=== PATIENT | male | born 1965 | race Caucasian/White ===

== ENCOUNTER 2024-04-06 14:57 | Inpatient (IN) | payer OTHER ==
[2024-04-06] MEDS ORDERED: DEXTROSE 50% SYRINGE 50 ML IVP PRN ×2 (15:30)
[2024-04-06] MEDS ORDERED: Magnesium Replacement Protocol 1 EACH MISC MISCELLANE PRN (15:30)
[2024-04-06] MEDS ORDERED: Potassium Replacement Protocol 1 EACH MISC MISCELLANE PRN (15:30)
--- NOTE | 2024-04-06 15:42 | ED ---
General Adult HPI - General Stated complaint: DKA Time Seen by Provider: 04/06/24 15:00 Source: patient, RN notes reviewed, old records reviewed - History of Present Illness Initial comments: This is a 58-year-old male who presents to the emergency department from [facility]. Patient was sent to us because he was initially brought in for altered mental status and he was found to be in DKA so they gave the patient a liter of fluid and started the patient on insulin and sent the patient to us. Patient's pH was 7.19 and bicarb was 11. Patient is unable to give any history and I am unsure if this is his baseline. - Related Data Home Medications Medication Instructions Recorded Confirmed Atorvastatin [Lipitor] 40 mg PO HS@189904/06/24 04/06/24 Cetirizine HCl [Zyrtec] 10 mg PO DAILY@69904/06/24 04/06/24 Cholecalciferol [Vitamin D3 (125 125 mcg PO HS@189904/06/24 04/06/24 Mcg = 5000 Iu)] Escitalopram [Lexapro] 20 mg PO DAILY@69904/06/24 04/06/24 Famotidine [Pepcid] 20 mg PO BID@1200,1900 PRN 04/06/24 04/06/24 Ferrous Sulfate [Iron] 325 mg PO DAILY@69904/06/24 04/06/24 Fluticasone Nasal [place] [Flonase 2 spray EA NOSTRIL DAILY@69904/06/24 04/06/24 Nasal [place]] Insulin Degludec [Tresiba 28 units SQ DAILY@69904/06/24 04/06/24 Flextouch U-200 Pen] Montelukast [Singulair] 10 mg PO DAILY@69904/06/24 04/06/24 Morphine Sulfate ER [Ms Contin] 60 mg PO BID@0700,189904/06/24 04/06/24 Pantoprazole [Protonix] 40 mg PO DAILY@69904/06/24 04/06/24 clonazePAM [KlonoPIN] 2 mg PO TID@0700,1200,1900 04/06/24 04/06/24 traZODone HCL 300 mg PO HS@189904/06/24 04/06/24 Allergies Allergy/AdvReac Type Severity Reaction Status Date / Time amitriptyline [From Elavil] Allergy Unknown Verified 04/06/24 18:53 oats Allergy Unknown Verified 04/06/24 18:53 pregabalin [From Lyrica] Allergy Unknown Verified 04/06/24 18:53 Fish Containing Products AdvReac Unknown Verified 04/06/24 18:53 [Fish] Penicillins AdvReac Nausea & Verified 04/06/24 18:53 Vomiting eggs AdvReac Unknown Uncoded 04/06/24 18:53 nuts AdvReac Unknown Uncoded 04/06/24 18:53 Review of Systems ROS Statement: Those systems with pertinent positive or pertinent negative responses have been documented in the HPI. ROS Other: All systems not noted in ROS Statement are negative. General Exam - General Exam Comments Initial Comments: GENERAL: Patient is well-developed and well-nourished. Patient is nontoxic and well- hydrated and is in mild distress. ENT: Neck is soft and supple. No significant lymphadenopathy is noted. Oropharynx is clear. Moist mucous membranes. Neck has full range of motion without eliciting any pain. EYES: The sclera were anicteric and conjunctiva were pink and moist. Extraocular movements were intact and pupils were equal round and reactive to light. Eyelids were unremarkable. PULMONARY: Unlabored respirations. Good breath sounds bilaterally. No audible rales rhonchi or wheezing was noted. CARDIOVASCULAR: There is a regular rate and rhythm without any murmurs gallops or rubs. ABDOMEN: Soft and nontender with normal bowel sounds. SKIN: Skin is clear with no lesions or rashes and otherwise unremarkable. NEUROLOGIC: Patient is alert and oriented x 1. Cranial nerves II through XII are grossly intact. Motor and sensory are also intact. Normal speech, volume and content. Symmetrical smile. MUSCULOSKELETAL: Normal extremities with adequate strength and full range of motion. LYMPHATICS: No significant lymphadenopathy is noted PSYCHIATRIC: Unable to secondary to altered mental status Course Vital Signs 04/06/24 04/06/24 15:29 16:42 Temperature 97.9 F Pulse Rate 71 70 Respiratory 18 18 Rate Blood Pressure 93/58 95/58 O2 Sat by Pulse 93 L 96 Oximetry Medical Decision Making - Medical Decision Making Was pt. sent in by a medical professional or institution (, PA, SENIOR TEST ANALYST, urgent c are, hospital, or long term...) When possible be specific @ -Patient came to us from [facility] Did you speak to anyone other than the patient for history (EMS, parent, family, police, friend...)? What history was obtained from this source @ -ER Dr. [facility] sent the patient and spoke with the ER physician at that time Did you review nursing and triage notes (agree or disagree)? Why? @ -I reviewed and agree with nursing and triage notes Were old charts reviewed (outside hosp., previous admission, EMS record, old EKG, old radiological studies, urgent care reports/EKG's, long term records)? Report findings @ -No old charts were reviewed Differential Diagnosis? @ -Differential Altered Mental Status: Hypoglycemia, DKA, hypercapnia, ETOH, overdose, CO poisoning, trauma, myxedema coma, HTN encephalopathy, infection, encephalitis, psychosis, intercranial hemorrhage, hepatic encephalopathy, meningitis, CVA, this is not meant to be an all-inclusive list EKG interpreted by me (3pts min.). @ -As above X-rays interpreted by me (1pt min.). @ -None done CT interpreted by me (1pt min.). @ -None done U/S interpreted by me (1pt. min.). @ -None done What testing was considered but not performed or refused? (CT, X-rays, U/S, labs)? Why? @ -None What meds were considered but not given or refused? Why? @ -None Did you discuss the management of the patient with other professionals ( professionals i.e. , PA, SENIOR TEST ANALYST, lab, RT, psych nurse, rn social work, handcrew foreman, teacher, house officer, supervisor case loading)? Give summary @ -I spoke with , He agreed to admit the patient. Was smoking cessation discussed for >3mins.? @ -No Was critical care preformed (if so, how long)? @ -35 minutes Were there social determinants of health that impacted care today? How? (Homelessness, low income, unemployed, alcoholism, drug addiction, transportation, low edu. Level, literacy, decrease access to med. care, [facility], rehab)? @ -No Was there de-escalation of care discussed even if they declined (Discuss DNR or withdrawal of care, Hospice)? DNR status @ -No What co-morbidities impacted this encounter? (DM, HTN, Smoking, COPD, CAD, Cancer, CVA, ARF, Chemo, Hep., AIDS, mental health diagnosis, sleep apnea, morbid obesity)? @ -None Was patient admitted / discharged? Hospital course, mention meds given and route, prescriptions, significant lab abnormalities, going to OR and other pertinent info. @ -Patient's blood sugar continues to be elevated patient was given more fluid as well as saline drip. Undiagnosed new problem with uncertain prognosis? @ -No Drug Therapy requiring intensive monitoring for toxicity (Heparin, Nitro, Insulin, Cardizem)? @ -No Were any procedures done? @ -No Diagnosis/symptom? @ -DKA Acute, or Chronic, or Acute on Chronic? @ -Acute Uncomplicated (without systemic symptoms) or Complicated (systemic symptoms)? @ -Complicated Side effects of treatment? @ -No Exacerbation, Progression, or Severe Exacerbation? @ -No Poses a threat to life or bodily function? How? (Chest pain, [place], [place], pneumonia, PE, COPD, DKA, ARF, appy, cholecystitis, CVA, Diverticulitis, Homicidal, Suicidal, threat to staff... and all critical care pts) @ -Yes this can lead to severe dehydration morbidity and/or mortality - Lab Data Lab Results 04/06/24 Range/Units 16:48 POC Glucose (mg/dL) 570 H* (70-110) mg/dL POC Glu Repairer Typewriter ID Analy Neri Disposition Clinical Impression: DKA (diabetic ketoacidosis) Disposition: ADMITTED IP TO THIS HOSP Referrals: None,Stated [Primary Care Provider] - 1-2 days Time of Disposition: 19:09
[2024-04-06 16:49] LABS: Glucose,Whole Blood 570 mg/dL (70-110)
[2024-04-06] MEDS: SODIUM CHLORIDE 0.9% 1,000 ML IV ONE (17:08)
[2024-04-06] MEDS: INSULIN REGULAR 100 UNIT in SODIUM CHLORIDE 0.9% 100 ML IV SCH (17:08)
[2024-04-06 19:43] LABS: Glucose,Whole Blood 388 mg/dL (70-110)
[2024-04-06] MEDS: SODIUM CHLORIDE 0.9% 1,000 ML IV SCH (20:15)
[2024-04-06 20:21] LABS: VBG PH 7.26 (7.31-7.41)
[2024-04-06 20:25] LABS: Glucose,Whole Blood 390 mg/dL (70-110)
[2024-04-06 20:34] LABS: African American GFR (CKD) 82 (>60 ml/min/1.73 sqM); Anion Gap 18 mmol/L; Blood Urea Nitrogen 32 mg/dL (9-20); Carbon Dioxide 21 mmol/L (22-30); Chloride 97 mmol/L (98-107); Glucose 402 mg/dL (74-99); Non-African American GFR(CKD) 71 (>60 ml/min/1.73 sqM); Potassium 4.4 mmol/L (3.5-5.1); Sodium 136 mmol/L (137-145)
[2024-04-06 21:27] LABS: Glucose,Whole Blood 314 mg/dL (70-110)
[2024-04-06 22:27] LABS: Glucose,Whole Blood 235 mg/dL (70-110)
[2024-04-06] MEDS: D5-0.45% NACL WITH KCL 20MEQ/L 1,000 ML IV SCH (22:33)
[2024-04-06 23:33] LABS: Glucose,Whole Blood 208 mg/dL (70-110)
[2024-04-07 00:28] LABS: Glucose,Whole Blood 179 mg/dL (70-110)
[2024-04-07 01:28] LABS: African American GFR (CKD) >90 (>60 ml/min/1.73 sqM); Anion Gap 9 mmol/L; Blood Urea Nitrogen 30 mg/dL (9-20); Carbon Dioxide 26 mmol/L (22-30); Chloride 102 mmol/L (98-107); Glucose 158 mg/dL (74-99); Non-African American GFR(CKD) >90 (>60 ml/min/1.73 sqM); Potassium 3.6 mmol/L (3.5-5.1); Sodium 137 mmol/L (137-145)
[2024-04-07 01:36] LABS: Glucose,Whole Blood 157 mg/dL (70-110)
[2024-04-07 02:50] LABS: Glucose,Whole Blood 118 mg/dL (70-110)
[2024-04-07] MEDS: D5-0.45% NACL WITH KCL 20MEQ/L 1,000 ML IV SCH ×2 (03:19→12:00)
[2024-04-07 07:38] LABS: Glucose,Whole Blood 356 mg/dL (70-110)
[2024-04-07] MEDS: LORATADINE 10 MG TAB PO SCH (07:43)
[2024-04-07] MEDS: MONTELUKAST 10 MG TAB PO SCH (07:43)
[2024-04-07] MEDS: PANTOPRAZOLE 40 MG TABLET PO SCH (07:43)
[2024-04-07] MEDS: INSULIN ASPART (NovoLOG) 100 UNIT/ML VIAL SQ SCH (07:44)
[2024-04-07] MEDS: ESCITALOPRAM 20 MG TAB PO SCH (08:13)
[2024-04-07] MEDS: clonazePAM 1 MG TAB PO SCH (08:18)
[2024-04-07] MEDS: FLUTICASONE NASAL 50MCG/SPRAY 16GM BTL EA NOSTRIL SCH (08:18)
[2024-04-07 08:41] LABS: Glucose,Whole Blood 337 mg/dL (70-110)
--- NOTE | 2024-04-07 08:57 | P.HPIM ---
History of Present Illness This is a pleasant 58 years old male with past medical history as below Patient was transferred from [facility] and per records patient was confused x 3 days he is diabetic and he has a visiting nurse for his infusion Patient was diagnosed with DKA and he was placed on insulin drip and IV fluid Per note patient was alert but slow to respond. Also with multiple wounds on the heel, shins with no active infection Patient currently is awake alert oriented to time place and person. He is slow to respond. He says he came from adult foster care. Patient states that he was able to walk about 1 to 2 weeks ago when I told him it looks like he has pressure ulcers in his legs he said I do not know. He complains from weakness in both lower extremities, left more than right. Also complains from generalized weakness but no double vision or slurred speech. He has PICC line in his right upper extremity, as per patient he has it for 9 days and he was getting antibiotics but he does not know for what exactly. Patient states that he was on Klonopin for many years for history of seizure. He is currently 2 mg 3 times daily. Also he is on morphine 60 mg twice daily and trazodone. Patient currently denies chest pain or dyspnea, no abdominal pain or vomiting or diarrhea. No dysuria but complains from incontinence in his urine. No headache or dizziness. He said he used to smoke till 1 week ago about 5 cigarettes/day and he was counseled to quit and he agrees. No alcohol or illicit drugs Currently vital stable and patient is afebrile Records from [place] reviewed EKG showing sinus rhythm at [address]-T abnormality especially in V3-V6. Repeat EKG in this facility showing sinus rhythm at [address]-T abnormality as well. Influenza A and type B, RSV, SARS (coronavirus) are undetected Magnesium 1.8, troponin 5.1 with reference 0-17.5. WBC is 13.5, hemoglobin 11.9. Platelet normal 246. Venous pH is low 7.19 Glucose elevated 604. Creatinine 1.5. Repeat creatinine here is within reference range 0.9 potassium 4.6. Sodium 130 AST is 10, ALT 12, total bilirubin 0.6. CT of the head without contrast showing unremarkable findings with minimal internal carotid artery calcification Chest x-ray 2 view: Chronic changes versus very small acute process Blood pressure 97/63, oxygen saturation 95%, heart rate 75 and respiratory 14. Medication at home including Tresiba insulin 28 units daily, Protonix, Lipitor, Lexapro and MS Contin 60 mg, Pepcid and trazodone 150 mg tabs 2 tablets cetirizine, ferrous sulfate, Klonopin 2 mg 3 times a day Repeat BMP today showing unremarkable BMP with BUN elevated 30 creatinine within reference range at 0.9. Glucose controlled however this morning was 356. EKG showing sinus rhythm at [address]-T changes Past Medical History Past Medical History: Diabetes Mellitus, Hyperlipidemia, Hypertension History of Any Multi-Drug Resistant Organisms: None Reported Past Surgical History: Orthopedic Surgery Additional Past Surgical History / Comment(s): femur fx sx Past Psychological History: No Psychological Hx Reported, Depression Smoking Status: Never smoker Past Alcohol Use History: Unable to Obtain Past Drug Use History: Unable to Obtain Medications and Allergies Home Medications Medication Instructions Recorded Confirmed Type Atorvastatin [Lipitor] 40 mg PO HS@19004/06/24 04/06/24 History Cetirizine HCl [Zyrtec] 10 mg PO DAILY@69904/06/24 04/06/24 History Cholecalciferol [Vitamin D3 (125 125 mcg PO HS@1900 04/06/24 04/06/24 History Mcg = 5000 Iu)] Escitalopram [Lexapro] 20 mg PO DAILY@69904/06/24 04/06/24 History Famotidine [Pepcid] 20 mg PO BID@1200,1900 PRN 04/06/24 04/06/24 History Ferrous Sulfate [Iron] 325 mg PO DAILY@69904/06/24 04/06/24 History Fluticasone Nasal [place] [Flonase 2 spray EA NOSTRIL DAILY@69904/06/24 04/06/24 History Nasal [place]] Insulin Degludec [Tresiba 28 units SQ DAILY@69904/06/24 04/06/24 History Flextouch U-200 Pen] Montelukast [Singulair] 10 mg PO DAILY@69904/06/24 04/06/24 History Morphine Sulfate ER [Ms Contin] 60 mg PO BID@0700,1900 04/06/24 04/06/24 History Pantoprazole [Protonix] 40 mg PO DAILY@69904/06/24 04/06/24 History clonazePAM [KlonoPIN] 2 mg PO TID@0700,1200,1900 04/06/24 04/06/24 History traZODone HCL 300 mg PO HS@1900 04/06/24 04/06/24 History Allergies Allergy/AdvReac Type Severity Reaction Status Date / Time amitriptyline [From Elavil] Allergy Unknown Verified 04/06/24 18:53 oats Allergy Unknown Verified 04/06/24 18:53 pregabalin [From Lyrica] Allergy Unknown Verified 04/06/24 18:53 Fish Containing Products AdvReac Unknown Verified 04/06/24 18:53 [Fish] Penicillins AdvReac Nausea & Verified 04/06/24 18:53 Vomiting eggs AdvReac Unknown Uncoded 04/06/24 18:53 nuts AdvReac Unknown Uncoded 04/06/24 18:53 Physical Exam Vitals: Vital Signs Temp Pulse Resp BP Pulse Ox 04/07/24 07:34 77 18 135/63 98 04/07/24 04:55 79 18 122/56 94 L 04/07/24 01:00 80 17 118/62 97 04/06/24 22:41 75 17 115/60 97 04/06/24 20:00 79 18 120/71 95 04/06/24 19:00 98.4 F 75 18 119/68 04/06/24 16:42 70 18 95/58 96 04/06/24 15:29 97.9 F 71 18 93/58 93 L Intake and Output 04/06/24 04/07/24 04/07/24 22:59 06:59 14:59 Intake Total 72.818 Output Total 700 Balance -700 72.818 Intake: Intake, IV Titration 72.818 Amount Insulin Regular 100 unit 72.818 In Sodium Chloride 0.9% 100 ml @ 0.1 UNITS/KG/HR 7.788 mls/hr IV .[id number] [facility] Rx#:[id number] Output: Urine 700 Other: Weight 77.111 kg GENERAL: The patient is alert and oriented x3, not in any acute distress. Well developed, well nourished. HEENT: Pupils are round and equally reacting to light. EOMI. No scleral icterus. No conjunctival pallor. Normocephalic, atraumatic. No pharyngeal erythema. No thyromegaly. CARDIOVASCULAR: S1 and S2 present. No murmurs, rubs, or gallops. PULMONARY: Chest is clear to auscultation, no wheezing , no crackles. ABDOMEN: Soft, nontender, nondistended, normoactive bowel sounds. No palpable organomegaly. MUSCULOSKELETAL: No joint swelling or deformity. -EXTREMITIES: No cyanosis, clubbing, or pedal edema. Bilateral ulcers of both heels with eschar, bilateral big toe ulcers admitted. Ri distal right leg superficial ulcers with surrounding cellulitis -Right upper extremity PICC line in place -NEUROLOGICAL: Gross neurological examination did not reveal any focal deficits. Bilateral lower extremity weakness SKIN: No rashes. no petechiae. Results CBC & Chem 7: 04/07/24 00:23 Labs: Abnormal Lab Results - Last 24 Hours (Table) 04/06/24 04/06/24 04/06/24 Range/Units 16:48 19:42 19:47 VBG pH 7.26 L (7.31-7.41) VBG HCO3 23 L (24-28) mmol/L Sodium (137-145) mmol/L Chloride (98-107) mmol/L Carbon Dioxide (22-30) mmol/L BUN (9-20) mg/dL Glucose (74-99) mg/dL POC Glucose (mg/dL) 570 H* 388 H (70-110) mg/dL Phosphorus (2.5-4.5) mg/dL 04/06/24 04/06/24 04/06/24 Range/Units 19:47 20:24 21:25 VBG pH (7.31-7.41) VBG HCO3 (24-28) mmol/L Sodium 136 L (137-145) mmol/L Chloride 97 L (98-107) mmol/L Carbon Dioxide 21 L (22-30) mmol/L BUN 32 H (9-20) mg/dL Glucose 402 H (74-99) mg/dL POC Glucose (mg/dL) 390 H 314 H (70-110) mg/dL Phosphorus (2.5-4.5) mg/dL 04/06/24 04/06/24 04/07/24 Range/Units 22:25 23:29 00:23 VBG pH (7.31-7.41) VBG HCO3 (24-28) mmol/L Sodium (137-145) mmol/L Chloride (98-107) mmol/L Carbon Dioxide (22-30) mmol/L BUN 30 H (9-20) mg/dL Glucose 158 H (74-99) mg/dL POC Glucose (mg/dL) 235 H 208 H (70-110) mg/dL Phosphorus 2.0 L (2.5-4.5) mg/dL 04/07/24 04/07/24 04/07/24 Range/Units 00:26 01:35 02:48 VBG pH (7.31-7.41) VBG HCO3 (24-28) mmol/L Sodium (137-145) mmol/L Chloride (98-107) mmol/L Carbon Dioxide (22-30) mmol/L BUN (9-20) mg/dL Glucose (74-99) mg/dL POC Glucose (mg/dL) 179 H 157 H 118 H (70-110) mg/dL Phosphorus (2.5-4.5) mg/dL 04/07/24 Range/Units 07:36 VBG pH (7.31-7.41) VBG HCO3 (24-28) mmol/L Sodium (137-145) mmol/L Chloride (98-107) mmol/L Carbon Dioxide (22-30) mmol/L BUN (9-20) mg/dL Glucose (74-99) mg/dL POC Glucose (mg/dL) 356 H (70-110) mg/dL Phosphorus (2.5-4.5) mg/dL Assessment and Plan Assessment: Confusion and altered mental status, currently improved could be metabolic/toxic encephalopathy but patient also has history of seizure Diabetic ketoacidosis Bilateral lower extremity multiple ulcers with possible cellulitis especially of the right lower extremities, but he will with eschar and both toe tips History of seizure Diabetes mellitus Hyperlipidemia Depression/anxiety Hypertension Generalized weakness Chronic pain syndrome Plan: Patient currently on insulin drip Continue with IV fluid Patient has right upper extremity PICC line. Will consult infectious disease team for further evaluation and treatment Bilateral lower extremity venous Doppler ordered Neurology consult Follow-up culture results Do swallow evaluation and insulin sliding scale as well as nutrition consult PT/OT evaluation Further recommendation based on the clinical course DVT prophylaxis: Subcutaneous heparin GI prophylaxis: Pepcid and Protonix Prognosis is guarded
[2024-04-07 09:24] LABS: Basophils # (A) 0.2 k/uL (0-0.2); Basophils % (A) 1 %; Eosinophils # (A) 0.2 k/uL (0-0.7); Eosinophils % (A) 1 %; HCT 36.8 % (39.0-53.0); HGB 11.7 gm/dL (13.0-17.5); Hypochromasia Slight; Lymphocytes % (A) 6 %; MCH 27.8 pg (25.0-35.0); MCHC 31.8 g/dL (31.0-37.0); MCV 87.2 fL (80.0-100.0); Mean Platelet Volume 6.8; Monocytes # (A) 0.3 k/uL (0-1.0); Monocytes % (A) 2 %; Neutrophils # (A) 14.6 k/uL (1.3-7.7); Neutrophils % (A) 87 %; Platelet Count 316 k/uL (150-450); RBC 4.22 m/uL (4.30-5.90); RDW 14.8 % (11.5-15.5); WBC 16.7 k/uL (3.8-10.6)
[2024-04-07 09:25] LABS: VBG PH 7.39 (7.31-7.41)
[2024-04-07 09:38] LABS: ALT 15 U/L (4-49); AST 16 U/L (17-59); African American GFR (CKD) >90 (>60 ml/min/1.73 sqM); Albumin 3.3 g/dL (3.5-5.0); Alkaline Phosphatase 137 U/L (38-126); Anion Gap 15 mmol/L; Bilirubin, Delta 0.4 mg/dL (0.0-0.2); Bilirubin,Unconjugated 0.5 mg/dL (0.0-1.1); Blood Urea Nitrogen 25 mg/dL (9-20); Carbon Dioxide 19 mmol/L (22-30); Chloride 100 mmol/L (98-107); Glucose 294 mg/dL (74-99); Non-African American GFR(CKD) >90 (>60 ml/min/1.73 sqM); Phosphorus 1.6 mg/dL (2.5-4.5); Potassium 3.7 mmol/L (3.5-5.1); Sodium 134 mmol/L (137-145); Total Bilirubin 0.9 mg/dL (0.2-1.3); Total Protein 6.8 g/dL (6.3-8.2)
[2024-04-07] MEDS: MORPHINE SULFATE ER 30 MG TABLET PO SCH (09:43)
--- NOTE | 2024-04-07 11:12 | CT ---
EXAMINATION TYPE: CT brain wo con DATE OF EXAM: 04/07/2024 10:51 AM COMPARISON: None. CLINICAL INDICATION: Male, 58 years old with history of ams, AMS TECHNIQUE: Brain: Axial CT images of the brain were obtained with coronal and sagittal reformats created and rev iewed. Contrast used: None. Oral contrast used: None. CT DLP: 1201.6 mGycm, Automated exposure control for dose reduction was used. FINDINGS: Brain: Extra-axial spaces: No abnormal extra-axial fluid collections. Ventricular system: Within normal limits Cerebral parenchyma: No acute intraparenchymal hemorrhage or mass effect. The chicas-white junction is well differentiated. Cerebellum: Unremarkable. Mass effect: No evidence of midline shift. Intracranial vasculature: unremarkable Soft tissues: Normal. Calvarium/osseous structures: No depressed skull fracture. Paranasal sinuses and mastoid air cells: Mild scattered paranasal sinus disease. Visualized orbits: Orbital contents are intact. IMPRESSION: No acute intracranial process. [facility], , 04/07/2024 11:10 AM
[2024-04-07 11:13] LABS: Glucose,Whole Blood 331 mg/dL (70-110)
--- NOTE | 2024-04-07 12:04 | US ---
EXAMINATION TYPE: US venous doppler duplex LE BI DATE OF EXAM: 04/07/2024 8:49 AM COMPARISON: NONE CLINICAL INDICATION: Male, 58 years old with history of leg swelling; , Pain TECHNIQUE: The lower extremity deep venous system is examined utilizing real time linear array sonog tia with graded compression, color doppler sonography, and spectral doppler. SIDE PERFORMED: Bilateral FINDINGS: VESSELS IMAGED: Common Femoral Vein Deep Femoral Vein Greater Saphenous Vein * Femoral Vein Popliteal Vein Small Saphenous Vein * Proximal Calf Veins (* superficial vessels) Right Leg: Negative for DVT, Color Doppler imaging shows patency of the vessels. Spectral waveforms are within normal limits. Left Leg: Negative for DVT, Color Doppler imaging shows patency of the vessels. Spectral waveforms a re within normal limits. IMPRESSION: No ultrasound evidence for deep venous thrombosis. [facility], , 04/07/2024 12:02 PM
[2024-04-07 13:34] LABS: Glucose,Whole Blood 434 mg/dL (70-110)
--- NOTE | 2024-04-07 13:36 | P.CNNES ---
History of Present Illness Consult date: 04/07/24 Requesting physician: Daniel E Sheet Reason for Consult: ams hx of seizure History of Present Illness: This is a 58-year-old gentleman who was transferred from outside hospital for escalation of care for diabetic ketoacidosis. It seems that the patient presented to outside hospital at [place] and he presented with altered mental status and was found to be in DKA the patient was started on insulin drip. His pH was 7.19 and bicarbonate was 11. Patient stated that he has diabetes and it is uncontrolled and he does not know why. He also has a peripheral neuropathy from his diabetes as well as he has skin infection in the right lower extremity he has been having. Patient denied any history of seizure to me and I asked him that question multiple times in the heat stated that he does not have seizures. It seems per the primary team the patient notified him that he has seizure and the primary team feels that he is not giving consistent history. Patient states that he is on Klonopin for his neuropathy. Some of work-up during this hospital visit consisted of: Initial blood sugar in our facility POC is 570 and now in 300's. Ammonia <9 TSH: 0.[address] head: Negative for acute process. I personally reviewed CT and agree with report. Review of Systems As per HPI. Past Medical History Past Medical History: Diabetes Mellitus, Hyperlipidemia, Hypertension History of Any Multi-Drug Resistant Organisms: None Reported Past Surgical History: Orthopedic Surgery Additional Past Surgical History / Comment(s): femur fx sx Past Psychological History: No Psychological Hx Reported, Depression Smoking Status: Never smoker Past Alcohol Use History: Unable to Obtain Past Drug Use History: Unable to Obtain Medications and Allergies Home Medications Medication Instructions Recorded Confirmed Type Atorvastatin [Lipitor] 40 mg PO HS@189904/06/24 04/06/24 History Cetirizine HCl [Zyrtec] 10 mg PO DAILY@0704/06/24 04/06/24 History Cholecalciferol [Vitamin D3 (125 125 mcg PO HS@189904/06/24 04/06/24 History Mcg = 5000 Iu)] Escitalopram [Lexapro] 20 mg PO DAILY@0704/06/24 04/06/24 History Famotidine [Pepcid] 20 mg PO BID@1200,1900 PRN 04/06/24 04/06/24 History Ferrous Sulfate [Iron] 325 mg PO DAILY@0700 04/06/24 04/06/24 History Fluticasone Nasal [place] [Flonase 2 spray EA NOSTRIL DAILY@0700 04/06/24 04/06/24 History Nasal [place]] Insulin Degludec [Tresiba 28 units SQ DAILY@0700 04/06/24 04/06/24 History Flextouch U-200 Pen] Montelukast [Singulair] 10 mg PO DAILY@0700 04/06/24 04/06/24 History Morphine Sulfate ER [Ms Contin] 60 mg PO BID@0700,1900 04/06/24 04/06/24 History Pantoprazole [Protonix] 40 mg PO DAILY@0700 04/06/24 04/06/24 History clonazePAM [KlonoPIN] 2 mg PO TID@0700,1200,1900 04/06/24 04/06/24 History traZODone HCL 300 mg PO HS@1900 04/06/24 04/06/24 History Allergies Allergy/AdvReac Type Severity Reaction Status Date / Time amitriptyline [From Elavil] Allergy Unknown Verified 04/06/24 18:53 oats Allergy Unknown Verified 04/06/24 18:53 pregabalin [From Lyrica] Allergy Unknown Verified 04/06/24 18:53 Fish Containing Products AdvReac Unknown Verified 04/06/24 18:53 [Fish] Penicillins AdvReac Nausea & Verified 04/06/24 18:53 Vomiting eggs AdvReac Unknown Uncoded 04/06/24 18:53 nuts AdvReac Unknown Uncoded 04/06/24 18:53 Physical Examination - Vital Signs Vital Signs: Vital Signs Temp Pulse Resp BP Pulse Ox 04/07/24 11:09 70 16 113/58 97 04/07/24 10:52 74 16 123/64 96 04/07/24 09:33 74 18 127/69 04/07/24 07:34 77 18 135/63 98 04/07/24 04:55 79 18 122/56 94 L 04/07/24 01:00 80 17 118/62 97 04/06/24 22:41 75 17 115/60 97 04/06/24 20:00 79 18 120/71 95 04/06/24 19:00 98.4 F 75 18 119/68 04/06/24 16:42 70 18 95/58 96 04/06/24 15:29 97.9 F 71 18 93/58 93 L Intake and Output 04/06/24 04/07/24 04/07/24 22:59 06:59 14:59 Intake Total 72.818 Output Total 700 Balance -700 72.818 Intake: Intake, IV Titration 72.818 Amount Insulin Regular 100 unit 72.818 In Sodium Chloride 0.9% 100 ml @ 0.1 UNITS/KG/HR 7.788 mls/hr IV .[id number] [facility] Rx#:[id number] Output: Urine 700 Other: Weight 77.111 kg General: Lying in bed and is not in acute distress. Neuro: The patient was sleepy initially. Oriented to self correctly stated he is in the hospital. Regarding and that time he stated that he does not know since he just woke up. He is following simple commands appropriately. He is able to state the current state. No aphasia. The pupils are round about 3 mm and reactive to light. Visual mahmood are full to confrontation. Extraocular is intact no nystagmus. Normal facial sensation to touch. No facial weakness. No dysarthria. Tongue is midline moves [id number] with any difficulty Motor the strength in the uppers are 5 out of 5. Also he had good strength in the lowers but somewhat limited in the right lower since he had appears cellulitis in the distal right lower extremity. Sensation is normal to touch throughout Cerebellar is normal [id number]. Reflexes is 2+ in the uppers while lowers is 1+. Plantars are mute. Results - Laboratory Findings CBC and BMP: 04/07/24 09:09 04/07/24 09:09 Abnormal Lab Findings: Abnormal Labs 04/06/24 04/06/24 04/06/24 16:48 19:42 19:47 WBC RBC Hgb Hct Neutrophils # VBG pH 7.26 L VBG pCO2 VBG HCO3 23 L Sodium Chloride Carbon Dioxide BUN Glucose POC Glucose (mg/dL) 570 H* 388 H Phosphorus Delta Bilirubin AST Alkaline Phosphatase Albumin 04/06/24 04/06/24 04/06/24 19:47 20:24 21:25 WBC RBC Hgb Hct Neutrophils # VBG pH VBG pCO2 VBG HCO3 Sodium 136 L Chloride 97 L Carbon Dioxide 21 L BUN 32 H Glucose 402 H POC Glucose (mg/dL) 390 H 314 H Phosphorus Delta Bilirubin AST Alkaline Phosphatase Albumin 04/06/24 04/06/24 04/07/24 22:25 23:29 00:23 WBC RBC Hgb Hct Neutrophils # VBG pH VBG pCO2 VBG HCO3 Sodium Chloride Carbon Dioxide BUN 30 H Glucose 158 H POC Glucose (mg/dL) 235 H 208 H Phosphorus 2.0 L Delta Bilirubin AST Alkaline Phosphatase Albumin 04/07/24 04/07/24 04/07/24 00:26 01:35 02:48 WBC RBC Hgb Hct Neutrophils # VBG pH VBG pCO2 VBG HCO3 Sodium Chloride Carbon Dioxide BUN Glucose POC Glucose (mg/dL) 179 H 157 H 118 H Phosphorus Delta Bilirubin AST Alkaline Phosphatase Albumin 04/07/24 04/07/24 04/07/24 07:36 08:40 09:09 WBC 16.7 H RBC 4.22 L Hgb 11.7 L Hct 36.8 L Neutrophils # 14.6 H VBG pH VBG pCO2 VBG HCO3 Sodium Chloride Carbon Dioxide BUN Glucose POC Glucose (mg/dL) 356 H 337 H Phosphorus Delta Bilirubin AST Alkaline Phosphatase Albumin 04/07/24 04/07/24 04/07/24 09:09 09:09 11:11 WBC RBC Hgb Hct Neutrophils # VBG pH VBG pCO2 34 L VBG HCO3 21 L Sodium 134 L Chloride Carbon Dioxide 19 L BUN 25 H Glucose 294 H POC Glucose (mg/dL) 331 H Phosphorus 1.6 L Delta Bilirubin 0.4 H AST 16 L Alkaline Phosphatase 137 H Albumin 3.3 L Assessment and Plan Assessment: This is a 58-year-old gentleman who initially presented to outside hospital because of altered mental status and was found to be in DKA and result he transfered to our facility for escalation of care. Neurology is consulted because of altered mental status and questionable history of seizure according to the primary team. Patient declined that he had history of seizure on multiple questioning. Altered mental status is due to metabolic encephalopathy. CT of the head is unremarkable Diabetic ketoacidosis Cellulitis in the right lower extremity Diabetes mellitus History of peripheral neuropathy. Plan: I ordered a routine EEG and I do not think the patient has any current seizure or discharges. Again patient states that he does not have any underlying history of seizures on multiple attempts. He states that he is on Klonopin for his neuropathy but Klonopin and trazodone can also worsen his confusion and I will defer that modification of medication to his primary physician. Ordered vitamin B12. Infection disease is consulted for his lower extremity ulcer and cellulitis Will defer the rest of the medical management to primary and other specialist Plan discussed with the patient and the primary team Thank for the consultation If the workup above is complete and it is unremarkable then no further neurological workup. Time with Patient: Greater than 30
[2024-04-07] MEDS: INSULIN DETEMIR (LEVEMIR) 100 UNIT/ML SYR SQ ONE (14:25)
[2024-04-07 15:06] LABS: Glucose,Whole Blood 436 mg/dL (70-110)
[2024-04-07 17:17] LABS: Glucose,Whole Blood 380 mg/dL (70-110)
[2024-04-07] MEDS: HEPARIN SODIUM,PORCINE 5,000 UNIT/ML 1 ML VIAL SQ SCH (17:26)
[2024-04-07] MEDS: ATORVASTATIN 40 MG TAB PO SCH (18:51)
[2024-04-07] MEDS: traZODone HCL 100 MG TAB PO SCH (20:42)
--- NOTE | 2024-04-07 21:15 | P.CONS ---
History of Present Illness - Reason for Consult Consult date: 04/07/24 Has a PICC line, lower extremity ulcer Requesting physician: Daniel E Sheet - Chief Complaint Mental status changes x 1 day - History of Present Illness Patient is a 58-year-old male with a past medical history significant for diabetes mellitus hypertension hyperlipidemia history of diabetic foot ulcers involving bilateral big toes who was initially evaluated at [facility] for mental status changes noted to be in DKA for the patient had been transferred to [facility] for further evaluation patient noted to have a PICC line in his arm and apparently was getting Eligard in the outpatient setting without very clear information for which ID was consulted for further management of the same patient is not able to tell me what type of antibiotic he was receiving and for which condition that he did mention for the lower extremity wound is unclear about the name of the antibiotics I was able to call his caregiver at the. Given the patient is living and was told that he was getting daptomycin for 10 days through an ID physician from [place] and the patient has completed his IV antibiotic as of 03/26/2024 however the PICC line has not been removed for unknown reason patient currently denies having any fever or any chills he is breathing comfortably no chest pain shortness of breath or cough no nausea no vomiting abdominal pain or diarrhea he denies any pain to bilateral extremity also Review of Systems Positive points has been mentioned in HPI complete review could not be obtained because of his underlying mental status Past Medical History Past Medical History: Diabetes Mellitus, Hyperlipidemia, Hypertension History of Any Multi-Drug Resistant Organisms: None Reported Past Surgical History: Orthopedic Surgery Additional Past Surgical History / Comment(s): femur fx sx Past Psychological History: No Psychological Hx Reported, Depression Smoking Status: Never smoker Past Alcohol Use History: Unable to Obtain Past Drug Use History: Unable to Obtain Medications and Allergies Home Medications Medication Instructions Recorded Confirmed Type Atorvastatin [Lipitor] 40 mg PO HS@189904/06/24 04/06/24 History Cetirizine HCl [Zyrtec] 10 mg PO DAILY@69904/06/24 04/06/24 History Cholecalciferol [Vitamin D3 (125 125 mcg PO HS@189904/06/24 04/06/24 History Mcg = 5000 Iu)] Escitalopram [Lexapro] 20 mg PO DAILY@69904/06/24 04/06/24 History Famotidine [Pepcid] 20 mg PO BID@1200,1900 PRN 04/06/24 04/06/24 History Ferrous Sulfate [Iron] 325 mg PO DAILY@0700 04/06/24 04/06/24 History Fluticasone Nasal [place] [Flonase 2 spray EA NOSTRIL DAILY@0700 04/06/24 04/06/24 History Nasal [place]] Insulin Degludec [Tresiba 28 units SQ DAILY@0700 04/06/24 04/06/24 History Flextouch U-200 Pen] Montelukast [Singulair] 10 mg PO DAILY@0700 04/06/24 04/06/24 History Morphine Sulfate ER [Ms Contin] 60 mg PO BID@0700,1900 04/06/24 04/06/24 History Pantoprazole [Protonix] 40 mg PO DAILY@0700 04/06/24 04/06/24 History clonazePAM [KlonoPIN] 2 mg PO TID@0700,1200,1900 04/06/24 04/06/24 History traZODone HCL 300 mg PO HS@0 04/06/24 04/06/24 History Allergies Allergy/AdvReac Type Severity Reaction Status Date / Time amitriptyline [From Elavil] Allergy Unknown Verified 04/06/24 18:53 oats Allergy Unknown Verified 04/06/24 18:53 pregabalin [From Lyrica] Allergy Unknown Verified 04/06/24 18:53 Fish Containing Products AdvReac Unknown Verified 04/06/24 18:53 [Fish] Penicillins AdvReac Nausea & Verified 04/06/24 18:53 Vomiting eggs AdvReac Unknown Uncoded 04/06/24 18:53 nuts AdvReac Unknown Uncoded 04/06/24 18:53 Physical Exam Vitals: Vital Signs Temp Pulse Resp BP Pulse Ox 04/07/24 09:33 74 18 127/69 04/07/24 07:34 77 18 135/63 98 04/07/24 04:55 79 18 122/56 94 L 04/07/24 01:00 80 17 118/62 97 04/06/24 22:41 75 17 115/60 97 04/06/24 20:00 79 18 120/71 95 04/06/24 19:00 98.4 F 75 18 119/68 04/06/24 16:42 70 18 95/58 96 04/06/24 15:29 97.9 F 71 18 93/58 93 L Intake and Output 04/06/24 04/07/24 04/07/24 22:59 06:59 14:59 Intake Total 72.818 Output Total 700 Balance -700 72.818 Intake: Intake, IV Titration 72.818 Amount Insulin Regular 100 unit 72.818 In Sodium Chloride 0.9% 100 ml @ 0.1 UNITS/KG/HR 7.788 mls/hr IV .[id number] [facility] Rx#:[id number] Output: Urine 700 Other: Weight 77.111 kg GENERAL DESCRIPTION: Middle-aged male lying in bed, no distress. No tachypnea or accessory muscle of respiration use. HEENT: Shows Pallor , no scleral icterus. Oral mucous membrane is dry. No pha ryngeal erythema or thrush NECK: Trachea central, no thyromegaly. LUNGS: Unlabored breathing. Clear to auscultation anteriorly. No wheeze or crackle. HEART: S1, S2, regular rate and rhythm. No loud murmur ABDOMEN: Soft, no tenderness , guarding or rigidity, no organomegaly EXTREMITIES: Bilateral big toes did have superficial ulceration with no slough tissue or redness and laceration to the right lower extremity but no slough tissue no surrounding redness SKIN: No rash, no masses palpable. NEUROLOGICAL: The patient is awake, but pleasantly confused, mood and affect normal. Results CBC & Chem 7: 04/07/24 09:09 04/07/24 09:09 Labs: Abnormal Lab Results - Last 24 Hours (Table) 04/06/24 04/06/24 04/06/24 Range/Units 16:48 19:42 19:47 WBC (3.8-10.6) k/uL RBC (4.30-5.90) m/uL Hgb (13.0-17.5) gm/dL Hct (39.0-53.0) % Neutrophils # (1.3-7.7) k/uL VBG pH 7.26 L (7.31-7.41) VBG pCO2 (37-51) mmHg VBG HCO3 23 L (24-28) mmol/L Sodium (137-145) mmol/L Chloride (98-107) mmol/L Carbon Dioxide (22-30) mmol/L BUN (9-20) mg/dL Glucose (74-99) mg/dL POC Glucose (mg/dL) 570 H* 388 H (70-110) mg/dL Phosphorus (2.5-4.5) mg/dL Delta Bilirubin (0.0-0.2) mg/dL AST (17-59) U/L Alkaline Phosphatase (38-126) U/L Albumin (3.5-5.0) g/dL 04/06/24 04/06/24 04/06/24 Range/Units 19:47 20:24 21:25 WBC (3.8-10.6) k/uL RBC (4.30-5.90) m/uL Hgb (13.0-17.5) gm/dL Hct (39.0-53.0) % Neutrophils # (1.3-7.7) k/uL VBG pH (7.31-7.41) VBG pCO2 (37-51) mmHg VBG HCO3 (24-28) mmol/L Sodium 136 L (137-145) mmol/L Chloride 97 L (98-107) mmol/L Carbon Dioxide 21 L (22-30) mmol/L BUN 32 H (9-20) mg/dL Glucose 402 H (74-99) mg/dL POC Glucose (mg/dL) 390 H 314 H (70-110) mg/dL Phosphorus (2.5-4.5) mg/dL Delta Bilirubin (0.0-0.2) mg/dL AST (17-59) U/L Alkaline Phosphatase (38-126) U/L Albumin (3.5-5.0) g/dL 04/06/24 04/06/24 04/07/24 Range/Units 22:25 23:29 00:23 WBC (3.8-10.6) k/uL RBC (4.30-5.90) m/uL Hgb (13.0-17.5) gm/dL Hct (39.0-53.0) % Neutrophils # (1.3-7.7) k/uL VBG pH (7.31-7.41) VBG pCO2 (37-51) mmHg VBG HCO3 (24-28) mmol/L Sodium (137-145) mmol/L Chloride (98-107) mmol/L Carbon Dioxide (22-30) mmol/L BUN 30 H (9-20) mg/dL Glucose 158 H (74-99) mg/dL POC Glucose (mg/dL) 235 H 208 H (70-110) mg/dL Phosphorus 2.0 L (2.5-4.5) mg/dL Delta Bilirubin (0.0-0.2) mg/dL AST (17-59) U/L Alkaline Phosphatase (38-126) U/L Albumin (3.5-5.0) g/dL 04/07/24 04/07/24 04/07/24 Range/Units 00:26 01:35 02:48 WBC (3.8-10.6) k/uL RBC (4.30-5.90) m/uL Hgb (13.0-17.5) gm/dL Hct (39.0-53.0) % Neutrophils # (1.3-7.7) k/uL VBG pH (7.31-7.41) VBG pCO2 (37-51) mmHg VBG HCO3 (24-28) mmol/L Sodium (137-145) mmol/L Chloride (98-107) mmol/L Carbon Dioxide (22-30) mmol/L BUN (9-20) mg/dL Glucose (74-99) mg/dL POC Glucose (mg/dL) 179 H 157 H 118 H (70-110) mg/dL Phosphorus (2.5-4.5) mg/dL Delta Bilirubin (0.0-0.2) mg/dL AST (17-59) U/L Alkaline Phosphatase (38-126) U/L Albumin (3.5-5.0) g/dL 04/07/24 04/07/24 04/07/24 Range/Units 07:36 08:40 09:09 WBC 16.7 H (3.8-10.6) k/uL RBC 4.22 L (4.30-5.90) m/uL Hgb 11.7 L (13.0-17.5) gm/dL Hct 36.8 L (39.0-53.0) % Neutrophils # 14.6 H (1.3-7.7) k/uL VBG pH (7.31-7.41) VBG pCO2 (37-51) mmHg VBG HCO3 (24-28) mmol/L Sodium (137-145) mmol/L Chloride (98-107) mmol/L Carbon Dioxide (22-30) mmol/L BUN (9-20) mg/dL Glucose (74-99) mg/dL POC Glucose (mg/dL) 356 H 337 H (70-110) mg/dL Phosphorus (2.5-4.5) mg/dL Delta Bilirubin (0.0-0.2) mg/dL AST (17-59) U/L Alkaline Phosphatase (38-126) U/L Albumin (3.5-5.0) g/dL 04/07/24 04/07/24 Range/Units 09:09 09:09 WBC (3.8-10.6) k/uL RBC (4.30-5.90) m/uL Hgb (13.0-17.5) gm/dL Hct (39.0-53.0) % Neutrophils # (1.3-7.7) k/uL VBG pH (7.31-7.41) VBG pCO2 34 L (37-51) mmHg VBG HCO3 21 L (24-28) mmol/L Sodium 134 L (137-145) mmol/L Chloride (98-107) mmol/L Carbon Dioxide 19 L (22-30) mmol/L BUN 25 H (9-20) mg/dL Glucose 294 H (74-99) mg/dL POC Glucose (mg/dL) (70-110) mg/dL Phosphorus 1.6 L (2.5-4.5) mg/dL Delta Bilirubin 0.4 H (0.0-0.2) mg/dL AST 16 L (17-59) U/L Alkaline Phosphatase 137 H (38-126) U/L Albumin 3.3 L (3.5-5.0) g/dL Assessment and Plan (1) Diabetic foot ulcers Current Visit: Yes Status: Acute Code(s): E11.621 - TYPE 2 DIABETES MELLITUS WITH FOOT ULCER; L97.509 - NON-PRESSURE CHRONIC ULCER OTH PRT UNSP FOOT W UNSP SEVERITY SNOMED Code(s): 993878676 (2) Leukocytosis Current Visit: Yes Status: Acute Code(s): D72.829 - ELEVATED WHITE BLOOD CELL COUNT, UNSPECIFIED SNOMED Code(s): 341923968 Plan: 1patient with bilateral diabetic foot ulcers but involving bilateral big toes right lower extremity and left heel area on these wounds currently clean without any soft tissue significant surrounding redness or foul-smelling drainage recommend local wound care with a dry Aquacel dressing change q. 48-hour 2patient did have a PICC line however apparently the patient has completed his course of IV daptomycin as of 03/26/2024 unfortunately the PICC line was not discontinued as it should have been after completion of IV antibiotic therapy, if there is need for IV line during this admission he can be kept however esau uld be discontinued on discharge 3leukocytosis could be reactive to his DKA and will monitor closely. We will follow on clinical condition and cultures to further adjust medication if needed Thank you for this consultation we will follow the patient along with you Dictation was produced using [employer] dictation software. please excuse any grammatical, word or spelling errors. Time with Patient: Greater than 30
[2024-04-07 22:04] LABS: Glucose,Whole Blood 268 mg/dL (70-110)
--- NOTE | 2024-04-08 00:35 | EEG ---
ELECTROENCEPHALOGRAM REPORT CLINICAL HISTORY: This is a 58-year-old gentleman with altered mental status. The video EEG is obtained to evaluate for seizure epileptiform activity. RELEVANT MEDICATION: 1. Trazodone. 2. Klonopin. EEG TYPE: This is a routine 21 channel EEG with video using the 10/20 electrode placement system. DESCRIPTION: Wakefulness, drowsiness, and stage 2 sleep architecture is noted. The background consists of [id number] voltage of 9 to 10 hertz activity that is somewhat poorly modulated and sustained. There is diffuse excessive beta activity which seems during the stage 2 sleep architecture. There is no focal slowing. Interictal and ictal is none. ACTIVATION PROCEDURE: Photic stimulation and hyperventilation is not performed. CLINICAL INTERPRETATION: This is a normal routine EEG during awake, drowsy, and stage 2 sleep. There is no focal slowing, epileptiform discharges, or seizures on the EEG. A normal routine EEG does not rule out underlying epilepsy. Clinical correlation is recommended. COTY / VISHNU: [id number] /
[2024-04-08 06:16] LABS: Glucose,Whole Blood 183 mg/dL (70-110)
[2024-04-08] MEDS: INSULIN DETEMIR (LEVEMIR) 100 UNIT/ML SYR SQ SCH (06:41)
[2024-04-08 07:00] LABS: African American GFR (CKD) >90 (>60 ml/min/1.73 sqM); Anion Gap 9 mmol/L; Blood Urea Nitrogen 17 mg/dL (9-20); Calcium 8.5 mg/dL (8.4-10.2); Carbon Dioxide 22 mmol/L (22-30); Chloride 104 mmol/L (98-107); Glucose 174 mg/dL (74-99); Non-African American GFR(CKD) >90 (>60 ml/min/1.73 sqM); Potassium 3.3 mmol/L (3.5-5.1); Sodium 135 mmol/L (137-145)
[2024-04-08] MEDS ORDERED: INSULIN DETEMIR (LEVEMIR) 100 UNIT/ML SYR SQ SCH (07:00)
[2024-04-08 07:18] LABS: C Reactive Protein 14.4 mg/dL (<1.0)
[2024-04-08 07:52] LABS: Basophils # (A) 0.1 k/uL (0-0.2); Basophils % (A) 1 %; Eosinophils # (A) 0.2 k/uL (0-0.7); Eosinophils % (A) 2 %; HCT 34.6 % (39.0-53.0); HGB 11.1 gm/dL (13.0-17.5); Hypochromasia Slight; Lymphocytes % (A) 9 %; MCH 28.1 pg (25.0-35.0); MCHC 32.2 g/dL (31.0-37.0); MCV 87.2 fL (80.0-100.0); Mean Platelet Volume 7.1; Monocytes # (A) 0.6 k/uL (0-1.0); Monocytes % (A) 5 %; Neutrophils % (A) 79 %; Platelet Count 274 k/uL (150-450); RBC 3.97 m/uL (4.30-5.90); RDW 14.9 % (11.5-15.5); WBC 11.4 k/uL (3.8-10.6)
[2024-04-08 11:19] LABS: Glucose,Whole Blood 281 mg/dL (70-110)
--- NOTE | 2024-04-08 12:45 | P.PN ---
Subjective Progress Note Date: 04/08/24 I am following-up with patient and he continues to state he does not have history of seizure. He feels somewhat better. He stated he talked to so many people and was asked the same questions. Objective - Vital Signs Vital signs: Vital Signs Temp 98.1 F 04/08/24 08:00 Pulse 77 04/08/24 08:00 Resp 18 04/08/24 08:00 BP 115/53 04/08/24 08:00 Pulse Ox 96 04/08/24 08:00 FiO2 Intake & Output 04/07/24 04/08/24 04/08/24 18:59 06:59 18:59 Intake Total 1440 Output Total 600 600 Balance 840 -600 Weight 75 kg 72 kg Intake: Intake, IV Titration 1200 Amount Sodium Chloride 0.9% 1, 1200 000 ml @ 200 mls/hr IV . Q5H [facility] Rx#:[id number] Oral 240 Output: Urine 600 600 Other: Voiding Method Urinal - Exam General: Lying in bed and is not in acute distress. Neuro: The patient is drowsy but is awakeable to voice. He seems more awakeable today compared to yestereday. Is oriented to self and place. Is following simple commands. No aphasia. No facial weakness. No dysarthria. Motor: Lifting upper extremities above gravity and seems equal. Limitation in the right lower because of his cellulitis but otherwise lifting lowers above gravity equally. Some of work-up during this hospital visit consisted of: Initial blood sugar in our facility POC is 570 and now in 300's. Ammonia <9 TSH: 0.516 Phosphorous is 1.6 B12: 2469 HbA1c: 127 CT head: Negative for acute process. I personally reviewed CT and agree with report. Routine EEG: Normal. - Labs CBC & Chem 7: 04/08/24 06:21 04/08/24 06:21 Labs: Abnormal Lab Results - Last 24 Hours (Table) 04/07/24 04/07/24 04/07/24 Range/Units 09:09 09:09 10:31 WBC (3.8-10.6) k/uL RBC (4.30-5.90) m/uL Hgb (13.0-17.5) gm/dL Hct (39.0-53.0) % Neutrophils # (1.3-7.7) k/uL Sodium (137-145) mmol/L Potassium (3.5-5.1) mmol/L Glucose (74-99) mg/dL POC Glucose (mg/dL) (70-110) mg/dL Hemoglobin A1c 12.7 H (<=6.0) % C-Reactive Protein (<1.0) mg/dL Vitamin B12 2469.0 H (200.0-944.0) pg/mL Procalcitonin 0.52 H (0.02-0.50) ng/mL 04/07/24 04/07/24 04/07/24 Range/Units 13:32 15:05 17:15 WBC (3.8-10.6) k/uL RBC (4.30-5.90) m/uL Hgb (13.0-17.5) gm/dL Hct (39.0-53.0) % Neutrophils # (1.3-7.7) k/uL Sodium (137-145) mmol/L Potassium (3.5-5.1) mmol/L Glucose (74-99) mg/dL POC Glucose (mg/dL) 434 H 436 H 380 H (70-110) mg/dL Hemoglobin A1c (<=6.0) % C-Reactive Protein (<1.0) mg/dL Vitamin B12 (200.0-944.0) pg/mL Procalcitonin (0.02-0.50) ng/mL 04/07/24 04/08/24 04/08/24 Range/Units 22:02 06:12 06:21 WBC 11.4 H (3.8-10.6) k/uL RBC 3.97 L (4.30-5.90) m/uL Hgb 11.1 L (13.0-17.5) gm/dL Hct 34.6 L (39.0-53.0) % Neutrophils # 9.0 H (1.3-7.7) k/uL Sodium (137-145) mmol/L Potassium (3.5-5.1) mmol/L Glucose (74-99) mg/dL POC Glucose (mg/dL) 268 H 183 H (70-110) mg/dL Hemoglobin A1c (<=6.0) % C-Reactive Protein (<1.0) mg/dL Vitamin B12 (200.0-944.0) pg/mL Procalcitonin (0.02-0.50) ng/mL 04/08/24 04/08/24 Range/Units 06:21 11:15 WBC (3.8-10.6) k/uL RBC (4.30-5.90) m/uL Hgb (13.0-17.5) gm/dL Hct (39.0-53.0) % Neutrophils # (1.3-7.7) k/uL Sodium 135 L (137-145) mmol/L Potassium 3.3 L (3.5-5.1) mmol/L Glucose 174 H (74-99) mg/dL POC Glucose (mg/dL) 281 H (70-110) mg/dL Hemoglobin A1c (<=6.0) % C-Reactive Protein 14.4 H (<1.0) mg/dL Vitamin B12 (200.0-944.0) pg/mL Procalcitonin (0.02-0.50) ng/mL Assessment and Plan Assessment: This is a 58-year-old gentleman who initially presented to outside hospital because of altered mental status and was found to be in DKA and result he transfered to our facility for escalation of care. Neurology is consulted because of altered mental status and questionable history of seizure according to the primary team. Patient denied that he had history of seizure on multiple questioning. Altered mental status is due to metabolic encephalopathy. CT of the head is unremarkable. Routine EEG is normal. Patient continues to deny he has history of seizure. Diabetic ketoacidosis Cellulitis in the right lower extremity Diabetes mellitus History of peripheral neuropathy. Plan: He states that he is on Klonopin for his neuropathy but Klonopin and trazodone can also worsen his confusion and I will defer that modification of medication to his primary physician. Infection disease is consulted for his lower extremity ulcer and cellulitis Will defer the rest of the medical management to primary and other specialist There is no further neurological workup. Will sign off. Please reconsult if needed. Time with Patient: Less than 30
--- NOTE | 2024-04-08 15:10 | P.PN ---
Subjective Progress Note Date: 04/08/24 Principal diagnosis: Reason for follow-up is bilateral diabetic foot ulcer Patient is a 58-year-old male with a past medical history significant for diabetes mellitus hypertension hyperlipidemia history of diabetic foot ulcers involving bilateral big toes has been into the hospital for DKA ID consulted as he did have a PICC line and bilateral diabetic foot ulcer. On today's evaluation that is 04/08/2024, the patient continues to be afebrile, the patient is on room air and breathing comfortably, the Pt denies having any chest pain or cough, the patient denies having any abdominal pain no vomiting or any diarrhea and denies any worsening pain to bilateral lower extremity wound. The patient white count is down to 11.4 and creatinine 0.73 Objective - Vital Signs Vital signs: Vital Signs Temp 98.1 F 04/08/24 08:00 Pulse 77 04/08/24 08:00 Resp 18 04/08/24 08:00 BP 115/53 04/08/24 08:00 Pulse Ox 96 04/08/24 08:00 FiO2 Intake & Output 04/07/24 04/08/24 04/08/24 18:59 06:59 18:59 Intake Total 1440 Output Total 600 Balance 840 Weight 75 kg 72 kg Intake: Intake, IV Titration 1200 Amount Sodium Chloride 0.9% 1, 1200 000 ml @ 200 mls/hr IV . Q5H [facility] Rx#:[id number] Oral 240 Output: Urine 600 Other: Voiding Method Urinal - Exam GENERAL DESCRIPTION: Middle-age male lying in bed in no distress RESPIRATORY SYSTEM: Unlabored breathing , decreased breath sounds at bases HEART: S1 S2 regular rate and rhythm , ABDOMEN: Soft , no tenderness EXTREMITIES: Bilateral feet and right lower extremity wound with no slough tissue redness - Labs CBC & Chem 7: 04/08/24 06:21 04/08/24 06:21 Labs: Abnormal Lab Results - Last 24 Hours (Table) 04/07/24 04/07/24 04/07/24 Range/Units 09:09 09:09 10:31 WBC (3.8-10.6) k/uL RBC (4.30-5.90) m/uL Hgb (13.0-17.5) gm/dL Hct (39.0-53.0) % Neutrophils # (1.3-7.7) k/uL Sodium (137-145) mmol/L Potassium (3.5-5.1) mmol/L Glucose (74-99) mg/dL POC Glucose (mg/dL) (70-110) mg/dL Hemoglobin A1c 12.7 H (<=6.0) % C-Reactive Protein (<1.0) mg/dL Vitamin B12 2469.0 H (200.0-944.0) pg/mL Procalcitonin 0.52 H (0.02-0.50) ng/mL 04/07/24 04/07/24 04/07/24 Range/Units 11:11 13:32 15:05 WBC (3.8-10.6) k/uL RBC (4.30-5.90) m/uL Hgb (13.0-17.5) gm/dL Hct (39.0-53.0) % Neutrophils # (1.3-7.7) k/uL Sodium (137-145) mmol/L Potassium (3.5-5.1) mmol/L Glucose (74-99) mg/dL POC Glucose (mg/dL) 331 H 434 H 436 H (70-110) mg/dL Hemoglobin A1c (<=6.0) % C-Reactive Protein (<1.0) mg/dL Vitamin B12 (200.0-944.0) pg/mL Procalcitonin (0.02-0.50) ng/mL 04/07/24 04/07/24 04/08/24 Range/Units 17:15 22:02 06:12 WBC (3.8-10.6) k/uL RBC (4.30-5.90) m/uL Hgb (13.0-17.5) gm/dL Hct (39.0-53.0) % Neutrophils # (1.3-7.7) k/uL Sodium (137-145) mmol/L Potassium (3.5-5.1) mmol/L Glucose (74-99) mg/dL POC Glucose (mg/dL) 380 H 268 H 183 H (70-110) mg/dL Hemoglobin A1c (<=6.0) % C-Reactive Protein (<1.0) mg/dL Vitamin B12 (200.0-944.0) pg/mL Procalcitonin (0.02-0.50) ng/mL 04/08/24 04/08/24 Range/Units 06:21 06:21 WBC 11.4 H (3.8-10.6) k/uL RBC 3.97 L (4.30-5.90) m/uL Hgb 11.1 L (13.0-17.5) gm/dL Hct 34.6 L (39.0-53.0) % Neutrophils # 9.0 H (1.3-7.7) k/uL Sodium 135 L (137-145) mmol/L Potassium 3.3 L (3.5-5.1) mmol/L Glucose 174 H (74-99) mg/dL POC Glucose (mg/dL) (70-110) mg/dL Hemoglobin A1c (<=6.0) % C-Reactive Protein 14.4 H (<1.0) mg/dL Vitamin B12 (200.0-944.0) pg/mL Procalcitonin (0.02-0.50) ng/mL Assessment and Plan (1) Diabetic foot ulcers Current Visit: Yes Status: Acute Code(s): E11.621 - TYPE 2 DIABETES MELLITUS WITH FOOT ULCER; L97.509 - NON-PRESSURE CHRONIC ULCER OTH PRT UNSP FOOT W UNSP SEVERITY SNOMED Code(s): 205565092 (2) Leukocytosis Current Visit: Yes Status: Acute Code(s): D72.829 - ELEVATED WHITE BLOOD CELL COUNT, UNSPECIFIED SNOMED Code(s): 810664685 Plan: 1patient with bilateral diabetic foot ulcers but involving bilateral big toes right lower extremity and left heel area on these wounds currently clean without any soft tissue significant surrounding redness or foul-smelling drainage recommend local wound care with a dry Aquacel dressing change q. 48-hour 2patient did have a PICC line however apparently the patient has completed his course of IV daptomycin as of 03/26/2024 unfortunately the PICC line was not discontinued as it should have been after completion of IV antibiotic therapy, if there is need for IV line during this admission he can be kept however should be discontinued on discharge 3leukocytosis could be reactive to his DKA as the patient white count is trending down without antibiotic therapy Local wound care was discussed again with the nursing staff on the floor Dictation was produced using dragon dictation software. please excuse any grammatical, word or spelling errors. Time with Patient: Less than 30
[2024-04-08 16:37] LABS: Glucose,Whole Blood 171 mg/dL (70-110)
[2024-04-08 19:49] LABS: Glucose,Whole Blood 146 mg/dL (70-110)
[2024-04-08] MEDS: POTASSIUM CHLORIDE ER 20 MEQ TAB.ER PO SCH (20:23)
[2024-04-08] MEDS: ACETAMINOPHEN TAB 325 MG TAB PO PRN (23:33)
--- NOTE | 2024-04-09 00:18 | XR ---
EXAM: XR Chest, 1 View CLINICAL HISTORY: ITS.REASON XR Reason: Increased O2 demand TECHNIQUE: Frontal view of the chest. COMPARISON: 04/06/24 FINDINGS: Lungs: Compared to prior exam, reduction in lung volumes with development of bibasilar airspace opacities. Additional bilateral micronodular opacities are suggested in the middle lung zones. Pleural space: No pleural effusion or pneumothorax. Heart: No cardiomegaly or pulmonary vascular congestion. Bones/joints: No acute fracture. No dislocation. IMPRESSION: Compared to prior exam, reduction in lung volumes with development of bibasilar airspace opacities. Additional bilateral micronodular opacities are suggested in the middle lung zones. Differential considerations include aspiration, pneumonia, and atelectasis.
[2024-04-09 01:47] LABS: Influenza A Not Detected (Not Detectd); Influenza B Not Detected (Not Detectd); RSV Not Detected (Not Detectd)
[2024-04-09 02:02] LABS: Glucose,Whole Blood 185 mg/dL (70-110)
[2024-04-09] MEDS: SODIUM CHLORIDE 0.9% 1,000 ML IV SCH (02:05)
[2024-04-09 02:26] LABS: Appearance,Urine Clear (Clear); Bacteria,Urine Rare /hpf; Bilirubin,Urine Negative (Negative); Blood,Urine Moderate (Negative); Budding Yeast,Urine Rare /hpf; Color,Urine Light Yellow; Glucose,Urine (UA) Negative (Negative); Ketones,Urine Trace (Negative); Leukocyte Esterase,Urine Small (Negative); Mucus,Urine Rare /hpf; Nitrite,Urine Negative (Negative); PH, Urine 5.5 (5.0-8.0); Protein,Urine 1+ (Negative); RBC,Urine 35 /hpf (0-5); Specific Gravity,Urine 1.008 (1.001-1.035); Urobilinogen,Urine <2.0 mg/dL (<2.0); WBC,Urine 14 /hpf (0-5)
[2024-04-09 06:23] LABS: Glucose,Whole Blood 249 mg/dL (70-110)
[2024-04-09 07:21] LABS: HCT 33.6 % (39.0-53.0); Hypochromasia Slight; MCH 28.4 pg (25.0-35.0); MCHC 32.6 g/dL (31.0-37.0); MCV 86.9 fL (80.0-100.0); Mean Platelet Volume 7.4; Platelet Count 231 k/uL (150-450); RBC 3.87 m/uL (4.30-5.90)
[2024-04-09 08:26] LABS: African American GFR (CKD) >90 (>60 ml/min/1.73 sqM); Anion Gap 8 mmol/L; Blood Urea Nitrogen 15 mg/dL (9-20); Calcium 8.4 mg/dL (8.4-10.2); Carbon Dioxide 25 mmol/L (22-30); Chloride 103 mmol/L (98-107); Glucose 161 mg/dL (74-99); Non-African American GFR(CKD) >90 (>60 ml/min/1.73 sqM); Potassium 3.5 mmol/L (3.5-5.1); Sodium 136 mmol/L (137-145)
[2024-04-09] MEDS: MORPHINE SULFATE ER 30 MG TABLET PO SCH (09:24)
[2024-04-09 11:52] LABS: Glucose,Whole Blood 151 mg/dL (70-110)
--- NOTE | 2024-04-09 12:04 | P.PN ---
Subjective Progress Note Date: 04/09/24 Principal diagnosis: Reason for follow-up is bilateral diabetic foot ulcer Patient is a 58-year-old male with a past medical history significant for diabetes mellitus hypertension hyperlipidemia history of diabetic foot ulcers involving bilateral big toes has been into the hospital for DKA ID consulted as he did have a PICC line and bilateral diabetic foot ulcer. On today's evaluation that is 04/09/2024, patient did not have any fever and denies any chills, patient is breathing comfortably on 4 L nasal cannula oxygen, patient with no chest pain did have occasional cough patient did not have any abdominal pain nausea vomiting or any loose stools. Patient white count normalized to 9.0 creatinine 0.90 chest x-ray with bibasilar infiltrate UA has been positive Objective - Vital Signs Vital signs: Vital Signs Temp 103.1 F H 04/09/24 08:00 Pulse 97 04/09/24 08:00 Resp 20 04/09/24 08:00 BP 122/68 04/09/24 08:00 Pulse Ox 93 L 04/09/24 08:00 FiO2 Intake & Output 04/08/24 04/09/24 04/09/24 18:59 06:59 18:59 Intake Total 500 Output Total 600 100 Balance -600 -100 500 Weight 72 kg 74 kg Intake: Oral 500 Output: Urine 600 100 Other: Voiding Method Urinal Urinal Diaper Diaper Incontinent Incontinent # Voids 1 - Exam GENERAL DESCRIPTION: Middle-age male lying in bed in no distress RESPIRATORY SYSTEM: Unlabored breathing , decreased breath sounds at bases HEART: S1 S2 regular rate and rhythm , ABDOMEN: Soft , no tenderness EXTREMITIES: Bilateral feet and right lower extremity wound with no slough tissue redness - Labs CBC & Chem 7: 04/09/24 05:24 04/09/24 05:24 Labs: Abnormal Lab Results - Last 24 Hours (Table) 04/08/24 04/08/24 04/09/24 Range/Units 16:35 19:48 01:40 RBC (4.30-5.90) m/uL Hgb (13.0-17.5) gm/dL Hct (39.0-53.0) % Sodium (137-145) mmol/L Glucose (74-99) mg/dL POC Glucose (mg/dL) 171 H 146 H (70-110) mg/dL Urine Protein 1+ H (Negative) Urine Ketones Trace H (Negative) Urine Blood Moderate H (Negative) Ur Leukocyte Esterase Small H (Negative) Urine RBC 35 H (0-5) /hpf Urine WBC 14 H (0-5) /hpf Urine Bacteria Rare H (None) /hpf Urine Mucus Rare H (None) /hpf Urine Yeast (Budding) Rare H (None) /hpf 04/09/24 04/09/24 04/09/24 Range/Units 02:01 05:24 05:24 RBC 3.87 L (4.30-5.90) m/uL Hgb 11.0 L (13.0-17.5) gm/dL Hct 33.6 L (39.0-53.0) % Sodium 136 L (137-145) mmol/L Glucose 161 H (74-99) mg/dL POC Glucose (mg/dL) 185 H (70-110) mg/dL Urine Protein (Negative) Urine Ketones (Negative) Urine Blood (Negative) Ur Leukocyte Esterase (Negative) Urine RBC (0-5) /hpf Urine WBC (0-5) /hpf Urine Bacteria (None) /hpf Urine Mucus (None) /hpf Urine Yeast (Budding) (None) /hpf 04/09/24 04/09/24 Range/Units 06:22 11:50 RBC (4.30-5.90) m/uL Hgb (13.0-17.5) gm/dL Hct (39.0-53.0) % Sodium (137-145) mmol/L Glucose (74-99) mg/dL POC Glucose (mg/dL) 249 H 151 H (70-110) mg/dL Urine Protein (Negative) Urine Ketones (Negative) Urine Blood (Negative) Ur Leukocyte Esterase (Negative) Urine RBC (0-5) /hpf Urine WBC (0-5) /hpf Urine Bacteria (None) /hpf Urine Mucus (None) /hpf Urine Yeast (Budding) (None) /hpf Assessment and Plan (1) Diabetic foot ulcers Current Visit: Yes Status: Acute Code(s): E11.621 - TYPE 2 DIABETES MELLITUS WITH FOOT ULCER; L97.509 - NON-PRESSURE CHRONIC ULCER OTH PRT UNSP FOOT W UNSP SEVERITY SNOMED Code(s): 227144618 (2) Leukocytosis Current Visit: Yes Status: Acute Code(s): D72.829 - ELEVATED WHITE BLOOD CELL COUNT, UNSPECIFIED SNOMED Code(s): 474842105 Plan: 1patient with bilateral diabetic foot ulcers but involving bilateral big toes right lower extremity and left heel area on these wounds currently clean without any soft tissue significant surrounding redness or foul-smelling drainage recommend local wound care with a dry Aquacel dressing change q. 48-hour 2patient did have a PICC line however apparently the patient has completed his course of IV daptomycin as of 03/26/2024 unfortunately the PICC line was not discontinued as it should have been after completion of IV antibiotic therapy, if there is need for IV line during this admission he can be kept however should be discontinued on discharge 3PICC line to be discontinued as it cannot be used discussed with the nursing staff. 4patient did have some bibasilar infiltrate positive UA Rocephin has been added white count is normalized we will monitor closely Dictation was produced using [employer] dictation software. please excuse any grammatical, word or spelling errors. Time with Patient: Less than 30
[2024-04-09 16:06] LABS: Glucose,Whole Blood 415 mg/dL (70-110)
--- NOTE | 2024-04-09 18:15 | P.PN ---
Subjective Progress Note Date: 04/08/24 58 years old male with past medical history as below Patient was transferred from [facility] and per records patient was confused x 3 days he is diabetic and he has a visiting nurse for his infusion Patient was diagnosed with DKA and he was placed on insulin drip and IV fluid Per note patient was alert but slow to respond. Also with multiple wounds on the heel, shins with no active infection Patient currently is awake alert oriented to time place and person. He is slow to respond. He says he came from adult foster care. Patient states that he was able to walk about 1 to 2 weeks ago when I told him it looks like he has pressure ulcers in his legs he said I do not know. He complains from weakness in both lower extremities, left more than right. Also complains from generalized weakness but no double vision or slurred speech. He has PICC line in his right upper extremity, as per patient he has it for 9 days and he was getting antibiotics but he does not know for what exactly. Patient states that he was on Klonopin for many years for history of seizure. He is currently 2 mg 3 times daily. Also he is on morphine 60 mg twice daily and trazodone. Patient currently denies chest pain or dyspnea, no abdominal pain or vomiting or diarrhea. No dysuria but complains from incontinence in his urine. No headache or dizziness. He said he used to smoke till 1 week ago about 5 cigarettes/day and he was counseled to quit and he agrees. No alcohol or illicit drugs Currently vital stable and patient is afebrile Objective - Vital Signs Vital signs: Vital Signs Temp 98.1 F 04/08/24 08:00 Pulse 77 04/08/24 08:00 Resp 18 04/08/24 08:00 BP 115/53 04/08/24 08:00 Pulse Ox 96 04/08/24 08:00 FiO2 Intake & Output 04/07/24 04/08/24 04/08/24 18:59 06:59 18:59 Intake Total 1440 Output Total 600 Balance 840 Weight 75 kg 72 kg Intake: Intake, IV Titration 1200 Amount Sodium Chloride 0.9% 1, 1200 000 ml @ 200 mls/hr IV . Q5H [facility] Rx#:[id number] Oral 240 Output: Urine 600 Other: Voiding Method Urinal - Exam GENERAL: The patient is alert and oriented x3, not in any acute distress. Well developed, well nourished. HEENT: Pupils are round and equally reacting to light. EOMI. No scleral icterus. No conjunctival pallor. Normocephalic, atraumatic. No pharyngeal erythema. No thyromegaly. CARDIOVASCULAR: S1 and S2 present. No murmurs, rubs, or gallops. PULMONARY: Chest is clear to auscultation, no wheezing , no crackles. ABDOMEN: Soft, nontender, nondistended, normoactive bowel sounds. No palpable organomegaly. MUSCULOSKELETAL: No joint swelling or deformity. -EXTREMITIES: No cyanosis, clubbing, or pedal edema. Bilateral ulcers of both heels with eschar, bilateral big toe ulcers admitted. Ri distal right leg superficial ulcers with surrounding cellulitis -Right upper extremity PICC line in place -NEUROLOGICAL: Gross neurological examination did not reveal any focal deficits. Bilateral lower extremity weakness SKIN: No rashes. no petechiae. - Labs CBC & Chem 7: 04/09/24 05:24 04/09/24 05:24 Labs: Abnormal Lab Results - Last 24 Hours (Table) 04/07/24 04/07/24 04/07/24 Range/Units 09:09 09:09 10:31 WBC (3.8-10.6) k/uL RBC (4.30-5.90) m/uL Hgb (13.0-17.5) gm/dL Hct (39.0-53.0) % Neutrophils # (1.3-7.7) k/uL Sodium (137-145) mmol/L Potassium (3.5-5.1) mmol/L Glucose (74-99) mg/dL POC Glucose (mg/dL) (70-110) mg/dL Hemoglobin A1c 12.7 H (<=6.0) % C-Reactive Protein (<1.0) mg/dL Vitamin B12 2469.0 H (200.0-944.0) pg/mL Procalcitonin 0.52 H (0.02-0.50) ng/mL 04/07/24 04/07/24 04/07/24 Range/Units 13:32 15:05 17:15 WBC (3.8-10.6) k/uL RBC (4.30-5.90) m/uL Hgb (13.0-17.5) gm/dL Hct (39.0-53.0) % Neutrophils # (1.3-7.7) k/uL Sodium (137-145) mmol/L Potassium (3.5-5.1) mmol/L Glucose (74-99) mg/dL POC Glucose (mg/dL) 434 H 436 H 380 H (70-110) mg/dL Hemoglobin A1c (<=6.0) % C-Reactive Protein (<1.0) mg/dL Vitamin B12 (200.0-944.0) pg/mL Procalcitonin (0.02-0.50) ng/mL 04/07/24 04/08/24 04/08/24 Range/Units 22:02 06:12 06:21 WBC 11.4 H (3.8-10.6) k/uL RBC 3.97 L (4.30-5.90) m/uL Hgb 11.1 L (13.0-17.5) gm/dL Hct 34.6 L (39.0-53.0) % Neutrophils # 9.0 H (1.3-7.7) k/uL Sodium (137-145) mmol/L Potassium (3.5-5.1) mmol/L Glucose (74-99) mg/dL POC Glucose (mg/dL) 268 H 183 H (70-110) mg/dL Hemoglobin A1c (<=6.0) % C-Reactive Protein (<1.0) mg/dL Vitamin B12 (200.0-944.0) pg/mL Procalcitonin (0.02-0.50) ng/mL 04/08/24 04/08/24 Range/Units 06:21 11:15 WBC (3.8-10.6) k/uL RBC (4.30-5.90) m/uL Hgb (13.0-17.5) gm/dL Hct (39.0-53.0) % Neutrophils # (1.3-7.7) k/uL Sodium 135 L (137-145) mmol/L Potassium 3.3 L (3.5-5.1) mmol/L Glucose 174 H (74-99) mg/dL POC Glucose (mg/dL) 281 H (70-110) mg/dL Hemoglobin A1c (<=6.0) % C-Reactive Protein 14.4 H (<1.0) mg/dL Vitamin B12 (200.0-944.0) pg/mL Procalcitonin (0.02-0.50) ng/mL Assessment and Plan Assessment: Confusion and altered mental status, currently improved could be metabolic/toxic encephalopathy but patient also has history of seizure Diabetic ketoacidosis Bilateral lower extremity multiple ulcers with possible cellulitis especially of the right lower extremities, but he will with eschar and both toe tips History of seizure Diabetes mellitus Hyperlipidemia Depression/anxiety Hypertension Generalized weakness Chronic pain syndrome Plan: Patient currently on insulin drip Continue with IV fluid Patient has right upper extremity PICC line. Will consult infectious disease team for further evaluation and treatment Bilateral lower extremity venous Doppler ordered Neurology consult Follow-up culture results Do swallow evaluation and insulin sliding scale as well as nutrition consult PT/OT evaluation Further recommendation based on the clinical course DVT prophylaxis: Subcutaneous heparin GI prophylaxis: Pepcid and Protonix Prognosis is guarded
--- NOTE | 2024-04-09 18:19 | P.PN ---
Subjective Progress Note Date: 04/09/24 58 years old male with past medical history as below Patient was transferred from [facility] and per records patient was confused x 3 days he is diabetic and he has a visiting nurse for his infusion Patient was diagnosed with DKA and he was placed on insulin drip and IV fluid Per note patient was alert but slow to respond. Also with multiple wounds on the heel, shins with no active infection Patient currently is awake alert oriented to time place and person. He is slow to respond. He says he came from adult foster care. Patient states that he was able to walk about 1 to 2 weeks ago when I told him it looks like he has pressure ulcers in his legs he said I do not know. He complains from weakness in both lower extremities, left more than right. Also complains from generalized weakness but no double vision or slurred speech. He has PICC line in his right upper extremity, as per patient he has it for 9 days and he was getting antibiotics but he does not know for what exactly. Patient states that he was on Klonopin for many years for history of seizure. He is currently 2 mg 3 times daily. Also he is on morphine 60 mg twice daily and trazodone. Patient currently denies chest pain or dyspnea, no abdominal pain or vomiting or diarrhea. No dysuria but complains from incontinence in his urine. No headache or dizziness. He said he used to smoke till 1 week ago about 5 cigarettes/day and he was counseled to quit and he agrees. No alcohol or illicit drugs Currently vital stable and patient is afebrile 04/09/2024 --patient did not have any fever and denies any chills, patient is breathing comfortably on 4 L nasal cannula oxygen, patient with no chest pain did have occasional cough patient did not have any abdominal pain nausea vomiting or any loose stools. Patient white count normalized to 9.0 creatinine 0.90 chest x-ray with bibasilar infiltrate UA has been positive patient with bilateral diabetic foot ulcers but involving bilateral big toes right lower extremity and left heel area on these wounds currently clean without any soft tissue significant surrounding redness or foul-smelling drainage recommend local wound care with a dry Aquacel dressing change q. 48-hour patient did have a PICC line however apparently the patient has completed his course of IV daptomycin as of 03/26/2024 unfortunately the PICC line was not discontinued as it should have been after completion of IV antibiotic therapy, if there is need for IV line during this admission he can be kept however should be discontinued on discharge PICC line to be discontinued as it cannot be used discussed with the nursing staff. patient did have some bibasilar infiltrate positive UA Rocephin has been added white count is normalized we will monitor closely Objective - Vital Signs Vital signs: Vital Signs Temp 98.3 F 04/09/24 13:15 Pulse 85 04/09/24 12:00 Resp 18 04/09/24 12:00 BP 95/60 04/09/24 12:00 Pulse Ox 93 L 04/09/24 12:00 FiO2 Intake & Output 04/08/24 04/09/24 04/09/24 18:59 06:59 18:59 Intake Total 740 Output Total 600 100 Balance -600 -100 740 Weight 72 kg 74 kg Intake: Oral 740 Output: Urine 600 100 Other: Voiding Method Urinal External Catheter Diaper Incontinent # Voids 1 1 - Exam GENERAL: The patient is alert and oriented x3, not in any acute distress. Well developed, well nourished. HEENT: Pupils are round and equally reacting to light. EOMI. No scleral icterus. No conjunctival pallor. Normocephalic, atraumatic. No pharyngeal erythema. No t hyromegaly. CARDIOVASCULAR: S1 and S2 present. No murmurs, rubs, or gallops. PULMONARY: Chest is clear to auscultation, no wheezing , no crackles. ABDOMEN: Soft, nontender, nondistended, normoactive bowel sounds. No palpable organomegaly. MUSCULOSKELETAL: No joint swelling or deformity. -EXTREMITIES: No cyanosis, clubbing, or pedal edema. Bilateral ulcers of both heels with eschar, bilateral big toe ulcers admitted. Ri distal right leg superficial ulcers with surrounding cellulitis -Right upper extremity PICC line in place -NEUROLOGICAL: Gross neurological examination did not reveal any focal deficits. Bilateral lower extremity weakness SKIN: No rashes. no petechiae. - Labs CBC & Chem 7: 04/09/24 05:24 04/09/24 05:24 Labs: Abnormal Lab Results - Last 24 Hours (Table) 04/08/24 04/08/24 04/09/24 Range/Units 16:35 19:48 01:40 RBC (4.30-5.90) m/uL Hgb (13.0-17.5) gm/dL Hct (39.0-53.0) % Sodium (137-145) mmol/L Glucose (74-99) mg/dL POC Glucose (mg/dL) 171 H 146 H (70-110) mg/dL Urine Protein 1+ H (Negative) Urine Ketones Trace H (Negative) Urine Blood Moderate H (Negative) Ur Leukocyte Esterase Small H (Negative) Urine RBC 35 H (0-5) /hpf Urine WBC 14 H (0-5) /hpf Urine Bacteria Rare H (None) /hpf Urine Mucus Rare H (None) /hpf Urine Yeast (Budding) Rare H (None) /hpf 04/09/24 04/09/24 04/09/24 Range/Units 02:01 05:24 05:24 RBC 3.87 L (4.30-5.90) m/uL Hgb 11.0 L (13.0-17.5) gm/dL Hct 33.6 L (39.0-53.0) % Sodium 136 L (137-145) mmol/L Glucose 161 H (74-99) mg/dL POC Glucose (mg/dL) 185 H (70-110) mg/dL Urine Protein (Negative) Urine Ketones (Negative) Urine Blood (Negative) Ur Leukocyte Esterase (Negative) Urine RBC (0-5) /hpf Urine WBC (0-5) /hpf Urine Bacteria (None) /hpf Urine Mucus (None) /hpf Urine Yeast (Budding) (None) /hpf 04/09/24 04/09/24 Range/Units 06:22 11:50 RBC (4.30-5.90) m/uL Hgb (13.0-17.5) gm/dL Hct (39.0-53.0) % Sodium (137-145) mmol/L Glucose (74-99) mg/dL POC Glucose (mg/dL) 249 H 151 H (70-110) mg/dL Urine Protein (Negative) Urine Ketones (Negative) Urine Blood (Negative) Ur Leukocyte Esterase (Negative) Urine RBC (0-5) /hpf Urine WBC (0-5) /hpf Urine Bacteria (None) /hpf Urine Mucus (None) /hpf Urine Yeast (Budding) (None) /hpf Assessment and Plan Assessment: Confusion and altered mental status, currently improved could be metabolic/toxic encephalopathy but patient also has history of seizure Diabetic ketoacidosis Bilateral lower extremity multiple ulcers with possible cellulitis especially of the right lower extremities, but he will with eschar and both toe tips History of seizure Diabetes mellitus Hyperlipidemia Depression/anxiety Hypertension Generalized weakness Chronic pain syndrome Plan: Patient currently on insulin drip Continue with IV fluid Patient has right upper extremity PICC line. Will consult infectious disease team for further evaluation and treatment Bilateral lower extremity venous Doppler ordered Neurology consult Follow-up culture results Do swallow evaluation and insulin sliding scale as well as nutrition consult PT/OT evaluation Further recommendation based on the clinical course DVT prophylaxis: Subcutaneous heparin GI prophylaxis: Pepcid and Protonix Prognosis is guarded
[2024-04-09 19:55] LABS: Glucose,Whole Blood 221 mg/dL (70-110)
[2024-04-10 02:06] LABS: Glucose,Whole Blood 133 mg/dL (70-110)
[2024-04-10 06:41] LABS: Glucose,Whole Blood 185 mg/dL (70-110)
[2024-04-10 08:45] LABS: Basophils # (A) 0.1 k/uL (0-0.2); Basophils % (A) 1 %; Eosinophils # (A) 0.3 k/uL (0-0.7); Eosinophils % (A) 3 %; HCT 33.3 % (39.0-53.0); HGB 10.7 gm/dL (13.0-17.5); Lymphocytes # (A) 1.5 k/uL (1.0-4.8); Lymphocytes % (A) 15 %; MCH 27.7 pg (25.0-35.0); MCV 86.5 fL (80.0-100.0); Mean Platelet Volume 7.8; Monocytes # (A) 0.5 k/uL (0-1.0); Monocytes % (A) 5 %; Neutrophils # (A) 7.6 k/uL (1.3-7.7); Neutrophils % (A) 74 %; Platelet Count 248 k/uL (150-450); RBC 3.85 m/uL (4.30-5.90); RDW 15.3 % (11.5-15.5); WBC 10.3 k/uL (3.8-10.6)
[2024-04-10 09:10] LABS: African American GFR (CKD) >90 (>60 ml/min/1.73 sqM); Anion Gap 4 mmol/L; Blood Urea Nitrogen 22 mg/dL (9-20); Calcium 8.2 mg/dL (8.4-10.2); Carbon Dioxide 26 mmol/L (22-30); Chloride 107 mmol/L (98-107); Glucose 214 mg/dL (74-99); Non-African American GFR(CKD) 87 (>60 ml/min/1.73 sqM); Potassium 3.6 mmol/L (3.5-5.1); Sodium 137 mmol/L (137-145)
[2024-04-10 12:06] LABS: Glucose,Whole Blood 264 mg/dL (70-110)
--- NOTE | 2024-04-10 15:20 | P.PN ---
Subjective Progress Note Date: 04/10/24 58 years old male with past medical history as below Patient was transferred from [facility] and per records patient was confused x 3 days he is diabetic and he has a visiting nurse for his infusion Patient was diagnosed with DKA and he was placed on insulin drip and IV fluid Per note patient was alert but slow to respond. Also with multiple wounds on the heel, shins with no active infection Patient currently is awake alert oriented to time place and person. He is slow to respond. He says he came from adult foster care. Patient states that he was able to walk about 1 to 2 weeks ago when I told him it looks like he has pressure ulcers in his legs he said I do not know. He complains from weakness in both lower extremities, left more than right. Also complains from generalized weakness but no double vision or slurred speech. He has PICC line in his right upper extremity, as per patient he has it for 9 days and he was getting antibiotics but he does not know for what exactly. Patient states that he was on Klonopin for many years for history of seizure. He is currently 2 mg 3 times daily. Also he is on morphine 60 mg twice daily and trazodone. Patient currently denies chest pain or dyspnea, no abdominal pain or vomiting or diarrhea. No dysuria but complains from incontinence in his urine. No headache or dizziness. He said he used to smoke till 1 week ago about 5 cigarettes/day and he was counseled to quit and he agrees. No alcohol or illicit drugs Currently vital stable and patient is afebrile 04/09/2024 --patient did not have any fever and denies any chills, patient is breathing comfortably on 4 L nasal cannula oxygen, patient with no chest pain did have occasional cough patient did not have any abdominal pain nausea vomiting or any loose stools. Patient white count normalized to 9.0 creatinine 0.90 chest x-ray with bibasilar infiltrate UA has been positive patient with bilateral diabetic foot ulcers but involving bilateral big toes right lower extremity and left heel area on these wounds currently clean without any soft tissue significant surrounding redness or foul-smelling drainage recommend local wound care with a dry Aquacel dressing change q. 48-hour white count is normalized we will monitor closely 04/10/2024 Patient is seen and evaluated in room at bedside; has been transferred to [address] denies any specific complaints Vital signs are reviewed and stable with temperature of 98.7, pulse 70, respiration 18 blood pressure 115/73 and O2 saturation 92% on room air Lab review reveals WBC 10.3, hemoglobin 10.7 and platelet count of 248, sodium 137, potassium 3.6, BUN/creatinine of 22/0.96 and blood glucose ranging between 185-264 --patient with bilateral diabetic foot ulcers but involving bilateral big toes right lower extremity and left heel area on these wounds currently clean without any soft tissue significant surrounding redness or foul-smelling drainage recommend local wound care with a dry Aquacel dressing change q. 48-hour -patient did have a PICC line however apparently the patient has completed his course of IV daptomycin as of 03/26/2024 unfortunately the PICC line was not discontinued as it should have been after completion of IV antibiotic therapy, if there is need for IV line during this admission he can be kept however should be discontinued on discharge -PICC line to be discontinued as it cannot be used discussed with the nursing staff. --patient did have some bibasilar infiltrate positive UA Rocephin has been added white count is normalized we will monitor closely Objective - Vital Signs Vital signs: Vital Signs Temp 98.2 F 04/10/24 08:00 Pulse 71 04/10/24 08:00 Resp 18 04/10/24 08:00 BP 116/65 04/10/24 08:00 Pulse Ox 91 L 04/10/24 08:00 FiO2 Intake & Output 04/09/24 04/10/24 04/10/24 18:59 06:59 18:59 Intake Total 1840 890 Output Total 750 650 Balance 1840 -750 240 Weight 77 kg Intake: Oral 1840 890 Output: Urine 750 650 Other: Voiding Method External Catheter External Catheter External Catheter # Voids 1 # Bowel Movements 0 - Exam GENERAL: The patient is alert and oriented x3, not in any acute distress. Well developed, well nourished. HEENT: Pupils are round and equally reacting to light. EOMI. No scleral icterus. No conjunctival pallor. Normocephalic, atraumatic. No pharyngeal erythema. No thyromegaly. CARDIOVASCULAR: S1 and S2 present. No murmurs, rubs, or gallops. PULMONARY: Chest is clear to auscultation, no wheezing , no crackles. ABDOMEN: Soft, nontender, nondistended, normoactive bowel sounds. No palpable organomegaly. MUSCULOSKELETAL: No joint swelling or deformity. -EXTREMITIES: No cyanosis, clubbing, or pedal edema. Bilateral ulcers of both heels with eschar, bilateral big toe ulcers admitted. Ri distal right leg superficial ulcers with surrounding cellulitis -Right upper extremity PICC line in place -NEUROLOGICAL: Gross neurological examination did not reveal any focal deficits. Bilateral lower extremity weakness SKIN: No rashes. no petechiae. - Labs CBC & Chem 7: 04/10/24 08:21 04/10/24 08:21 Labs: Abnormal Lab Results - Last 24 Hours (Table) 04/09/24 04/09/24 04/09/24 Range/Units 11:50 16:05 19:54 RBC (4.30-5.90) m/uL Hgb (13.0-17.5) gm/dL Hct (39.0-53.0) % BUN (9-20) mg/dL Glucose (74-99) mg/dL POC Glucose (mg/dL) 151 H 415 H 221 H (70-110) mg/dL Calcium (8.4-10.2) mg/dL 04/10/24 04/10/24 04/10/24 Range/Units 02:05 06:40 08:21 RBC 3.85 L (4.30-5.90) m/uL Hgb 10.7 L (13.0-17.5) gm/dL Hct 33.3 L (39.0-53.0) % BUN (9-20) mg/dL Glucose (74-99) mg/dL POC Glucose (mg/dL) 133 H 185 H (70-110) mg/dL Calcium (8.4-10.2) mg/dL 04/10/24 Range/Units 08:21 RBC (4.30-5.90) m/uL Hgb (13.0-17.5) gm/dL Hct (39.0-53.0) % BUN 22 H (9-20) mg/dL Glucose 214 H (74-99) mg/dL POC Glucose (mg/dL) (70-110) mg/dL Calcium 8.2 L (8.4-10.2) mg/dL Assessment and Plan Assessment: Confusion and altered mental status, currently improved could be metabolic/toxic encephalopathy but patient also has history of seizure Diabetic ketoacidosis Bilateral lower extremity multiple ulcers with possible cellulitis especially of the right lower extremities, but he will with eschar and both toe tips History of seizure Diabetes mellitus Hyperlipidemia Depression/anxiety Hypertension Generalized weakness Chronic pain syndrome Plan: Patient currently on insulin drip Continue with IV fluid Patient has right upper extremity PICC line. Will consult infectious disease team for further evaluation and treatment Bilateral lower extremity venous Doppler ordered Neurology consult Follow-up culture results Do swallow evaluation and insulin sliding scale as well as nutrition consult PT/OT evaluation Further recommendation based on the clinical course DVT prophylaxis: Subcutaneous heparin GI prophylaxis: Pepcid and Protonix Prognosis is guarded
--- NOTE | 2024-04-10 16:35 | P.PN ---
Subjective Progress Note Date: 04/10/24 Principal diagnosis: Reason for follow-up is bilateral diabetic foot ulcer Patient is a 58-year-old male with a past medical history significant for diabetes mellitus hypertension hyperlipidemia history of diabetic foot ulcers involving bilateral big toes has been into the hospital for DKA ID consulted as he did have a PICC line and bilateral diabetic foot ulcer. On today's evaluation that is 04/10/2024, Patient is afebrile patient is currently on room air and denies having any shortness of breath, the patient denies any chest pain or cough, the patient denies any nausea vomiting did not have any abdominal pain and no diarrhea. Patient white count is 10.3, creatinine 0.96 blood culture positive for yeast Objective - Vital Signs Vital signs: Vital Signs Temp 98.7 F 04/10/24 13:45 Pulse 70 04/10/24 13:45 Resp 18 04/10/24 13:45 BP 115/73 04/10/24 13:45 Pulse Ox 92 L 04/10/24 13:45 FiO2 Intake & Output 04/09/24 04/10/24 04/10/24 18:59 06:59 18:59 Intake Total 1840 1008 Output Total 750 1150 Balance 1840 -750 -142 Weight 77 kg Intake: Oral 1840 1008 Output: Urine 750 1150 Other: Voiding Method External Catheter External Catheter External Catheter # Voids 1 # Bowel Movements 0 0 - Exam GENERAL DESCRIPTION: Middle-age male lying in bed in no distress RESPIRATORY SYSTEM: Unlabored breathing , decreased breath sounds at bases HEART: S1 S2 regular rate and rhythm , ABDOMEN: Soft , no tenderness EXTREMITIES: Bilateral feet and right lower extremity wound with no slough tissue redness - Labs CBC & Chem 7: 04/10/24 08:21 04/10/24 08:21 Labs: Abnormal Lab Results - Last 24 Hours (Table) 04/09/24 04/10/24 04/10/24 Range/Units 19:54 02:05 06:40 RBC (4.30-5.90) m/uL Hgb (13.0-17.5) gm/dL Hct (39.0-53.0) % BUN (9-20) mg/dL Glucose (74-99) mg/dL POC Glucose (mg/dL) 221 H 133 H 185 H (70-110) mg/dL Calcium (8.4-10.2) mg/dL 04/10/24 04/10/24 04/10/24 Range/Units 08:21 08:21 12:05 RBC 3.85 L (4.30-5.90) m/uL Hgb 10.7 L (13.0-17.5) gm/dL Hct 33.3 L (39.0-53.0) % BUN 22 H (9-20) mg/dL Glucose 214 H (74-99) mg/dL POC Glucose (mg/dL) 264 H (70-110) mg/dL Calcium 8.2 L (8.4-10.2) mg/dL Microbiology - Last 24 Hours (Table) 04/09/24 00:23 Blood Culture Gram Stain - Preliminary Blood Blood Culture - Preliminary Molecular ID Assessment and Plan (1) Diabetic foot ulcers Current Visit: Yes Status: Acute Code(s): E11.621 - TYPE 2 DIABETES MELLITUS WITH FOOT ULCER; L97.509 - NON-PRESSURE CHRONIC ULCER OTH PRT UNSP FOOT W UNSP SEVERITY SNOMED Code(s): 995322666 (2) Leukocytosis Current Visit: Yes Status: Acute Code(s): D72.829 - ELEVATED WHITE BLOOD CELL COUNT, UNSPECIFIED SNOMED Code(s): 489725451 (3) Candidemia Current Visit: Yes Status: Acute Code(s): B37.7 - CANDIDAL SEPSIS SNOMED Code(s): 055771173 Plan: 1patient with bilateral diabetic foot ulcers but involving bilateral big toes right lower extremity and left heel area on these wounds currently clean without any soft tissue significant surrounding redness or foul-smelling drainage recommend local wound care with a dry Aquacel dressing change q. 48-hour 2patient did have a PICC line however apparently the patient has completed his course of IV daptomycin as of 03/26/2024 unfortunately the PICC line was not discontinued as it should have been after completion of IV antibiotic therapy, PICC line was discontinued on 04/09/2024 3patient did have positive blood culture with yeast more likely related to his PICC line which has been discontinued blood cultures will be repeated, Diflucan could not be used as the patient is on Lexapro hence we will start the patient on Eraxis Dictation was produced using dragon dictation software. please excuse any gra mmatical, word or spelling errors. Time with Patient: Less than 30
[2024-04-10 17:20] LABS: Glucose,Whole Blood 316 mg/dL (70-110)
[2024-04-10] MEDS: ANIDULAFUNGIN 200 MG in SODIUM CHLORIDE 0.9% 200 ML IVPB ONE (18:22)
[2024-04-10 20:20] LABS: Glucose,Whole Blood 242 mg/dL (70-110)
[2024-04-10] MEDS: INSULIN DETEMIR (LEVEMIR) 100 UNIT/ML SYR SQ ONE (20:54)
[2024-04-11 02:12] LABS: Glucose,Whole Blood 287 mg/dL (70-110)
[2024-04-11 06:08] LABS: Glucose,Whole Blood 299 mg/dL (70-110)
[2024-04-11] MEDS: INSULIN DETEMIR (LEVEMIR) 100 UNIT/ML SYR SQ SCH (08:32)
[2024-04-11 08:42] LABS: Calcium 8.1 mg/dL (8.7-10.3); Chloride 107 mmol/L (96-109); Glucose 286 mg/dL (70-110); Potassium 4.3 mmol/L (3.5-5.5); Sodium 141 mmol/L (135-145)
[2024-04-11 12:17] LABS: Glucose,Whole Blood 150 mg/dL (70-110)
--- NOTE | 2024-04-11 12:43 | P.PN ---
Subjective 58 years old male with past medical history as below Patient was transferred from [facility] and per records patient was confused x 3 days he is diabetic and he has a visiting nurse for his infusion Patient was diagnosed with DKA and he was placed on insulin drip and IV fluid Per note patient was alert but slow to respond. Also with multiple wounds on the heel, shins with no active infection Patient currently is awake alert oriented to time place and person. He is slow to respond. He says he came from adult foster care. Patient states that he was able to walk about 1 to 2 weeks ago when I told him it looks like he has pressure ulcers in his legs he said I do not know. He complains from weakness in both lower extremities, left more than right. Also complains from generalized weakness but no double vision or slurred speech. He has PICC line in his right upper extremity, as per patient he has it for 9 days and he was getting antibiotics but he does not know for what exactly. Patient states that he was on Klonopin for many years for history of seizure. He is currently 2 mg 3 times daily. Also he is on morphine 60 mg twice daily and trazodone. Patient currently denies chest pain or dyspnea, no abdominal pain or vomiting or diarrhea. No dysuria but complains from incontinence in his urine. No headache or dizziness. He said he used to smoke till 1 week ago about 5 cigarettes/day and he was counseled to quit and he agrees. No alcohol or illicit drugs Currently vital stable and patient is afebrile 04/09/2024 --patient did not have any fever and denies any chills, patient is breathing comfortably on 4 L nasal cannula oxygen, patient with no chest pain did have occasional cough patient did not have any abdominal pain nausea vomiting or any loose stools. Patient white count normalized to 9.0 creatinine 0.90 chest x-ray with bibasilar infiltrate UA has been positive patient with bilateral diabetic foot ulcers but involving bilateral big toes right lower extremity and left heel area on these wounds currently clean without any soft tissue significant surrounding redness or foul-smelling drainage recommend local wound care with a dry Aquacel dressing change q. 48-hour white count is normalized we will monitor closely 04/10/2024 Patient is seen and evaluated in room at bedside; has been transferred to [facility]; denies any specific complaints Vital signs are reviewed and stable with temperature of 98.7, pulse 70, respiration 18 blood pressure 115/73 and O2 saturation 92% on room air Lab review reveals WBC 10.3, hemoglobin 10.7 and platelet count of 248, sodium 137, potassium 3.6, BUN/creatinine of 22/0.96 and blood glucose ranging between 185-264 --patient with bilateral diabetic foot ulcers but involving bilateral big toes right lower extremity and left heel area on these wounds currently clean without any soft tissue significant surrounding redness or foul-smelling drainage recommend local wound care with a dry Aquacel dressing change q. 48-hour -patient did have a PICC line however apparently the patient has completed his course of IV daptomycin as of 03/26/2024 unfortunately the PICC line was not discontinued as it should have been after completion of IV antibiotic therapy, if there is need for IV line during this admission he can be kept however should be discontinued on discharge -PICC line to be discontinued as it cannot be used discussed with the nursing staff. --patient did have some bibasilar infiltrate positive UA Rocephin has been added white count is normalized we will monitor closely 04/11 patient awake alert and oriented Sitting up in bed looks comfortable Patient states he does not feel better today Leg wounds and infection healing Right arm PICC line removed He remains on antibiotics ceftriaxone and Eraxis He is on Klonopin at home which is continued. no further workup per neurologist Pain control on MS Contin 60 mg also he is on normal saline 75 mL/h Bilateral lower extremity venous Doppler: Negative for acute DVT Neurology consult, no suspicion of current seizure Follow-up culture results. Blood culture growing Kell swallow evaluation : Continued on chopped diet Review of systems CONSTITUTIONAL: No fever, no malaise, no fatigue. HEENT: No recent visual problems or hearing problems. Denied any sore throat. CARDIOVASCULAR: No orthopnea, PND, no palpitations, no syncope. PULMONARY: No shortness of breath, no cough, no hemoptysis. GENITOURINARY: Denies any burning micturition, frequency, or urgency. MUSCULOSKELETAL/RHEUMATOLOGICAL: Denies any joint pain, swelling, or any muscle pain. ENDOCRINE: Denies any polyuria or polydipsia. Active Medications Generic Name Dose Route Start Last Admin Trade Name Freq PRN Reason Stop Dose Admin Acetaminophen 650 mg 04/08/24 23:26 04/10/24 06:51 Acetaminophen Tab 325 Mg Tab PO 650 mg Q6HR PRN Administration Fever and/ or Pain Atorvastatin Calcium 40 mg 04/07/24 19:00 04/10/24 20:54 Atorvastatin 40 Mg Tab PO 40 mg HS@1900 JESSICA Administration Clonazepam 2 mg 04/07/24 07:00 04/11/24 06:30 Clonazepam 1 Mg Tab PO 2 mg TID@0700,1200,1900 JESSICA Administration Dextrose/Water 25 ml 04/06/24 15:30 Dextrose 50% Syringe 50 Ml IVP PER PROTOCOL PRN Hypoglycemia Protocol Dextrose/Water 50 ml 04/06/24 15:30 Dextrose 50% Syringe 50 Ml IVP PER PROTOCOL PRN Hypoglycemia Protocol Escitalopram Oxalate 20 mg 04/07/24 07:00 04/11/24 06:30 Escitalopram 20 Mg Tab PO 20 mg DAILY@0700 JESSICA Administration Famotidine 20 mg 04/07/24 12:00 Famotidine 20 Mg Tab PO BID@1200,1900 PRN Heartburn Fluticasone Propionate 2 spray 04/07/24 07:00 04/11/24 06:31 Fluticasone Nasal 50mcg/[place] 16gm Btl EA NOSTRIL 2 spray DAILY@0700 JESSICA Administration Heparin Sodium (Porcine) 5,000 unit 04/07/24 16:00 04/11/24 08:33 Heparin Sodium,Porcine 5,000 Unit/Ml 1 Ml Vial SQ 5,000 unit Q8HR JESSICA Administration Ceftriaxone Sodium 1 gm/ 50 mls @ 100 mls/hr 04/09/24 00:00 04/10/24 23:56 Sodium Chloride IVPB 100 mls/hr Q24H JESSICA Administration Protocol Sodium Chloride 1,000 mls @ 75 mls/hr 04/09/24 01:30 04/11/24 05:55 Saline 0.9% IV 75 mls/hr .[id number] JESSICA Administration Anidulafungin 100 mg/ Sodium 100 mls @ 84 mls/hr 04/11/24 17:00 Chloride IVPB DAILY@1700 [facility] Protocol Insulin Aspart 0 unit 04/07/24 07:30 04/11/24 06:30 Insulin Aspart (Novolog) 100 Unit/Ml Vial SQ 6 unit [id number] JESSICA Administration Protocol Insulin Detemir 18 unit 04/11/24 07:00 04/11/24 08:32 Insulin Detemir (Levemir) 100 Unit/Ml Syr SQ 18 unit DAILY@0700 [facility] Administration Loratadine 10 mg 04/07/24 07:00 04/11/24 06:30 Loratadine 10 Mg Tab PO 10 mg DAILY@0700 [facility] Administration Miscellaneous Information 1 each 04/06/24 15:30 Magnesium Replacement Protocol 1 Each Misc MISCELLANE DAILY PRN Per Protocol Protocol Miscellaneous Information 1 each 04/06/24 15:30 Potassium Replacement Protocol 1 Each Misc MISCELLANE DAILY PRN Per Protocol Protocol Montelukast Sodium 10 mg 04/07/24 07:00 04/11/24 06:30 Montelukast 10 Mg Tab PO 10 mg DAILY@0700 [facility] Administration Morphine Sulfate 60 mg 04/09/24 09:00 04/11/24 08:31 Morphine Sulfate Er 30 Mg Tablet PO 60 mg BID@0900,2100 [facility] Administration Protocol Pantoprazole Sodium 40 mg 04/07/24 07:00 04/11/24 06:30 Pantoprazole 40 Mg Tablet PO 40 mg DAILY@0700 [facility] Administration Trazodone HCl 300 mg 04/07/24 19:00 04/10/24 20:54 Trazodone Hcl 100 Mg Tab PO 300 mg HS@1900 [facility] Administration Objective - Vital Signs Vital signs: Vital Signs Temp 99.0 F 04/11/24 07:10 Pulse 65 04/11/24 07:10 Resp 15 04/11/24 07:10 BP 130/76 04/11/24 07:10 Pulse Ox 97 04/11/24 07:10 FiO2 Intake & Output 04/10/24 04/11/24 04/11/24 18:59 06:59 18:59 Intake Total 1008 1662 240 Output Total 1450 2525 Balance -442 -863 240 Intake: Oral 1008 1662 240 Output: Urine 1450 2525 Other: Voiding Method External Catheter External Catheter # Bowel Movements 0 0 - Exam GENERAL: The patient is alert and oriented x3, not in any acute distress. Well developed, well nourished. HEENT: Pupils are round and equally reacting to light. EOMI. No scleral icterus. No conjunctival pallor. Normocephalic, atraumatic. No pharyngeal erythema. No thyromegaly. CARDIOVASCULAR: S1 and S2 present. No murmurs, rubs, or gallops. PULMONARY: Chest is clear to auscultation, no wheezing , no crackles. ABDOMEN: Soft, nontender, nondistended, normoactive bowel sounds. No palpable organomegaly. MUSCULOSKELETAL: No joint swelling or deformity. -EXTREMITIES: No cyanosis, clubbing, or pedal edema. Bilateral ulcers of both heels with eschar, bilateral big toe ulcers admitted. Ri distal right leg superficial ulcers with surrounding cellulitis, improving . no PICC line -NEUROLOGICAL: Gross neurological examination did not reveal any focal deficits. Bilateral lower extremity weakness SKIN: No rashes. no petechiae. - Labs CBC & Chem 7: 04/10/24 08:21 04/11/24 05:44 Labs: Abnormal Lab Results - Last 24 Hours (Table) 04/10/24 04/10/24 04/11/24 Range/Units 17:19 20:19 02:10 Glucose (70-110) mg/dL POC Glucose (mg/dL) 316 H 242 H 287 H (70-110) mg/dL Calcium (8.7-10.3) mg/dL 04/11/24 04/11/24 04/11/24 Range/Units 05:44 06:06 12:14 Glucose 286 H (70-110) mg/dL POC Glucose (mg/dL) 299 H 150 H (70-110) mg/dL Calcium 8.1 L (8.7-10.3) mg/dL Microbiology - Last 24 Hours (Table) 04/09/24 00:23 Blood Culture Gram Stain - Final Blood Blood Culture - Final Kell albicans Molecular ID Assessment and Plan Assessment: Confusion and altered mental status, currently improved could be metabolic/toxic encephalopathy , improved Diabetic ketoacidosis, improved Bilateral lower extremity multiple ulcers with possible cellulitis especially of the right lower extremities, but he will with eschar and both toe tips Candidemia could be related to PICC line on admission History of seizure Diabetes mellitus Hyperlipidemia Depression/anxiety Hypertension Generalized weakness Chronic pain syndrome Plan: Monitor glucose Continue with IV fluid right upper extremity PICC line was removed. ID team on the case Continue with antibiotic as per ID team, currently Eraxis and ceftriaxone Bilateral lower extremity venous Doppler: Negative for acute DVT Neurology consult, no suspicion of current seizure Follow-up culture results swallow evaluation : Continued on chopped diet PT/OT evaluation Further recommendation based on the clinical course DVT prophylaxis: Subcutaneous heparin GI prophylaxis: Pepcid and Protonix Prognosis is guarded
[2024-04-11 17:10] LABS: Glucose,Whole Blood 168 mg/dL (70-110)
--- NOTE | 2024-04-11 17:29 | P.PN ---
Subjective Progress Note Date: 04/11/24 Principal diagnosis: Reason for follow-up is bilateral diabetic foot ulcer Patient is a 58-year-old male with a past medical history significant for diabetes mellitus hypertension hyperlipidemia history of diabetic foot ulcers involving bilateral big toes has been into the hospital for DKA ID consulted as he did have a PICC line and bilateral diabetic foot ulcer. On today's evaluation that is 04/11/2024, patient has been afebrile, patient is breathing comfortably and is currently on 3 L nasal cannula oxygen, patient denies having any significant cough no chest pain, patient denies nausea vomiting or diarrhea and no abdominal pain. Patient did have a creatinine 1.2 blood culture repeat currently pending Objective - Vital Signs Vital signs: Vital Signs Temp 99.0 F 04/11/24 07:10 Pulse 65 04/11/24 07:10 Resp 15 04/11/24 07:10 BP 130/76 04/11/24 07:10 Pulse Ox 97 04/11/24 07:10 FiO2 Intake & Output 04/10/24 04/11/24 04/11/24 18:59 06:59 18:59 Intake Total 1008 1662 240 Output Total 1450 2525 Balance -442 -863 240 Intake: Oral 1008 1662 240 Output: Urine 1450 2525 Other: Voiding Method External Catheter External Catheter # Bowel Movements 0 0 - Exam GENERAL DESCRIPTION: Middle-age male lying in bed in no distress RESPIRATORY SYSTEM: Unlabored breathing , decreased breath sounds at bases HEART: S1 S2 regular rate and rhythm , ABDOMEN: Soft , no tenderness EXTREMITIES: Bilateral feet and right lower extremity wound with no slough tissue redness - Labs CBC & Chem 7: 04/10/24 08:21 04/11/24 05:44 Labs: Abnormal Lab Results - Last 24 Hours (Table) 04/10/24 04/10/24 04/10/24 Range/Units 12:05 17:19 20:19 Glucose (70-110) mg/dL POC Glucose (mg/dL) 264 H 316 H 242 H (70-110) mg/dL Calcium (8.7-10.3) mg/dL 04/11/24 04/11/24 04/11/24 Range/Units 02:10 05:44 06:06 Glucose 286 H (70-110) mg/dL POC Glucose (mg/dL) 287 H 299 H (70-110) mg/dL Calcium 8.1 L (8.7-10.3) mg/dL Microbiology - Last 24 Hours (Table) 04/09/24 00:23 Blood Culture Gram Stain - Final Blood Blood Culture - Final Kell albicans Molecular ID Assessment and Plan (1) Diabetic foot ulcers Current Visit: Yes Status: Acute Code(s): E11.621 - TYPE 2 DIABETES MELLITUS WITH FOOT ULCER; L97.509 - NON-PRESSURE CHRONIC ULCER OTH PRT UNSP FOOT W UNSP SEVERITY SNOMED Code(s): 274319591 (2) Leukocytosis Current Visit: Yes Status: Acute Code(s): D72.829 - ELEVATED WHITE BLOOD CELL COUNT, UNSPECIFIED SNOMED Code(s): 966126145 (3) Candidemia Current Visit: Yes Status: Acute Code(s): B37.7 - CANDIDAL SEPSIS SNOMED Code(s): 481487851 Plan: 1patient with bilateral diabetic foot ulcers but involving bilateral big toes right lower extremity and left heel area on these wounds currently clean without any soft tissue significant surrounding redness or foul-smelling drainage recommend local wound care with a dry Aquacel dressing change q. 48-hour 2patient did have a PICC line however apparently the patient has completed his course of IV daptomycin as of 03/26/2024 unfortunately the PICC line was not discontinued as it should have been after completion of IV antibiotic therapy, PICC line was discontinued on 04/09/2024 3patient did have positive blood culture with yeast more likely related to his PICC line which has been discontinued, underlying abdominal source less likely but not entirely excluded however we will check a CT to make sure no intra- abdominal source patient is currently on Eraxis to continue while waiting for repeat culture to finalize Dictation was produced using [employer] dictation software. please excuse any grammatical, word or spelling errors. Time with Patient: Less than 30
[2024-04-11] MEDS: ANIDULAFUNGIN 100 MG in SODIUM CHLORIDE 0.9% 100 ML IVPB SCH (17:35)
[2024-04-11 20:26] LABS: Glucose,Whole Blood 138 mg/dL (70-110)
[2024-04-12 02:22] LABS: Glucose,Whole Blood 154 mg/dL (70-110)
[2024-04-12 05:56] LABS: Glucose,Whole Blood 248 mg/dL (70-110)
[2024-04-12 08:47] LABS: BUN/Creat Ratio 16.55 Ratio (12.00-20.00); Blood Urea Nitrogen 18.2 mg/dL (9.0-27.0); Calcium 8.2 mg/dL (8.7-10.3); Carbon Dioxide 28.3 mmol/L (21.6-31.8); Chloride 107 mmol/L (96-109); Glucose 241 mg/dL (70-110); Potassium 3.9 mmol/L (3.5-5.5); Sodium 145 mmol/L (135-145)
[2024-04-12 08:48] LABS: HCT 32.3 % (39.6-50.0); HGB 10.1 g/dL (13.0-17.0); MCH 27.5 pg (27.0-32.0); MCHC 31.3 g/dL (32.0-37.0); Mean Platelet Volume 10.4 FL (9.5-12.2); NRBC Per 100 WBC 0 X 10*3/uL (0.00-0.01); Platelet Count 315 X 10*3/uL (140-440); RBC 3.67 X 10*6/uL (4.40-5.60); RDW 15.8 % (11.5-14.5); WBC 8.29 X 10*3/uL (4.50-10.00)
[2024-04-12 09:55] LABS: Acanthocytes 2+ (None Seen); Basophils # (A) 0.06 X 10*3/uL (0.00-0.10); Basophils % (A) 0.7 %; Eosinophils # (A) 0.19 X 10*3/uL (0.04-0.35); Eosinophils % (A) 2.3 %; Lymphocytes # (A) 1.98 X 10*3/uL (0.90-5.00); Lymphocytes % (A) 23.9 %; Monocytes # (A) 1.06 X 10*3/uL (0.20-1.00); Monocytes % (A) 12.8 %; Neutrophils # (A) 4.94 X 10*3/uL (1.80-7.70); Neutrophils % (A) 59.6 %
[2024-04-12] MEDS: IOPAMIDOL CONTRAST (ORAL USE) VIAL PO PRN (11:11)
[2024-04-12 12:23] LABS: Glucose,Whole Blood 398 mg/dL (70-110)
--- NOTE | 2024-04-12 13:19 | CT ---
EXAMINATION TYPE: CT abdomen pelvis w con DATE OF EXAM: 04/12/2024 COMPARISON: None CLINICAL INDICATION: Male, 58 years old with history of Candidemia; PHH, candidemia TECHNIQUE: Performed with Oral Contrast and with IV Contrast, patient injected with 100 mL of Isovue 300. CT DLP: 1184.[address] CTDI: mGy Automated exposure control for dose reduction was used. FINDINGS: There are small posterior lower lobe infiltrates and probable tiny effusions raising the question of bibasilar pneumonia. There are scattered lung nodules the lung bases some of which are pleural-based. The largest is in the left lower lobe measuring 2.[address] of the thorax recommended to evaluate the lung parenchyma in its entirety. The gallbladder is not visualized either due to prior removal or marked contraction. There is no bili drake ductal dilatation. A few small scattered low densities within the liver too small to characterize certainty but statisti katie most likely represent cysts. Liver is borderline enlarged. Pancreas markedly atrophic but no pa ncreatic mass. There is no splenomegaly. The adrenal glands are unremarkable. There is no solid renal mass or hydronephrosis and there is homogeneous contrast enhancement of the r enal parenchyma. The caliber the abdominal aorta is normal is no retroperitoneal adenopathy or hemorr jackie. The bowel loops are normal in caliber and there is no evidence of dilatation or obstruction. No infla mmatory changes are identified in the bowel wall or mesentery. There is no free intraperitoneal air or fluid. No pelvic mass, free fluid, abscess or adenopathy. There is mild prostatic hypertrophy. Urinary bladd er is markedly distended. There has been vertebroplasty at L5. IMPRESSION: 1. Small bibasilar lung infiltrates and tiny effusions raising the question of acute pneumonia. 2. Multiple lung nodules in the lung bases. CT thorax is recommended to evaluate the lung parenchyma in its entirety. 3. Mild hepatomegaly. 4 mild prostatic hypertrophy. 5. No acute changes within the abdomen or pelvis. [facility], , 04/12/2024 1:17 PM
--- NOTE | 2024-04-12 16:07 | P.PN ---
Subjective Progress Note Date: 04/12/24 Principal diagnosis: Reason for follow-up is bilateral diabetic foot ulcer Patient is a 58-year-old male with a past medical history significant for diabetes mellitus hypertension hyperlipidemia history of diabetic foot ulcers involving bilateral big toes has been into the hospital for DKA ID consulted as he did have a PICC line and bilateral diabetic foot ulcer. On today's evaluation that is 04/12/2024, Patient is afebrile this morning patient denies having any chest pain shortness of breath or cough, the patient is currently on room air, patient denies any abdominal pain no diarrhea no nausea no vomiting. Patient white count is 8.29 creatinine is 1.1 blood culture repeat currently pending Objective - Vital Signs Vital signs: Vital Signs Temp 98.7 F 04/12/24 07:55 Pulse 73 04/12/24 07:55 Resp 16 04/12/24 07:55 BP 123/65 04/12/24 07:55 Pulse Ox 95 04/12/24 07:55 FiO2 Intake & Output 04/11/24 04/12/24 04/12/24 18:59 06:59 18:59 Intake Total 598 Output Total 1950 1025 Balance -1352 -1025 Intake: Oral 598 Output: Urine 1950 1025 Other: Voiding Method External Catheter # Bowel Movements 0 - Exam GENERAL DESCRIPTION: Middle-age male lying in bed in no distress RESPIRATORY SYSTEM: Unlabored breathing , decreased breath sounds at bases HEART: S1 S2 regular rate and rhythm , ABDOMEN: Soft , no tenderness EXTREMITIES: Bilateral feet and right lower extremity wound with no slough tissue redness - Labs CBC & Chem 7: 04/12/24 05:18 04/12/24 05:18 Labs: Abnormal Lab Results - Last 24 Hours (Table) 04/11/24 04/11/24 04/11/24 Range/Units 12:14 17:08 20:25 RBC (4.40-5.60) X 10*6/uL Hgb (13.0-17.0) g/dL Hct (39.6-50.0) % MCHC (32.0-37.0) g/dL RDW (11.5-14.5) % Immature Gran # (0.00-0.04) X 10*3/uL Monocytes # (0.20-1.00) X 10*3/uL Acanthocytes (Spur) (None Seen) Glucose (70-110) mg/dL POC Glucose (mg/dL) 150 H 168 H 138 H (70-110) mg/dL Calcium (8.7-10.3) mg/dL 04/12/24 04/12/24 04/12/24 Range/Units 02:21 05:18 05:18 RBC 3.67 L (4.40-5.60) X 10*6/uL Hgb 10.1 L (13.0-17.0) g/dL Hct 32.3 L (39.6-50.0) % MCHC 31.3 L (32.0-37.0) g/dL RDW 15.8 H (11.5-14.5) % Immature Gran # 0.06 H (0.00-0.04) X 10*3/uL Monocytes # 1.06 H (0.20-1.00) X 10*3/uL Acanthocytes (Spur) 2+ A (None Seen) Glucose 241 H (70-110) mg/dL POC Glucose (mg/dL) 154 H (70-110) mg/dL Calcium 8.2 L (8.7-10.3) mg/dL 04/12/24 Range/Units 05:54 RBC (4.40-5.60) X 10*6/uL Hgb (13.0-17.0) g/dL Hct (39.6-50.0) % MCHC (32.0-37.0) g/dL RDW (11.5-14.5) % Immature Gran # (0.00-0.04) X 10*3/uL Monocytes # (0.20-1.00) X 10*3/uL Acanthocytes (Spur) (None Seen) Glucose (70-110) mg/dL POC Glucose (mg/dL) 248 H (70-110) mg/dL Calcium (8.7-10.3) mg/dL Microbiology - Last 24 Hours (Table) 04/10/24 17:28 Blood Culture - Preliminary Blood 04/09/24 00:23 Blood Culture Gram Stain - Final Blood Blood Culture - Final Kell albicans Molecular ID Assessment and Plan (1) Diabetic foot ulcers Current Visit: Yes Status: Acute Code(s): E11.621 - TYPE 2 DIABETES MELLITUS WITH FOOT ULCER; L97.509 - NON-PRESSURE CHRONIC ULCER OTH PRT UNSP FOOT W UNSP SEVERITY SNOMED Code(s): 322847324 (2) Leukocytosis Current Visit: Yes Status: Acute Code(s): D72.829 - ELEVATED WHITE BLOOD CELL COUNT, UNSPECIFIED SNOMED Code(s): 907149720 (3) Candidemia Current Visit: Yes Status: Acute Code(s): B37.7 - CANDIDAL SEPSIS SNOMED Code(s): 082470048 Plan: 1patient with bilateral diabetic foot ulcers but involving bilateral big toes right lower extremity and left heel area on these wounds currently clean without any soft tissue significant surrounding redness or foul-smelling drainage recommend local wound care with a dry Aquacel dressing change q. 48-hour 2patient did have a PICC line however apparently the patient has completed his course of IV daptomycin as of 03/26/2024 unfortunately the PICC line was not discontinued as it should have been after completion of IV antibiotic therapy, PICC line was discontinued on 04/09/2024 3patient did have positive blood culture with yeast more likely related to his PICC line which has been discontinued, underlying abdominal source less likely but not entirely currently waiting for CT abdominal pelvis to be completed 4patient currently being treated with Eraxis while waiting for the workup to be completed Dictation was produced using [employer] dictation software. please excuse any grammatical, word or spelling errors.
[2024-04-12 17:30] LABS: Glucose,Whole Blood 201 mg/dL (70-110)
--- NOTE | 2024-04-12 19:51 | P.PN ---
Subjective 58 years old male with past medical history as below Patient was transferred from [facility] and per records patient was confused x 3 days he is diabetic and he has a visiting nurse for his infusion Patient was diagnosed with DKA and he was placed on insulin drip and IV fluid Per note patient was alert but slow to respond. Also with multiple wounds on the heel, shins with no active infection Patient currently is awake alert oriented to time place and person. He is slow to respond. He says he came from adult foster care. Patient states that he was able to walk about 1 to 2 weeks ago when I told him it looks like he has pressure ulcers in his legs he said I do not know. He complains from weakness in both lower extremities, left more than right. Also complains from generalized weakness but no double vision or slurred speech. He has PICC line in his right upper extremity, as per patient he has it for 9 days and he was getting antibiotics but he does not know for what exactly. Patient states that he was on Klonopin for many years for history of seizure. He is currently 2 mg 3 times daily. Also he is on morphine 60 mg twice daily and trazodone. Patient currently denies chest pain or dyspnea, no abdominal pain or vomiting or diarrhea. No dysuria but complains from incontinence in his urine. No headache or dizziness. He said he used to smoke till 1 week ago about 5 cigarettes/day and he was counseled to quit and he agrees. No alcohol or illicit drugs Currently vital stable and patient is afebrile 04/09/2024 --patient did not have any fever and denies any chills, patient is breathing comfortably on 4 L nasal cannula oxygen, patient with no chest pain did have occasional cough patient did not have any abdominal pain nausea vomiting or any loose stools. Patient white count normalized to 9.0 creatinine 0.90 chest x-ray with bibasilar infiltrate UA has been positive patient with bilateral diabetic foot ulcers but involving bilateral big toes right lower extremity and left heel area on these wounds currently clean without any soft tissue significant surrounding redness or foul-smelling drainage recommend local wound care with a dry Aquacel dressing change q. 48-hour white count is normalized we will monitor closely 04/10/2024 Patient is seen and evaluated in room at bedside; has been transferred to [facility]; denies any specific complaints Vital signs are reviewed and stable with temperature of 98.7, pulse 70, respiration 18 blood pressure 115/73 and O2 saturation 92% on room air Lab review reveals WBC 10.3, hemoglobin 10.7 and platelet count of 248, sodium 137, potassium 3.6, BUN/creatinine of 22/0.96 and blood glucose ranging between 185-264 --patient with bilateral diabetic foot ulcers but involving bilateral big toes right lower extremity and left heel area on these wounds currently clean without any soft tissue significant surrounding redness or foul-smelling drainage recommend local wound care with a dry Aquacel dressing change q. 48-hour -patient did have a PICC line however apparently the patient has completed his course of IV daptomycin as of 03/26/2024 unfortunately the PICC line was not discontinued as it should have been after completion of IV antibiotic therapy, if there is need for IV line during this admission he can be kept however should be discontinued on discharge -PICC line to be discontinued as it cannot be used discussed with the nursing staff. --patient did have some bibasilar infiltrate positive UA Rocephin has been added white count is normalized we will monitor closely 04/11 patient awake alert and oriented Sitting up in bed looks comfortable Patient states he does not feel better today Leg wounds and infection healing Right arm PICC line removed He remains on antibiotics ceftriaxone and Eraxis He is on Klonopin at home which is continued. no further workup per neurologist Pain control on MS Contin 60 mg also he is on normal saline 75 mL/h Bilateral lower extremity venous Doppler: Negative for acute DVT Neurology consult, no suspicion of current seizure Follow-up culture results. Blood culture growing Kell swallow evaluation : Continued on chopped diet 04/12 Patient with no new complaint Still feels lethargic and weak He has low-grade fever of 99.6. WBC from today is 8.2, hemoglobin 10.1 BMP is unremarkable. Glucose slightly elevated. Blood culture is growing Kell albicans final results Patient on ceftriaxone and Eraxis CT of the abdomen is requested today and is pending Objective - Vital Signs Vital signs: Vital Signs Temp 98.7 F 04/12/24 07:55 Pulse 73 04/12/24 07:55 Resp 16 04/12/24 07:55 BP 123/65 04/12/24 07:55 Pulse Ox 95 04/12/24 07:55 FiO2 Intake & Output 04/11/24 04/12/24 04/12/24 18:59 06:59 18:59 Intake Total 598 Output Total 1950 1025 Balance -1352 -1025 Intake: Oral 598 Output: Urine 1950 1025 Other: Voiding Method External Catheter # Bowel Movements 0 - Exam GENERAL: The patient is alert and oriented x3, not in any acute distress. Well developed, well nourished. HEENT: Pupils are round and equally reacting to light. EOMI. No scleral icterus. No conjunctival pallor. Normocephalic, atraumatic. No pharyngeal erythema. No thyromegaly. CARDIOVASCULAR: S1 and S2 present. No murmurs, rubs, or gallops. PULMONARY: Chest is clear to auscultation, no wheezing , no crackles. ABDOMEN: Soft, nontender, nondistended, normoactive bowel sounds. No palpable organomegaly. MUSCULOSKELETAL: No joint swelling or deformity. -EXTREMITIES: No cyanosis, clubbing, or pedal edema. Bilateral ulcers of both heels with eschar, bilateral big toe ulcers admitted. Ri distal right leg superficial ulcers with surrounding cellulitis, improving . no PICC line -NEUROLOGICAL: Gross neurological examination did not reveal any focal deficits. Bilateral lower extremity weakness SKIN: No rashes. no petechiae. - Labs CBC & Chem 7: 04/12/24 05:18 04/12/24 05:18 Labs: Abnormal Lab Results - Last 24 Hours (Table) 04/11/24 04/11/24 04/12/24 Range/Units 17:08 20:25 02:21 RBC (4.40-5.60) X 10*6/uL Hgb (13.0-17.0) g/dL Hct (39.6-50.0) % MCHC (32.0-37.0) g/dL RDW (11.5-14.5) % Immature Gran # (0.00-0.04) X 10*3/uL Monocytes # (0.20-1.00) X 10*3/uL Acanthocytes (Spur) (None Seen) Glucose (70-110) mg/dL POC Glucose (mg/dL) 168 H 138 H 154 H (70-110) mg/dL Calcium (8.7-10.3) mg/dL 04/12/24 04/12/24 04/12/24 Range/Units 05:18 05:18 05:54 RBC 3.67 L (4.40-5.60) X 10*6/uL Hgb 10.1 L (13.0-17.0) g/dL Hct 32.3 L (39.6-50.0) % MCHC 31.3 L (32.0-37.0) g/dL RDW 15.8 H (11.5-14.5) % Immature Gran # 0.06 H (0.00-0.04) X 10*3/uL Monocytes # 1.06 H (0.20-1.00) X 10*3/uL Acanthocytes (Spur) 2+ A (None Seen) Glucose 241 H (70-110) mg/dL POC Glucose (mg/dL) 248 H (70-110) mg/dL Calcium 8.2 L (8.7-10.3) mg/dL 04/12/24 Range/Units 12:21 RBC (4.40-5.60) X 10*6/uL Hgb (13.0-17.0) g/dL Hct (39.6-50.0) % MCHC (32.0-37.0) g/dL RDW (11.5-14.5) % Immature Gran # (0.00-0.04) X 10*3/uL Monocytes # (0.20-1.00) X 10*3/uL Acanthocytes (Spur) (None Seen) Glucose (70-110) mg/dL POC Glucose (mg/dL) 398 H (70-110) mg/dL Calcium (8.7-10.3) mg/dL Microbiology - Last 24 Hours (Table) 04/10/24 17:28 Blood Culture - Preliminary Blood 04/09/24 00:23 Blood Culture Gram Stain - Final Blood Blood Culture - Final Kell albicans Molecular ID Assessment and Plan Assessment: Confusion and altered mental status, currently improved could be metabolic/toxic encephalopathy , improved Diabetic ketoacidosis, improved Bilateral lower extremity multiple ulcers with possible cellulitis especially of the right lower extremities, but he will with eschar and both toe tips Candidemia could be related to PICC line on admission History of seizure Diabetes mellitus Hyperlipidemia Depression/anxiety Hypertension Generalized weakness Chronic pain syndrome Plan: Monitor glucose Follow-up for CT of the abdomen and pelvis Continue with IV fluid right upper extremity PICC line was removed. ID team on the case Continue with antibiotic as per ID team, currently Eraxis and ceftriaxone Bilateral lower extremity venous Doppler: Negative for acute DVT Neurology consult, no suspicion of current seizure Follow-up culture results swallow evaluation : Continued on chopped diet PT/OT evaluation Further recommendation based on the clinical course DVT prophylaxis: Subcutaneous heparin GI prophylaxis: Pepcid and Protonix Prognosis is guarded
[2024-04-12 20:38] LABS: Glucose,Whole Blood 154 mg/dL (70-110)
[2024-04-13 00:54] LABS: Glucose,Whole Blood 225 mg/dL (70-110)
[2024-04-13 06:04] LABS: Glucose,Whole Blood 222 mg/dL (70-110)
--- NOTE | 2024-04-13 10:30 | CA ---
Transthoracic Echo Report Name: Kenneth Spears Age: 58 Gender: M : 1965 Exam Date: 04/13/2024 07:50 Exam Location: [facility] Ht (in): 67 Wt (lb): 169 Ordering Physician: Shahbaz Arce MD Attending/Referring Phys: Product Safety Coordinator Selam Gaona RDCS Procedure CPT: Indications: candidemia Cardiac Hx: Technical Quality: Good Contrast 1: Total Dose (mL): Contrast 2: Total Dose (mL): MEASUREMENTS (Male / Female) Normal Values 2D ECHO LV Diastolic Diameter PLAX 4.1 cm 4.2 - 5.9 / 3.9 - 5.3 cm LV Systolic Diameter PLAX 2.5 cm IVS Diastolic Thickness 1.0 cm 0.6 - 1.0 / 0.6 - 0.9 cm LVPW Diastolic Thickness 1.3 cm 0.6 - 1.0 / 0.6 - 0.9 cm LV Relative Wall Thickness 0.6 LVOT Diameter 1.9 cm LV Diastolic Volume MOD BP 112.9 cm??? 67 - 155 / 56 - 104 cm??? LV Systolic Volume MOD BP 47.1 cm??? 22 - 58 / 19 - 49 cm??? LV Ejection Fraction MOD BP 58.3 % >= 55 % LV Cardiac Index MOD BP 2164.3 cm???/min???m??? LV Diastolic Volume MOD 4C 95.8 cm??? LV Systolic Volume MOD 4C 43.3 cm??? LV Ejection Fraction MOD 4C 54.8 % LV Cardiac Index MOD 4C 1722.9 cm???/min???m??? LV Diastolic Length 4C 8.5 cm LV Systolic Length 4C 6.4 cm LV Diastolic Volume MOD 2C 126.3 cm??? LV Systolic Volume MOD 2C 48.3 cm??? LV Ejection Fraction MOD 2C 61.8 % LV Cardiac Index MOD 2C 2563.1 cm???/min???m??? LV Diastolic Length 2C 9.0 cm LV Systolic Length 2C 6.8 cm LA Volume 52.9 cm??? 18 - 58 / 22 - 52 cm??? LA Volume Index 27.6 cm???/m??? 16 - 28 cm???/m??? DOPPLER AV Peak Velocity 120.0 cm/s AV Peak Gradient 5.8 mmHg AV Mean Velocity 89.6 cm/s AV Mean Gradient 3.5 mmHg AV Velocity Time Integral 30.7 cm LVOT Peak Velocity 127.2 cm/s LVOT Peak Gradient 6.5 mmHg LVOT Velocity Time Integral 27.6 cm LVOT Stroke Volume 82.4 cm??? LVOT Stroke Volume Index 43.8 ml/m??? LVOT Cardiac Index 2706.4 cm???/min???m??? AV Area Cont Eq vti 2.7 cm??? AV Area Cont Eq pk 3.2 cm??? MV Area PHT 4.2 cm??? Mitral E Point Velocity 71.3 cm/s Mitral A Point Velocity 61.0 cm/s Mitral E to A Ratio 1.2 MV Deceleration Time 179.4 ms PV Peak Velocity 91.8 cm/s PV Peak Gradient 3.4 mmHg FINDINGS Left Ventricle Left ventricular ejection fraction is estimated at 55-60 %. Left ventricular cavity size normal. Left ventricular wall thickness normal. No obvious regional wall motion abnormalities. Right Ventricle Normal right ventricular size and function. Unable to estimate the right ventricular systolic pressure. Right Atrium Normal right atrial size. Left Atrium Normal left atrial size. Mitral Valve Structurally normal mitral valve. No evidence for mitral valve prolapse. No mitral stenosis. Trace mitral regurgitation. Aortic Valve Trileaflet aortic valve. No aortic valve stenosis or regurgitation. Tricuspid Valve Structurally normal tricuspid valve. No tricuspid stenosis. Trace tricuspid regurgitation. Pulmonic Valve Pulmonic valve not well visualized. No pulmonic stenosis. No pulmonic regurgitation. Pericardium No pericardial effusion. Aorta Aortic annulus normal. CONCLUSIONS Normal biventricular systolic function No significant valvular abnormalities noted Pulmonary artery systolic pressure was not calculated No pericardial effusion Previewed by: Dr. Bang Montaño MD (Electronically Signed) Final Date: 13 April 2024 10:29
--- NOTE | 2024-04-13 12:31 | P.PN ---
Subjective Progress Note Date: 04/13/24 Principal diagnosis: Reason for follow-up is bilateral diabetic foot ulcer Patient is a 58-year-old male with a past medical history significant for diabetes mellitus hypertension hyperlipidemia history of diabetic foot ulcers involving bilateral big toes has been into the hospital for DKA ID consulted as he did have a PICC line and bilateral diabetic foot ulcer. On today's evaluation that is 04/13/2024,the patient denies any fever or any chills, patient is breathing comfortably on room air, the patient denies chest pain shortness of breath and no significant cough, patient did have some left lower abdominal pain, no nausea vomiting or diarrhea. No new lab has been obtained today blood culture from 04/10/2024 came back negative abdominal pelvis CT did not show any intra-abdominal pathology but did shows multiple lung nodules subsequently did have echocardiogram did not show any vegetation Objective - Vital Signs Vital signs: Vital Signs Temp 98.7 F 04/13/24 08:00 Pulse 64 04/13/24 08:00 Resp 17 04/13/24 08:00 BP 118/66 04/13/24 08:00 Pulse Ox 95 04/13/24 08:00 FiO2 Intake & Output 04/12/24 04/13/24 04/13/24 18:59 06:59 18:59 Intake Total 240 656 Output Total 700 2150 600 Balance -460 -2150 56 Intake: Oral 240 656 Output: Urine 700 2150 600 Other: Voiding Method External Catheter Urinal - Exam GENERAL DESCRIPTION: Middle-age male lying in bed in no distress RESPIRATORY SYSTEM: Unlabored breathing , decreased breath sounds at bases HEART: S1 S2 regular rate and rhythm , ABDOMEN: Soft , no tenderness EXTREMITIES: Bilateral feet and right lower extremity wound with no slough tissue redness - Labs CBC & Chem 7: 04/12/24 05:18 04/12/24 05:18 Labs: Abnormal Lab Results - Last 24 Hours (Table) 04/12/24 04/12/24 04/13/24 Range/Units 17:28 20:36 00:53 POC Glucose (mg/dL) 201 H 154 H 225 H (70-110) mg/dL 04/13/24 Range/Units 06:03 POC Glucose (mg/dL) 222 H (70-110) mg/dL Microbiology - Last 24 Hours (Table) 04/10/24 17:28 Blood Culture - Preliminary Blood Assessment and Plan (1) Diabetic foot ulcers Current Visit: Yes Status: Acute Code(s): E11.621 - TYPE 2 DIABETES MELLITUS WITH FOOT ULCER; L97.509 - NON-PRESSURE CHRONIC ULCER OTH PRT UNSP FOOT W UNSP SEVERITY SNOMED Code(s): 842448386 (2) Leukocytosis Current Visit: Yes Status: Acute Code(s): D72.829 - ELEVATED WHITE BLOOD CELL COUNT, UNSPECIFIED SNOMED Code(s): 873287861 (3) Candidemia Current Visit: Yes Status: Acute Code(s): B37.7 - CANDIDAL SEPSIS SNOMED Code(s): 538222994 Plan: 1patient with bilateral diabetic foot ulcers but involving bilateral big toes right lower extremity and left heel area on these wounds currently clean without any soft tissue significant surrounding redness or foul-smelling drainage recommend local wound care with a dry Aquacel dressing change q. 48-hour 2patient did have a PICC line however apparently the patient has completed his course of IV daptomycin as of 03/26/2024 unfortunately the PICC line was not discontinued as it should have been after completion of IV antibiotic therapy, PICC line was discontinued on 04/09/2024 3patient did have positive blood culture with yeast more likely related to his PICC line which has been discontinued, patient did have CT abdominal pelvis did not show any intra-abdominal pathology but shows multiple pulmonary nodules echocardiogram was done did not show any vegetation we will obtain a CT of the chest for better definition of the pulmonary nodules any further workup for the same 4patient currently being treated with Eraxis will need outpatient IV antifungal on discharge Dictation was produced using [employer] dictation software. please excuse any grammatical, word or spelling errors. Time with Patient: Less than 30
[2024-04-13 12:46] LABS: Glucose,Whole Blood 311 mg/dL (70-110)
[2024-04-13 14:45] LABS: Glucose,Whole Blood 314 mg/dL (70-110)
--- NOTE | 2024-04-13 16:28 | P.PN ---
Subjective Progress Note Date: 04/13/24 Hospital Course: Patient was transferred from [facility] and per records patient was confused x 3 days he is diabetic and he has a visiting nurse for his infusion Patient was diagnosed with DKA and he was placed on insulin drip and IV fluid Per note patient was alert but slow to respond. Also with multiple wounds on the heel, shins with no active infection Patient currently is awake alert oriented to time place and person. He is slow to respond. He says he came from adult foster care. Patient states that he was able to walk about 1 to 2 weeks ago when I told him it looks like he has pressure ulcers in his legs he said I do not know. He complains from weakness in both lower extremities, left more than right. Also complains from generalized weakness but no double vision or slurred speech. He has PICC line in his right upper extremity, as per patient he has it for 9 days and he was getting antibiotics but he does not know for what exactly. Patient states that he was on Klonopin for many years for history of seizure. He is currently 2 mg 3 times daily. Also he is on morphine 60 mg twice daily and trazodone. Patient currently denies chest pain or dyspnea, no abdominal pain or vomiting or diarrhea. No dysuria but complains from incontinence in his urine. No headache or dizziness. He said he used to smoke till 1 week ago about 5 cigarettes/day and he was counseled to quit and he agrees. No alcohol or illicit drugs 04/13/24 Patient seen and examined at bedside. No acute events overnight. Patient denies any acute complaints at this time. Pertinent positives and negatives discussed above, a complete review of systems was preformed and all the other systems were negative. Vitals Signs Reviewed. GENERAL: The patient is alert and oriented x3, not in any acute distress. Well developed, well nourished. HEENT: Pupils are round and equally reacting to light. EOMI. No scleral icterus. No conjunctival pallor. Normocephalic, atraumatic. No pharyngeal erythema. No thyromegaly. CARDIOVASCULAR: S1 and S2 present. No murmurs, rubs, or gallops. PULMONARY: Chest is clear to auscultation, no wheezing , no crackles. ABDOMEN: Soft, nontender, nondistended, normoactive bowel sounds. No palpable organomegaly. MUSCULOSKELETAL: No joint swelling or deformity. -EXTREMITIES: No cyanosis, clubbing, or pedal edema. Bilateral ulcers of both heels with eschar, bilateral big toe ulcers admitted. Ri distal right leg superficial ulcers with surrounding cellulitis, improving . no PICC line -NEUROLOGICAL: Gross neurological examination did not reveal any focal deficits. Bilateral lower extremity weakness SKIN: No rashes. no petechiae. Data Reviewed Today: Patient Labs: No new labs Imaging: Echocardiogram was unremarkable Assessment and Plan: Confusion and altered mental status, currently improved could be metabolic/toxic encephalopathy , improved Diabetic ketoacidosis, improved History of seizure Neurology consulted, no suspicion of current seizure PT/OT evaluation Swallow eval, continuing chopped diet Bilateral lower extremity multiple ulcers with possible cellulitis especially of the right lower extremities, both heels with eschar and both toe tips Candidemia could be related to PICC line on admission ID consulted Continue Eraxis and ceftriaxone Follow-up blood culture sensitivities Diabetes mellitus Accu-Cheks per ACHS protocol Levemir 18 units subcu at 7 AM Insulin sliding scale Hyperlipidemia Continue atorvastatin 40 mg daily Depression/anxiety Continue Lexapro 20mg Hypertension Generalized weakness Chronic pain syndrome F 0.9% NS at 75 mL/h E replete as needed N regular A as tolerated DVT ppx: Heparin 5000 units subcu every 8 hours GI PPx: Protonix 40 mg, Pepcid 20mg Code Status: Full code Discussed with: Patient Anticipated discharge place: [facility] home Anticipated discharge time: Pending clinical course Attestation I have seen and examined this patient with my resident , discussed the same with the resident/LORETTA, and agree with the dictator's assessment and plan as written GENERAL: The patient is alert, ill looking HEENT: Pupils are round and equally reacting to light. EOMI. No scleral icterus. No conjunctival pallor. Normocephalic, atraumatic. No pharyngeal erythema. No thyromegaly. CARDIOVASCULAR: S1 and S2 present. No murmurs, rubs, or gallops. PULMONARY: Chest is clear to auscultation, no wheezing or crackles. ABDOMEN: Soft, nontender, nondistended, normoactive bowel sounds. No palpable organomegaly. MUSCULOSKELETAL: No joint swelling or deformity. EXTREMITIES: Lower extremity wounds seen NEUROLOGICAL: Gross neurological examination did not reveal any focal deficits. SKIN: No rashes. Dr. Britton payan Objective - Vital Signs Vital signs: Vital Signs Temp 98.6 F 04/13/24 01:06 Pulse 66 04/13/24 01:06 Resp 16 04/12/24 19:20 BP 113/66 04/13/24 01:06 Pulse Ox 93 L 04/13/24 01:06 FiO2 Intake & Output 04/12/24 04/13/24 04/13/24 18:59 06:59 18:59 Intake Total 240 Output Total 700 2150 Balance -460 -2150 Intake: Oral 240 Output: Urine 700 2150 Other: Voiding Method External Catheter - Labs CBC & Chem 7: 04/14/24 05:35 04/14/24 05:35 Labs: Abnormal Lab Results - Last 24 Hours (Table) 04/12/24 04/12/24 04/12/24 Range/Units 05:18 12:21 17:28 RBC 3.67 L (4.40-5.60) X 10*6/uL Hgb 10.1 L (13.0-17.0) g/dL Hct 32.3 L (39.6-50.0) % MCHC 31.3 L (32.0-37.0) g/dL RDW 15.8 H (11.5-14.5) % Immature Gran # 0.06 H (0.00-0.04) X 10*3/uL Monocytes # 1.06 H (0.20-1.00) X 10*3/uL Acanthocytes (Spur) 2+ A (None Seen) POC Glucose (mg/dL) 398 H 201 H (70-110) mg/dL 04/12/24 04/13/24 04/13/24 Range/Units 20:36 00:53 06:03 RBC (4.40-5.60) X 10*6/uL Hgb (13.0-17.0) g/dL Hct (39.6-50.0) % MCHC (32.0-37.0) g/dL RDW (11.5-14.5) % Immature Gran # (0.00-0.04) X 10*3/uL Monocytes # (0.20-1.00) X 10*3/uL Acanthocytes (Spur) (None Seen) POC Glucose (mg/dL) 154 H 225 H 222 H (70-110) mg/dL Microbiology - Last 24 Hours (Table) 04/10/24 17:28 Blood Culture - Preliminary Blood
[2024-04-13 16:44] VITALS: BMI 26.6
[2024-04-13 17:40] LABS: Glucose,Whole Blood 131 mg/dL (70-110)
[2024-04-13 19:48] LABS: Glucose,Whole Blood 143 mg/dL (70-110)
[2024-04-13] MEDS: FAMOTIDINE 20 MG TAB PO PRN (20:12)
[2024-04-13] MEDS ORDERED: RX INFO: IV CONTRAST WAS GIVEN 1 EACH MISC MISCELLANE PRN (21:30)
[2024-04-14 02:23] LABS: Glucose,Whole Blood 205 mg/dL (70-110)
[2024-04-14 06:22] LABS: Glucose,Whole Blood 236 mg/dL (70-110)
[2024-04-14 09:05] LABS: Basophils # (A) 0.04 X 10*3/uL (0.00-0.10); Basophils % (A) 0.5 %; Eosinophils # (A) 0.15 X 10*3/uL (0.04-0.35); HCT 29.9 % (39.6-50.0); HGB 9.4 g/dL (13.0-17.0); Lymphocytes # (A) 1.78 X 10*3/uL (0.90-5.00); Lymphocytes % (A) 23.9 %; MCH 27.5 pg (27.0-32.0); MCHC 31.4 g/dL (32.0-37.0); MCV 87.4 FL (80.0-97.0); Mean Platelet Volume 10.1 FL (9.5-12.2); Monocytes # (A) 0.97 X 10*3/uL (0.20-1.00); NRBC Per 100 WBC 0 X 10*3/uL (0.00-0.01); Neutrophils # (A) 4.46 X 10*3/uL (1.80-7.70); Neutrophils % (A) 60.1 %; Platelet Count 366 X 10*3/uL (140-440); RBC 3.42 X 10*6/uL (4.40-5.60); RDW 14.7 % (11.5-14.5); WBC 7.44 X 10*3/uL (4.50-10.00)
[2024-04-14 09:36] LABS: ALT 27 U/L (10-49); AST 29 U/L (14-35); Albumin 2.3 g/dL (3.8-4.9); Albumin/Globulin Ratio 0.62 Ratio (1.60-3.17); Alkaline Phosphatase 273 U/L (41-126); BUN/Creat Ratio 15.36 Ratio (12.00-20.00); Blood Urea Nitrogen 16.9 mg/dL (9.0-27.0); Calcium 8.5 mg/dL (8.7-10.3); Carbon Dioxide 32.9 mmol/L (21.6-31.8); Chloride 102 mmol/L (96-109); Globulin 3.7 g/dL (1.6-3.3); Glucose 221 mg/dL (70-110); Magnesium 1.7 mg/dL (1.5-2.4); Potassium 4.3 mmol/L (3.5-5.5); Sodium 142 mmol/L (135-145); Total Bilirubin 0.2 mg/dL (0.3-1.2)
--- NOTE | 2024-04-14 10:58 | CT ---
EXAMINATION TYPE: CT chest w con CT DLP: 484 mGycm, Automated exposure control for dose reduction was used. DATE OF EXAM: 04/14/2024 10:31 AM COMPARISON: CT abdomen pelvis 04/12/2024 CLINICAL INDICATION:Male, 58 years old with history of pulmonary nodules seen on CT abd; PHH, pulmona ry nodules seen on prior abdominal CT x 2 days ago. History of candidemia. TECHNIQUE: Multiple axial images were obtained through the chest following the administration of 100 cc of Isovue 300. . Coronal and sagittal reformats reviewed. FINDINGS: LUNGS/ PLEURA: No pneumothorax. Trace left pleural effusion. Dependent bilateral lower lobe similar c onsolidative opacities. Scattered peripheral nodular opacities throughout the lungs. Examples include s a posterior right upper lobe 1.9 cm nodular opacity (series 4, image 13), peripheral posterior left upper lobe 1.7 cm nodular opacity (series 4, image 21), posterior right lower lobe 1.2 cm nodular op acity (series 4, image 34), left lower lobe 1.4 cm nodular opacity (series 4, image 36), and a lingul ar 1.9 cm nodular opacity (series 4, image 39). AIRWAY: Patent and unremarkable.. HEART: Size within normal limits.No pericardial effusion. Small to moderate coronary artery calcifica tions. MEDIASTINUM: Few mildly enlarged lymph nodes including a precarinal lymph node measuring 1.2 cm short axis and a AP window lymph node measuring 1.1 cm short axis. VASCULATURE: No aortic aneurysm. MUSCULOSKELETAL: No acute osseous abnormalities. No aggressive osseous lesion. Mild multilevel degene rative disc disease with prominent Schmorl's nodes. SOFT TISSUES/LYMPH NODES: Unremarkable. LOWER NECK: No significant findings. UPPER ABDOMEN: Few scattered low density foci within the liver again. Too small to accurately charact erize but likely represent cysts. Contrast is demonstrated within the hepatic flexure from prior exam . IMPRESSION: 1. Multiple scattered nodular opacities throughout the lungs. Probably represents pulmonary jair i nfection due to reported clinical history. Metastasis is not excluded. Continued surveillance is gilles mmended. 2. Additional trace left pleural effusion with bilateral lower lobe dependent consolidation which may represent atelectasis versus pneumonia. 3. Mildly enlarged mediastinal lymph nodes likely related to #1. [facility], , 04/14/2024 10:56 AM
[2024-04-14 12:28] LABS: Glucose,Whole Blood 274 mg/dL (70-110)
--- NOTE | 2024-04-14 14:48 | P.PN ---
Subjective Progress Note Date: 04/14/24 Principal diagnosis: Reason for follow-up is bilateral diabetic foot ulcer Patient is a 58-year-old male with a past medical history significant for diabetes mellitus hypertension hyperlipidemia history of diabetic foot ulcers involving bilateral big toes has been into the hospital for DKA ID consulted as he did have a PICC line and bilateral diabetic foot ulcer. On today's evaluation that is 04/14/2024,the patient remains to be afebrile, patient is on 2 L nasal cannula supplemental oxygen and denies any shortness of breath no chest pain or cough.Patient denies having any nausea or vomiting, no abdominal pain and no diarrhea has been reported. Patient white count 7.44, creatinine is 1.1 blood culture repeat so far negative CT of the chest concerning for multiple nodules possible related to his candidemia Objective - Vital Signs Vital signs: Vital Signs Temp 98.2 F 04/14/24 08:00 Pulse 63 04/14/24 08:00 Resp 18 04/14/24 08:20 BP 110/64 04/14/24 08:00 Pulse Ox 93 L 04/14/24 08:00 FiO2 Intake & Output 04/13/24 04/14/24 04/14/24 18:59 06:59 18:59 Intake Total 892 416 Output Total 1550 1050 Balance -658 -1050 416 Weight 77 kg Intake: Oral 892 416 Output: Urine 1550 1050 Other: Voiding Method Urinal Urinal Urinal Diaper - Exam GENERAL DESCRIPTION: Middle-age male lying in bed in no distress RESPIRATORY SYSTEM: Unlabored breathing , decreased breath sounds at bases HEART: S1 S2 regular rate and rhythm , ABDOMEN: Soft , no tenderness EXTREMITIES: Bilateral feet and right lower extremity wound with no slough tissue redness - Labs CBC & Chem 7: 04/14/24 05:35 04/14/24 05:35 Labs: Abnormal Lab Results - Last 24 Hours (Table) 04/13/24 04/13/24 04/13/24 Range/Units 12:44 14:44 17:39 RBC (4.40-5.60) X 10*6/uL Hgb (13.0-17.0) g/dL Hct (39.6-50.0) % MCHC (32.0-37.0) g/dL RDW (11.5-14.5) % Carbon Dioxide (21.6-31.8) mmol/L Glucose (70-110) mg/dL POC Glucose (mg/dL) 311 H 314 H 131 H (70-110) mg/dL Calcium (8.7-10.3) mg/dL Total Bilirubin (0.3-1.2) mg/dL Alkaline Phosphatase (41-126) U/L C-Reactive Protein (0.00-0.80) mg/dL Total Protein (6.2-8.2) g/dL Albumin (3.8-4.9) g/dL Globulin (1.6-3.3) g/dL Albumin/Globulin Ratio (1.60-3.17) Ratio 04/13/24 04/14/24 04/14/24 Range/Units 19:36 02:12 05:35 RBC (4.40-5.60) X 10*6/uL Hgb (13.0-17.0) g/dL Hct (39.6-50.0) % MCHC (32.0-37.0) g/dL RDW (11.5-14.5) % Carbon Dioxide 32.9 H (21.6-31.8) mmol/L Glucose 221 H (70-110) mg/dL POC Glucose (mg/dL) 143 H 205 H (70-110) mg/dL Calcium 8.5 L (8.7-10.3) mg/dL Total Bilirubin 0.2 L (0.3-1.2) mg/dL Alkaline Phosphatase 273 H (41-126) U/L C-Reactive Protein 9.90 H (0.00-0.80) mg/dL Total Protein 6.0 L (6.2-8.2) g/dL Albumin 2.3 L (3.8-4.9) g/dL Globulin 3.7 H (1.6-3.3) g/dL Albumin/Globulin Ratio 0.62 L (1.60-3.17) Ratio 04/14/24 04/14/24 Range/Units 05:35 06:17 RBC 3.42 L (4.40-5.60) X 10*6/uL Hgb 9.4 L (13.0-17.0) g/dL Hct 29.9 L (39.6-50.0) % MCHC 31.4 L (32.0-37.0) g/dL RDW 14.7 H (11.5-14.5) % Carbon Dioxide (21.6-31.8) mmol/L Glucose (70-110) mg/dL POC Glucose (mg/dL) 236 H (70-110) mg/dL Calcium (8.7-10.3) mg/dL Total Bilirubin (0.3-1.2) mg/dL Alkaline Phosphatase (41-126) U/L C-Reactive Protein (0.00-0.80) mg/dL Total Protein (6.2-8.2) g/dL Albumin (3.8-4.9) g/dL Globulin (1.6-3.3) g/dL Albumin/Globulin Ratio (1.60-3.17) Ratio Microbiology - Last 24 Hours (Table) 04/10/24 17:28 Blood Culture - Preliminary Blood Assessment and Plan (1) Diabetic foot ulcers Current Visit: Yes Status: Acute Code(s): E11.621 - TYPE 2 DIABETES MELLITUS WITH FOOT ULCER; L97.509 - NON-PRESSURE CHRONIC ULCER OTH PRT UNSP FOOT W UNSP SEVERITY SNOMED Code(s): 788983698 (2) Leukocytosis Current Visit: Yes Status: Acute Code(s): D72.829 - ELEVATED WHITE BLOOD CELL COUNT, UNSPECIFIED SNOMED Code(s): 488665473 (3) Candidemia Current Visit: Yes Status: Acute Code(s): B37.7 - CANDIDAL SEPSIS SNOMED Code(s): 786144228 Plan: 1patient with bilateral diabetic foot ulcers but involving bilateral big toes right lower extremity and left heel area on these wounds currently clean without any soft tissue significant surrounding redness or foul-smelling drainage recommend local wound care with a dry Aquacel dressing change q. 48-hour 2patient did have a PICC line however apparently the patient has completed his course of IV daptomycin as of 03/26/2024 unfortunately the PICC line was not discontinued as it should have been after completion of IV antibiotic therapy, PICC line was discontinued on 04/09/2024 3patient did have positive blood culture with yeast more likely related to his PICC line which has been discontinued, patient did have CT abdominal pelvis did not show any intra-abdominal pathology but shows multiple pulmonary nodules echocardiogram was done did not show any vegetation however CT of the chest is concerning for possible septic emboli we will consult cardiology for LEONEL to see integrity of his cardiac valve and make sure not dealing with a large vegetation that may be surgical intervention 4patient currently being treated with Eraxis and will monitor clinical course closely Dictation was produced using [employer], [place] dictation software. please excuse any grammatical, word or spelling errors. Time with Patient: Less than 30
--- NOTE | 2024-04-14 15:26 | P.PN ---
Subjective Progress Note Date: 04/14/24 Hospital Course: Patient was transferred from [facility] and per records patient was confused x 3 days he is diabetic and he has a visiting nurse for his infusion Patient was diagnosed with DKA and he was placed on insulin drip and IV fluid Per note patient was alert but slow to respond. Also with multiple wounds on the heel, shins with no active infection Patient currently is awake alert oriented to time place and person. He is slow to respond. He says he came from adult foster care. Patient states that he was able to walk about 1 to 2 weeks ago when I told him it looks like he has pressure ulcers in his legs he said I do not know. He complains from weakness in both lower extremities, left more than right. Also complains from generalized weakness but no double vision or slurred speech. He has PICC line in his right upper extremity, as per patient he has it for 9 days and he was getting antibiotics but he does not know for what exactly. Patient states that he was on Klonopin for many years for history of seizure. He is currently 2 mg 3 times daily. Also he is on morphine 60 mg twice daily and trazodone. Patient currently denies chest pain or dyspnea, no abdominal pain or vomiting or diarrhea. No dysuria but complains from incontinence in his urine. No headache or dizziness. He said he used to smoke till 1 week ago about 5 cigarettes/day and he was counseled to quit and he agrees. No alcohol or illicit drugs 04/13/24 Patient seen and examined at bedside. No acute events overnight. Patient denies any acute complaints at this time. 04/14/24 Patient seen and examined at bedside. No acute events overnight. Patient denies any acute complaints at this time. He remains afebrile and saturating well on room air. Pertinent positives and negatives discussed above, a complete review of systems was preformed and all the other systems were negative. Vitals Signs Reviewed. GENERAL: The patient is alert and oriented x3, not in any acute distress. Well developed, well nourished. HEENT: Pupils are round and equally reacting to light. EOMI. No scleral icterus. No conjunctival pallor. Normocephalic, atraumatic. No pharyngeal erythema. No thyromegaly. CARDIOVASCULAR: S1 and S2 present. No murmurs, rubs, or gallops. PULMONARY: Chest is clear to auscultation, no wheezing , no crackles. ABDOMEN: Soft, nontender, nondistended, normoactive bowel sounds. No palpable organomegaly. MUSCULOSKELETAL: No joint swelling or deformity. -EXTREMITIES: No cyanosis, clubbing, or pedal edema. Bilateral ulcers of both heels with eschar, bilateral big toe ulcers admitted. Ri distal right leg superficial ulcers with surrounding cellulitis, improving . no PICC line -NEUROLOGICAL: Gross neurological examination did not reveal any focal deficits. Bilateral lower extremity weakness SKIN: No rashes. no petechiae. Data Reviewed Today: Patient Labs: WBC 7.44, hemoglobin 9.4, platelets 366. Sodium 142, potassium 4.3, chloride 102, bicarb 32.9, BUN 16.9, creatinine 1.1, glucose 221. Calcium 8.5. Imaging: Multiple scattered nodular opacities throughout the lungs, possibly pulmonary Kell infection. Additional trace pleural effusion on the left. Mildly enlarged mediastinal lymph nodes. Assessment and Plan: Confusion and altered mental status, currently improved could be metabolic/toxic encephalopathy , improved Diabetic ketoacidosis, improved History of seizure Neurology consulted, no suspicion of current seizure PT/OT evaluation Swallow eval, continuing chopped diet Bilateral lower extremity multiple ulcers with possible cellulitis especially of the right lower extremities, both heels with eschar and both toe tips Candidemia could be related to PICC line on admission ID consulted Wound care consulted Continue Eraxis and ceftriaxone Follow-up blood culture sensitivities CT concerning for septic emboli, consult cardiology for LEONEL Diabetes mellitus Accu-Cheks per ACHS protocol Increase Levemir 20 units subcu at 7 AM Insulin sliding scale Hyperlipidemia Continue atorvastatin 40 mg daily Depression/anxiety Continue Lexapro 20mg Hypertension Generalized weakness Chronic pain syndrome F 0.9% NS at 75 mL/h E replete as needed N regular A as tolerated DVT ppx: Heparin 5000 units subcu every 8 hours GI PPx: Protonix 40 mg, Pepcid 20mg Code Status: Full code Discussed with: Patient Anticipated discharge place: [facility] home Anticipated discharge time: Pending clinical course Attestation I have seen and examined this patient with my resident , discussed the same with the resident/LORETTA, and agree with the dictator's assessment and plan as written GENERAL: The patient is alert, ill looking HEENT: Pupils are round and equally reacting to light. EOMI. No scleral icterus. No conjunctival pallor. Normocephalic, atraumatic. No pharyngeal erythema. No thyromegaly. CARDIOVASCULAR: S1 and S2 present. No murmurs, rubs, or gallops. PULMONARY: Chest is clear to auscultation, no wheezing or crackles. ABDOMEN: Soft, nontender, nondistended, normoactive bowel sounds. No palpable organomegaly. MUSCULOSKELETAL: lower extremity wounds seen EXTREMITIES: No cyanosis, clubbing, or pedal edema. NEUROLOGICAL: Gross neurological examination did not reveal any focal deficits. SKIN: No rashes. Dr. Britton payan Objective - Vital Signs Vital signs: Vital Signs Temp 98.2 F 04/14/24 08:00 Pulse 63 04/14/24 08:00 Resp 18 04/14/24 08:20 BP 110/64 04/14/24 08:00 Pulse Ox 93 L 04/14/24 08:00 FiO2 Intake & Output 04/13/24 04/14/24 04/14/24 18:59 06:59 18:59 Intake Total 892 416 Output Total 1550 1050 525 Balance -658 -1050 -109 Weight 77 kg Intake: Oral 892 416 Output: Urine 1550 1050 525 Other: Voiding Method Urinal Urinal Urinal Diaper - Labs CBC & Chem 7: 04/14/24 05:35 04/14/24 05:35 Labs: Abnormal Lab Results - Last 24 Hours (Table) 04/13/24 04/13/24 04/14/24 Range/Units 17:39 19:36 02:12 RBC (4.40-5.60) X 10*6/uL Hgb (13.0-17.0) g/dL Hct (39.6-50.0) % MCHC (32.0-37.0) g/dL RDW (11.5-14.5) % Carbon Dioxide (21.6-31.8) mmol/L Glucose (70-110) mg/dL POC Glucose (mg/dL) 131 H 143 H 205 H (70-110) mg/dL Calcium (8.7-10.3) mg/dL Total Bilirubin (0.3-1.2) mg/dL Alkaline Phosphatase (41-126) U/L C-Reactive Protein (0.00-0.80) mg/dL Total Protein (6.2-8.2) g/dL Albumin (3.8-4.9) g/dL Globulin (1.6-3.3) g/dL Albumin/Globulin Ratio (1.60-3.17) Ratio 04/14/24 04/14/24 04/14/24 Range/Units 05:35 05:35 06:17 RBC 3.42 L (4.40-5.60) X 10*6/uL Hgb 9.4 L (13.0-17.0) g/dL Hct 29.9 L (39.6-50.0) % MCHC 31.4 L (32.0-37.0) g/dL RDW 14.7 H (11.5-14.5) % Carbon Dioxide 32.9 H (21.6-31.8) mmol/L Glucose 221 H (70-110) mg/dL POC Glucose (mg/dL) 236 H (70-110) mg/dL Calcium 8.5 L (8.7-10.3) mg/dL Total Bilirubin 0.2 L (0.3-1.2) mg/dL Alkaline Phosphatase 273 H (41-126) U/L C-Reactive Protein 9.90 H (0.00-0.80) mg/dL Total Protein 6.0 L (6.2-8.2) g/dL Albumin 2.3 L (3.8-4.9) g/dL Globulin 3.7 H (1.6-3.3) g/dL Albumin/Globulin Ratio 0.62 L (1.60-3.17) Ratio 04/14/24 Range/Units 12:24 RBC (4.40-5.60) X 10*6/uL Hgb (13.0-17.0) g/dL Hct (39.6-50.0) % MCHC (32.0-37.0) g/dL RDW (11.5-14.5) % Carbon Dioxide (21.6-31.8) mmol/L Glucose (70-110) mg/dL POC Glucose (mg/dL) 274 H (70-110) mg/dL Calcium (8.7-10.3) mg/dL Total Bilirubin (0.3-1.2) mg/dL Alkaline Phosphatase (41-126) U/L C-Reactive Protein (0.00-0.80) mg/dL Total Protein (6.2-8.2) g/dL Albumin (3.8-4.9) g/dL Globulin (1.6-3.3) g/dL Albumin/Globulin Ratio (1.60-3.17) Ratio Microbiology - Last 24 Hours (Table) 04/10/24 17:28 Blood Culture - Preliminary Blood
[2024-04-14 17:51] LABS: Glucose,Whole Blood 204 mg/dL (70-110)
[2024-04-14] MEDS ORDERED: ZINC OXIDE PASTE (Z-GUARD) 1 APPLIC TOPICAL PRN (18:16)
[2024-04-14 19:56] LABS: Glucose,Whole Blood 231 mg/dL (70-110)
[2024-04-15 02:15] LABS: Glucose,Whole Blood 236 mg/dL (70-110)
[2024-04-15 05:41] LABS: Glucose,Whole Blood 196 mg/dL (70-110)
[2024-04-15] MEDS: INSULIN GLARGINE (LANTUS) 100 UNIT/ML SYR SQ SCH ×2 (05:56→20:46)
[2024-04-15] MEDS ORDERED: INSULIN DETEMIR (LEVEMIR) 100 UNIT/ML SYR SQ SCH (07:00)
--- NOTE | 2024-04-15 10:52 | P.CONS ---
History of Present Illness - Reason for Consult Consult date: 04/15/24 wound care - History of Present Illness This is a 58-year-old patient being seen on [address] for unstageable pressure ulcers to bilateral heels and nonpressure ulcerations to bilateral shins. Currently patient is utilizing dry absorptive silver to the site. Patient follows in the wound care center in [place] he does not know the dressings they use at home. Review Of Systems: Constitutional: No fever, no chills, no night sweats. No weight change. No weakness, fatigue or lethargy. No daytime sleepiness. Integumentary:reports wounds, no lesions. No rash or pruritus. No unusual bruising. No change in hair or nails. Physical exam: General Appearance: Alert, cooperative, no distress, appears stated age. Skin: See HPI all other Skin color, texture, tugor normal, no rashes or lesions. Neurologic: Alert oriented x3 Assessment: 1. Unstageable pressure ulcer right heel 2. Unstageable pressure ulcer left heel 3. Nonhealing ulceration of right lower extremity with fat layer exposed 4. Nonhealing ulceration of left lower extremity with fat layer exposed Plan: 1. Currently patient is utilizing dry absorptive silver he follows in [place] for wound care. He does have home care does not know currently what they are utilizing at home. Patient to continue with absorptive silver until seen by his wound care provider. Thank you for the consultation any questions please contact the wound care center DNP note has been reviewed and discussed with Dr. Negrete and the impression and plan of care has been directed as dictated. Past Medical History Past Medical History: Diabetes Mellitus, Hyperlipidemia, Hypertension History of Any Multi-Drug Resistant Organisms: None Reported Past Surgical History: Orthopedic Surgery Additional Past Surgical History / Comment(s): femur fx sx Past Psychological History: No Psychological Hx Reported, Depression Smoking Status: Never smoker Past Alcohol Use History: Unable to Obtain Past Drug Use History: Unable to Obtain Medications and Allergies Home Medications Medication Instructions Recorded Confirmed Type Atorvastatin [Lipitor] 40 mg PO HS@189904/06/24 04/06/24 History Cetirizine HCl [Zyrtec] 10 mg PO DAILY@0700 04/06/24 04/06/24 History Cholecalciferol [Vitamin D3 (125 125 mcg PO HS@189904/06/24 04/06/24 History Mcg = 5000 Iu)] Escitalopram [Lexapro] 20 mg PO DAILY@0700 04/06/24 04/06/24 History Famotidine [Pepcid] 20 mg PO BID@1200,1900 PRN 04/06/24 04/06/24 History Ferrous Sulfate [Iron] 325 mg PO DAILY@0700 04/06/24 04/06/24 History Fluticasone Nasal [place] [Flonase 2 spray EA NOSTRIL DAILY@0700 04/06/24 04/06/24 History Nasal [place]] Insulin Degludec [Tresiba 28 units SQ DAILY@0700 04/06/24 04/06/24 History Flextouch U-200 Pen] Montelukast [Singulair] 10 mg PO DAILY@0700 04/06/24 04/06/24 History Morphine Sulfate ER [Ms Contin] 60 mg PO BID@0700,1900 04/06/24 04/06/24 History Pantoprazole [Protonix] 40 mg PO DAILY@0700 04/06/24 04/06/24 History clonazePAM [KlonoPIN] 2 mg PO TID@0700,1200,1900 04/06/24 04/06/24 History traZODone HCL 300 mg PO HS@1900 04/06/24 04/06/24 History Allergies Allergy/AdvReac Type Severity Reaction Status Date / Time amitriptyline [From Elavil] Allergy Unknown Verified 04/06/24 18:53 oats Allergy Unknown Verified 04/06/24 18:53 pregabalin [From Lyrica] Allergy Unknown Verified 04/06/24 18:53 Fish Containing Products AdvReac Unknown Verified 04/06/24 18:53 [Fish] Mushroom AdvReac Anaphylaxis Verified 04/10/24 18:30 Penicillins AdvReac Nausea & Verified 04/06/24 18:53 Vomiting eggs AdvReac Anaphylaxis Uncoded 04/10/24 18:30 nuts AdvReac Unknown Uncoded 04/06/24 18:53 Physical Exam Vitals: Vital Signs Temp Pulse Resp BP BP Pulse Ox 04/15/24 07:51 98.2 F 63 15 155/74 97 04/15/24 01:48 99.2 F 66 18 135/70 92 L 04/14/24 19:26 98.1 F 70 16 131/73 93 L 04/14/24 14:00 97.5 F L 64 16 130/72 92 L Intake and Output 04/14/24 04/15/24 04/15/24 22:59 06:59 14:59 Intake Total 118 Output Total 1800 400 Balance 118 -1800 -400 Intake: Oral 118 Output: Urine 1800 400 Other: Voiding Method Urinal Urinal Diaper Diaper # Voids 1 Results CBC & Chem 7: 04/14/24 05:35 04/14/24 05:35 Labs: Abnormal Lab Results - Last 24 Hours (Table) 04/14/24 04/14/24 04/14/24 Range/Units 12:24 17:55 19:54 POC Glucose (mg/dL) 274 H 204 H 231 H (70-110) mg/dL 04/15/24 04/15/24 Range/Units 02:14 05:40 POC Glucose (mg/dL) 236 H 196 H (70-110) mg/dL Assessment and Plan (1) Pressure ulcer, heel, left, unstageable Current Visit: Yes Status: Acute Code(s): L89.620 - PRESSURE ULCER OF LEFT HEEL, UNSTAGEABLE SNOMED Code(s): 44673315544074798 (2) Pressure ulcer, heel, right, unstageable Current Visit: Yes Status: Acute Code(s): L89.610 - PRESSURE ULCER OF RIGHT HEEL, UNSTAGEABLE SNOMED Code(s): 55600152634098357 (3) Non-pressure chronic ulcer of other part of left lower leg with fat layer exposed Current Visit: Yes Status: Acute Code(s): L97.822 - NON-PRS CHRONIC ULCER OTH PRT L LOW LEG W FAT LAYER EXPOSED SNOMED Code(s): 06644054055692700 (4) Non-pressure chronic ulcer of other part of right lower leg with fat layer exposed Current Visit: Yes Status: Acute Code(s): L97.812 - NON-PRS CHRONIC ULCER OTH PRT R LOW LEG W FAT LAYER EXPOSED SNOMED Code(s): 75665344953067320 (5) Type 2 diabetes mellitus with other skin ulcer Current Visit: Yes Status: Acute Code(s): E11.622 - TYPE 2 DIABETES MELLITUS WITH OTHER SKIN ULCER; L98.499 - NON-PRESSURE CHRONIC ULCER OF SKIN OF SITES W UNSP SEVERITY SNOMED Code(s): 828384342149534 (6) Diabetic foot ulcers Current Visit: Yes Status: Acute Code(s): E11.621 - TYPE 2 DIABETES MELLITUS WITH FOOT ULCER; L97.509 - NON-PRESSURE CHRONIC ULCER OTH PRT UNSP FOOT W UNSP SEVERITY SNOMED Code(s): 733039601
[2024-04-15] MEDS ORDERED: BENZOCAINE SPRAY 1 CAN TOPICAL PRN (11:38)
[2024-04-15] MEDS ORDERED: MIDAZOLAM 2 MG/2 ML VIAL IV PRN (11:38)
[2024-04-15] MEDS ORDERED: fentaNYL (PF) 50 MCG/ML 2 ML AMP IVP PRN (11:38)
--- NOTE | 2024-04-15 11:42 | P.CRDCN ---
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 He has a past medical history of diabetes mellitus type 1, seizure disorder, hypertension, hyperlipidemia, chronic lower extremity wounds. Patient presented to the hospital on 04/06 as a transfer from [facility] due to infection. Patient was initially treated for DKA, metabolic encephalopathy, bilateral lower extremity ulcers and cellulitis. CAT scan of the chest revealed scattered nodular opacities and he has blood cultures positive for Kell. Infectious disease has been following and has requested LEONEL to rule out vegetation on the cardiac valves. Blood pressure 155/74, heart rate 63, pulse ox 97% on room air. He is a smoker of 5 cigarettes/day. No alcohol or illicit drug use. Patient had breakfast this morning. -Echocardiogram reveals normal biventricular systolic function. No significant valvular abnormalities. Pulmonary artery systolic pressure was not calculated. No pericardial effusion. -Chest CT: Multiple scattered nodular opacities throughout the lungs. 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 Metastasis is not excluded. Additional trace left pleural effusion with bilateral lower lobe dependent consolidation which may represent atelectasis versus pneumonia. Mildly enlarged mediastinal lymph nodes likely related to #1. -Laboratory studies: WBC 7.4, hemoglobin 9.4, platelet count 366. Sodium 142, potassium 4.3, BUN 16 creatinine 1.1. Alkaline phosphatase 273. C-reactive protein 9.9. A1c 12.7 -Home cardiac medications: Atorvastatin 40 mg at bedtime. Review Of Systems: At the time of my exam: CONSTITUTIONAL: Denies fever or chills. + Generalized weakness HEENT: Denies blurred vision, vision changes, or eye pain. Denies hemoptysis CARDIOVASCULAR: Denies chest pain. Denies orthopnea. Denies PND. Denies palpitations RESPIRATORY: Denies shortness of breath. GASTROINTESTINAL: Denies abdominal pain. Denies nausea or vomiting. HEMATOLOGIC: Denies bleeding disorders. GENITOURINARY: Denies any blood in urine. SKIN: Denies puritis. Denies rash. Physical examination: Gen: This is a 58-year-old male in no acute distress VS: reviewed HEENT: Head is atraumatic, normocephalic. Pupils equal, round. Sclerae is anicteric. NECK: Supple. No JVD. LUNGS: Clear to auscultation. No wheezes or rhonchi. No intercostal retractions. HEART: Regular rate and rhythm. ABDOMEN: Soft No tenderness. EXTREMITIES: No pedal edema. No calf tenderness. NEUROLOGICAL: Patient is awake, alert and oriented x3. Assessment: Bilateral lower extremity ulcers with cellulitis Candidemia DKA Metabolic encephalopathy History of seizure Diabetes mellitus Hyperlipidemia Hypertension Plan: Patient will be scheduled for LEONEL on Thursday Continue atorvastatin Further recommendations to follow based upon clinical course Thank you kindly for this consultation. Nurse practitioner note has been reviewed, I agree with documented findings and plan of care. Patient was seen and examined. Past Medical History Past Medical History: Diabetes Mellitus, Hyperlipidemia, Hypertension History of Any Multi-Drug Resistant Organisms: None Reported Past Surgical History: Orthopedic Surgery Additional Past Surgical History / Comment(s): femur fx sx Past Psychological History: No Psychological Hx Reported, Depression Smoking Status: Never smoker Past Alcohol Use History: Unable to Obtain Past Drug Use History: Unable to Obtain Medications and Allergies Home Medications Medication Instructions Recorded Confirmed Type Atorvastatin [Lipitor] 40 mg PO HS@189904/06/24 04/06/24 History Cetirizine HCl [Zyrtec] 10 mg PO DAILY@69904/06/24 04/06/24 History Cholecalciferol [Vitamin D3 (125 125 mcg PO HS@189904/06/24 04/06/24 History Mcg = 5000 Iu)] Escitalopram [Lexapro] 20 mg PO DAILY@69904/06/24 04/06/24 History Famotidine [Pepcid] 20 mg PO BID@1200,1900 PRN 04/06/24 04/06/24 History Ferrous Sulfate [Iron] 325 mg PO DAILY@69904/06/24 04/06/24 History Fluticasone Nasal [place] [Flonase 2 spray EA NOSTRIL DAILY@69904/06/24 04/06/24 History Nasal [place]] Insulin Degludec [Tresiba 28 units SQ DAILY@69904/06/24 04/06/24 History Flextouch U-200 Pen] Montelukast [Singulair] 10 mg PO DAILY@69904/06/24 04/06/24 History Morphine Sulfate ER [Ms Contin] 60 mg PO BID@0700,1900 04/06/24 04/06/24 History Pantoprazole [Protonix] 40 mg PO DAILY@0700 04/06/24 04/06/24 History clonazePAM [KlonoPIN] 2 mg PO TID@0700,1200,1900 04/06/24 04/06/24 History traZODone HCL 300 mg PO HS@1900 04/06/24 04/06/24 History Allergies Allergy/AdvReac Type Severity Reaction Status Date / Time amitriptyline [From Elavil] Allergy Unknown Verified 04/06/24 18:53 oats Allergy Unknown Verified 04/06/24 18:53 pregabalin [From Lyrica] Allergy Unknown Verified 04/06/24 18:53 Fish Containing Products AdvReac Unknown Verified 04/06/24 18:53 [Fish] Mushroom AdvReac Anaphylaxis Verified 04/10/24 18:30 Penicillins AdvReac Nausea & Verified 04/06/24 18:53 Vomiting eggs AdvReac Anaphylaxis Uncoded 04/10/24 18:30 nuts AdvReac Unknown Uncoded 04/06/24 18:53 Physical Exam Vitals: Vital Signs Temp Pulse Resp BP BP Pulse Ox 04/15/24 07:51 98.2 F 63 15 155/74 97 04/15/24 01:48 99.2 F 66 18 135/70 92 L 04/14/24 19:26 98.1 F 70 16 131/73 93 L 04/14/24 14:00 97.5 F L 64 16 130/72 92 L Intake and Output 04/14/24 04/15/24 04/15/24 22:59 06:59 14:59 Intake Total 118 Output Total 1800 400 Balance 118 -1800 -400 Intake: Oral 118 Output: Urine 1800 400 Other: Voiding Method Urinal Urinal Diaper Diaper # Voids 1 Results 04/14/24 05:35 04/14/24 05:35 Cardiac Enzymes 04/14/24 Range/Units 05:35 AST 29 (14-35) U/L Comprehensive Metabolic Panel 04/14/24 Range/Units 05:35 Sodium 142 (135-145) mmol/L Potassium 4.3 (3.5-5.5) mmol/L Chloride 102 (96-109) mmol/L Carbon Dioxide 32.9 H (21.6-31.8) mmol/L BUN 16.9 (9.0-27.0) mg/dL Creatinine 1.1 (0.6-1.5) mg/dL Glucose 221 H (70-110) mg/dL Calcium 8.5 L (8.7-10.3) mg/dL AST 29 (14-35) U/L ALT 27 (10-49) U/L Alkaline Phosphatase 273 H (41-126) U/L Total Protein 6.0 L (6.2-8.2) g/dL Albumin 2.3 L (3.8-4.9) g/dL Current Medications Generic Name Dose Route Start Last Admin Trade Name Freq PRN Reason Stop Dose Admin Acetaminophen 650 mg 04/08/24 23:26 04/10/24 06:51 Acetaminophen Tab 325 Mg Tab PO 650 mg Q6HR PRN Administration Fever and/ or Pain Atorvastatin Calcium 40 mg 04/07/24 19:00 04/14/24 18:45 Atorvastatin 40 Mg Tab PO 40 mg HS@1900 JESSICA Administration Clonazepam 2 mg 04/07/24 07:00 04/15/24 05:56 Clonazepam 1 Mg Tab PO 2 mg TID@0700,1200,1900 JESSICA Administration Dextrose/Water 25 ml 04/06/24 15:30 Dextrose 50% Syringe 50 Ml IVP PER PROTOCOL PRN Hypoglycemia Protocol Dextrose/Water 50 ml 04/06/24 15:30 Dextrose 50% Syringe 50 Ml IVP PER PROTOCOL PRN Hypoglycemia Protocol Escitalopram Oxalate 20 mg 04/07/24 07:00 04/15/24 05:56 Escitalopram 20 Mg Tab PO 20 mg DAILY@0700 JESSICA Administration Famotidine 20 mg 04/07/24 12:00 04/13/24 20:12 Famotidine 20 Mg Tab PO 20 mg BID@1200,1900 PRN Administration Heartburn Fluticasone Propionate 2 spray 04/07/24 07:00 04/15/24 05:57 Fluticasone Nasal 50mcg/[place] 16gm Btl EA NOSTRIL Not Given DAILY@0700 JESSICA Heparin Sodium (Porcine) 5,000 unit 04/07/24 16:00 04/15/24 08:39 Heparin Sodium,Porcine 5,000 Unit/Ml 1 Ml Vial SQ 5,000 unit Q8HR JESSICA Administration Sodium Chloride 1,000 mls @ 75 mls/hr 04/09/24 01:30 04/15/24 06:00 Saline 0.9% IV 75 mls/hr .[id number] JESSICA Administration Anidulafungin 100 mg/ Sodium 100 mls @ 84 mls/hr 04/11/24 17:00 04/14/24 17:54 Chloride IVPB 84 mls/hr DAILY@1700 [facility] Administration Protocol Insulin Aspart 0 unit 04/07/24 07:30 04/15/24 05:56 Insulin Aspart (Novolog) 100 Unit/Ml Vial SQ 2 unit [id number] JESSICA Administration Protocol Insulin Glargine 20 unit 04/15/24 07:00 04/15/24 05:56 Insulin Glargine (Lantus) 100 Unit/Ml Syr SQ 20 unit DAILY@0700 [facility] Administration Loratadine 10 mg 04/07/24 07:00 04/15/24 05:56 Loratadine 10 Mg Tab PO 10 mg DAILY@0700 [facility] Administration Miscellaneous Information 1 each 04/06/24 15:30 Magnesium Replacement Protocol 1 Each Misc MISCELLANE DAILY PRN Per Protocol Protocol Miscellaneous Information 1 each 04/06/24 15:30 Potassium Replacement Protocol 1 Each Misc MISCELLANE DAILY PRN Per Protocol Protocol Miscellaneous Information 1 each 04/13/24 21:30 Rx Info: Iv Contrast Was Given 1 Each Misc MISCELLANE 04/15/24 21:31 DAILY PRN Per Protocol Montelukast Sodium 10 mg 04/07/24 07:00 04/15/24 05:56 Montelukast 10 Mg Tab PO 10 mg DAILY@0700 [facility] Administration Morphine Sulfate 60 mg 04/09/24 09:00 04/15/24 08:38 Morphine Sulfate Er 30 Mg Tablet PO 60 mg BID@0900,2100 [facility] Administration Protocol Pantoprazole Sodium 40 mg 04/07/24 07:00 04/15/24 05:55 Pantoprazole 40 Mg Tablet PO 40 mg DAILY@0700 [facility] Administration Petrolatum 1 applic 04/14/24 18:16 Zinc Oxide Paste (Z-Guard) 1 Applic TOPICAL BID PRN Wound Healing Protocol Trazodone HCl 300 mg 04/07/24 19:00 04/14/24 18:45 Trazodone Hcl 100 Mg Tab PO 300 mg HS@1900 JESSICA Administration Intake and Output 04/14/24 04/15/24 04/15/24 22:59 06:59 14:59 Intake Total 118 Output Total 1800 400 Balance 118 -1800 -400 Intake: Oral 118 Output: Urine 1800 400 Other: Voiding Method Urinal Urinal Diaper Diaper # Voids 1 04/14/24 05:35 04/14/24 05:35
[2024-04-15 12:09] LABS: Glucose,Whole Blood 334 mg/dL (70-110)
--- NOTE | 2024-04-15 12:51 | P.PN ---
Subjective Progress Note Date: 04/15/24 Principal diagnosis: Reason for follow-up is bilateral diabetic foot ulcer Patient is a 58-year-old male with a past medical history significant for diabetes mellitus hypertension hyperlipidemia history of diabetic foot ulcers involving bilateral big toes has been into the hospital for DKA ID consulted as he did have a PICC line and bilateral diabetic foot ulcer. On today's evaluation that is 04/15/2024, the patient continues to be afebrile, the patient is on room air and breathing comfortably, the Pt denies having any chest pain or cough, the patient denies having any abdominal pain no vomiting or any diarrhea mention no new symptoms. No new lab has been obtained today blood culture from 04/10/2024 so far negative een reported by the nursing staff Objective - Vital Signs Vital signs: Vital Signs Temp 98.2 F 04/15/24 07:51 Pulse 63 04/15/24 07:51 Resp 15 04/15/24 07:51 BP 155/74 04/15/24 07:51 Pulse Ox 97 04/15/24 07:51 FiO2 Intake & Output 04/14/24 04/15/24 04/15/24 18:59 06:59 18:59 Intake Total 534 472 Output Total 525 1800 400 Balance 9 -1800 72 Intake: Oral 534 472 Output: Urine 525 1800 400 Other: Voiding Method Urinal Urinal Urinal Diaper Diaper Diaper # Voids 1 - Exam GENERAL DESCRIPTION: Middle-age male lying in bed in no distress RESPIRATORY SYSTEM: Unlabored breathing , decreased breath sounds at bases HEART: S1 S2 regular rate and rhythm , ABDOMEN: Soft , no tenderness EXTREMITIES: Bilateral feet and right lower extremity wound with no slough tis brandon redness - Labs CBC & Chem 7: 04/14/24 05:35 04/14/24 05:35 Labs: Abnormal Lab Results - Last 24 Hours (Table) 04/14/24 04/14/24 04/14/24 Range/Units 12:24 17:55 19:54 POC Glucose (mg/dL) 274 H 204 H 231 H (70-110) mg/dL 04/15/24 04/15/24 Range/Units 02:14 05:40 POC Glucose (mg/dL) 236 H 196 H (70-110) mg/dL Assessment and Plan (1) Diabetic foot ulcers Current Visit: Yes Status: Acute Code(s): E11.621 - TYPE 2 DIABETES MELLITUS WITH FOOT ULCER; L97.509 - NON-PRESSURE CHRONIC ULCER OTH PRT UNSP FOOT W UNSP SEVERITY SNOMED Code(s): 562087522 (2) Leukocytosis Current Visit: Yes Status: Acute Code(s): D72.829 - ELEVATED WHITE BLOOD CELL COUNT, UNSPECIFIED SNOMED Code(s): 204080636 (3) Candidemia Current Visit: Yes Status: Acute Code(s): B37.7 - CANDIDAL SEPSIS SNOMED Code(s): 731131974 Plan: 1patient with bilateral diabetic foot ulcers but involving bilateral big toes r ight lower extremity and left heel area on these wounds currently clean without any soft tissue significant surrounding redness or foul-smelling drainage recommend local wound care with a dry Aquacel dressing change q. 48-hour 2patient did have a PICC line however apparently the patient has completed his course of IV daptomycin as of 03/26/2024 unfortunately the PICC line was not discontinued as it should have been after completion of IV antibiotic therapy, PICC line was discontinued on 04/09/2024 3patient did have positive blood culture with yeast more likely related to his PICC line which has been discontinued, patient did have CT abdominal pelvis did not show any intra-abdominal pathology but shows multiple pulmonary nodules echocardiogram was done did not show any vegetation however CT of the chest is concerning for possible septic emboli, cardiology consulted for LEONEL to see integrity of his cardiac valve and make sure not dealing with a large vegetation apparently procedure scheduled for Thursday 4patient currently being treated with Eraxis and will monitor clinical course closely Dictation was produced using [employer] dictation software. please excuse any grammatical, word or spelling errors. Time with Patient: Less than 30
--- NOTE | 2024-04-15 15:56 | P.PN ---
Subjective Progress Note Date: 04/15/24 Hospital Course: Patient was transferred from [facility] and per records patient was confused x 3 days he is diabetic and he has a visiting nurse for his infusion Patient was diagnosed with DKA and he was placed on insulin drip and IV fluid Per note patient was alert but slow to respond. Also with multiple wounds on the heel, shins with no active infection Patient currently is awake alert oriented to time place and person. He is slow to respond. He says he came from adult foster care. Patient states that he was able to walk about 1 to 2 weeks ago when I told him it looks like he has pressure ulcers in his legs he said I do not know. He complains from weakness in both lower extremities, left more than right. Also complains from generalized weakness but no double vision or slurred speech. He has PICC line in his right upper extremity, as per patient he has it for 9 days and he was getting antibiotics but he does not know for what exactly. Patient states that he was on Klonopin for many years for history of seizure. He is currently 2 mg 3 times daily. Also he is on morphine 60 mg twice daily and trazodone. Patient currently denies chest pain or dyspnea, no abdominal pain or vomiting or diarrhea. No dysuria but complains from incontinence in his urine. No headache or dizziness. He said he used to smoke till 1 week ago about 5 cigarettes/day and he was counseled to quit and he agrees. No alcohol or illicit drugs 04/13/24 Patient seen and examined at bedside. No acute events overnight. Patient denies any acute complaints at this time. 04/14/24 Patient seen and examined at bedside. No acute events overnight. Patient denies any acute complaints at this time. He remains afebrile and saturating well on room air. 04/15/2024 Patient seen and examined at bedside. No acute events overnight. Patient denies any acute complaints at this time. He remains afebrile and saturating well on room air. Patient does endorse some constipation. Pertinent positives and negatives discussed above, a complete review of systems was preformed and all the other systems were negative. Vitals Signs Reviewed. GENERAL: The patient is alert and oriented x3, not in any acute distress. Well developed, well nourished. HEENT: Pupils are round and equally reacting to light. EOMI. No scleral icterus. No conjunctival pallor. Normocephalic, atraumatic. No pharyngeal erythema. No thyromegaly. CARDIOVASCULAR: S1 and S2 present. No murmurs, rubs, or gallops. PULMONARY: Chest is clear to auscultation, no wheezing , no crackles. ABDOMEN: Soft, nontender, nondistended, normoactive bowel sounds. No palpable organomegaly. MUSCULOSKELETAL: No joint swelling or deformity. -EXTREMITIES: No cyanosis, clubbing, or pedal edema. Bilateral ulcers of both heels with eschar, bilateral big toe ulcers admitted. Ri distal right leg superficial ulcers with surrounding cellulitis, improving . no PICC line -NEUROLOGICAL: Gross neurological examination did not reveal any focal deficits. Bilateral lower extremity weakness SKIN: No rashes. no petechiae. Data Reviewed Today: Patient Labs: WBC 7.44, hemoglobin 9.4, platelets 366. Sodium 142, potassium 4.3, chloride 102, bicarb 32.9, BUN 16.9, creatinine 1.1, glucose 221. Calcium 8.5. Imaging: Multiple scattered nodular opacities throughout the lungs, possibly pulmonary Kell infection. Additional trace pleural effusion on the left. Mildly enlarged mediastinal lymph nodes. Assessment and Plan: Confusion and altered mental status, currently improved could be metabolic/toxic encephalopathy , improved Diabetic ketoacidosis, improved History of seizure Neurology consulted, no suspicion of current seizure PT/OT evaluation Swallow eval, advance to chopped/soft Bilateral lower extremity multiple ulcers with possible cellulitis especially of the right lower extremities, both heels with eschar and both toe tips Candidemia could be related to PICC line on admission ID consulted Wound care consulted Continue Eraxis and ceftriaxone Follow-up blood culture sensitivities CT concerning for septic emboli, cardiology consulted Patient will undergo LEONEL on Thursday Pulmonology consulted for possible bronc Constipation likely opioid-induced Will continue to monitor Senokot dose given Diabetes mellitus Accu-Cheks per ACHS protocol Increase Lantus to 28 units subcu at 7 AM Insulin sliding scale Hypoglycemia precautions Hyperlipidemia Continue atorvastatin 40 mg daily Depression/anxiety Continue Lexapro 20mg Hypertension Generalized weakness Chronic pain syndrome F 0.9% NS at 75 mL/h E replete as needed N chopped A as tolerated DVT ppx: Heparin 5000 units subcu every 8 hours GI PPx: Protonix 40 mg, Pepcid 20mg Code Status: Full code Discussed with: Patient Anticipated discharge place: [facility] home Anticipated discharge time: Pending clinical course Attestation I have seen and examined this patient with my resident , discussed the same with the resident/LORETTA, and agree with the dictator's assessment and plan as written GENERAL: The patient is alert to self, place, chronically ill looking HEENT: Pupils are round and equally reacting to light. EOMI. No scleral icterus. No conjunctival pallor. Normocephalic, atraumatic. No pharyngeal erythema. No thyromegaly. CARDIOVASCULAR: S1 and S2 present. No murmurs, rubs, or gallops. PULMONARY: Chest is clear to auscultation, no wheezing or crackles. ABDOMEN: Soft, nontender, nondistended, normoactive bowel sounds. No palpable organomegaly. MUSCULOSKELETAL: No joint swelling or deformity. EXTREMITIES: No cyanosis, wounds seen on lower extremities NEUROLOGICAL: Gross neurological examination did not reveal any focal deficits. SKIN: No rashes. Dr. Britton payan Objective - Vital Signs Vital signs: Vital Signs Temp 98.4 F 04/15/24 13:56 Pulse 97 04/15/24 13:56 Resp 16 04/15/24 13:56 BP 143/63 04/15/24 13:56 Pulse Ox 97 04/15/24 07:51 FiO2 Intake & Output 04/14/24 04/15/24 04/15/24 18:59 06:59 18:59 Intake Total 534 472 Output Total 525 1800 400 Balance 9 -1800 72 Intake: Oral 534 472 Output: Urine 525 1800 400 Other: Voiding Method Urinal Urinal Urinal Diaper Diaper Diaper # Voids 1 - Labs CBC & Chem 7: 04/14/24 05:35 04/14/24 05:35 Labs: Abnormal Lab Results - Last 24 Hours (Table) 04/14/24 04/14/24 04/15/24 Range/Units 17:55 19:54 02:14 POC Glucose (mg/dL) 204 H 231 H 236 H (70-110) mg/dL 04/15/24 04/15/24 Range/Units 05:40 12:07 POC Glucose (mg/dL) 196 H 334 H (70-110) mg/dL
[2024-04-15] MEDS: SENNOSIDES-DOCUSATE SODIUM 1 EACH TAB PO STA (16:13)
--- NOTE | 2024-04-15 16:35 | P.CNPUL ---
History of Present Illness Consult date: 04/15/24 Reason for consult: abnormal CXR/CT History of present illness: This is a 58-year-old male patient who is being seen for an abnormal CAT scan of the chest. The patient underwent a CT scan of the chest that showed multiple bilateral nodular densities and these are scattered throughout the lung mahmood bilaterally. In addition to that, the patient had a small left-sided pleural effusion and some consolidation left lung base/atelectasis and mild enlarged mediastinal lymph nodes. Noted the patient is currently being treated for a candidal septicemia. The patient has positive blood cultures with Kell albicans and infectious disease on the case and the patient is currently on Eraxis. No respiratory distress. No cough sputum production or chest tightness or wheezing. No fever or chills. No hemodynamic instability. The patient is known to have diabetes mellitus and diabetic foot ulcers bilaterally involving the bilateral big toes. He was hospitalized for poorly controlled blood sugar and the patient also has history of hypertension and hyperlipidemia. The source of candidemia is thought to be his leg wounds. The patient has an unstageable pressure ulcer involving the right heel and the left heel and a nonhealing ulceration to the wound in the right lower extremity with a fat layer exposed and another 1 in the left lower extremity with fat layer being exposed. Wound services had been involved in his care. The patient continues to use absorptive silver. Transthoracic echocardiogram was performed and there is no evidence of any vegetation. The patient has normal LV function. No valvular heart disease. Echo was noted. CAT scan of the abdomen and pelvis was also done on 04/12/2024 indicating some atelectatic changes in the lung bases and small effusions in addition to BPH. Doppler of the lower extremity was negative for DVTs and a CAT scan of the brain showed no acute abnormalities and the patient has an intact CAT scan findings. The white cell count 7.4, hemoglobin 9.4 and platelet count of 366. Sodium is at 142, BUN 16 with a creatinine of 1.1. Blood sugars at 231. AST is 29, ALT 27, alk phos is 273, bilirubin is at 1.7, CRP is at 9.9. Albumin level is at 2.3. Review of Systems Constitutional: Reports as per HPI Eyes: denies as per HPI, denies blurred vision, denies bulging eye, denies decreased vision, denies diplopia, denies discharge, denies dry eye, denies irritation, denies itching, denies pain, denies photophobia, denies loss of peripheral vision, denies loss of vision, denies tunnel vision/blind spots Ears: deny: decreased hearing, ear discharge, earache, tinnitus Ears, nose, mouth and throat: Reports as per HPI Breasts: absent: as per HPI, gynecomastia Cardiovascular: Reports as per HPI Respiratory: Reports as per HPI Gastrointestinal: Reports as per HPI Genitourinary: Reports as per HPI, Reports urinary frequency, Reports urinary hesitancy, Reports urinary retention Musculoskeletal: Reports as per HPI Musculoskeletal: absent: ankle pain, ankle stiffness, ankle swelling, as per HPI, elbow pain, elbow stiffness, elbow swelling, foot pain, foot stiffness, foot swelling, hand pain, hand stiffness, hand swelling, hip pain, hip stiffness, hip swelling, knee pain, knee stiffness, knee swelling, shoulder pain, shoulder stiffness, shoulder swelling, wrist pain, wrist stiffness, wrist swelling Integumentary: Reports wounds Neurological: Reports as per HPI Psychiatric: Reports as per HPI Endocrine: Reports as per HPI, Reports high blood sugars Hematologic/Lymphatic: Reports as per HPI Allergic/Immunologic: Reports as per HPI Past Medical History Past Medical History: Diabetes Mellitus, Hyperlipidemia, Hypertension History of Any Multi-Drug Resistant Organisms: None Reported Past Surgical History: Orthopedic Surgery Additional Past Surgical History / Comment(s): femur fx sx Past Psychological History: No Psychological Hx Reported, Depression Smoking Status: Never smoker Past Alcohol Use History: Unable to Obtain Past Drug Use History: Unable to Obtain Medications and Allergies Home Medications Medication Instructions Recorded Confirmed Type Atorvastatin [Lipitor] 40 mg PO HS@189904/06/24 04/06/24 History Cetirizine HCl [Zyrtec] 10 mg PO DAILY@69904/06/24 04/06/24 History Cholecalciferol [Vitamin D3 (125 125 mcg PO HS@189904/06/24 04/06/24 History Mcg = 5000 Iu)] Escitalopram [Lexapro] 20 mg PO DAILY@69904/06/24 04/06/24 History Famotidine [Pepcid] 20 mg PO BID@1200,1900 PRN 04/06/24 04/06/24 History Ferrous Sulfate [Iron] 325 mg PO DAILY@69904/06/24 04/06/24 History Fluticasone Nasal [place] [Flonase 2 spray EA NOSTRIL DAILY@0700 04/06/24 04/06/24 History Nasal [place]] Insulin Degludec [Tresiba 28 units SQ DAILY@0700 04/06/24 04/06/24 History Flextouch U-200 Pen] Montelukast [Singulair] 10 mg PO DAILY@0700 04/06/24 04/06/24 History Morphine Sulfate ER [Ms Contin] 60 mg PO BID@0700,1900 04/06/24 04/06/24 History Pantoprazole [Protonix] 40 mg PO DAILY@0700 04/06/24 04/06/24 History clonazePAM [KlonoPIN] 2 mg PO TID@0700,1200,1900 04/06/24 04/06/24 History traZODone HCL 300 mg PO HS@1900 04/06/24 04/06/24 History Allergies Allergy/AdvReac Type Severity Reaction Status Date / Time amitriptyline [From Elavil] Allergy Unknown Verified 04/06/24 18:53 oats Allergy Unknown Verified 04/06/24 18:53 pregabalin [From Lyrica] Allergy Unknown Verified 04/06/24 18:53 Fish Containing Products AdvReac Unknown Verified 04/06/24 18:53 [Fish] Mushroom AdvReac Anaphylaxis Verified 04/10/24 18:30 Penicillins AdvReac Nausea & Verified 04/06/24 18:53 Vomiting eggs AdvReac Anaphylaxis Uncoded 04/10/24 18:30 nuts AdvReac Unknown Uncoded 04/06/24 18:53 Physical Exam Vitals: Vital Signs Temp Pulse Resp BP BP Pulse Ox 04/15/24 13:56 98.4 F 97 16 143/63 04/15/24 07:51 98.2 F 63 15 155/74 97 04/15/24 01:48 99.2 F 66 18 135/70 92 L 04/14/24 19:26 98.1 F 70 16 131/73 93 L Intake and Output 04/15/24 04/15/24 04/15/24 06:59 14:59 22:59 Intake Total 472 Output Total 1800 400 Balance -1800 72 Intake: Oral 472 Output: Urine 1800 400 Other: Voiding Method Urinal Diaper The patient appeared well nourished and normally developed. Vital signs as documented. Head exam is unremarkable. No scleral icterus or corneal arcus noted. Neck is without jugular venous distension, thyromegaly, or carotid bruits. Carotid upstrokes are brisk bilaterally. Lungs are clear to auscultation and percussion. Cardiac exam reveals the PMI to be normally sized and situated. Rhythm is regu lar. First and second heart sounds normal. No murmurs, rubs or gallops. Abdominal exam reveals normal bowel sounds, no masses, no organomegaly and no aortic enlargement. Extremities are nonedematous and both femoral and pedal pulses are normal. Examination of the skin revealed no evidence of significant rashes, suspicious appearing nevi or other concerning lesions. Lower extremity wounds are covered with appropriate dressing. Neurologically, the patient is awake and alert and the patient does not have any focal neurological deficit. Cranial nerves are essentially intact. Results - Laboratory Findings CBC and BMP: 04/14/24 05:35 04/14/24 05:35 Abnormal lab findings: Abnormal Labs 04/06/24 04/06/24 04/06/24 16:48 19:42 19:47 WBC RBC Hgb Hct MCHC RDW Immature Gran # Neutrophils # Monocytes # Acanthocytes (Spur) VBG pH 7.26 L VBG pCO2 VBG HCO3 23 L Sodium Potassium Chloride Carbon Dioxide BUN Glucose POC Glucose (mg/dL) 570 H* 388 H Hemoglobin A1c Calcium Phosphorus Total Bilirubin Delta Bilirubin AST Alkaline Phosphatase C-Reactive Protein Total Protein Albumin Globulin Albumin/Globulin Ratio Vitamin B12 Procalcitonin Urine Protein Urine Ketones Urine Blood Ur Leukocyte Esterase Urine RBC Urine WBC Urine Bacteria Urine Mucus Urine Yeast (Budding) 04/06/24 04/06/24 04/06/24 19:47 20:24 21:25 WBC RBC Hgb Hct MCHC RDW Immature Gran # Neutrophils # Monocytes # Acanthocytes (Spur) VBG pH VBG pCO2 VBG HCO3 Sodium 136 L Potassium Chloride 97 L Carbon Dioxide 21 L BUN 32 H Glucose 402 H POC Glucose (mg/dL) 390 H 314 H Hemoglobin A1c Calcium Phosphorus Total Bilirubin Delta Bilirubin AST Alkaline Phosphatase C-Reactive Protein Total Protein Albumin Globulin Albumin/Globulin Ratio Vitamin B12 Procalcitonin Urine Protein Urine Ketones Urine Blood Ur Leukocyte Esterase Urine RBC Urine WBC Urine Bacteria Urine Mucus Urine Yeast (Budding) 0204/06/24 04/07/24 22:25 23:29 00:23 WBC RBC Hgb Hct MCHC RDW Immature Gran # Neutrophils # Monocytes # Acanthocytes (Spur) VBG pH VBG pCO2 VBG HCO3 Sodium Potassium Chloride Carbon Dioxide BUN 30 H Glucose 158 H POC Glucose (mg/dL) 235 H 208 H Hemoglobin A1c Calcium Phosphorus 2.0 L Total Bilirubin Delta Bilirubin AST Alkaline Phosphatase C-Reactive Protein Total Protein Albumin Globulin Albumin/Globulin Ratio Vitamin B12 Procalcitonin Urine Protein Urine Ketones Urine Blood Ur Leukocyte Esterase Urine RBC Urine WBC Urine Bacteria Urine Mucus Urine Yeast (Budding) 04/07/24 04/07/24 04/07/24 00:26 01:35 02:48 WBC RBC Hgb Hct MCHC RDW Immature Gran # Neutrophils # Monocytes # Acanthocytes (Spur) VBG pH VBG pCO2 VBG HCO3 Sodium Potassium Chloride Carbon Dioxide BUN Glucose POC Glucose (mg/dL) 179 H 157 H 118 H Hemoglobin A1c Calcium Phosphorus Total Bilirubin Delta Bilirubin AST Alkaline Phosphatase C-Reactive Protein Total Protein Albumin Globulin Albumin/Globulin Ratio Vitamin B12 Procalcitonin Urine Protein Urine Ketones Urine Blood Ur Leukocyte Esterase Urine RBC Urine WBC Urine Bacteria Urine Mucus Urine Yeast (Budding) 04/07/24 04/07/24 04/07/24 07:36 08:40 09:09 WBC 16.7 H RBC 4.22 L Hgb 11.7 L Hct 36.8 L MCHC RDW Immature Gran # Neutrophils # 14.6 H Monocytes # Acanthocytes (Spur) VBG pH VBG pCO2 VBG HCO3 Sodium Potassium Chloride Carbon Dioxide BUN Glucose POC Glucose (mg/dL) 356 H 337 H Hemoglobin A1c Calcium Phosphorus Total Bilirubin Delta Bilirubin AST Alkaline Phosphatase C-Reactive Protein Total Protein Albumin Globulin Albumin/Globulin Ratio Vitamin B12 Procalcitonin Urine Protein Urine Ketones Urine Blood Ur Leukocyte Esterase Urine RBC Urine WBC Urine Bacteria Urine Mucus Urine Yeast (Budding) 04/07/24 04/07/24 04/07/24 09:09 09:09 09:09 WBC RBC Hgb Hct MCHC RDW Immature Gran # Neutrophils # Monocytes # Acanthocytes (Spur) VBG pH VBG pCO2 VBG HCO3 Sodium 134 L Potassium Chloride Carbon Dioxide 19 L BUN 25 H Glucose 294 H POC Glucose (mg/dL) Hemoglobin A1c 12.7 H Calcium Phosphorus 1.6 L Total Bilirubin Delta Bilirubin 0.4 H AST 16 L Alkaline Phosphatase 137 H C-Reactive Protein Total Protein Albumin 3.3 L Globulin Albumin/Globulin Ratio Vitamin B12 Procalcitonin 0.52 H Urine Protein Urine Ketones Urine Blood Ur Leukocyte Esterase Urine RBC Urine WBC Urine Bacteria Urine Mucus Urine Yeast (Budding) 04/07/24 04/07/24 04/07/24 09:09 10:31 11:11 WBC RBC Hgb Hct MCHC RDW Immature Gran # Neutrophils # Monocytes # Acanthocytes (Spur) VBG pH VBG pCO2 34 L VBG HCO3 21 L Sodium Potassium Chloride Carbon Dioxide BUN Glucose POC Glucose (mg/dL) 331 H Hemoglobin A1c Calcium Phosphorus Total Bilirubin Delta Bilirubin AST Alkaline Phosphatase C-Reactive Protein Total Protein Albumin Globulin Albumin/Globulin Ratio Vitamin B12 2469.0 H Procalcitonin Urine Protein Urine Ketones Urine Blood Ur Leukocyte Esterase Urine RBC Urine WBC Urine Bacteria Urine Mucus Urine Yeast (Budding) 04/07/24 04/07/24 04/07/24 13:32 15:05 17:15 WBC RBC Hgb Hct MCHC RDW Immature Gran # Neutrophils # Monocytes # Acanthocytes (Spur) VBG pH VBG pCO2 VBG HCO3 Sodium Potassium Chloride Carbon Dioxide BUN Glucose POC Glucose (mg/dL) 434 H 436 H 380 H Hemoglobin A1c Calcium Phosphorus Total Bilirubin Delta Bilirubin AST Alkaline Phosphatase C-Reactive Protein Total Protein Albumin Globulin Albumin/Globulin Ratio Vitamin B12 Procalcitonin Urine Protein Urine Ketones Urine Blood Ur Leukocyte Esterase Urine RBC Urine WBC Urine Bacteria Urine Mucus Urine Yeast (Budding) 04/07/24 04/08/24 04/08/24 22:02 06:12 06:21 WBC 11.4 H RBC 3.97 L Hgb 11.1 L Hct 34.6 L MCHC RDW Immature Gran # Neutrophils # 9.0 H Monocytes # Acanthocytes (Spur) VBG pH VBG pCO2 VBG HCO3 Sodium Potassium Chloride Carbon Dioxide BUN Glucose POC Glucose (mg/dL) 268 H 183 H Hemoglobin A1c Calcium Phosphorus Total Bilirubin Delta Bilirubin AST Alkaline Phosphatase C-Reactive Protein Total Protein Albumin Globulin Albumin/Globulin Ratio Vitamin B12 Procalcitonin Urine Protein Urine Ketones Urine Blood Ur Leukocyte Esterase Urine RBC Urine WBC Urine Bacteria Urine Mucus Urine Yeast (Budding) 04/08/24 04/08/24 04/08/24 06:21 11:15 16:35 WBC RBC Hgb Hct MCHC RDW Immature Gran # Neutrophils # Monocytes # Acanthocytes (Spur) VBG pH VBG pCO2 VBG HCO3 Sodium 135 L Potassium 3.3 L Chloride Carbon Dioxide BUN Glucose 174 H POC Glucose (mg/dL) 281 H 171 H Hemoglobin A1c Calcium Phosphorus Total Bilirubin Delta Bilirubin AST Alkaline Phosphatase C-Reactive Protein 14.4 H Total Protein Albumin Globulin Albumin/Globulin Ratio Vitamin B12 Procalcitonin Urine Protein Urine Ketones Urine Blood Ur Leukocyte Esterase Urine RBC Urine WBC Urine Bacteria Urine Mucus Urine Yeast (Budding) 04/08/24 04/09/24 04/09/24 19:48 01:40 02:01 WBC RBC Hgb Hct MCHC RDW Immature Gran # Neutrophils # Monocytes # Acanthocytes (Spur) VBG pH VBG pCO2 VBG HCO3 Sodium Potassium Chloride Carbon Dioxide BUN Glucose POC Glucose (mg/dL) 146 H 185 H Hemoglobin A1c Calcium Phosphorus Total Bilirubin Delta Bilirubin AST Alkaline Phosphatase C-Reactive Protein Total Protein Albumin Globulin Albumin/Globulin Ratio Vitamin B12 Procalcitonin Urine Protein 1+ H Urine Ketones Trace H Urine Blood Moderate H Ur Leukocyte Esterase Small H Urine RBC 35 H Urine WBC 14 H Urine Bacteria Rare H Urine Mucus Rare H Urine Yeast (Budding) Rare H 04/09/24 04/09/24 04/09/24 05:24 05:24 06:22 WBC RBC 3.87 L Hgb 11.0 L Hct 33.6 L MCHC RDW Immature Gran # Neutrophils # Monocytes # Acanthocytes (Spur) VBG pH VBG pCO2 VBG HCO3 Sodium 136 L Potassium Chloride Carbon Dioxide BUN Glucose 161 H POC Glucose (mg/dL) 249 H Hemoglobin A1c Calcium Phosphorus Total Bilirubin Delta Bilirubin AST Alkaline Phosphatase C-Reactive Protein Total Protein Albumin Globulin Albumin/Globulin Ratio Vitamin B12 Procalcitonin Urine Protein Urine Ketones Urine Blood Ur Leukocyte Esterase Urine RBC Urine WBC Urine Bacteria Urine Mucus Urine Yeast (Budding) 04/09/24 04/09/24 04/09/24 11:50 16:05 19:54 WBC RBC Hgb Hct MCHC RDW Immature Gran # Neutrophils # Monocytes # Acanthocytes (Spur) VBG pH VBG pCO2 VBG HCO3 Sodium Potassium Chloride Carbon Dioxide BUN Glucose POC Glucose (mg/dL) 151 H 415 H 221 H Hemoglobin A1c Calcium Phosphorus Total Bilirubin Delta Bilirubin AST Alkaline Phosphatase C-Reactive Protein Total Protein Albumin Globulin Albumin/Globulin Ratio Vitamin B12 Procalcitonin Urine Protein Urine Ketones Urine Blood Ur Leukocyte Esterase Urine RBC Urine WBC Urine Bacteria Urine Mucus Urine Yeast (Budding) 04/10/24 04/10/2404/10/25 02:05 06:40 08:21 WBC RBC 3.85 L Hgb 10.7 L Hct 33.3 L MCHC RDW Immature Gran # Neutrophils # Monocytes # Acanthocytes (Spur) VBG pH VBG pCO2 VBG HCO3 Sodium Potassium Chloride Carbon Dioxide BUN Glucose POC Glucose (mg/dL) 133 H 185 H Hemoglobin A1c Calcium Phosphorus Total Bilirubin Delta Bilirubin AST Alkaline Phosphatase C-Reactive Protein Total Protein Albumin Globulin Albumin/Globulin Ratio Vitamin B12 Procalcitonin Urine Protein Urine Ketones Urine Blood Ur Leukocyte Esterase Urine RBC Urine WBC Urine Bacteria Urine Mucus Urine Yeast (Budding) 04/10/24 04/10/24 04/10/24 08:21 12:05 17:19 WBC RBC Hgb Hct MCHC RDW Immature Gran # Neutrophils # Monocytes # Acanthocytes (Spur) VBG pH VBG pCO2 VBG HCO3 Sodium Potassium Chloride Carbon Dioxide BUN 22 H Glucose 214 H POC Glucose (mg/dL) 264 H 316 H Hemoglobin A1c Calcium 8.2 L Phosphorus Total Bilirubin Delta Bilirubin AST Alkaline Phosphatase C-Reactive Protein Total Protein Albumin Globulin Albumin/Globulin Ratio Vitamin B12 Procalcitonin Urine Protein Urine Ketones Urine Blood Ur Leukocyte Esterase Urine RBC Urine WBC Urine Bacteria Urine Mucus Urine Yeast (Budding) 04/10/24 04/11/24 04/11/24 20:19 02:10 05:44 WBC RBC Hgb Hct MCHC RDW Immature Gran # Neutrophils # Monocytes # Acanthocytes (Spur) VBG pH VBG pCO2 VBG HCO3 Sodium Potassium Chloride Carbon Dioxide BUN Glucose 286 H POC Glucose (mg/dL) 242 H 287 H Hemoglobin A1c Calcium 8.1 L Phosphorus Total Bilirubin Delta Bilirubin AST Alkaline Phosphatase C-Reactive Protein Total Protein Albumin Globulin Albumin/Globulin Ratio Vitamin B12 Procalcitonin Urine Protein Urine Ketones Urine Blood Ur Leukocyte Esterase Urine RBC Urine WBC Urine Bacteria Urine Mucus Urine Yeast (Budding) 04/11/24 04/11/24 04/11/24 06:06 12:14 17:08 WBC RBC Hgb Hct MCHC RDW Immature Gran # Neutrophils # Monocytes # Acanthocytes (Spur) VBG pH VBG pCO2 VBG HCO3 Sodium Potassium Chloride Carbon Dioxide BUN Glucose POC Glucose (mg/dL) 299 H 150 H 168 H Hemoglobin A1c Calcium Phosphorus Total Bilirubin Delta Bilirubin AST Alkaline Phosphatase C-Reactive Protein Total Protein Albumin Globulin Albumin/Globulin Ratio Vitamin B12 Procalcitonin Urine Protein Urine Ketones Urine Blood Ur Leukocyte Esterase Urine RBC Urine WBC Urine Bacteria Urine Mucus Urine Yeast (Budding) 04/11/24 04/12/24 04/12/24 20:25 02:21 05:18 WBC RBC 3.67 L Hgb 10.1 L Hct 32.3 L MCHC 31.3 L RDW 15.8 H Immature Gran # 0.06 H Neutrophils # Monocytes # 1.06 H Acanthocytes (Spur) 2+ A VBG pH VBG pCO2 VBG HCO3 Sodium Potassium Chloride Carbon Dioxide BUN Glucose POC Glucose (mg/dL) 138 H 154 H Hemoglobin A1c Calcium Phosphorus Total Bilirubin Delta Bilirubin AST Alkaline Phosphatase C-Reactive Protein Total Protein Albumin Globulin Albumin/Globulin Ratio Vitamin B12 Procalcitonin Urine Protein Urine Ketones Urine Blood Ur Leukocyte Esterase Urine RBC Urine WBC Urine Bacteria Urine Mucus Urine Yeast (Budding) 04/12/24 04/12/24 04/12/24 05:18 05:54 12:21 WBC RBC Hgb Hct MCHC RDW Immature Gran # Neutrophils # Monocytes # Acanthocytes (Spur) VBG pH VBG pCO2 VBG HCO3 Sodium Potassium Chloride Carbon Dioxide BUN Glucose 241 H POC Glucose (mg/dL) 248 H 398 H Hemoglobin A1c Calcium 8.2 L Phosphorus Total Bilirubin Delta Bilirubin AST Alkaline Phosphatase C-Reactive Protein Total Protein Albumin Globulin Albumin/Globulin Ratio Vitamin B12 Procalcitonin Urine Protein Urine Ketones Urine Blood Ur Leukocyte Esterase Urine RBC Urine WBC Urine Bacteria Urine Mucus Urine Yeast (Budding) 04/12/24 04/12/24 04/13/24 17:28 20:36 00:53 WBC RBC Hgb Hct MCHC RDW Immature Gran # Neutrophils # Monocytes # Acanthocytes (Spur) VBG pH VBG pCO2 VBG HCO3 Sodium Potassium Chloride Carbon Dioxide BUN Glucose POC Glucose (mg/dL) 201 H 154 H 225 H Hemoglobin A1c Calcium Phosphorus Total Bilirubin Delta Bilirubin AST Alkaline Phosphatase C-Reactive Protein Total Protein Albumin Globulin Albumin/Globulin Ratio Vitamin B12 Procalcitonin Urine Protein Urine Ketones Urine Blood Ur Leukocyte Esterase Urine RBC Urine WBC Urine Bacteria Urine Mucus Urine Yeast (Budding) 04/13/24 04/13/24 04/13/24 06:03 12:44 14:44 WBC RBC Hgb Hct MCHC RDW Immature Gran # Neutrophils # Monocytes # Acanthocytes (Spur) VBG pH VBG pCO2 VBG HCO3 Sodium Potassium Chloride Carbon Dioxide BUN Glucose POC Glucose (mg/dL) 222 H 311 H 314 H Hemoglobin A1c Calcium Phosphorus Total Bilirubin Delta Bilirubin AST Alkaline Phosphatase C-Reactive Protein Total Protein Albumin Globulin Albumin/Globulin Ratio Vitamin B12 Procalcitonin Urine Protein Urine Ketones Urine Blood Ur Leukocyte Esterase Urine RBC Urine WBC Urine Bacteria Urine Mucus Urine Yeast (Budding) 04/13/24 04/13/24 04/14/24 17:39 19:36 02:12 WBC RBC Hgb Hct MCHC RDW Immature Gran # Neutrophils # Monocytes # Acanthocytes (Spur) VBG pH VBG pCO2 VBG HCO3 Sodium Potassium Chloride Carbon Dioxide BUN Glucose POC Glucose (mg/dL) 131 H 143 H 205 H Hemoglobin A1c Calcium Phosphorus Total Bilirubin Delta Bilirubin AST Alkaline Phosphatase C-Reactive Protein Total Protein Albumin Globulin Albumin/Globulin Ratio Vitamin B12 Procalcitonin Urine Protein Urine Ketones Urine Blood Ur Leukocyte Esterase Urine RBC Urine WBC Urine Bacteria Urine Mucus Urine Yeast (Budding) 04/14/24 04/14/24 04/14/24 05:35 05:35 06:17 WBC RBC 3.42 L Hgb 9.4 L Hct 29.9 L MCHC 31.4 L RDW 14.7 H Immature Gran # Neutrophils # Monocytes # Acanthocytes (Spur) VBG pH VBG pCO2 VBG HCO3 Sodium Potassium Chloride Carbon Dioxide 32.9 H BUN Glucose 221 H POC Glucose (mg/dL) 236 H Hemoglobin A1c Calcium 8.5 L Phosphorus Total Bilirubin 0.2 L Delta Bilirubin AST Alkaline Phosphatase 273 H C-Reactive Protein 9.90 H Total Protein 6.0 L Albumin 2.3 L Globulin 3.7 H Albumin/Globulin Ratio 0.62 L Vitamin B12 Procalcitonin Urine Protein Urine Ketones Urine Blood Ur Leukocyte Esterase Urine RBC Urine WBC Urine Bacteria Urine Mucus Urine Yeast (Budding) 04/14/24 04/14/24 04/14/24 12:24 17:55 19:54 WBC RBC Hgb Hct MCHC RDW Immature Gran # Neutrophils # Monocytes # Acanthocytes (Spur) VBG pH VBG pCO2 VBG HCO3 Sodium Potassium Chloride Carbon Dioxide BUN Glucose POC Glucose (mg/dL) 274 H 204 H 231 H Hemoglobin A1c Calcium Phosphorus Total Bilirubin Delta Bilirubin AST Alkaline Phosphatase C-Reactive Protein Total Protein Albumin Globulin Albumin/Globulin Ratio Vitamin B12 Procalcitonin Urine Protein Urine Ketones Urine Blood Ur Leukocyte Esterase Urine RBC Urine WBC Urine Bacteria Urine Mucus Urine Yeast (Budding) 04/15/24 04/15/24 04/15/24 02:14 05:40 12:07 WBC RBC Hgb Hct MCHC RDW Immature Gran # Neutrophils # Monocytes # Acanthocytes (Spur) VBG pH VBG pCO2 VBG HCO3 Sodium Potassium Chloride Carbon Dioxide BUN Glucose POC Glucose (mg/dL) 236 H 196 H 334 H Hemoglobin A1c Calcium Phosphorus Total Bilirubin Delta Bilirubin AST Alkaline Phosphatase C-Reactive Protein Total Protein Albumin Globulin Albumin/Globulin Ratio Vitamin B12 Procalcitonin Urine Protein Urine Ketones Urine Blood Ur Leukocyte Esterase Urine RBC Urine WBC Urine Bacteria Urine Mucus Urine Yeast (Budding) - Diagnostic Findings Chest x-ray: image reviewed CT scan - chest: image reviewed Assessment and Plan Plan: Bilateral pulmonary nodular densities, consistent with septic emboli to the lungs, likely secondary to systemic fungemia as the patient has positive blood cultures with Kell albicans. Metastatic disease felt to be less likely. Other causes are also considered to be less likely. Patient is currently on IV Eraxis. Respiratory status is stable and patient is currently on room air oxygen without having any significant shortness of breath. 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
[2024-04-15 17:20] LABS: Glucose,Whole Blood 406 mg/dL (70-110)
[2024-04-15 19:39] LABS: Glucose,Whole Blood 421 mg/dL (70-110)
[2024-04-15] MEDS: INSULIN LISPRO (HumaLOG) 100 UNIT/ML 10 mL VL SQ STA (20:58)
[2024-04-16 02:23] LABS: Glucose,Whole Blood 93 mg/dL (70-110)
[2024-04-16 03:51] LABS: Glucose,Whole Blood 102 mg/dL (70-110)
[2024-04-16 05:42] LABS: Glucose,Whole Blood 120 mg/dL (70-110)
[2024-04-16] MEDS ORDERED: INSULIN GLARGINE (LANTUS) 100 UNIT/ML SYR SQ SCH ×3 (07:00→21:00)
[2024-04-16 10:53] LABS: Basophils % (A) 0 %; Eosinophils # (A) 0.2 k/uL (0-0.7); Eosinophils % (A) 3 %; HCT 30.2 % (39.0-53.0); HGB 9.5 gm/dL (13.0-17.5); Lymphocytes # (A) 1.7 k/uL (1.0-4.8); Lymphocytes % (A) 23 %; MCH 27.6 pg (25.0-35.0); MCHC 31.5 g/dL (31.0-37.0); MCV 87.6 fL (80.0-100.0); Mean Platelet Volume 7.4; Monocytes # (A) 0.3 k/uL (0-1.0); Monocytes % (A) 4 %; Neutrophils # (A) 4.8 k/uL (1.3-7.7); Neutrophils % (A) 68 %; Platelet Count 430 k/uL (150-450); RBC 3.45 m/uL (4.30-5.90); RDW 14.9 % (11.5-15.5); WBC 7.1 k/uL (3.8-10.6)
[2024-04-16 11:19] LABS: ALT 22 U/L (4-49); AST 26 U/L (17-59); African American GFR (CKD) 78 (>60 ml/min/1.73 sqM); Albumin 2.5 g/dL (3.5-5.0); Albumin/Globulin Ratio 0.6; Alkaline Phosphatase 217 U/L (38-126); Anion Gap 3 mmol/L; Blood Urea Nitrogen 21 mg/dL (9-20); Calcium 8.5 mg/dL (8.4-10.2); Carbon Dioxide 36 mmol/L (22-30); Chloride 98 mmol/L (98-107); Globulin 3.9 g/dL; Glucose 270 mg/dL (74-99); Non-African American GFR(CKD) 67 (>60 ml/min/1.73 sqM); Potassium 4.5 mmol/L (3.5-5.1); Sodium 137 mmol/L (137-145); Total Bilirubin 0.4 mg/dL (0.2-1.3); Total Protein 6.4 g/dL (6.3-8.2)
[2024-04-16 12:11] LABS: Glucose,Whole Blood 379 mg/dL (70-110)
--- NOTE | 2024-04-16 12:40 | P.PN ---
Subjective Progress Note Date: 04/16/24 Principal diagnosis: Reason for follow-up is bilateral diabetic foot ulcer Patient is a 58-year-old male with a past medical history significant for diabetes mellitus hypertension hyperlipidemia history of diabetic foot ulcers involving bilateral big toes has been into the hospital for DKA ID consulted as he did have a PICC line and bilateral diabetic foot ulcer. On today's evaluation that is 04/16/2024, patient did not have any fever and denies any chills, patient is breathing comfortably on room air, patient with no chest pain or cough patient did not have any abdominal pain nausea vomiting or any loose stools. Patient white count 7.1, platelets 1.18 blood culture repeat so far negative Objective - Vital Signs Vital signs: Vital Signs Temp 98.4 F 04/16/24 07:12 Pulse 64 04/16/24 07:12 Resp 18 04/16/24 09:19 BP 138/70 04/16/24 07:12 Pulse Ox 92 L 04/16/24 07:12 FiO2 Intake & Output 04/15/24 04/16/24 04/16/24 18:59 06:59 18:59 Intake Total 472 440 Output Total 400 105 Balance 72 -105 440 Intake: Oral 472 440 Output: Urine 400 105 Other: Voiding Method Urinal Urinal Urinal Diaper # Voids 3 - Exam GENERAL DESCRIPTION: Middle-age male lying in bed in no distress RESPIRATORY SYSTEM: Unlabored breathing , decreased breath sounds at bases HEART: S1 S2 regular rate and rhythm , ABDOMEN: Soft , no tenderness EXTREMITIES: Bilateral feet and right lower extremity wound with no slough tissue redness - Labs CBC & Chem 7: 04/16/24 10:20 04/16/24 10:20 Labs: Abnormal Lab Results - Last 24 Hours (Table) 04/15/24 04/15/24 04/16/24 Range/Units 17:19 19:38 05:40 RBC (4.30-5.90) m/uL Hgb (13.0-17.5) gm/dL Hct (39.0-53.0) % Carbon Dioxide (22-30) mmol/L BUN (9-20) mg/dL Glucose (74-99) mg/dL POC Glucose (mg/dL) 406 H 421 H 120 H (70-110) mg/dL Alkaline Phosphatase (38-126) U/L Albumin (3.5-5.0) g/dL 04/16/24 04/16/24 04/16/24 Range/Units 10:20 10:20 12:05 RBC 3.45 L (4.30-5.90) m/uL Hgb 9.5 L (13.0-17.5) gm/dL Hct 30.2 L (39.0-53.0) % Carbon Dioxide 36 H (22-30) mmol/L BUN 21 H (9-20) mg/dL Glucose 270 H (74-99) mg/dL POC Glucose (mg/dL) 379 H (70-110) mg/dL Alkaline Phosphatase 217 H (38-126) U/L Albumin 2.5 L (3.5-5.0) g/dL Microbiology - Last 24 Hours (Table) 04/10/24 17:28 Blood Culture - Final Blood Assessment and Plan (1) Diabetic foot ulcers Current Visit: Yes Status: Acute Code(s): E11.621 - TYPE 2 DIABETES MELLITUS WITH FOOT ULCER; L97.509 - NON-PRESSURE CHRONIC ULCER OTH PRT UNSP FOOT W UNSP SEVERITY SNOMED Code(s): 471265405 (2) Leukocytosis Current Visit: Yes Status: Acute Code(s): D72.829 - ELEVATED WHITE BLOOD CELL COUNT, UNSPECIFIED SNOMED Code(s): 574804224 (3) Candidemia Current Visit: Yes Status: Acute Code(s): B37.7 - CANDIDAL SEPSIS SNOMED Code(s): 348067100 Plan: 1patient with bilateral diabetic foot ulcers but involving bilateral big toes right lower extremity and left heel area on these wounds currently clean without any soft tissue significant surrounding redness or foul-smelling drainage recommend local wound care with a dry Aquacel dressing change q. 48-hour 2patient did have a PICC line however apparently the patient has completed his course of IV daptomycin as of 03/26/2024 unfortunately the PICC line was not discontinued as it should have been after completion of IV antibiotic therapy, PICC line was discontinued on 04/09/2024 3patient did have positive blood culture with yeast more likely related to his PICC line which has been discontinued, patient did have CT abdominal pelvis did not show any intra-abdominal pathology but shows multiple pulmonary nodules echocardiogram was done did not show any vegetation however CT of the chest is concerning for possible septic emboli, cardiology consulted for LEONEL to see integrity of his cardiac valve and make sure not dealing with a large vegetation apparently procedure scheduled for Thursday, patient has cleared his fungemia with repeat cultures negative 4patient to continue with Eraxis and will monitor clinical course closely Dictation was produced using [employer] dictation software. please excuse any grammatical, word or spelling errors. Time with Patient: Less than 30
--- NOTE | 2024-04-16 13:45 | P.PN ---
Subjective Progress Note Date: 04/16/24 Hospital Course: Patient was transferred from [facility] and per records patient was confused x 3 days he is diabetic and he has a visiting nurse for his infusion Patient was diagnosed with DKA and he was placed on insulin drip and IV fluid Per note patient was alert but slow to respond. Also with multiple wounds on the heel, shins with no active infection Patient currently is awake alert oriented to time place and person. He is slow to respond. He says he came from adult foster care. Patient states that he was able to walk about 1 to 2 weeks ago when I told him it looks like he has pressure ulcers in his legs he said I do not know. He complains from weakness in both lower extremities, left more than right. Also complains from generalized weakness but no double vision or slurred speech. He has PICC line in his right upper extremity, as per patient he has it for 9 days and he was getting antibiotics but he does not know for what exactly. Patient states that he was on Klonopin for many years for history of seizure. He is currently 2 mg 3 times daily. Also he is on morphine 60 mg twice daily and trazodone. Patient currently denies chest pain or dyspnea, no abdominal pain or vomiting or diarrhea. No dysuria but complains from incontinence in his urine. No headache or dizziness. He said he used to smoke till 1 week ago about 5 cigarettes/day and he was counseled to quit and he agrees. No alcohol or illicit drugs Pertinent positives and negatives discussed above, a complete review of systems was preformed and all the other systems were negative. 04/13/24 Patient seen and examined at bedside. No acute events overnight. Patient denies any acute complaints at this time. 04/14/24 Patient seen and examined at bedside. No acute events overnight. Patient denies any acute complaints at this time. He remains afebrile and saturating well on room air. 04/15/2024 Patient seen and examined at bedside. No acute events overnight. Patient denies any acute complaints at this time. He remains afebrile and saturating well on room air. Patient does endorse some constipation. 04/16/24 Patient seen and examined sitting comfortably in the chair. Overnight, MIKE manzanares eports that patient had symptoms of hypoglycemia including confusion although his sugars were not low. Patient denies any acute complaints at this time. He remains afebrile. Vitals Signs Reviewed. GENERAL: The patient is alert and oriented x3, not in any acute distress. Well developed, well nourished. HEENT: Pupils are round and equally reacting to light. EOMI. No scleral icterus. No conjunctival pallor. Normocephalic, atraumatic. No pharyngeal erythema. No thyromegaly. CARDIOVASCULAR: S1 and S2 present. No murmurs, rubs, or gallops. PULMONARY: Chest is clear to auscultation, no wheezing , no crackles. ABDOMEN: Soft, nontender, nondistended, normoactive bowel sounds. No palpable or ganomegaly. MUSCULOSKELETAL: No joint swelling or deformity. -EXTREMITIES: No cyanosis, clubbing, or pedal edema. Bilateral ulcers of both heels with eschar, bilateral big toe ulcers admitted. Ri distal right leg superficial ulcers with surrounding cellulitis, improving right PICC line in place -NEUROLOGICAL: Gross neurological examination did not reveal any focal deficits. Bilateral lower extremity weakness SKIN: No rashes. no petechiae. Data Reviewed Today: Patient Labs: WBC 7.1, hemoglobin 9.5, MCV 87.6, platelets 430. Sodium 137, potassium 4.5, chloride 98, bicarb 36, BUN 21, creatinine 1.18, glucose 270. ALP 217. Imaging: No new imaging Assessment and Plan: Confusion and altered mental status, currently improved could be metabolic/toxic encephalopathy , improved Diabetic ketoacidosis, improved History of seizure Neurology consulted, no suspicion of current seizure PT/OT evaluation Swallow eval, advance to chopped/soft Bilateral lower extremity multiple ulcers with possible cellulitis especially of the right lower extremities, both heels with eschar and both toe tips Candidemia could be related to PICC line on admission Repeat blood culture negative ID consulted Wound care consulted Continue Eraxis Follow-up blood culture sensitivities CT concerning for septic emboli, cardiology consulted Patient will undergo LEONEL on Thursday Pulmonology on board Constipation likely opioid-induced Will continue to monitor Senokot dose given Diabetes mellitus Accu-Cheks per [facility]S protocol Increase Lantus to 20 units subcu at bedtime and 10 units at 7 AM Insulin sliding scale Hypoglycemia precautions Mild transaminitis, improving Will continue to monitor Hyperlipidemia Continue atorvastatin 40 mg daily Depression/anxiety Continue Lexapro 20mg Hypertension Generalized weakness Chronic pain syndrome F none E replete as needed N chopped consistent carb A as tolerated DVT ppx: Heparin 5000 units subcu every 8 hours GI PPx: Protonix 40 mg, Pepcid 20mg Code Status: Full code Discussed with: Patient Anticipated discharge place: [facility] home Anticipated discharge time: Pending clinical course Attestation I have seen and examined this patient with my resident , discussed the same with the resident/LORETTA, and agree with the dictator's assessment and plan as written GENERAL: The patient is alert and oriented x3, not in any acute distress. Well developed, well nourished. HEENT: Pupils are round and equally reacting to light. EOMI. No scleral icterus. No conjunctival pallor. Normocephalic, atraumatic. No pharyngeal erythema. No thyromegaly. CARDIOVASCULAR: S1 and S2 present. No murmurs, rubs, or gallops. PULMONARY: Chest is clear to auscultation, no wheezing or crackles. ABDOMEN: Soft, nontender, nondistended, normoactive bowel sounds. No palpable organomegaly. MUSCULOSKELETAL: No joint swelling or deformity. EXTREMITIES: Lower extremity wounds seen NEUROLOGICAL: Gross neurological examination did not reveal any focal deficits. SKIN: No rashes. Dr. Britton payan Objective - Vital Signs Vital signs: Vital Signs Temp 98.4 F 04/16/24 07:12 Pulse 64 04/16/24 07:12 Resp 18 04/16/24 07:12 BP 138/70 04/16/24 07:12 Pulse Ox 92 L 04/16/24 07:12 FiO2 Intake & Output 04/15/24 04/16/24 04/16/24 18:59 06:59 18:59 Intake Total 472 Output Total 400 105 Balance 72 -105 Intake: Oral 472 Output: Urine 400 105 Other: Voiding Method Urinal Urinal Diaper # Voids 3 - Labs CBC & Chem 7: 04/16/24 10:20 04/16/24 10:20 Labs: Abnormal Lab Results - Last 24 Hours (Table) 04/15/24 04/15/24 04/15/24 Range/Units 12:07 17:19 19:38 POC Glucose (mg/dL) 334 H 406 H 421 H (70-110) mg/dL 04/16/24 Range/Units 05:40 POC Glucose (mg/dL) 120 H (70-110) mg/dL Microbiology - Last 24 Hours (Table) 04/10/24 17:28 Blood Culture - Final Blood
--- NOTE | 2024-04-16 14:30 | P.PN ---
Subjective Progress Note Date: 04/16/24 This is a 58-year-old male with no previous cardiac history does not follow with a pai gow dealer. He has a past medical history of diabetes mellitus type 1, seizure disorder, hypertension, hyperlipidemia, chronic lower extremity wounds. Patient presented to the hospital on 04/06 as a transfer from [facility] due to infection. Patient was initially treated for DKA, metabolic encephalopathy, bilateral lower extremity ulcers and cellulitis. CAT scan of the chest revealed scattered nodular opacities and he has blood cultures positive for Kell. Infectious disease has been following and has requested LEONEL to rule out vegetation on the cardiac valves. Blood pressure 155/74, heart rate 63, pulse ox 97% on room air. He is a smoker of 5 cigarettes/day. No alcohol or illicit drug use. Patient had breakfast this morning. -Echocardiogram reveals normal biventricular systolic function. No significant valvular abnormalities. Pulmonary artery systolic pressure was not calculated. No pericardial effusion. -Chest CT: Multiple scattered nodular opacities throughout the lungs. 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 Metastasis is not excluded. Additional trace left pleural effusion with bilateral lower lobe dependent consolidation which may represent atelectasis versus pneumonia. Mildly enlarged mediastinal lymph nodes likely related to #1. -Laboratory studies: WBC 7.4, hemoglobin 9.4, platelet count 366. Sodium 142, potassium 4.3, BUN 16 creatinine 1.1. Alkaline phosphatase 273. C-reactive protein 9.9. A1c 12.7 -Home cardiac medications: Atorvastatin 40 mg at bedtime. 04/16/2024 Patient was seen and examined sitting up in a chair. Overall he is feeling fairly well. He denies any shortness of breath, palpitations or chest d iscomfort. Physical examination: Gen: This is a 58-year-old male in no acute distress VS: reviewed HEENT: Head is atraumatic, normocephalic. Pupils equal, round. Sclerae is anicteric. NECK: Supple. No JVD. LUNGS: Clear to auscultation. No wheezes or rhonchi. No intercostal retractions. HEART: Regular rate and rhythm. ABDOMEN: Soft No tenderness. EXTREMITIES: No pedal edema. No calf tenderness. NEUROLOGICAL: Patient is awake, alert and oriented x3. Assessment: Bilateral lower extremity ulcers with cellulitis Candidemia DKA Metabolic encephalopathy History of seizure Diabetes mellitus Hyperlipidemia Hypertension Plan: Patient will be scheduled for LEONEL on Thursday Continue current medications Further recommendations to follow based upon clinical course Nurse practitioner note has been reviewed, I agree with documented findings and plan of care. Patient was seen and examined. Objective - Vital Signs Vital signs: Vital Signs Temp 98.3 F 04/16/24 13:27 Pulse 77 04/16/24 13:27 Resp 18 04/16/24 13:27 BP 151/77 04/16/24 13:27 Pulse Ox 94 L 04/16/24 13:27 FiO2 Intake & Output 04/15/24 04/16/24 04/16/24 18:59 06:59 18:59 Intake Total 472 440 Output Total 400 105 Balance 72 -105 440 Intake: Oral 472 440 Output: Urine 400 105 Other: Voiding Method Urinal Urinal Urinal Diaper # Voids 3 - Labs CBC & Chem 7: 04/16/24 10:20 04/16/24 10:20 Labs: Abnormal Lab Results - Last 24 Hours (Table) 04/15/24 04/15/24 04/16/24 Range/Units 17:19 19:38 05:40 RBC (4.30-5.90) m/uL Hgb (13.0-17.5) gm/dL Hct (39.0-53.0) % Carbon Dioxide (22-30) mmol/L BUN (9-20) mg/dL Glucose (74-99) mg/dL POC Glucose (mg/dL) 406 H 421 H 120 H (70-110) mg/dL Alkaline Phosphatase (38-126) U/L Albumin (3.5-5.0) g/dL 04/16/24 04/16/24 04/16/24 Range/Units 10:20 10:20 12:05 RBC 3.45 L (4.30-5.90) m/uL Hgb 9.5 L (13.0-17.5) gm/dL Hct 30.2 L (39.0-53.0) % Carbon Dioxide 36 H (22-30) mmol/L BUN 21 H (9-20) mg/dL Glucose 270 H (74-99) mg/dL POC Glucose (mg/dL) 379 H (70-110) mg/dL Alkaline Phosphatase 217 H (38-126) U/L Albumin 2.5 L (3.5-5.0) g/dL Microbiology - Last 24 Hours (Table) 04/10/24 17:28 Blood Culture - Final Blood
--- NOTE | 2024-04-16 15:31 | P.PN ---
Subjective Progress Note Date: 04/16/24 This is a 58-year-old male patient who is being seen for an abnormal CAT scan of the chest. The patient underwent a CT scan of the chest that showed multiple bilateral nodular densities and these are scattered throughout the lung mahmood bilaterally. In addition to that, the patient had a small left-sided pleural effusion and some consolidation left lung base/atelectasis and mild enlarged mediastinal lymph nodes. Noted the patient is currently being treated for a candidal septicemia. The patient has positive blood cultures with Kell albicans and infectious disease on the case and the patient is currently on Eraxis. No respiratory distress. No cough sputum production or chest tightness or wheezing. No fever or chills. No hemodynamic instability. The patient is known to have diabetes mellitus and diabetic foot ulcers bilaterally involving the bilateral big toes. He was hospitalized for poorly controlled blood sugar and the patient also has history of hypertension and hyperlipidemia. The source of candidemia is thought to be his leg wounds. The patient has an unstageable pressure ulcer involving the right heel and the left heel and a nonhealing ulcer ation to the wound in the right lower extremity with a fat layer exposed and another 1 in the left lower extremity with fat layer being exposed. Wound services had been involved in his care. The patient continues to use absorptive silver. Transthoracic echocardiogram was performed and there is no evidence of any vegetation. The patient has normal LV function. No valvular heart disease. Echo was noted. CAT scan of the abdomen and pelvis was also done on 04/12/2024 indicating some atelectatic changes in the lung bases and small effusions in addition to BPH. Doppler of the lower extremity was negative for DVTs and a CAT scan of the brain showed no acute abnormalities and the patient has an intact CAT scan findings. The white cell count 7.4, hemoglobin 9.4 and platelet count of 366. Sodium is at 142, BUN 16 with a creatinine of 1.1. Blood sugars at 231. AST is 29, ALT 27, alk phos is 273, bilirubin is at 1.7, CRP is at 9.9. Albumin level is at 2.3. 04/16/2024, no new complaints. Resting comfortably on a chair. Hemodynamically stable. Repeat blood cultures are negative. Remains on IV Eraxis. Awaiting a LEONEL. No cough, sputum production chest tightness or wheezing. Hemodynamically stable and the patient was placed on 2 L of oxygen by nasal cannula with a pulse ox of 94%. White cell count is at 7.1, hemoglobin 9.5, BUN is 21 with a creatinine 1.1 and a sodium level is 137. Blood sugar management as per medicine. Objective - Vital Signs Vital signs: Vital Signs Temp 98.4 F 04/16/24 07:12 Pulse 64 04/16/24 07:12 Resp 18 04/16/24 09:19 BP 138/70 04/16/24 07:12 Pulse Ox 92 L 04/16/24 07:12 FiO2 Intake & Output 04/15/24 04/16/24 04/16/24 18:59 06:59 18:59 Intake Total 472 440 Output Total 400 105 Balance 72 -105 440 Intake: Oral 472 440 Output: Urine 400 105 Other: Voiding Method Urinal Urinal Urinal Diaper # Voids 3 - Exam The patient appeared well nourished and normally developed. Vital signs as documented. Head exam is unremarkable. No scleral icterus or corneal arcus noted. Neck is without jugular venous distension, thyromegaly, or carotid bruits. Carotid upstrokes are brisk bilaterally. Lungs are clear to auscultation and percussion. Cardiac exam reveals the PMI to be normally sized and situated. Rhythm is regular. First and second heart sounds normal. No murmurs, rubs or gallops. Abdominal exam reveals normal bowel sounds, no masses, no organomegaly and no aortic enlargement. Extremities are nonedematous and both femoral and pedal pulses are normal. Examination of the skin revealed no evidence of significant rashes, suspicious appearing nevi or other concerning lesions. Lower extremity wounds are covered with appropriate dressing. Neurologically, the patient is awake and alert and the patient does not have any focal neurological deficit. Cranial nerves are essentially intact. - Labs CBC & Chem 7: 04/16/24 10:20 04/16/24 10:20 Labs: Abnormal Lab Results - Last 24 Hours (Table) 04/15/24 04/15/24 04/16/24 Range/Units 17:19 19:38 05:40 RBC (4.30-5.90) m/uL Hgb (13.0-17.5) gm/dL Hct (39.0-53.0) % Carbon Dioxide (22-30) mmol/L BUN (9-20) mg/dL Glucose (74-99) mg/dL POC Glucose (mg/dL) 406 H 421 H 120 H (70-110) mg/dL Alkaline Phosphatase (38-126) U/L Albumin (3.5-5.0) g/dL 04/16/24 04/16/24 04/16/24 Range/Units 10:20 10:20 12:05 RBC 3.45 L (4.30-5.90) m/uL Hgb 9.5 L (13.0-17.5) gm/dL Hct 30.2 L (39.0-53.0) % Carbon Dioxide 36 H (22-30) mmol/L BUN 21 H (9-20) mg/dL Glucose 270 H (74-99) mg/dL POC Glucose (mg/dL) 379 H (70-110) mg/dL Alkaline Phosphatase 217 H (38-126) U/L Albumin 2.5 L (3.5-5.0) g/dL Microbiology - Last 24 Hours (Table) 04/10/24 17:28 Blood Culture - Final Blood Assessment and Plan Plan: Bilateral pulmonary nodular densities, consistent with septic emboli to the lungs, likely secondary to systemic fungemia as the patient has positive blood cultures with Kell albicans. Metastatic disease felt to be less likely. Other causes are also considered to be less likely. Patient is currently on IV Eraxis. Respiratory status is stable and patient is currently on room air oxygen without having any significant shortness of breath. Systemic fungemia with Kell albicans, currently on Eraxis Diabetic wounds with unstageable heel ulcers bilaterally and exposed bones of the lower extremities bilaterally Diabetes mellitus Hypertension Hyperlipidemia BPH History of depression Anemia of chronic disease Plan Continue IV Eraxis The patient will need a LEONEL to rule out endocarditis and cardiac vegetation Recommend obtaining a follow-up blood cultures to rule out any persistent fungemia Blood sugar control per medicine Hemodynamically stable and the patient is on 2 L of oxygen by nasal cannula Contact pulmonary services should there be any pulmonary issues for this patient.
[2024-04-16 17:31] LABS: Glucose,Whole Blood 255 mg/dL (70-110)
[2024-04-16 20:54] LABS: Glucose,Whole Blood 290 mg/dL (70-110)
[2024-04-16] MEDS: INSULIN GLARGINE (LANTUS) 100 UNIT/ML SYR SQ SCH (21:09)
[2024-04-17 02:07] LABS: Glucose,Whole Blood 70 mg/dL (70-110)
[2024-04-17 03:15] LABS: Glucose,Whole Blood 98 mg/dL (70-110)
[2024-04-17 06:05] LABS: Glucose,Whole Blood 98 mg/dL (70-110)
[2024-04-17 10:30] LABS: Glucose,Whole Blood 165 mg/dL (70-110)
[2024-04-17] MEDS: INSULIN GLARGINE (LANTUS) 100 UNIT/ML SYR SQ SCH ×3 (11:11→20:41)
[2024-04-17 12:03] LABS: Glucose,Whole Blood 212 mg/dL (70-110)
--- NOTE | 2024-04-17 12:36 | P.PN ---
Subjective Progress Note Date: 04/17/24 This is a 58-year-old male with no previous cardiac history does not follow with a system administrator. He has a past medical history of diabetes mellitus type 1, seizure disorder, hypertension, hyperlipidemia, chronic lower extremity wounds. Patient presented to the hospital on 04/06 as a transfer from [facility] due to infection. Patient was initially treated for DKA, metabolic encephalopathy, bilateral lower extremity ulcers and cellulitis. CAT scan of the chest revealed scattered nodular opacities and he has blood cultures positive for Kell. Infectious disease has been following and has requested LEONEL to rule out vegetation on the cardiac valves. Blood pressure 155/74, heart rate 63, pulse ox 97% on room air. He is a smoker of 5 cigarettes/day. No alcohol or illicit drug use. Patient had breakfast this morning. -Echocardiogram reveals normal biventricular systolic function. No significant valvular abnormalities. Pulmonary artery systolic pressure was not calculated. No pericardial effusion. -Chest CT: Multiple scattered nodular opacities throughout the lungs. 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 Metastasis is not excluded. Additional trace left pleural effusion with bilateral lower lobe dependent consolidation which may represent atelectasis versus pneumonia. Mildly enlarged mediastinal lymph nodes likely related to #1. -Laboratory studies: WBC 7.4, hemoglobin 9.4, platelet count 366. Sodium 142, potassium 4.3, BUN 16 creatinine 1.1. Alkaline phosphatase 273. C-reactive protein 9.9. A1c 12.7 -Home cardiac medications: Atorvastatin 40 mg at bedtime. 04/16/2024 Patient was seen and examined sitting up in a chair. Overall he is feeling fairly well. He denies any shortness of breath, palpitations or chest d iscomfort. 04/17/24 Patient was seen and examined sitting up in a chair at the bedside. He denies a ny current complaints of chest discomfort or shortness of breath. He has had no palpitations. He said no dizziness or lightheadedness. He does complain of a headache. Physical examination: Gen: This is a 58-year-old male in no acute distress VS: reviewed HEENT: Head is atraumatic, normocephalic. Pupils equal, round. Sclerae is anicteric. NECK: Supple. No JVD. LUNGS: Clear to auscultation. No wheezes or rhonchi. No intercostal retractions. HEART: Regular rate and rhythm. ABDOMEN: Soft No tenderness. EXTREMITIES: No pedal edema. No calf tenderness. Dressings dry and intact NEUROLOGICAL: Patient is awake, alert and oriented x3. Assessment: Bilateral lower extremity ulcers with cellulitis Candidemia DKA Metabolic encephalopathy History of seizure Diabetes mellitus Hyperlipidemia Hypertension Plan: Patient is scheduled for LEONEL tomorrow Continue current medications Further recommendations to follow based upon clinical course Nurse practitioner note has been reviewed, I agree with documented findings and plan of care. Patient was seen and examined. Objective - Vital Signs Vital signs: Vital Signs Temp 98.5 F 04/17/24 07:17 Pulse 60 04/17/24 07:17 Resp 15 04/17/24 08:21 BP 129/69 04/17/24 07:17 Pulse Ox 94 L 04/17/24 07:17 FiO2 Intake & Output 04/16/24 04/17/24 04/17/24 18:59 06:59 18:59 Intake Total 440 Output Total 650 Balance -210 Intake: Oral 440 Output: Urine 650 Other: Voiding Method Urinal Urinal Urinal # Voids 4 - Labs CBC & Chem 7: 04/16/24 10:20 04/16/24 10:20 Labs: Abnormal Lab Results - Last 24 Hours (Table) 04/16/24 04/16/24 04/16/24 Range/Units 12:05 17:28 20:53 POC Glucose (mg/dL) 379 H 255 H 290 H (70-110) mg/dL 04/17/24 Range/Units 10:29 POC Glucose (mg/dL) 165 H (70-110) mg/dL
--- NOTE | 2024-04-17 13:31 | P.PN ---
Subjective Progress Note Date: 04/17/24 Hospital Course: Patient was transferred from [facility] and per records patient was confused x 3 days he is diabetic and he has a visiting nurse for his infusion Patient was diagnosed with DKA and he was placed on insulin drip and IV fluid Per note patient was alert but slow to respond. Also with multiple wounds on the heel, shins with no active infection Patient currently is awake alert oriented to time place and person. He is slow to respond. He says he came from adult foster care. Patient states that he was able to walk about 1 to 2 weeks ago when I told him it looks like he has pressure ulcers in his legs he said I do not know. He complains from weakness in both lower extremities, left more than right. Also complains from generalized weakness but no double vision or slurred speech. He has PICC line in his right upper extremity, as per patient he has it for 9 days and he was getting antibiotics but he does not know for what exactly. Patient states that he was on Klonopin for many years for history of seizure. He is currently 2 mg 3 times daily. Also he is on morphine 60 mg twice daily and trazodone. Patient currently denies chest pain or dyspnea, no abdominal pain or vomiting or diarrhea. No dysuria but complains from incontinence in his urine. No headache or dizziness. He said he used to smoke till 1 week ago about 5 cigarettes/day and he was counseled to quit and he agrees. No alcohol or illicit drugs Pertinent positives and negatives discussed above, a complete review of systems was preformed and all the other systems were negative. 04/13/24 Patient seen and examined at bedside. No acute events overnight. Patient denies any acute complaints at this time. 04/14/24 Patient seen and examined at bedside. No acute events overnight. Patient denies any acute complaints at this time. He remains afebrile and saturating well on room air. 04/15/2024 Patient seen and examined at bedside. No acute events overnight. Patient denies any acute complaints at this time. He remains afebrile and saturating well on room air. Patient does endorse some constipation. 04/16/24 Patient seen and examined sitting comfortably in the chair. Overnight, MIKE manaznares eports that patient had symptoms of hypoglycemia including confusion although his sugars were not low. Patient denies any acute complaints at this time. He remains afebrile. 04/17. Patient seen and examined. Patient blood sugars were low, was having episode hypoglycemia, adjust Levemir to 10 units twice a day. LEONEL scheduled for Thursday. Denies any chest pain. Denies shortness of breath. Denies any nausea or vomiting Vitals Signs Reviewed. GENERAL: The patient is alert and oriented x3, not in any acute distress. Well developed, well nourished. HEENT: Pupils are round and equally reacting to light. EOMI. No scleral icterus. No conjunctival pallor. Normocephalic, atraumatic. No pharyngeal erythema. No thyromegaly. CARDIOVASCULAR: S1 and S2 present. No murmurs, rubs, or gallops. PULMONARY: Chest is clear to auscultation, no wheezing , no crackles. ABDOMEN: Soft, nontender, nondistended, normoactive bowel sounds. No palpable organomegaly. MUSCULOSKELETAL: No joint swelling or deformity. -EXTREMITIES: No cyanosis, clubbing, or pedal edema. Bilateral ulcers of both heels with eschar -NEUROLOGICAL: Gross neurological examination did not reveal any focal deficits. Bilateral lower extremity weakness SKIN: No rashes. no petechiae. Assessment and Plan: Confusion and altered mental status, currently improved could be metabolic/toxic encephalopathy , improved Diabetic ketoacidosis, improved History of seizure Neurology consulted, no suspicion of current seizure PT/OT following Bilateral lower extremity multiple ulcers with possible cellulitis especially of the right lower extremities, both heels with eschar and both toe tips Candidemia could be related to PICC line on admission Continue continue wound care ontinue Eraxis CT concerning for septic emboli, Patient will undergo LEONEL on Thursday Pulmonology on board Constipation likely opioid-induced Aggressive bowel regimen Diabetes mellitus Accu-Cheks per ACHS protocol Decrease Lantus to 10 units twice a day patient was having episodes of hypoglycemia Insulin sliding scale Hypoglycemia precautions Mild transaminitis, improving Will continue to monitor Hyperlipidemia Continue atorvastatin 40 mg daily Depression/anxiety Continue Lexapro 20mg Hypertension Generalized weakness Chronic pain syndrome F none E replete as needed N chopped consistent carb A as tolerated DVT ppx: Heparin 5000 units subcu every 8 hours GI PPx: Protonix 40 mg, Pepcid 20mg Code Status: Full code Discussed with: Patient Anticipated discharge place: [facility] home Anticipated discharge time: Pending clinical course Objective - Vital Signs Vital signs: Vital Signs Temp 98.5 F 04/17/24 07:17 Pulse 60 04/17/24 07:17 Resp 15 04/17/24 08:21 BP 129/69 04/17/24 07:17 Pulse Ox 94 L 04/17/24 07:17 FiO2 Intake & Output 04/16/24 04/17/24 04/17/24 18:59 06:59 18:59 Intake Total 440 Output Total 650 Balance -210 Intake: Oral 440 Output: Urine 650 Other: Voiding Method Urinal Urinal Urinal # Voids 4 - Labs CBC & Chem 7: 04/16/24 10:20 04/16/24 10:20 Labs: Abnormal Lab Results - Last 24 Hours (Table) 04/16/24 04/16/24 04/16/24 Range/Units 10:20 10:20 12:05 RBC 3.45 L (4.30-5.90) m/uL Hgb 9.5 L (13.0-17.5) gm/dL Hct 30.2 L (39.0-53.0) % Carbon Dioxide 36 H (22-30) mmol/L BUN 21 H (9-20) mg/dL Glucose 270 H (74-99) mg/dL POC Glucose (mg/dL) 379 H (70-110) mg/dL Alkaline Phosphatase 217 H (38-126) U/L Albumin 2.5 L (3.5-5.0) g/dL 04/16/24 04/16/24 04/17/24 Range/Units 17:28 20:53 10:29 RBC (4.30-5.90) m/uL Hgb (13.0-17.5) gm/dL Hct (39.0-53.0) % Carbon Dioxide (22-30) mmol/L BUN (9-20) mg/dL Glucose (74-99) mg/dL POC Glucose (mg/dL) 255 H 290 H 165 H (70-110) mg/dL Alkaline Phosphatase (38-126) U/L Albumin (3.5-5.0) g/dL
--- NOTE | 2024-04-17 15:21 | P.PN ---
Subjective Progress Note Date: 04/17/24 Principal diagnosis: Reason for follow-up is bilateral diabetic foot ulcer Patient is a 58-year-old male with a past medical history significant for diabetes mellitus hypertension hyperlipidemia history of diabetic foot ulcers involving bilateral big toes has been into the hospital for DKA ID consulted as he did have a PICC line and bilateral diabetic foot ulcer. On today's evaluation that is 04/17/2024, Patient is afebrile patient is currently on room air and denies having any shortness of breath, the patient denies any chest pain or cough, the patient denies any nausea vomiting did not have any abdominal pain and no diarrhea. No new labs Objective - Vital Signs Vital signs: Vital Signs Temp 98.5 F 04/17/24 07:17 Pulse 60 04/17/24 07:17 Resp 15 04/17/24 08:21 BP 129/69 04/17/24 07:17 Pulse Ox 94 L 04/17/24 07:17 FiO2 Intake & Output 04/16/24 04/17/24 04/17/24 18:59 06:59 18:59 Intake Total 440 Output Total 650 Balance -210 Intake: Oral 440 Output: Urine 650 Other: Voiding Method Urinal Urinal Urinal # Voids 4 - Exam GENERAL DESCRIPTION: Middle-age male lying in bed in no distress RESPIRATORY SYSTEM: Unlabored breathing , decreased breath sounds at bases HEART: S1 S2 regular rate and rhythm , ABDOMEN: Soft , no tenderness EXTREMITIES: Bilateral feet and right lower extremity wound with no slough tissue redness - Labs CBC & Chem 7: 04/16/24 10:20 04/16/24 10:20 Labs: Abnormal Lab Results - Last 24 Hours (Table) 04/16/24 04/16/24 04/17/24 Range/Units 17:28 20:53 10:29 POC Glucose (mg/dL) 255 H 290 H 165 H (70-110) mg/dL 04/17/24 Range/Units 12:01 POC Glucose (mg/dL) 212 H (70-110) mg/dL Assessment and Plan (1) Diabetic foot ulcers Current Visit: Yes Status: Acute Code(s): E11.621 - TYPE 2 DIABETES MELLITUS WITH FOOT ULCER; L97.509 - NON-PRESSURE CHRONIC ULCER OTH PRT UNSP FOOT W UNSP SEVERITY SNOMED Code(s): 461919525 (2) Leukocytosis Current Visit: Yes Status: Acute Code(s): D72.829 - ELEVATED WHITE BLOOD DYAN L COUNT, UNSPECIFIED SNOMED Code(s): 607856743 (3) Candidemia Current Visit: Yes Status: Acute Code(s): B37.7 - CANDIDAL SEPSIS SNOMED Code(s): 672561794 Plan: 1patient with bilateral diabetic foot ulcers but involving bilateral big toes right lower extremity and left heel area on these wounds currently clean without any soft tissue significant surrounding redness or foul-smelling drainage recommend local wound care with a dry Aquacel dressing change q. 48-hour 2patient did have a PICC line however apparently the patient has completed his course of IV daptomycin as of 03/26/2024 unfortunately the PICC line was not discontinued as it should have been after completion of IV antibiotic therapy, PICC line was discontinued on 04/09/2024 3patient did have positive blood culture with yeast more likely related to his PICC line which has been discontinued, patient did have CT abdominal pelvis did not show any intra-abdominal pathology but shows multiple pulmonary nodules echocardiogram was done did not show any vegetation however CT of the chest is concerning for possible septic emboli, cardiology consulted for LEONEL to see integrity of his cardiac valve and make sure not dealing with a large vegetation apparently procedure scheduled for tomorrow, patient has cleared his fungemia with repeat cultures negative 4patient to continue with Eraxis and will need IV antifungals on discharge Dictation was produced using [employer] dictation software. please excuse any grammatical, word or spelling errors. Time with Patient: Less than 30
[2024-04-17 17:25] LABS: Glucose,Whole Blood 241 mg/dL (70-110)
[2024-04-17 20:22] LABS: Glucose,Whole Blood 322 mg/dL (70-110)
[2024-04-17] MEDS: SENNOSIDES-DOCUSATE SODIUM 1 EACH TAB PO SCH (20:39)
[2024-04-17] MEDS ORDERED: SENNOSIDES-DOCUSATE SODIUM 1 EACH TAB PO SCH (21:00)
[2024-04-18 02:10] LABS: Glucose,Whole Blood 127 mg/dL (70-110)
[2024-04-18 06:24] LABS: Glucose,Whole Blood 115 mg/dL (70-110)
[2024-04-18 07:24] LABS: ALT 22 U/L (4-49); AST 27 U/L (17-59); African American GFR (CKD) 83 (>60 ml/min/1.73 sqM); Albumin 3.1 g/dL (3.5-5.0); Albumin/Globulin Ratio 0.7; Alkaline Phosphatase 210 U/L (38-126); Anion Gap 8 mmol/L; Blood Urea Nitrogen 23 mg/dL (9-20); Carbon Dioxide 32 mmol/L (22-30); Chloride 98 mmol/L (98-107); Globulin 4.3 g/dL; Glucose 114 mg/dL (74-99); Non-African American GFR(CKD) 72 (>60 ml/min/1.73 sqM); Potassium 4.5 mmol/L (3.5-5.1); Sodium 138 mmol/L (137-145); Total Bilirubin 0.5 mg/dL (0.2-1.3); Total Protein 7.4 g/dL (6.3-8.2)
[2024-04-18 08:17] LABS: Basophils # (A) 0.1 k/uL (0-0.2); Basophils % (A) 1 %; Eosinophils # (A) 0.2 k/uL (0-0.7); Eosinophils % (A) 2 %; HCT 34.7 % (39.0-53.0); HGB 11.1 gm/dL (13.0-17.5); Lymphocytes # (A) 1.9 k/uL (1.0-4.8); Lymphocytes % (A) 20 %; MCHC 32.1 g/dL (31.0-37.0); Mean Platelet Volume 6.7; Monocytes # (A) 0.3 k/uL (0-1.0); Monocytes % (A) 3 %; Neutrophils # (A) 7.1 k/uL (1.3-7.7); Neutrophils % (A) 73 %; Platelet Count 486 k/uL (150-450); RBC 3.98 m/uL (4.30-5.90); WBC 9.7 k/uL (3.8-10.6)
[2024-04-18] MEDS: BENZOCAINE SPRAY 1 EACH MM ONE (08:17)
[2024-04-18] MEDS: MIDAZOLAM 2 MG/2 ML VIAL IVP ONE ×2 (08:18→08:22)
[2024-04-18] MEDS: fentaNYL (PF) 50 MCG/ML 2 ML AMP IVP ONE ×2 (08:19)
[2024-04-18] MEDS: SODIUM CHLORIDE 0.9% 1,000 ML IV ONE ×3 (08:26)
--- NOTE | 2024-04-18 08:28 | P.PCN ---
Date of Procedure: 04/18/24 Operative Findings: TRANSESOPHAGEAL ECHOCARDIOGRAM PLATFORM ENGINEER: SCOTT SHERWOOD MD, RPVI INDICATION: Infective endocarditis SEDATION: Conscious sedation COMPLICATION: None LEVEL OF SEDATION Moderate to sedation length of 18 mL PROCEDURE DESCRIPTION: After obtaining an informed consent, the patient was brought to transesophageal echocardiogram room. Pulse oximetry and heart monitors were attached to the patient. The patient throat was sprayed using lidocaine. The patient was turned into left lateral position. After that a bite guard was placed. After an appropriate conscious sedation was initiated, the transesophageal echocardiogram was advanced through a bite guard into the mid esophagus. A 2-D echocardiogram images, color Doppler images, continuous wave images, pulse-wave images, of various cardiac structure were performed. After that the transesophageal echocardiogram probe was advanced into the stomach and fixed to obtain transgastric view was. The probe was brought into the mid esophagus. Inter-atrial septum was interrogated using 2D images, color Doppler images, and then contrast study. After that transesophageal echocardiogram was withdrawn out and upon withdrawing the descending thoracic aorta all the way up to the arch was evaluated. CONCLUSION: 1. No evidence of infective endocarditis 2. Intact intracardiac valves 3. Intact left atrial appendage and intact interatrial septum 4. Normal biventricular systolic function 5. No evidence of pericardial effusion
[2024-04-18 12:00] LABS: Glucose,Whole Blood 248 mg/dL (70-110)
--- NOTE | 2024-04-18 12:28 | P.PN ---
Subjective Progress Note Date: 04/18/24 Principal diagnosis: Reason for follow-up is bilateral diabetic foot ulcer Patient is a 58-year-old male with a past medical history significant for diabetes mellitus hypertension hyperlipidemia history of diabetic foot ulcers involving bilateral big toes has been into the hospital for DKA ID consulted as he did have a PICC line and bilateral diabetic foot ulcer.Patient subsequently did have a positive blood culture with Kell albicans secondary PICC which has been discontinued, CT abdominal pelvis did not show any acute abnormality, did have a LEONEL completed on 04/18/2024 with no evidence of any endocarditis On today's evaluation that is 04/18/2024, patient has been afebrile, patient is breathing comfortably and is currently on room air, patient denies having any significant cough no chest pain, patient denies nausea vomiting or diarrhea and no abdominal pain. Patient white count is 9.7, creatinine 1.12 blood culture repeat has been negative Objective - Vital Signs Vital signs: Vital Signs Temp 98.2 F 04/18/24 07:58 Pulse 76 04/18/24 07:58 Resp 16 04/18/24 07:58 BP 149/77 04/18/24 07:58 Pulse Ox 99 04/18/24 07:58 FiO2 Intake & Output 04/17/24 04/18/24 04/18/24 18:59 06:59 18:59 Intake Total 120 Balance 120 Intake: Oral 120 Other: Voiding Method Urinal Urinal # Voids 4 - Exam GENERAL DESCRIPTION: Middle-age male lying in bed in no distress RESPIRATORY SYSTEM: Unlabored breathing , decreased breath sounds at bases HEART: S1 S2 regular rate and rhythm , ABDOMEN: Soft , no tenderness EXTREMITIES: Bilateral feet and right lower extremity wound with no slough tissue redness - Labs CBC & Chem 7: 04/18/24 08:04 04/18/24 06:44 Labs: Abnormal Lab Results - Last 24 Hours (Table) 04/17/24 04/17/24 04/17/24 Range/Units 10:29 12:01 17:23 RBC (4.30-5.90) m/uL Hgb (13.0-17.5) gm/dL Hct (39.0-53.0) % Plt Count (150-450) k/uL Carbon Dioxide (22-30) mmol/L BUN (9-20) mg/dL Glucose (74-99) mg/dL POC Glucose (mg/dL) 165 H 212 H 241 H (70-110) mg/dL Alkaline Phosphatase (38-126) U/L Albumin (3.5-5.0) g/dL 04/17/24 04/18/24 04/18/24 Range/Units 20:20 02:08 06:23 RBC (4.30-5.90) m/uL Hgb (13.0-17.5) gm/dL Hct (39.0-53.0) % Plt Count (150-450) k/uL Carbon Dioxide (22-30) mmol/L BUN (9-20) mg/dL Glucose (74-99) mg/dL POC Glucose (mg/dL) 322 H 127 H 115 H (70-110) mg/dL Alkaline Phosphatase (38-126) U/L Albumin (3.5-5.0) g/dL 04/18/24 04/18/24 Range/Units 06:44 08:04 RBC 3.98 L (4.30-5.90) m/uL Hgb 11.1 L (13.0-17.5) gm/dL Hct 34.7 L (39.0-53.0) % Plt Count 486 H (150-450) k/uL Carbon Dioxide 32 H (22-30) mmol/L BUN 23 H (9-20) mg/dL Glucose 114 H (74-99) mg/dL POC Glucose (mg/dL) (70-110) mg/dL Alkaline Phosphatase 210 H (38-126) U/L Albumin 3.1 L (3.5-5.0) g/dL Assessment and Plan (1) Diabetic foot ulcers Current Visit: Yes Status: Acute Code(s): E11.621 - TYPE 2 DIABETES MELLITUS WITH FOOT ULCER; L97.509 - NON-PRESSURE CHRONIC ULCER OTH PRT UNSP FOOT W UNSP SEVERITY SNOMED Code(s): 714152703 (2) Leukocytosis Current Visit: Yes Status: Acute Code(s): D72.829 - ELEVATED WHITE BLOOD CELL COUNT, UNSPECIFIED SNOMED Code(s): 777612597 (3) Candidemia Current Visit: Yes Status: Acute Code(s): B37.7 - CANDIDAL SEPSIS SNOMED Code(s): 480704041 Plan: 1patient with bilateral diabetic foot ulcers but involving bilateral big toes right lower extremity and left heel area on these wounds currently clean without any soft tissue significant surrounding redness or foul-smelling drainage recommend local wound care with a dry Aquacel dressing change q. 48-hour 2patient did have a PICC line however apparently the patient has completed his course of IV daptomycin as of 03/26/2024 unfortunately the PICC line was not discontinued as it should have been after completion of IV antibiotic therapy, PICC line was discontinued on 04/09/2024 3patient did have positive blood culture with yeast more likely related to his PICC line which has been discontinued, patient did have CT abdominal pelvis did not show any intra-abdominal pathology but shows multiple pulmonary nodules echocardiogram was done did not show any vegetation however CT of the chest is concerning for possible septic emboli, patient did have a LEONEL that was negative for any vegetation 4patient to continue with Eraxis will need 4 to 6-week course of IV Eraxis from the negative blood culture and a close outpatient follow-up Dictation was produced using [employer] dictation software. please excuse any grammatical, word or spelling errors. Time with Patient: Less than 30
--- NOTE | 2024-04-18 14:06 | P.DS ---
Providers Date of admission: 04/06/24 19:10 Expected date of discharge: 04/18/24 Attending physician: Latanya Mcintosh Consults: 04/07/24 08:47 Consult Physician Routine Consulting Provider: Shahbaz Arce Consult Reason/Comments: has picc line , LE ulcer and cellulitis Do you want consulting provider notified?: Yes 04/07/24 08:48 Consult Physician Routine Consulting Provider: Michel Diaz Consult Reason/Comments: ams, h/o seizure Do you want consulting provider notified?: Yes 04/15/24 11:14 Consult Physician Urgent Consulting Provider: Harish Gunderson Consult Reason/Comments: pulmonary nodules, candidemia, possible bronch Do you want consulting provider notified?: Yes Primary care physician: Stated None Hospital Course: Patient was transferred from [facility] and per records patient was confused x 3 days he is diabetic and he has a visiting nurse for his infusion Patient was diagnosed with DKA and he was placed on insulin drip and IV fluid Per note patient was alert but slow to respond. Also with multiple wounds on the heel, shins with no active infection Patient currently is awake alert oriented to time place and person. He is slow to respond. He says he came from adult foster care. Patient states that he was able to walk about 1 to 2 weeks ago when I told him it looks like he has pressure ulcers in his legs he said I do not know. He complains from weakness in both lower extremities, left more than right. Also complains from generalized weakness but no double vision or slurred speech. He has PICC line in his right upper extremity, as per patient he has it for 9 days and he was getting antibiotics but he does not know for what exactly. Patient states that he was on Klonopin for many years for history of seizure. He is currently 2 mg 3 times daily. Also he is on morphine 60 mg twice daily and trazodone. Patient currently denies chest pain or dyspnea, no abdominal pain or vomiting or diarrhea. No dysuria but complains from incontinence in his urine. No headache or dizziness. He said he used to smoke till 1 week ago about 5 cigarettes/day and he was counseled to quit and he agrees. No alcohol or illicit drugs Discharge diagnoses; Confusion and altered mental status Diabetic ketoacidosis Bilateral lower extremity multiple ulcers with cellulitis Candidemia Opioid-induced constipation Diabetes mellitus Transaminitis Hyperlipidemia Hypertension Generalized weakness Chronic pain syndrome 04/14/24 Patient seen and examined at bedside today. Labs today show WBCs 9.7, hemoglobin 11.1, platelets 486. Sodium 138, potassium 4.5, chloride 98, bicarb 32, BUN 23, creatinine 1.12, glucose 114. Patient is resting comfortably in the chair and enjoying his breakfast. He denies any acute complaints this morning and is looking forward to being discharged today. Patient will be discharged to [facility] today. Patient is advised to be compliant with medications. Patient will complete course of 5 weeks of Eraxis per IDs recommendations. Patient is advised to follow-up with PCP in 1 to 2 days. Patient is to follow-up with infectious disease doctor in 1 week. Return pre cautions discussed. Physical Exam: GENERAL: The patient is alert and oriented x3, not in any acute distress. Well developed, well nourished. HEENT: Pupils are round and equally reacting to light. EOMI. No scleral icterus. No conjunctival pallor. Normocephalic, atraumatic. No pharyngeal erythema. No thyromegaly. CARDIOVASCULAR: S1 and S2 present. No murmurs, rubs, or gallops. PULMONARY: Chest is clear to auscultation, no wheezing , no crackles. ABDOMEN: Soft, nontender, nondistended, normoactive bowel sounds. No palpable organomegaly. MUSCULOSKELETAL: No joint swelling or deformity. -EXTREMITIES: No cyanosis, clubbing, or pedal edema. Bilateral ulcers of both heels with eschar -NEUROLOGICAL: Gross neurological examination did not reveal any focal deficits. Bilateral lower extremity weakness SKIN: No rashes. no petechiae Dictation was produced using [email or web address] dictation software. please excuse any grammatical, word or spelling errors. A total of minutes of 20 minutes were spent preparing this complex discharge summary. Patient was discharged on 04/18/2024 at 1406. Patient Condition at Discharge: Fair Plan - Discharge Summary Discharge Rx Participant: No New Discharge Prescriptions: New Anidulafungin [Eraxis] 100 mg IVPB DAILY@1700 35 Days each Continue traZODone HCL 300 mg PO HS@1900 Morphine Sulfate ER [Ms Contin] 60 mg PO BID@0700,1900 Montelukast [Singulair] 10 mg PO DAILY@0700 Ferrous Sulfate [Iron] 325 mg PO DAILY@0700 Cetirizine HCl [Zyrtec] 10 mg PO DAILY@0700 clonazePAM [KlonoPIN] 2 mg PO TID@0700,1200,1900 Fluticasone Nasal [place] [Flonase Nasal [place]] 2 spray EA NOSTRIL DAILY@0700 Pantoprazole [Protonix] 40 mg PO DAILY@0700 Cholecalciferol [Vitamin D3 (125 Mcg = 5000 Iu)] 125 mcg PO HS@1900 Famotidine [Pepcid] 20 mg PO BID@1200,1900 PRN PRN Reason: Heartburn Escitalopram [Lexapro] 20 mg PO DAILY@0700 Atorvastatin [Lipitor] 40 mg PO HS@1900 Changed Insulin Degludec [Tresiba Flextouch U-200 Pen] 20 units SQ DAILY@0700 #0 Discharge Medication List Atorvastatin [Lipitor] 40 mg PO HS@1900 04/06/24 [History] Cetirizine HCl [Zyrtec] 10 mg PO DAILY@0704/06/24 [History] Cholecalciferol [Vitamin D3 (125 Mcg = 5000 Iu)] 125 mcg PO HS@19004/06/24 [History] Escitalopram [Lexapro] 20 mg PO DAILY@0704/06/24 [History] Famotidine [Pepcid] 20 mg PO BID@1200,1900 PRN 04/06/24 [History] Ferrous Sulfate [Iron] 325 mg PO DAILY@0700 04/06/24 [History] Fluticasone Nasal [place] [Flonase Nasal [place]] 2 spray EA NOSTRIL DAILY@0704/06/24 [History] Montelukast [Singulair] 10 mg PO DAILY@0704/06/24 [History] Morphine Sulfate ER [Ms Contin] 60 mg PO BID@0700,1900 04/06/24 [History] Pantoprazole [Protonix] 40 mg PO DAILY@0704/06/24 [History] clonazePAM [KlonoPIN] 2 mg PO TID@0700,1200,1900 04/06/24 [History] traZODone HCL 300 mg PO HS@19004/06/24 [History] Anidulafungin [Eraxis] 100 mg IVPB DAILY@1700 35 Days each 04/18/24 [Rx] Insulin Degludec [Tresiba Flextouch U-200 Pen] 20 units SQ DAILY@0700 #0 04/18/24 [Rx] Follow up Appointment(s)/Referral(s): Hailey Allison NPC [REFERRING] - 1-2 Days [facility], [NON-STAFF] - As Needed Shahbaz Arce MD [STAFF PHYSICIAN] - 1 Week Activity/Diet/Wound Care/Special Instructions: Patient will be discharged back to [facility]. He is to follow-up with primary care physician in 1 to 2 days. Patient is to follow-up with infectious disease in 1 week. Patient is to take medications as listed in discharge instructions. He is to complete a 5-week course of IV antibiotics and shortly thereafter PICC line should be discontinued. Discharge Disposition: OTHER INSTITUTION NOT DEFINED
[2024-04-18 17:13] LABS: Glucose,Whole Blood 515 mg/dL (70-110)
[2024-04-18 17:13] LABS: Glucose,Whole Blood 571 mg/dL (70-110)
[2024-04-18] MEDS: INSULIN LISPRO (HumaLOG) 100 UNIT/ML 10 mL VL SQ ONE ×2 (18:05→20:37)
[2024-04-18 18:47] LABS: Glucose,Whole Blood >600 mg/dL (70-110)
[2024-04-18 18:47] LABS: Glucose,Whole Blood >600 mg/dL (70-110)
[2024-04-18 19:11] LABS: Glucose,Whole Blood 540 mg/dL (70-110)
[2024-04-18] MEDS ORDERED: INSULIN LISPRO (HumaLOG) 100 UNIT/ML 10 mL VL SQ ONE (20:00)
[2024-04-18 23:08] LABS: Glucose,Whole Blood 89 mg/dL (70-110)
[2024-04-19 01:50] LABS: Glucose,Whole Blood 111 mg/dL (70-110)
[2024-04-19 06:18] LABS: Glucose,Whole Blood 236 mg/dL (70-110)
[2024-04-19 07:45] LABS: Glucose,Whole Blood 284 mg/dL (70-110)
[2024-04-19 08:08] VITALS: BP 136/75; PULSE 60; RESP 17; TEMP 97.9
[2024-04-19 12:43] LABS: Glucose,Whole Blood 355 mg/dL (70-110)
--- NOTE | 2024-04-19 13:15 | P.PN ---
Subjective Progress Note Date: 04/19/24 Principal diagnosis: Reason for follow-up is bilateral diabetic foot ulcer Patient is a 58-year-old male with a past medical history significant for diabetes mellitus hypertension hyperlipidemia history of diabetic foot ulcers involving bilateral big toes has been into the hospital for DKA ID consulted as he did have a PICC line and bilateral diabetic foot ulcer.Patient subsequently did have a positive blood culture with Kell albicans secondary PICC which has been discontinued, CT abdominal pelvis did not show any acute abnormality, did have a LEONEL completed on 04/18/2024 with no evidence of any endocarditis On today's evaluation that is 04/19/2024, Patient is afebrile this morning patient denies having any chest pain shortness of breath or cough, the patient is currently on room air, patient denies any abdominal pain no diarrhea no nausea no vomiting. No new lab has been repeated today blood culture repeat has been negative Objective - Vital Signs Vital signs: Vital Signs Temp 97.9 F 04/19/24 07:15 Pulse 60 04/19/24 07:15 Resp 17 04/19/24 07:15 BP 136/75 04/19/24 07:15 Pulse Ox 93 L 04/19/24 11:21 FiO2 Intake & Output 04/18/24 04/19/24 04/19/24 18:59 06:59 18:59 Intake Total 50 1080 Output Total 915 830 9429 Balance -550 355 -1350 Intake: IV 50 Oral 1080 Output: Urine 746 338 1439 Other: Voiding Method Urinal # Voids 1 # Bowel Movements 2 - Exam GENERAL DESCRIPTION: Middle-age male lying in bed in no distress RESPIRATORY SYSTEM: Unlabored breathing , decreased breath sounds at bases HEART: S1 S2 regular rate and rhythm , ABDOMEN: Soft , no tenderness EXTREMITIES: Bilateral feet and right lower extremity wound with no slough tissue redness - Labs CBC & Chem 7: 04/18/24 08:04 04/18/24 06:44 Labs: Abnormal Lab Results - Last 24 Hours (Table) 04/18/24 04/18/24 04/18/24 Range/Units 17:10 17:11 18:43 POC Glucose (mg/dL) 571 H* 515 H* >600 H* (70-110) mg/dL 04/18/24 04/18/24 04/19/24 Range/Units 18:44 19:08 01:48 POC Glucose (mg/dL) >600 H* 540 H* 111 H (70-110) mg/dL 04/19/24 04/19/24 04/19/24 Range/Units 06:14 07:44 12:42 POC Glucose (mg/dL) 236 H 284 H 355 H (70-110) mg/dL Assessment and Plan (1) Diabetic foot ulcers Current Visit: Yes Status: Acute Code(s): E11.621 - TYPE 2 DIABETES MELLITUS WITH FOOT ULCER; L97.509 - NON-PRESSURE CHRONIC ULCER OTH PRT UNSP FOOT W UNSP SEVERITY SNOMED Code(s): 045699373 (2) Leukocytosis Current Visit: Yes Status: Acute Code(s): D72.829 - ELEVATED WHITE BLOOD CELL COUNT, UNSPECIFIED SNOMED Code(s): 616338770 (3) Candidemia Current Visit: Yes Status: Acute Code(s): B37.7 - CANDIDAL SEPSIS SNOMED Code(s): 766205869 Plan: 1patient with bilateral diabetic foot ulcers but involving bilateral big toes right lower extremity and left heel area on these wounds currently clean without any soft tissue significant surrounding redness or foul-smelling drainage re commend local wound care with a dry Aquacel dressing change q. 48-hour 2patient did have a PICC line however apparently the patient has completed his course of IV daptomycin as of 03/26/2024 unfortunately the PICC line was not discontinued as it should have been after completion of IV antibiotic therapy, PICC line was discontinued on 04/09/2024 3patient did have positive blood culture with yeast more likely related to his PICC line which has been discontinued, patient did have CT abdominal pelvis did not show any intra-abdominal pathology but shows multiple pulmonary nodules echocardiogram was done did not show any vegetation however CT of the chest is concerning for possible septic emboli, patient did have a LEONEL that was negative for any vegetation 4patient to continue with Eraxis will need total of 6-week course of IV Eraxis from the negative blood culture and a close outpatient follow-up, question concern answered Dictation was produced using [employer] dictation software. please excuse any grammatical, word or spelling errors. Time with Patient: Less than 30
--- NOTE | 2024-04-22 06:35 | P.DS ---
Providers Date of admission: 04/06/24 19:10 Attending physician: Latanya Mcintosh Consults: 04/07/24 08:47 Consult Physician Routine Consulting Provider: Shahbaz Arce Consult Reason/Comments: has picc line , LE ulcer and cellulitis Do you want consulting provider notified?: Yes 04/07/24 08:48 Consult Physician Routine Consulting Provider: Michel Diaz Consult Reason/Comments: ams, h/o seizure Do you want consulting provider notified?: Yes 04/15/24 11:14 Consult Physician Urgent Consulting Provider: Harish Gunderson Consult Reason/Comments: pulmonary nodules, candidemia, possible bronch Do you want consulting provider notified?: Yes Primary care physician: Stated None Hospital Course: Final Diagnosis Confusion and altered mental status from acute metabolic encephalopathy from the DKA Diabetic ketoacidosis Bilateral lower extremity multiple ulcers with cellulitis Unstageable pressure ulcer bilateral heels Candidemia Opioid-induced constipation Diabetes mellitus type 1 Transaminitis Hyperlipidemia Hypertension Generalized weakness Chronic pain syndrome Hx of peripheral neuropathy Discharge Disposition Patient is stable for discharge home. Wound care recommending to continue with dry absoprtive silver until followed up by his local wound care team on discharge. Patient has PICC Line in place and will discharge on 6 weeks of IV eraxis. Follow up closely with ID and patient to have weekly labs drawn. Hospital Course Patient was transferred from [facility] and per records patient was confused x 3 days he is diabetic and he has a visiting nurse for his infusion. Has a history of diabetes, hypertension, hyperlipidemia. Patient was diagnosed with DKA and he was placed on insulin drip and IV fluid. He was noted to have multiple wounds on the heel, shins with no active infection. Patient currently is awake alert oriented to time place and person. He is slow to respond. He says he came from adult foster care. Patient states that he was able to walk about 1 to 2 weeks ago. He complains from weakness in both lower extremities, left more than right. Also complains from generalized weakness but no double vision or slurred speech. He has PICC line in his right upper extremity, as per patient he has it for 9 days and he was getting antibiotics but he does not know for what exactly. Patient currently denies chest pain or dyspnea, no abdominal pain or vomiting or diarrhea. No headache or dizziness. Admitted to the hospital. ID was consulted. Neurology and wound care were consulted. Brain CT unremarkable, EEG normal. Patients altered mentation is from the DKA. He recovered and was transitioned off the insulin gtt. Patient had a chest CT completed that reveal scattered nodular opacities and as part of septic work up was found to have jair in the blood. Cardiology consulted for LEONEL which was completed an no evidence found for infective endocarditits, normal systolic function and no pericardial effusion. PICC line remains in place and plan is for 6 weeks of IV eraxis on discharge. Patient to follow up closely with ID on discharge. Discharge diagnoses; Please see medication reconciliation for a list of current medications. Thank you for allowing us to participate in the care of this patient. The impression and plan of care has been dictated by Paulina Dillon, Nurse Practitioner as directed. Dr. Perez MD I have performed a history and physical examination and medical decision making of this patient, discussed the same with the dictator, and agree with the dictators assessment and plan as written, documented as a scribe. Based on total visit time, I have performed more than 50% of this visit. Patient Condition at Discharge: Good Plan - Discharge Summary Discharge Rx Participant: No New Discharge Prescriptions: New Anidulafungin [Eraxis] 100 mg IVPB DAILY@1700 35 Days each Continue traZODone HCL 300 mg PO HS@1900 Morphine Sulfate ER [Ms Contin] 60 mg PO BID@0700,1900 Montelukast [Singulair] 10 mg PO DAILY@0700 Ferrous Sulfate [Iron] 325 mg PO DAILY@0700 Cetirizine HCl [Zyrtec] 10 mg PO DAILY@0700 clonazePAM [KlonoPIN] 2 mg PO TID@0700,1200,1900 Fluticasone Nasal [place] [Flonase Nasal [place]] 2 spray EA NOSTRIL DAILY@0700 Pantoprazole [Protonix] 40 mg PO DAILY@0700 Cholecalciferol [Vitamin D3 (125 Mcg = 5000 Iu)] 125 mcg PO HS@1900 Famotidine [Pepcid] 20 mg PO BID@1200,1900 PRN PRN Reason: Heartburn Escitalopram [Lexapro] 20 mg PO DAILY@0700 Atorvastatin [Lipitor] 40 mg PO HS@1900 Changed Insulin Degludec [Tresiba Flextouch U-200 Pen] 20 units SQ DAILY@0700 #0 Discharge Medication List Atorvastatin [Lipitor] 40 mg PO HS@189904/06/24 [History] Cetirizine HCl [Zyrtec] 10 mg PO DAILY@69904/06/24 [History] Cholecalciferol [Vitamin D3 (125 Mcg = 5000 Iu)] 125 mcg PO HS@19004/06/24 [History] Escitalopram [Lexapro] 20 mg PO DAILY@69904/06/24 [History] Famotidine [Pepcid] 20 mg PO BID@1200,1900 PRN 04/06/24 [History] Ferrous Sulfate [Iron] 325 mg PO DAILY@69904/06/24 [History] Fluticasone Nasal [place] [Flonase Nasal [place]] 2 spray EA NOSTRIL DAILY@69904/06/24 [History] Montelukast [Singulair] 10 mg PO DAILY@69904/06/24 [History] Morphine Sulfate ER [Ms Contin] 60 mg PO BID@0700,189904/06/24 [History] Pantoprazole [Protonix] 40 mg PO DAILY@69904/06/24 [History] clonazePAM [KlonoPIN] 2 mg PO TID@0700,1200,1900 04/06/24 [History] traZODone HCL 300 mg PO HS@189904/06/24 [History] Anidulafungin [Eraxis] 100 mg IVPB DAILY@1700 35 Days each 04/18/24 [Rx] Insulin Degludec [Tresiba Flextouch U-200 Pen] 20 units SQ DAILY@0700 #0 04/18/24 [Rx] Follow up Appointment(s)/Referral(s): Hailey Allison NPC [REFERRING] - 1-2 Days [facility], [NON-STAFF] - As Needed Infusion Services,[facility] [REFERRING] - 04/19/24 6:00 pm ([facility] WILL DELIVER IV MEDICATIONS AND SUPPLIES BETWEEN 6PM AND 9PM) Shahbaz Arce MD [STAFF PHYSICIAN] - 04/25/24 3:30 pm Ambulatory/Diagnostic Orders: Basic Metabolic Panel [LAB.AMB] Location: None Selected Complete Blood Count w/diff [LAB.AMB] Time Frame: 1 Week, Location: None Selected Patient Instructions/Handouts: Diabetic Ketoacidosis (DC) Activity/Diet/Wound Care/Special Instructions: Patient will be discharged back to [facility]. He is to follow-up with primary care physician in 1 to 2 days. Patient is to follow-up with infectious disease in 1 week. Patient is to take medications as listed in discharge instructions. He is to complete a 5-week course of IV antibiotics and shortly thereafter PICC line should be discontinued. Discharge Disposition: HOME WITH HOME HEALTH SERVICES
== END 2024-04-19 14:05 | disposition home health service (06) | DRG 420 ==
LOC: EC 14:57 → 3SCARD 19:10 → 5NMEDONC 04-07 14:41 → 3SCARD 04-07 19:44 → 6NMEDSUR 04-10 11:18
PROVIDERS: ADMIT Hospitalist; ATTEND Hospitalist
PROC: B24BZZ4 Ultrasonography of Heart with Aorta, Transesophageal (ICD-10-PCS; principal; 2024-04-18 07:30)
DX: E10.10 Type 1 diabetes mellitus with ketoacidosis without coma (principal); T80.211A Bloodstream infection due to central venous catheter, initial encounter; B37.89 Other sites of candidiasis; E10.42 Type 1 diabetes mellitus with diabetic polyneuropathy; E10.621 Type 1 diabetes mellitus with foot ulcer; F32.A Depression, unspecified; G92.8 Other toxic encephalopathy; I10 Essential (primary) hypertension; G93.41 Metabolic encephalopathy; L97.812 Non-pressure chronic ulcer of other part of right lower leg with fat layer exposed; L89.620 Pressure ulcer of left heel, unstageable; L97.829 Non-pressure chronic ulcer of other part of left lower leg with unspecified severity; E10.622 Type 1 diabetes mellitus with other skin ulcer; E10.628 Type 1 diabetes mellitus with other skin complications; L89.610 Pressure ulcer of right heel, unstageable; L03.116 Cellulitis of left lower limb; L03.115 Cellulitis of right lower limb; D63.8 Anemia in other chronic diseases classified elsewhere; E10.649 Type 1 diabetes mellitus with hypoglycemia without coma; G40.909 Epilepsy, unspecified, not intractable, without status epilepticus; R59.0 Localized enlarged lymph nodes; E78.5 Hyperlipidemia, unspecified; F41.9 Anxiety disorder, unspecified; R91.8 Other nonspecific abnormal finding of lung field; G89.4 Chronic pain syndrome; Z20.822 Contact with and (suspected) exposure to COVID-19; J98.11 Atelectasis; K59.03 Drug induced constipation; R74.01 Elevation of levels of liver transaminase levels; L97.519 Non-pressure chronic ulcer of other part of right foot with unspecified severity; L97.529 Non-pressure chronic ulcer of other part of left foot with unspecified severity; N40.1 Benign prostatic hyperplasia with lower urinary tract symptoms; R33.8 Other retention of urine; T40.2X5A Adverse effect of other opioids, initial encounter; Z87.891 Personal history of nicotine dependence; Z79.4 Long term (current) use of insulin; Z79.899 Other long term (current) drug therapy; Z79.891 Long term (current) use of opiate analgesic; Z88.0 Allergy status to penicillin; Z88.8 Allergy status to other drugs, medicaments and biological substances; Z71.89 Other specified counseling
CPT/HCPCS: 36415; 36573; 70450; 71045; 71260; 74177; 80048; 80051; 80053; 80076; 81001; 82140; 82565; 82607; 82803; 82947; 83036; 83735; 84100; 84145; 84443; 84520; 85025; 85027; 86140; 87040; 87636; 93005; 93306; 93312; 93320; 93325; 93970; 95819; 96361; 96365; 96366; 99285; 99291

== ENCOUNTER 2024-04-25 02:34 | Inpatient (IN) | payer OTHER ==
[2024-04-25] MEDS ORDERED: Magnesium Replacement Protocol 1 EACH MISC MISCELLANE PRN (02:54)
[2024-04-25] MEDS ORDERED: DEXTROSE 50% SYRINGE 50 ML IVP PRN ×2 (02:54)
[2024-04-25] MEDS ORDERED: Potassium Replacement Protocol 1 EACH MISC MISCELLANE PRN (02:54)
--- NOTE | 2024-04-25 03:02 | ED ---
General Adult HPI - General Chief complaint: Recheck/Abnormal Lab/Rx Stated complaint: DKA Time Seen by Provider: 04/25/24 02:42 Source: EMS Mode of arrival: EMS - History of Present Illness Initial comments: Hx is limited by pt's confusion and poor historian. Pt resides at an [facility] in [place] and throughout the day yesterday pt had repeated blood glucose measurements that registered "high" on his glucometer. Pt was found to have increasing confusion so was brought to [place] ED where he was found to be profoundly hyperglycemic with labs consistent with HHS vs DKA. Pt received IV fluids, antibiotics, and insulin at transferring facility and was transferred her for further management. - Related Data Home Medications Medication Instructions Recorded Confirmed Atorvastatin [Lipitor] 40 mg PO HS@189904/06/24 04/25/24 Cetirizine HCl [Zyrtec] 10 mg PO DAILY@69904/06/24 04/25/24 Cholecalciferol [Vitamin D3 (125 125 mcg PO HS@189904/06/24 04/25/24 Mcg = 5000 Iu)] Escitalopram [Lexapro] 20 mg PO DAILY@69904/06/24 04/25/24 Famotidine [Pepcid] 20 mg PO BID@1200,1900 PRN 04/06/24 04/25/24 Ferrous Sulfate [Iron] 325 mg PO DAILY@0704/06/24 04/25/24 Fluticasone Nasal [place] [Flonase 2 spray EA NOSTRIL DAILY@69904/06/24 04/25/24 Nasal [place]] Montelukast [Singulair] 10 mg PO DAILY@69904/06/24 04/25/24 Morphine Sulfate ER [Ms Contin] 60 mg PO BID@0700,1900 04/06/24 04/25/24 Pantoprazole [Protonix] 40 mg PO DAILY@0704/06/24 04/25/24 clonazePAM [KlonoPIN] 2 mg PO TID@0700,1200,1900 04/06/24 04/25/24 traZODone HCL 300 mg PO HS@1900 04/06/24 04/25/24 Insulin Degludec [Tresiba 20 - 28 units SQ DAILY@0700 03/03/25 03/03/25 Flextouch U-200 Pen] Previous Rx's Medication Instructions Recorded Anidulafungin [Eraxis] 100 mg IVPB DAILY@1700 35 Days 04/18/24 each Allergies Allergy/AdvReac Type Severity Reaction Status Date / Time amitriptyline [From Elavil] Allergy Unknown Verified 04/25/24 09:44 Fish Containing Products Allergy Unknown Verified 04/25/24 09:44 [Fish] oats Allergy Unknown Verified 04/25/24 09:44 pregabalin [From Lyrica] Allergy Unknown Verified 04/25/24 09:44 Mushroom AdvReac Anaphylaxis Verified 04/25/24 09:44 Penicillins AdvReac Nausea & Verified 04/25/24 09:44 Vomiting eggs Allergy Anaphylaxis Uncoded 04/25/24 09:44 nuts Allergy Unknown Uncoded 04/25/24 09:44 Review of Systems ROS Statement: Those systems with pertinent positive or pertinent negative responses have been documented in the HPI. ROS Other: All systems not noted in ROS Statement are negative. Past Medical History Past Medical History: Diabetes Mellitus, Hyperlipidemia, Hypertension History of Any Multi-Drug Resistant Organisms: None Reported Past Surgical History: Orthopedic Surgery Additional Past Surgical History / Comment(s): femur fx sx Past Psychological History: No Psychological Hx Reported, Depression Smoking Status: Never smoker Past Alcohol Use History: Unable to Obtain Past Drug Use History: Unable to Obtain General Exam - General Exam Comments Initial Comments: PE: CONSTITUTIONAL: Ill-appearing, toxic-appearing, appears much older than stated age, awake, repetitively stating "I need water" SKIN: Warm, dry, no jaundice, hives or petechiae. Multiple shallow wounds/ulcers on the distal lower extremities EYES: Pupils are equally round, extraocular movements intact without nystagmus, clear conjunctiva, non-icteric sclera HENT: Normocephalic, atraumatic, exquisitely dry mucus membranes, oropharynx clear without exudates NECK: , Full range of motion, normal appearance PULMONARY: Clear to auscultation without wheezes, rhonchi, or rales, normal excursion, no accessory muscle use and no stridor CARDIOVASCULAR: Regular rate, rhythm, normal S1 and S2. No appreciated murmurs, rubs or gallops. Strong radial pulses with intact distal perfusion. No lower extremity edema GASTROINTESTINAL: Soft, active bowel sounds throughout, non-tender, non- distended, no palpable masses, no rebound or guarding. No hepatosplenomegaly MUSCULOSKELETAL: Extremities have no gross deformity NEUROLOGIC:_a/o x 2, GCS 14, confused mentation mentation and speech. Moves all extremities x 4 without motor or sensory deficit PSYCHIATRIC: Difficult to assess at this point due to confusion is calm and cooperative, does not appear to be responding to internal stimuli Course Vital Signs 04/25/24 04/25/24 04/25/24 02:41 06:26 08:50 Temperature Pulse Rate 71 73 94 Respiratory 19 18 18 Rate Blood Pressure 105/46 100/61 143/65 O2 Sat by Pulse 98 94 L 97 Oximetry 04/25/24 04/25/24 04/25/24 09:00 11:00 12:05 Temperature 98.6 F Pulse Rate 93 89 95 Respiratory 18 18 16 Rate Blood Pressure 141/70 130/62 134/67 O2 Sat by Pulse 96 97 97 Oximetry 04/25/24 04/25/24 04/25/24 13:00 14:00 15:32 Temperature 98.3 F Pulse Rate 91 80 68 Respiratory 16 16 19 Rate Blood Pressure 124/58 121/63 137/63 O2 Sat by Pulse 96 96 96 Oximetry 04/25/24 16:46 Temperature Pulse Rate 68 Respiratory 20 Rate Blood Pressure 139/75 O2 Sat by Pulse 99 Oximetry EKG Findings - EKG Comments: EKG Findings:: EKG shows sinus rhythm with marked sinus arrhythmia/respiratory variation, rate 72 bpm RI interval 148 ms QT/QTc 435/460 ms, normal axis, does appear to show T wave inversion lead V3, V4, no STEMI,Compared to EKG on 04/07/2024, T waves do appear enlarged in lead V1 when compared to prior, new T wave inversion lead V3 and V4, there is artifact present on this EKG that does somewhat limit interpretation, new T wave in version in lead III as well Medical Decision Making - Medical Decision Making Was pt. sent in by a medical professional or institution (FRANDY Van, MARKETING FINANCE MANAGER, urgent care, hospital, or long term...) When possible be specific @Patient was transferred from [facility] Did you speak to anyone other than the patient for history (EMS, parent, family, police, friend...)? What history was obtained from this source @ -I spoke with transferring physician, I discussed patient being in DKA, recent admission to our hospital, patient was started on insulin drip a central line was placed and patient was transferred here for further treatment Did you review nursing and triage notes (agree or disagree)? Why? @ -I reviewed nursing and triage notes Were old charts reviewed (outside hosp., previous admission, EMS record, old EKG, old radiological studies, urgent care reports/EKG's, long term records)? Report findings @ -Medical records reviewed-reviewed paperwork from transferring facility, states the patient is a 58-year-old male that presented for blood sugars reading high and worsening confusion. Resides at an adult care facility and [place]. He is more confused today. Kept having high blood sugars. He was sent home with a PICC line from his recent admission here for IV antifungal therapy. Patient had a lactic 1.7, blood glucose 1248, creatinine 2.3, GFR 29, sodium 120, potassium 5.7, chloride 78, bicarb 8, anion gap 40 white blood cell count 34.2, hemoglobin 11, platelets 609, neutrophils 31.87% at transferring facility. Patient was given IV vancomycin and Rocephin, CT head showed no acute process, CT chest showed" bilateral pulmonary nodules that demonstrate "central cavitation raising possibility of septic emboli in the appropriate setting" follow-up in 3 to 6 months to ensure resolution" Additionally, reviewed patient's discharge summary when he was recently admitted for similar issue- I did review chest CT from a patient was here on 04/14/2024, he had multiple scattered nodular opacities in the lungs at that time as well Differential Diagnosis (chest pain, altered mental status, abdominal pain women, abdominal pain men, vaginal bleeding, weakness, fever, dyspnea, syncope, headache, dizziness, GI bleed, back pain, seizure, CVA, palpatations, mental health, musculoskeletal)? @Differential diagnosis considerations include DKA, HHS, uncontrolled hyperglycemia, sepsis this is not all-inclusive list EKG interpreted by me (3pts min.). @ -As above X-rays interpreted by me (1pt min.). @ -None done CT interpreted by me (1pt min.). @ -None done U/S interpreted by me (1pt. min.). @ -None done What testing was considered but not performed or refused? (CT, X-rays, U/S, labs)? Why? @Sepsis bundle was considered however pt received sepsis w/u at transferring facility including broad spectrum antibiotics yacht captain What meds were considered but not given or refused? Why? @ -None Did you discuss the management of the patient with other professionals (professionals i.e. , PA, MARKETING FINANCE MANAGER, lab, RT, psych nurse, social service director, funeral service practitioner/embalmer, teacher, assault amphibious vehicle officer, patient case manager)? Give summary @ -No Was smoking cessation discussed for >3mins.? @ -No Was critical care preformed (if so, how long)? @Yes, 45 minutes Were there social determinants of health that impacted care today? How? (Homelessness, low income, unemployed, alcoholism, drug addiction, transportation, low edu. Level, literacy, decrease access to med. care, senior care, r ehab)? @ -No Was there de-escalation of care discussed even if they declined (Discuss DNR or withdrawal of care, Hospice)? @ -No What co-morbidities impacted this encounter? (DM, HTN, Smoking, COPD, CAD, Cancer, CVA, ARF, Chemo, Hep., AIDS, mental health diagnosis, sleep apnea, morbid obesity)? @Type 1 diabetes, hypertension, hyperlipidemia Was patient admitted / discharged? Hospital course, mention meds given and route, prescriptions, significant lab abnormalities, [facility] @ Admission to ICU- Pt is a 58 y/o gentleman, hx DM Type I, HTN, HLD, PICC line in place for treatment of candidemia, presenting after being transferred from [facility] for treatment of HHS vs DKA. Pt seen and assessed on arrival, borderline hpotensive, BP 100/61, MAP 60, HR, pulse ox, RR wnl. He is ill appearing with exquisitely dry MM, repeatedly requesting water, AO x2. LC TAB, abdomen is soft and nontender. Multiple shallow ulcers of the bilateral distal LE that are chronic appearing, with exception of circumferential erythema of distal RLE. A central line was placed in the right groin at transferring facility. Pt did receive sepsis workup and treatment yacht captain, including doses of antibiotics, 2L NS, and insulin. Plan for additional 500 cc IV fluid bolus given extent of volume depletion, will continue on DKA protocol w/ insulin infusion and recheck DKA labs, adjust maintenance fluids and insulin accordingly. Patient will be admitted to [facility] for further treatment. Case additionally discussed w/ Girma, LORETTA with critical care, will remain on consult. Labs rechecked. Do appear to be improving from when patient was initially seen at [place], potassium 3.8, creatinine 1.5, GFR 39, blood glucose 695, anion gap of 29, blood acetone positive, pH 7.36, bicarb of 19 pCO2 34. Appears to be mixed picture between DKA and HHS, patient has positive acetones and elevated anion gap however pH does not reflect acidemia. Patient's maintenance normal saline was adjusted to include potassium given potassium of 3.8 and ongoing insulin infusion white blood cell count 30.1, similar to earlier. Blood pressure stabilized with above interventions. Case was discussed with KEMAR Rangel, kindly accept patient for admission. Patient admitted in stable condition. Undiagnosed new problem with uncertain prognosis? @ -No Drug Therapy requiring intensive monitoring for toxicity (Heparin, Nitro, Insulin, Cardizem)? @Yes Were any procedures done? @ -No Diagnosis/symptom? @DKA, metabolic encephalopathy Acute, or Chronic, or Acute on Chronic? @ -Acute Uncomplicated (without systemic symptoms) or Complicated (systemic symptoms)? @ -Complicated Side effects of treatment? @ -No Exacerbation, Progression, or Severe Exacerbation? @ -No Poses a threat to life or bodily function? How? (Chest pain, [place], [place], pneumonia, PE, COPD, DKA, ARF, appy, cholecystitis, CVA, Diverticulitis, Homicidal, Suicidal, threat to staff... and all critical care pts) @Yes - Lab Data Result diagrams: 04/25/24 03:00 04/25/24 12:51 Lab Results 04/25/24 04/25/24 04/25/24 Range/Units 02:49 03:00 03:00 WBC 30.1 H (3.8-10.6) k/uL RBC 3.59 L (4.30-5.90) m/uL Hgb 9.7 L (13.0-17.5) gm/dL Hct 33.7 L (39.0-53.0) % MCV 93.8 D (80.0-100.0) fL MCH 27.1 (25.0-35.0) pg MCHC 28.9 L (31.0-37.0) g/dL RDW 15.7 H (11.5-15.5) % Plt Count 497 H (150-450) k/uL MPV 8.2 Neutrophils % 91 % Lymphocytes % 5 % Monocytes % 4 % Eosinophils % 0 % Basophils % 0 % Neutrophils # 27.3 H (1.3-7.7) k/uL Lymphocytes # 1.4 (1.0-4.8) k/uL Monocytes # 1.1 H (0-1.0) k/uL Eosinophils # 0.0 (0-0.7) k/uL Basophils # 0.0 (0-0.2) k/uL Hypochromasia Marked Sodium 134 L (137-145) mmol/L Potassium 3.8 (3.5-5.1) mmol/L Chloride 95 L (98-107) mmol/L Carbon Dioxide 10 L (22-30) mmol/L Anion Gap 29 mmol/L BUN 56 H (9-20) mg/dL Creatinine 1.85 H (0.66-1.25) mg/dL Est GFR (CKD-EPI)AfAm 45 (>60 ml/min/1.73 sqM) Est GFR (CKD-EPI)NonAf 39 (>60 ml/min/1.73 sqM) Glucose 695 H* (74-99) mg/dL POC Glucose (mg/dL) >600 H* (70-110) mg/dL POC Glu Bench Mechanic ID Spahn Sudheer Calcium 9.2 (8.4-10.2) mg/dL Ionized Calcium Richa 5.4 H (4.5-5.3) mg/dL Phosphorus 3.5 (2.5-4.5) mg/dL Magnesium 2.3 (1.6-2.3) mg/dL Total Bilirubin 0.6 (0.2-1.3) mg/dL AST 16 L (17-59) U/L ALT 19 (4-49) U/L Alkaline Phosphatase 166 H (38-126) U/L Troponin I (0.000-0.034) ng/mL Total Protein 6.7 (6.3-8.2) g/dL Albumin 3.1 L (3.5-5.0) g/dL Acetone, Qual Positive (Negative) Influenza Type A (PCR) (Not Detectd) Influenza Type B (PCR) (Not Detectd) RSV (PCR) (Not Detectd) SARS-CoV-2 (PCR) (Not Detectd) 04/25/24 04/25/24 04/25/24 Range/Units 04:23 04:31 04:31 WBC (3.8-10.6) k/uL RBC (4.30-5.90) m/uL Hgb (13.0-17.5) gm/dL Hct (39.0-53.0) % MCV (80.0-100.0) fL MCH (25.0-35.0) pg MCHC (31.0-37.0) g/dL RDW (11.5-15.5) % Plt Count (150-450) k/uL MPV Neutrophils % % Lymphocytes % % Monocytes % % Eosinophils % % Basophils % % Neutrophils # (1.3-7.7) k/uL Lymphocytes # (1.0-4.8) k/uL Monocytes # (0-1.0) k/uL Eosinophils # (0-0.7) k/uL Basophils # (0-0.2) k/uL Hypochromasia Sodium (137-145) mmol/L Potassium (3.5-5.1) mmol/L Chloride (98-107) mmol/L Carbon Dioxide (22-30) mmol/L Anion Gap mmol/L BUN (9-20) mg/dL Creatinine (0.66-1.25) mg/dL Est GFR (CKD-EPI)AfAm (>60 ml/min/1.73 sqM) Est GFR (CKD-EPI)NonAf (>60 ml/min/1.73 sqM) Glucose (74-99) mg/dL POC Glucose (mg/dL) 597 H* (70-110) mg/dL POC Glu Bench Mechanic ID Burgess Barrientosah Calcium (8.4-10.2) mg/dL Ionized Calcium Richa (4.5-5.3) mg/dL Phosphorus (2.5-4.5) mg/dL Magnesium (1.6-2.3) mg/dL Total Bilirubin (0.2-1.3) mg/dL AST (17-59) U/L ALT (4-49) U/L Alkaline Phosphatase (38-126) U/L Troponin I <0.012 (0.000-0.034) ng/mL Total Protein (6.3-8.2) g/dL Albumin (3.5-5.0) g/dL Acetone, Qual (Negative) Influenza Type A (PCR) Not Detected (Not Detectd) Influenza Type B (PCR) Not Detected (Not Detectd) RSV (PCR) Not Detected (Not Detectd) SARS-CoV-2 (PCR) Not Detected (Not Detectd) Disposition Clinical Impression: DKA (diabetic ketoacidosis), Hyperosmolar hyperglycemic state (HHS) Disposition: ADMITTED IP TO THIS HOSP Condition: Serious
[2024-04-25 03:09] LABS: Glucose,Whole Blood >600 mg/dL (70-110)
[2024-04-25] MEDS: SODIUM CHLORIDE 0.9% 500 ML 500 ML IV ONE (03:12)
[2024-04-25 03:13] LABS: Basophils % (A) 0 %; Eosinophils % (A) 0 %; HCT 33.7 % (39.0-53.0); HGB 9.7 gm/dL (13.0-17.5); Hypochromasia Marked; Lymphocytes # (A) 1.4 k/uL (1.0-4.8); Lymphocytes % (A) 5 %; MCH 27.1 pg (25.0-35.0); MCHC 28.9 g/dL (31.0-37.0); Mean Platelet Volume 8.2; Monocytes # (A) 1.1 k/uL (0-1.0); Monocytes % (A) 4 %; Neutrophils # (A) 27.3 k/uL (1.3-7.7); Neutrophils % (A) 91 %; Platelet Count 497 k/uL (150-450); RBC 3.59 m/uL (4.30-5.90); RDW 15.7 % (11.5-15.5); WBC 30.1 k/uL (3.8-10.6)
[2024-04-25] MEDS: SODIUM CHLORIDE 0.9% 1,000 ML IV SCH (03:14)
[2024-04-25] MEDS: INSULIN REGULAR 100 UNIT in SODIUM CHLORIDE 0.9% 100 ML IV SCH (03:21)
[2024-04-25 03:25] LABS: MCV 93.8 fL (80.0-100.0)
[2024-04-25 03:38] LABS: Ionized Calcium 5.4 mg/dL (4.5-5.3)
[2024-04-25 03:58] LABS: Potassium 3.8 mmol/L (3.5-5.1)
[2024-04-25 04:01] LABS: ALT 19 U/L (4-49); AST 16 U/L (17-59); African American GFR (CKD) 45 (>60 ml/min/1.73 sqM); Albumin 3.1 g/dL (3.5-5.0); Alkaline Phosphatase 166 U/L (38-126); Anion Gap 29 mmol/L; Blood Urea Nitrogen 56 mg/dL (9-20); Calcium 9.2 mg/dL (8.4-10.2); Carbon Dioxide 10 mmol/L (22-30); Chloride 95 mmol/L (98-107); Magnesium 2.3 mg/dL (1.6-2.3); Non-African American GFR(CKD) 39 (>60 ml/min/1.73 sqM); Phosphorus 3.5 mg/dL (2.5-4.5); Sodium 134 mmol/L (137-145); Total Bilirubin 0.6 mg/dL (0.2-1.3); Total Protein 6.7 g/dL (6.3-8.2)
[2024-04-25 04:20] LABS: Glucose 695 mg/dL (74-99)
[2024-04-25 04:25] LABS: Glucose,Whole Blood 597 mg/dL (70-110)
[2024-04-25 05:28] LABS: Influenza A Not Detected (Not Detectd); Influenza B Not Detected (Not Detectd); RSV Not Detected (Not Detectd)
[2024-04-25 05:28] LABS: Glucose,Whole Blood 556 mg/dL (70-110)
[2024-04-25] MEDS: 0.9% NACL WITH KCL 20 MEQ/L 1,000 ML IV SCH (05:34)
[2024-04-25] MEDS: SODIUM CHLORIDE 0.9% 1,000 ML with POTASSIUM CHLORIDE 20 MEQ IV SCH (05:36)
[2024-04-25 06:25] LABS: Glucose,Whole Blood 539 mg/dL (70-110)
[2024-04-25 07:40] LABS: Glucose,Whole Blood 335 mg/dL (70-110)
[2024-04-25] MEDS: D5-0.45% NACL WITH KCL 20MEQ/L 1,000 ML IV SCH ×2 (07:48→09:10)
[2024-04-25 08:32] LABS: VBG PH 7.36 (7.31-7.41)
[2024-04-25 08:33] LABS: Glucose,Whole Blood 261 mg/dL (70-110)
[2024-04-25 08:40] LABS: African American GFR (CKD) 70 (>60 ml/min/1.73 sqM); Anion Gap 18 mmol/L; Blood Urea Nitrogen 59 mg/dL (9-20); Carbon Dioxide 16 mmol/L (22-30); Chloride 104 mmol/L (98-107); Glucose 300 mg/dL (74-99); Non-African American GFR(CKD) 61 (>60 ml/min/1.73 sqM); Potassium 4.2 mmol/L (3.5-5.1); Sodium 138 mmol/L (137-145)
[2024-04-25 09:43] LABS: Glucose,Whole Blood 210 mg/dL (70-110)
--- NOTE | 2024-04-25 09:45 | XR ---
EXAMINATION TYPE: XR chest 1V portable DATE OF EXAM: 04/25/2024 9:40 AM COMPARISON: Chest radiographs from 04/08/2024, CT chest 04/14/2024 TECHNIQUE: XR chest 1V portable Frontal and lateral views of the chest. CLINICAL INDICATION:Male, 58 years old with history of ams; FINDINGS: Lungs/Pleura: No pleural effusion or pneumothorax. Similar scattered reticular nodular opacities. Pulmonary vascularity: Unremarkable. Heart/mediastinum: Cardiomediastinal silhouette is unremarkable. Musculoskeletal: No acute osseous pathology. IMPRESSION: Overall unchanged examination with scattered reticular nodular opacities. [facility], , 04/25/2024 9:43 AM
[2024-04-25 10:34] LABS: Glucose,Whole Blood 129 mg/dL (70-110)
--- NOTE | 2024-04-25 10:54 | P.HPIM ---
History of Present Illness Patient is admitted for diverticular stenosis and cellulitis and infected wounds of bilateral lower extremities. I will obtain any kind of history from the patient as patient is arousable but does not answer any questions. Unknown wh ether patient is taking his insulin patient was transferred from [facility] patient still has anion gap at this time. Patient has redness in bilateral lower extremities with leukocytosis. His body temperature is not documented in the system unknown whether he had fever. Patient blood sugars are down but still has anion gap of 18 at this time. Patient can protect his airway. REVIEW OF SYSTEMS: All other systems are negative except those mentioned in the HPI PHYSICAL EXAMINATION: GENERAL: The patient is arousable does not answer questions, not in any acute distress. Well developed, well nourished. HEENT: Pupils are round and equally reacting to light. EOMI. No scleral icterus. No conjunctival pallor. Normocephalic, atraumatic. No pharyngeal erythema. No thyromegaly. CARDIOVASCULAR: S1 and S2 present. No murmurs, rubs, or gallops. PULMONARY: Chest is clear to auscultation, no wheezing or crackles. ABDOMEN: Soft, nontender, nondistended, normoactive bowel sounds. No palpable organomegaly. MUSCULOSKELETAL: No joint swelling or deformity. EXTREMITIES: No cyanosis, clubbing, or pedal edema. NEUROLOGICAL: Limited due to his clinical condition SKIN: Patient has multiple ulcers in bilateral lower extremities. Cellulitis of right lower extremity Assessment and plan -Diabetic ketoacidosis patient still has anion gap continue with D5 with insulin if his blood sugars are below 50 are otherwise normal saline with insulin. Once the gap resolves patient will be started on subcutaneous insulin and normal saline at that time. -Sepsis secondary bilateral lower extremity infected chills and the cellulitis of the right lower extremity infectious disease was consulted patient will be started on cefazolin unknown whether patient has MRSA in the history. -Diabetes mellitus probably type I uncontrolled elevated blood sugars are probably due to noncompliance -Hyperlipidemia -Hypertension -Depression and other psychiatric issues patient baseline usually alert oriented x 1 and does not talk much as per the nursing staff DVT prophylaxis: Subcutaneous heparin GI prophylaxis: Pepcid Past Medical History Past Medical History: Diabetes Mellitus, Hyperlipidemia, Hypertension History of Any Multi-Drug Resistant Organisms: None Reported Past Surgical History: Orthopedic Surgery Additional Past Surgical History / Comment(s): femur fx sx Past Psychological History: No Psychological Hx Reported, Depression Smoking Status: Never smoker Past Alcohol Use History: Unable to Obtain Past Drug Use History: Unable to Obtain Medications and Allergies Home Medications Medication Instructions Recorded Confirmed Type Atorvastatin [Lipitor] 40 mg PO HS@0 04/06/24 04/25/24 History Cetirizine HCl [Zyrtec] 10 mg PO DAILY@0704/06/24 04/25/24 History Cholecalciferol [Vitamin D3 (125 125 mcg PO HS@1900 04/06/24 04/25/24 History Mcg = 5000 Iu)] Escitalopram [Lexapro] 20 mg PO DAILY@0704/06/24 04/25/24 History Famotidine [Pepcid] 20 mg PO BID@1200,1900 PRN 04/06/24 04/25/24 History Ferrous Sulfate [Iron] 325 mg PO DAILY@0704/06/24 04/25/24 History Fluticasone Nasal [place] [Flonase 2 spray EA NOSTRIL DAILY@69904/06/24 04/25/24 History Nasal [place]] Montelukast [Singulair] 10 mg PO DAILY@0704/06/24 04/25/24 History Morphine Sulfate ER [Ms Contin] 60 mg PO BID@0700,1900 04/06/24 04/25/24 History Pantoprazole [Protonix] 40 mg PO DAILY@0704/06/24 04/25/24 History clonazePAM [KlonoPIN] 2 mg PO TID@0700,1200,1900 04/06/24 04/25/24 History traZODone HCL 300 mg PO HS@0 04/06/24 04/25/24 History Anidulafungin [Eraxis] 100 mg IVPB DAILY@1700 35 Days 04/18/24 04/25/24 Rx each Insulin Degludec [Tresiba 20 - 28 units SQ DAILY@69904/25/24 04/25/24 History Flextouch U-200 Pen] Allergies Allergy/AdvReac Type Severity Reaction Status Date / Time amitriptyline [From Elavil] Allergy Unknown Verified 04/25/24 09:44 Fish Containing Products Allergy Unknown Verified 04/25/24 09:44 [Fish] oats Allergy Unknown Verified 04/25/24 09:44 pregabalin [From Lyrica] Allergy Unknown Verified 04/25/24 09:44 Mushroom AdvReac Anaphylaxis Verified 04/25/24 09:44 Penicillins AdvReac Nausea & Verified 04/25/24 09:44 Vomiting eggs Allergy Anaphylaxis Uncoded 04/25/24 09:44 nuts Allergy Unknown Uncoded 04/25/24 09:44 Physical Exam Vitals: Vital Signs Pulse Resp BP Pulse Ox 04/25/24 09:00 93 18 141/70 96 04/25/24 08:50 94 18 143/65 97 04/25/24 06:26 73 18 100/61 94 L 04/25/24 02:41 71 19 105/46 98 Intake and Output 04/24/24 04/25/24 04/25/24 22:59 06:59 14:59 Intake Total 28.416 50.885 Balance 28.416 50.885 Intake: Intake, IV Titration 28.416 50.885 Amount Insulin Regular 100 unit 28.416 50.885 In Sodium Chloride 0.9% 100 ml @ 0.1 UNITS/KG/HR 8.246 mls/hr IV .[id number] [facility] Rx#:[id number] Other: Weight 81.647 kg Results CBC & Chem 7: 04/25/24 03:00 04/25/24 07:45 Labs: Abnormal Lab Results - Last 24 Hours (Table) 04/25/24 04/25/24 04/25/24 Range/Units 02:49 03:00 03:00 WBC 30.1 H (3.8-10.6) k/uL RBC 3.59 L (4.30-5.90) m/uL Hgb 9.7 L (13.0-17.5) gm/dL Hct 33.7 L (39.0-53.0) % MCHC 28.9 L (31.0-37.0) g/dL RDW 15.7 H (11.5-15.5) % Plt Count 497 H (150-450) k/uL Neutrophils # 27.3 H (1.3-7.7) k/uL Monocytes # 1.1 H (0-1.0) k/uL VBG pCO2 (37-51) mmHg VBG HCO3 (24-28) mmol/L Sodium 134 L (137-145) mmol/L Chloride 95 L (98-107) mmol/L Carbon Dioxide 10 L (22-30) mmol/L BUN 56 H (9-20) mg/dL Creatinine 1.85 H (0.66-1.25) mg/dL Glucose 695 H* (74-99) mg/dL POC Glucose (mg/dL) >600 H* (70-110) mg/dL Ionized Calcium Richa 5.4 H (4.5-5.3) mg/dL AST 16 L (17-59) U/L Alkaline Phosphatase 166 H (38-126) U/L Albumin 3.1 L (3.5-5.0) g/dL 04/25/24 04/25/24 04/25/24 Range/Units 04:23 05:26 06:23 WBC (3.8-10.6) k/uL RBC (4.30-5.90) m/uL Hgb (13.0-17.5) gm/dL Hct (39.0-53.0) % MCHC (31.0-37.0) g/dL RDW (11.5-15.5) % Plt Count (150-450) k/uL Neutrophils # (1.3-7.7) k/uL Monocytes # (0-1.0) k/uL VBG pCO2 (37-51) mmHg VBG HCO3 (24-28) mmol/L Sodium (137-145) mmol/L Chloride (98-107) mmol/L Carbon Dioxide (22-30) mmol/L BUN (9-20) mg/dL Creatinine (0.66-1.25) mg/dL Glucose (74-99) mg/dL POC Glucose (mg/dL) 597 H* 556 H* 539 H* (70-110) mg/dL Ionized Calcium Richa (4.5-5.3) mg/dL AST (17-59) U/L Alkaline Phosphatase (38-126) U/L Albumin (3.5-5.0) g/dL 04/25/24 04/25/24 04/25/24 Range/Units 07:37 07:45 07:45 WBC (3.8-10.6) k/uL RBC (4.30-5.90) m/uL Hgb (13.0-17.5) gm/dL Hct (39.0-53.0) % MCHC (31.0-37.0) g/dL RDW (11.5-15.5) % Plt Count (150-450) k/uL Neutrophils # (1.3-7.7) k/uL Monocytes # (0-1.0) k/uL VBG pCO2 34 L (37-51) mmHg VBG HCO3 19 L (24-28) mmol/L Sodium (137-145) mmol/L Chloride (98-107) mmol/L Carbon Dioxide 16 L (22-30) mmol/L BUN 59 H (9-20) mg/dL Creatinine 1.28 H (0.66-1.25) mg/dL Glucose 300 H (74-99) mg/dL POC Glucose (mg/dL) 335 H (70-110) mg/dL Ionized Calcium Richa (4.5-5.3) mg/dL AST (17-59) U/L Alkaline Phosphatase (38-126) U/L Albumin (3.5-5.0) g/dL 04/25/24 04/25/24 04/25/24 Range/Units 08:31 09:40 10:32 WBC (3.8-10.6) k/uL RBC (4.30-5.90) m/uL Hgb (13.0-17.5) gm/dL Hct (39.0-53.0) % MCHC (31.0-37.0) g/dL RDW (11.5-15.5) % Plt Count (150-450) k/uL Neutrophils # (1.3-7.7) k/uL Monocytes # (0-1.0) k/uL VBG pCO2 (37-51) mmHg VBG HCO3 (24-28) mmol/L Sodium (137-145) mmol/L Chloride (98-107) mmol/L Carbon Dioxide (22-30) mmol/L BUN (9-20) mg/dL Creatinine (0.66-1.25) mg/dL Glucose (74-99) mg/dL POC Glucose (mg/dL) 261 H 210 H 129 H (70-110) mg/dL Ionized Calcium Richa (4.5-5.3) mg/dL AST (17-59) U/L Alkaline Phosphatase (38-126) U/L Albumin (3.5-5.0) g/dL
[2024-04-25 11:41] LABS: Glucose,Whole Blood 111 mg/dL (70-110)
[2024-04-25] MEDS ORDERED: FAMOTIDINE 20 MG TAB PO PRN (12:00)
[2024-04-25 12:05] LABS: Appearance,Urine Clear (Clear); Bacteria,Urine Occasional /hpf; Bilirubin,Urine Negative (Negative); Blood,Urine Small (Negative); Color,Urine Light Yellow; Glucose,Urine (UA) 4+ (Negative); Leukocyte Esterase,Urine Negative (Negative); Nitrite,Urine Negative (Negative); PH, Urine 5.5 (5.0-8.0); Protein,Urine Trace (Negative); RBC,Urine 1 /hpf (0-5); Specific Gravity,Urine 1.015 (1.001-1.035); Urobilinogen,Urine <2.0 mg/dL (<2.0); WBC,Urine 1 /hpf (0-5)
[2024-04-25 12:12] LABS: Ketones,Urine 2+ (Negative)
[2024-04-25 12:41] LABS: Glucose,Whole Blood 109 mg/dL (70-110)
--- NOTE | 2024-04-25 12:48 | P.CONS ---
History of Present Illness - Reason for Consult Consult date: 04/25/24 DKA - History of Present Illness Patient is a 58-year-old male with a PMH of hypertension, diabetes, hyperlipidemia presenting to the ED with AMS/confusion. Patient resides at an [facility] in [place]. He was initially brought to [place] ED and was found to be hyperglycemic. He was found to have increasing confusion as well. I was informed by nurse that his mental status is AAO x 1 at baseline. Unable to obtain a proper history due to patient being a poor historian. He was seen and evaluated in the emergency department. EKG independently interpreted displaying sinus rhythm. Labs showed WBC 30.1, Hgb 9.7, HCT 33.7, platelet 497. VBG 7.36, pCO2 34, HCO3 19. Potassium 4.2, CO2 16, anion gap 18, BUN 59, creatinine 1.28, glucose 300, alk phos 166, troponin < 0.012, albumin 3.1. Acetone positive. Vitals: Pulse 94, respiratory rate 18, blood pressure 143/65, O2 sat 97% on room air no UA. Patient has PICC line upper right arm and central line right groin. Documentation from [place] reviewed. Anion gap has improved since admission as well as glucose. Past Medical History Past Medical History: Diabetes Mellitus, Hyperlipidemia, Hypertension History of Any Multi-Drug Resistant Organisms: None Reported Past Surgical History: Orthopedic Surgery Additional Past Surgical History / Comment(s): femur fx sx Past Psychological History: No Psychological Hx Reported, Depression Smoking Status: Never smoker Past Alcohol Use History: Unable to Obtain Past Drug Use History: Unable to Obtain Medications and Allergies Home Medications Medication Instructions Recorded Confirmed Type Atorvastatin [Lipitor] 40 mg PO HS@189904/06/24 04/25/24 History Cetirizine HCl [Zyrtec] 10 mg PO DAILY@69904/06/24 04/25/24 History Cholecalciferol [Vitamin D3 (125 125 mcg PO HS@189904/06/24 04/25/24 History Mcg = 5000 Iu)] Escitalopram [Lexapro] 20 mg PO DAILY@69904/06/24 04/25/24 History Famotidine [Pepcid] 20 mg PO BID@1200,1900 PRN 04/06/24 04/25/24 History Ferrous Sulfate [Iron] 325 mg PO DAILY@0700 04/06/24 04/25/24 History Fluticasone Nasal [place] [Flonase 2 spray EA NOSTRIL DAILY@0704/06/24 04/25/24 History Nasal [place]] Montelukast [Singulair] 10 mg PO DAILY@0704/06/24 04/25/24 History Morphine Sulfate ER [Ms Contin] 60 mg PO BID@0700,1900 04/06/24 04/25/24 History Pantoprazole [Protonix] 40 mg PO DAILY@0700 04/06/24 04/25/24 History clonazePAM [KlonoPIN] 2 mg PO TID@0700,1200,1900 04/06/24 04/25/24 History traZODone HCL 300 mg PO HS@189904/06/24 04/25/24 History Anidulafungin [Eraxis] 100 mg IVPB DAILY@1700 35 Days 04/18/24 04/25/24 Rx each Insulin Degludec [Tresiba 20 - 28 units SQ DAILY@0704/25/24 04/25/24 History Flextouch U-200 Pen] Allergies Allergy/AdvReac Type Severity Reaction Status Date / Time amitriptyline [From Elavil] Allergy Unknown Verified 04/25/24 09:44 Fish Containing Products Allergy Unknown Verified 04/25/24 09:44 [Fish] oats Allergy Unknown Verified 04/25/24 09:44 pregabalin [From Lyrica] Allergy Unknown Verified 04/25/24 09:44 Mushroom AdvReac Anaphylaxis Verified 04/25/24 09:44 Penicillins AdvReac Nausea & Verified 04/25/24 09:44 Vomiting eggs Allergy Anaphylaxis Uncoded 04/25/24 09:44 nuts Allergy Unknown Uncoded 04/25/24 09:44 Physical Exam Vitals: Vital Signs Pulse Resp BP Pulse Ox 04/25/24 06:26 73 18 100/61 94 L 04/25/24 02:41 71 19 105/46 98 Intake and Output 04/24/24 04/25/24 04/25/24 22:59 06:59 14:59 Intake Total 28.416 14.432 Balance 28.416 14.432 Intake: Intake, IV Titration 28.416 14.432 Amount Insulin Regular 100 unit 28.416 14.432 In Sodium Chloride 0.9% 100 ml @ 0.1 UNITS/KG/HR 8.246 mls/hr IV .[id number] [facility] Rx#:[id number] Other: Weight 81.647 kg General: Confused, lethargic, appears at stated age, normal weight Head: atraumatic, normocephalic, symmetric Mouth: no lip lesion, mucus membranes moist Cardiovascular: S1S2 reg, no murmur, positive dorsalis pedis pulse bilateral, no edema Lungs: CTA bilateral, no rhonchi, no rales, no accessory muscle use Abdominal: soft, nontender to palpation, no guarding, Ext: muscle strength 5 out of 5 in all 4 extremities grossly, no gross muscle atrophy, ulcer on right heel and right 1st toe, central line), PICC line right upper extremity Neuro: CN II-XI grossly intact, no gross focal neuro deficits Psych: Alert, oriented to person, place, and time Results CBC & Chem 7: 04/25/24 03:00 04/25/24 07:45 Labs: Abnormal Lab Results - Last 24 Hours (Table) 04/25/24 04/25/24 04/25/24 Range/Units 02:49 03:00 03:00 WBC 30.1 H (3.8-10.6) k/uL RBC 3.59 L (4.30-5.90) m/uL Hgb 9.7 L (13.0-17.5) gm/dL Hct 33.7 L (39.0-53.0) % MCHC 28.9 L (31.0-37.0) g/dL RDW 15.7 H (11.5-15.5) % Plt Count 497 H (150-450) k/uL Neutrophils # 27.3 H (1.3-7.7) k/uL Monocytes # 1.1 H (0-1.0) k/uL Sodium 134 L (137-145) mmol/L Chloride 95 L (98-107) mmol/L Carbon Dioxide 10 L (22-30) mmol/L BUN 56 H (9-20) mg/dL Creatinine 1.85 H (0.66-1.25) mg/dL Glucose 695 H* (74-99) mg/dL POC Glucose (mg/dL) >600 H* (70-110) mg/dL Ionized Calcium Richa 5.4 H (4.5-5.3) mg/dL AST 16 L (17-59) U/L Alkaline Phosphatase 166 H (38-126) U/L Albumin 3.1 L (3.5-5.0) g/dL 04/25/24 04/25/24 04/25/24 Range/Units 04:23 05:26 06:23 WBC (3.8-10.6) k/uL RBC (4.30-5.90) m/uL Hgb (13.0-17.5) gm/dL Hct (39.0-53.0) % MCHC (31.0-37.0) g/dL RDW (11.5-15.5) % Plt Count (150-450) k/uL Neutrophils # (1.3-7.7) k/uL Monocytes # (0-1.0) k/uL Sodium (137-145) mmol/L Chloride (98-107) mmol/L Carbon Dioxide (22-30) mmol/L BUN (9-20) mg/dL Creatinine (0.66-1.25) mg/dL Glucose (74-99) mg/dL POC Glucose (mg/dL) 597 H* 556 H* 539 H* (70-110) mg/dL Ionized Calcium Richa (4.5-5.3) mg/dL AST (17-59) U/L Alkaline Phosphatase (38-126) U/L Albumin (3.5-5.0) g/dL 04/25/24 Range/Units 07:37 WBC (3.8-10.6) k/uL RBC (4.30-5.90) m/uL Hgb (13.0-17.5) gm/dL Hct (39.0-53.0) % MCHC (31.0-37.0) g/dL RDW (11.5-15.5) % Plt Count (150-450) k/uL Neutrophils # (1.3-7.7) k/uL Monocytes # (0-1.0) k/uL Sodium (137-145) mmol/L Chloride (98-107) mmol/L Carbon Dioxide (22-30) mmol/L BUN (9-20) mg/dL Creatinine (0.66-1.25) mg/dL Glucose (74-99) mg/dL POC Glucose (mg/dL) 335 H (70-110) mg/dL Ionized Calcium Richa (4.5-5.3) mg/dL AST (17-59) U/L Alkaline Phosphatase (38-126) U/L Albumin (3.5-5.0) g/dL Assessment and Plan Assessment: Diabetes ketoacidosis in the setting of uncontrolled type 1 diabetes, suspected noncompliance Sepsis secondary to bilateral lower extremity cellulitis Hypertension Hyperlipidemia Leukocytosis Normocytic anemia Depression Acute encephalopathy, patient baseline AO x 1 Plan: Continue with DKA protocol Blood glucose monitoring Q1hr Continue with D5 at 150 cc/hr Continue IV insulin Once gap resolved patient will be placed on subcu insulin and normal saline Obtain baseline CXR Procalcitonin ordered Blood cultures x 2 ordered Placed on cefazolin 2 g by primary team ID consult Continue with GI/DVT prophylaxis Will continue to follow in ICU Prognosis guarded
[2024-04-25 13:34] LABS: Glucose,Whole Blood 128 mg/dL (70-110)
[2024-04-25 13:46] LABS: African American GFR (CKD) 85 (>60 ml/min/1.73 sqM); Anion Gap 10 mmol/L; Blood Urea Nitrogen 52 mg/dL (9-20); Carbon Dioxide 23 mmol/L (22-30); Chloride 108 mmol/L (98-107); Glucose 109 mg/dL (74-99); Non-African American GFR(CKD) 73 (>60 ml/min/1.73 sqM); Potassium 3.6 mmol/L (3.5-5.1); Sodium 141 mmol/L (137-145)
[2024-04-25] MEDS: ANIDULAFUNGIN 100 MG in SODIUM CHLORIDE 0.9% 100 ML IVPB SCH (13:59)
[2024-04-25] MEDS: INSULIN NPH 100 UNIT/ML 10 ML VIAL SQ ONE (14:15)
[2024-04-25] MEDS ORDERED: INSULIN GLARGINE (LANTUS) 100 UNIT/ML SYR SQ SCH (14:45)
[2024-04-25] MEDS: INSULIN GLARGINE (LANTUS) 100 UNIT/ML SYR SQ SCH (15:14)
[2024-04-25] MEDS: HEPARIN SODIUM,PORCINE 5,000 UNIT/ML 1 ML VIAL SQ SCH (15:15)
[2024-04-25 15:29] LABS: Glucose,Whole Blood 219 mg/dL (70-110)
[2024-04-25] MEDS ORDERED: INSULIN LISPRO (HumaLOG) 100 UNIT/ML 10 mL VL SQ SCH ×2 (17:30)
[2024-04-25 17:57] LABS: Glucose,Whole Blood 306 mg/dL (70-110)
[2024-04-25] MEDS: ATORVASTATIN 40 MG TAB PO SCH (18:20)
[2024-04-25] MEDS: INSULIN LISPRO (HumaLOG) 100 UNIT/ML 10 mL VL SQ SCH (18:20)
[2024-04-25 20:15] LABS: Glucose,Whole Blood 298 mg/dL (70-110)
[2024-04-25] MEDS ORDERED: FAMOTIDINE 20 MG TAB PO SCH (21:00)
[2024-04-25 21:30] LABS: Glucose,Whole Blood 293 mg/dL (70-110)
--- NOTE | 2024-04-25 21:42 | P.CONS ---
History of Present Illness - Reason for Consult Consult date: 04/25/24 Diabetic foot ulcer Requesting physician: Mustapha Ferraro - Chief Complaint Elevated blood sugar and confusion x 1 day - History of Present Illness Patient is a 58-year-old male with a past medical history significant for diabetes mellitus hypertension hyperlipidemia with recent admission to the hospital with DKA at that point the patient was diagnosed with candidemia secondary to PICC line which was subsequent discontinued the patient did have a evidence of multiples septic emboli to the lung but no evidence of any vegetation patient did get a new PICC line and was advised a 6-week course of IV Eraxis with the patient was receiving in the outpatient setting patient has not been brought back to the hospital from [place] with the patient noticed to have elevated blood sugar on his global home monitor patient also noted to be increasing confused and has been diagnosed with a DKA subsequently transferred to [facility] for further evaluation on presentation to this facility patient was afebrile no fever have been recorded subsequently patient was nontachycardic hypotensive or hypoxic no need for supplemental oxygen patient did have a white count of 30,000 with a left shift creatinine is 1.10 liver isms are normal urine has been negative influenza RSV COVID testing has been negative patient did have a chest x-ray overall unchanged examination with scattered reticular nodular opacity patient has been started on cefazolin as he was noticed to have multiple wounds to bilateral feet area infectious disease was consulted for further management of antibiotic therapy most information has been obtained from review the chart and the patient was lethargic and could not provide reliable history Review of Systems Positive points has been mentioned in HPI complete review could not be obtained because of his underlying mental status Past Medical History Past Medical History: Diabetes Mellitus, Hyperlipidemia, Hypertension History of Any Multi-Drug Resistant Organisms: None Reported Past Surgical History: Orthopedic Surgery Additional Past Surgical History / Comment(s): femur fx sx Past Psychological History: No Psychological Hx Reported, Depression Smoking Status: Never smoker Past Alcohol Use History: Unable to Obtain Past Drug Use History: Unable to Obtain Medications and Allergies Home Medications Medication Instructions Recorded Confirmed Type Atorvastatin [Lipitor] 40 mg PO HS@1900 04/06/24 04/25/24 History Cetirizine HCl [Zyrtec] 10 mg PO DAILY@0700 04/06/24 04/25/24 History Cholecalciferol [Vitamin D3 (125 125 mcg PO HS@1900 04/06/24 04/25/24 History Mcg = 5000 Iu)] Escitalopram [Lexapro] 20 mg PO DAILY@0700 04/06/24 04/25/24 History Famotidine [Pepcid] 20 mg PO BID@1200,1900 PRN 04/06/24 04/25/24 History Ferrous Sulfate [Iron] 325 mg PO DAILY@0700 04/06/24 04/25/24 History Fluticasone Nasal [place] [Flonase 2 spray EA NOSTRIL DAILY@0704/06/24 04/25/24 History Nasal [place]] Montelukast [Singulair] 10 mg PO DAILY@0704/06/24 04/25/24 History Morphine Sulfate ER [Ms Contin] 60 mg PO BID@0700,1900 04/06/24 04/25/24 History Pantoprazole [Protonix] 40 mg PO DAILY@0700 04/06/24 04/25/24 History clonazePAM [KlonoPIN] 2 mg PO TID@0700,1200,1900 04/06/24 04/25/24 History traZODone HCL 300 mg PO HS@1900 04/06/24 04/25/24 History Anidulafungin [Eraxis] 100 mg IVPB DAILY@1700 35 Days 04/18/24 04/25/24 Rx each Insulin Degludec [Tresiba 20 - 28 units SQ DAILY@0700 04/25/24 04/25/24 History Flextouch U-200 Pen] Allergies Allergy/AdvReac Type Severity Reaction Status Date / Time amitriptyline [From Elavil] Allergy Unknown Verified 04/25/24 09:44 Fish Containing Products Allergy Unknown Verified 04/25/24 09:44 [Fish] oats Allergy Unknown Verified 04/25/24 09:44 pregabalin [From Lyrica] Allergy Unknown Verified 04/25/24 09:44 Mushroom AdvReac Anaphylaxis Verified 04/25/24 09:44 Penicillins AdvReac Nausea & Verified 04/25/24 09:44 Vomiting eggs Allergy Anaphylaxis Uncoded 04/25/24 09:44 nuts Allergy Unknown Uncoded 04/25/24 09:44 Physical Exam Vitals: Vital Signs Pulse Resp BP Pulse Ox 04/25/24 09:00 93 18 141/70 96 04/25/24 08:50 94 18 143/65 97 04/25/24 06:26 73 18 100/61 94 L 04/25/24 02:41 71 19 105/46 98 Intake and Output 04/24/24 04/25/24 04/25/24 22:59 06:59 14:59 Intake Total 28.416 55.723 Balance 28.416 55.723 Intake: Intake, IV Titration 28.416 55.723 Amount Insulin Regular 100 unit 28.416 55.723 In Sodium Chloride 0.9% 100 ml @ 0.1 UNITS/KG/HR 8.246 mls/hr IV .[id number] [facility] Rx#:[id number] Other: Weight 81.647 kg GENERAL DESCRIPTION: Middle-age male lying in bed, no distress. No tachypnea or accessory muscle of respiration use. HEENT: Shows Pallor , no scleral icterus. Oral mucous membrane is dry. NECK: Trachea central, no thyromegaly. LUNGS: Unlabored breathing. Clear to auscultation anteriorly. No wheeze or crackle. HEART: S1, S2, regular rate and rhythm. No loud murmur ABDOMEN: Soft, no tenderness , guarding or rigidity, no organomegaly EXTREMITIES: Multiple superficial ulceration especially to the toes and left heel area but no slough tissue or surrounding redness SKIN: No rash, no masses palpable. NEUROLOGICAL: The patient is lethargic orientation could not be determined Results CBC & Chem 7: 04/25/24 03:00 04/25/24 12:51 Labs: Abnormal Lab Results - Last 24 Hours (Table) 04/25/24 04/25/24 04/25/24 Range/Units 02:49 03:00 03:00 WBC 30.1 H (3.8-10.6) k/uL RBC 3.59 L (4.30-5.90) m/uL Hgb 9.7 L (13.0-17.5) gm/dL Hct 33.7 L (39.0-53.0) % MCHC 28.9 L (31.0-37.0) g/dL RDW 15.7 H (11.5-15.5) % Plt Count 497 H (150-450) k/uL Neutrophils # 27.3 H (1.3-7.7) k/uL Monocytes # 1.1 H (0-1.0) k/uL VBG pCO2 (37-51) mmHg VBG HCO3 (24-28) mmol/L Sodium 134 L (137-145) mmol/L Chloride 95 L (98-107) mmol/L Carbon Dioxide 10 L (22-30) mmol/L BUN 56 H (9-20) mg/dL Creatinine 1.85 H (0.66-1.25) mg/dL Glucose 695 H* (74-99) mg/dL POC Glucose (mg/dL) >600 H* (70-110) mg/dL Ionized Calcium Richa 5.4 H (4.5-5.3) mg/dL AST 16 L (17-59) U/L Alkaline Phosphatase 166 H (38-126) U/L Albumin 3.1 L (3.5-5.0) g/dL 04/25/24 04/25/24 04/25/24 Range/Units 04:23 05:26 06:23 WBC (3.8-10.6) k/uL RBC (4.30-5.90) m/uL Hgb (13.0-17.5) gm/dL Hct (39.0-53.0) % MCHC (31.0-37.0) g/dL RDW (11.5-15.5) % Plt Count (150-450) k/uL Neutrophils # (1.3-7.7) k/uL Monocytes # (0-1.0) k/uL VBG pCO2 (37-51) mmHg VBG HCO3 (24-28) mmol/L Sodium (137-145) mmol/L Chloride (98-107) mmol/L Carbon Dioxide (22-30) mmol/L BUN (9-20) mg/dL Creatinine (0.66-1.25) mg/dL Glucose (74-99) mg/dL POC Glucose (mg/dL) 597 H* 556 H* 539 H* (70-110) mg/dL Ionized Calcium Richa (4.5-5.3) mg/dL AST (17-59) U/L Alkaline Phosphatase (38-126) U/L Albumin (3.5-5.0) g/dL 03/05/1704/25/24 04/25/24 Range/Units 07:37 07:45 07:45 WBC (3.8-10.6) k/uL RBC (4.30-5.90) m/uL Hgb (13.0-17.5) gm/dL Hct (39.0-53.0) % MCHC (31.0-37.0) g/dL RDW (11.5-15.5) % Plt Count (150-450) k/uL Neutrophils # (1.3-7.7) k/uL Monocytes # (0-1.0) k/uL VBG pCO2 34 L (37-51) mmHg VBG HCO3 19 L (24-28) mmol/L Sodium (137-145) mmol/L Chloride (98-107) mmol/L Carbon Dioxide 16 L (22-30) mmol/L BUN 59 H (9-20) mg/dL Creatinine 1.28 H (0.66-1.25) mg/dL Glucose 300 H (74-99) mg/dL POC Glucose (mg/dL) 335 H (70-110) mg/dL Ionized Calcium Richa (4.5-5.3) mg/dL AST (17-59) U/L Alkaline Phosphatase (38-126) U/L Albumin (3.5-5.0) g/dL 04/25/24 04/25/24 04/25/24 Range/Units 08:31 09:40 10:32 WBC (3.8-10.6) k/uL RBC (4.30-5.90) m/uL Hgb (13.0-17.5) gm/dL Hct (39.0-53.0) % MCHC (31.0-37.0) g/dL RDW (11.5-15.5) % Plt Count (150-450) k/uL Neutrophils # (1.3-7.7) k/uL Monocytes # (0-1.0) k/uL VBG pCO2 (37-51) mmHg VBG HCO3 (24-28) mmol/L Sodium (137-145) mmol/L Chloride (98-107) mmol/L Carbon Dioxide (22-30) mmol/L BUN (9-20) mg/dL Creatinine (0.66-1.25) mg/dL Glucose (74-99) mg/dL POC Glucose (mg/dL) 261 H 210 H 129 H (70-110) mg/dL Ionized Calcium Richa (4.5-5.3) mg/dL AST (17-59) U/L Alkaline Phosphatase (38-126) U/L Albumin (3.5-5.0) g/dL Assessment and Plan (1) Diabetic foot ulcers Current Visit: No Status: Acute Code(s): E11.621 - TYPE 2 DIABETES MELLITUS WITH FOOT ULCER; L97.509 - NON-PRESSURE CHRONIC ULCER OTH PRT UNSP FOOT W UNSP SEVERITY SNOMED Code(s): 415581326 (2) Leukocytosis Current Visit: No Status: Acute Code(s): D72.829 - ELEVATED WHITE BLOOD CELL COUNT, UNSPECIFIED SNOMED Code(s): 849076382 Plan: 1patient with multiple laceration of bilateral lower extremity especially to the toes and left heel area but no evidence of any cellulitis or recommend local wound care with dry Aquacel silver dressing change q. 48-hour 2-significant leukocytosis more likely due to DKA culture have been reviewed and results will be followed 3-recent candidemia secondary PICC line and the patient was in the outpatient setting on Eraxis which will be restarted We will follow on clinical condition and cultures to further adjust medication if needed Thank you for this consultation we will follow the patient along with you Dictation was produced using [employer] dictation software. please excuse any grammatical, word or spelling errors. Time with Patient: Greater than 30
[2024-04-25 22:18] LABS: African American GFR (CKD) >90 (>60 ml/min/1.73 sqM); Anion Gap 11 mmol/L; Blood Urea Nitrogen 41 mg/dL (9-20); Carbon Dioxide 24 mmol/L (22-30); Chloride 104 mmol/L (98-107); Non-African American GFR(CKD) >90 (>60 ml/min/1.73 sqM); Phosphorus 1.1 mg/dL (2.5-4.5); Potassium 3.5 mmol/L (3.5-5.1); Sodium 139 mmol/L (137-145)
[2024-04-25] MEDS: ACETAMINOPHEN TAB 325 MG TAB PO PRN (23:57)
[2024-04-25 23:59] LABS: Glucose,Whole Blood 379 mg/dL (70-110)
[2024-04-26] MEDS: INSULIN LISPRO (HumaLOG) 100 UNIT/ML 10 mL VL SQ ONE (01:16)
[2024-04-26 03:09] LABS: Glucose,Whole Blood 291 mg/dL (70-110)
[2024-04-26] MEDS: ESCITALOPRAM 20 MG TAB PO SCH (07:00)
[2024-04-26] MEDS: MONTELUKAST 10 MG TAB PO SCH (07:01)
[2024-04-26] MEDS: FLUTICASONE NASAL 50MCG/SPRAY 16GM BTL EA NOSTRIL SCH (07:01)
[2024-04-26] MEDS: PANTOPRAZOLE 40 MG TABLET PO SCH (07:01)
[2024-04-26 07:43] LABS: Glucose,Whole Blood 286 mg/dL (70-110)
[2024-04-26] MEDS: MEROPENEM 500 MG in SODIUM CHLORIDE 0.9% 100 ML IVPB SCH (07:46)
[2024-04-26] MEDS: INSULIN LISPRO (HumaLOG) 100 UNIT/ML 10 mL VL SQ SCH (07:57)
[2024-04-26 12:19] LABS: Glucose,Whole Blood 266 mg/dL (70-110)
--- NOTE | 2024-04-26 12:57 | P.PN ---
Subjective Progress Note Date: 04/26/24 Patient is a 58-year-old male with a PMH of hypertension, diabetes, hyperlipidemia presenting to the ED with AMS/confusion. Patient resides at an [facility] in [place]. He was initially brought to [place] ED and was found to be hyperglycemic. He was found to have increasing confusion as well. I was i nformed by nurse that his mental status is AAO x 1 at baseline. Unable to obtain a proper history due to patient being a poor historian. He was seen and evaluated in the emergency department. EKG independently interpreted displaying sinus rhythm. Labs showed WBC 30.1, Hgb 9.7, HCT 33.7, platelet 497. VBG 7.36, pCO2 34, HCO3 19. Potassium 4.2, CO2 16, anion gap 18, BUN 59, creatinine 1.28, glucose 300, alk phos 166, troponin < 0.012, albumin 3.1. Acetone positive. Vitals: Pulse 94, respiratory rate 18, blood pressure 143/65, O2 sat 97% on room air no UA. Patient has PICC line upper right arm and central line right groin. Documentation from [place] reviewed. Anion gap has improved since admission as well as glucose. The patient is seen today April 26, 2024 in follow-up in the emergency department. He is currently sitting up in bed. Awake and alert in no acute distress. Doing quite a bit better today compared to yesterday. He is maintaining O2 saturations in the 90s on room air. He is afebrile. Hemodynamically stable. He has been initiated on meropenem and Eraxis for his infected toes. Blood culture is showing Klebsiella pneumonia. Glucose 266. He has been transition to Lantus and Humalog sliding scale. Heparin for DVT prophylaxis. Pepcid for GI prophylaxis. He did not require ICU admission. Objective - Vital Signs Vital signs: Vital Signs Temp 98.0 F 04/26/24 07:41 Pulse 58 L 04/26/24 07:41 Resp 16 04/26/24 07:41 BP 152/84 04/26/24 07:41 Pulse Ox 95 04/26/24 07:41 FiO2 Intake & Output 04/25/24 04/26/24 04/26/24 18:59 06:59 18:59 Intake Total 383.172 Output Total 800 450 Balance -416.828 -450 Intake: Intake, IV Titration 63.172 Amount Insulin Regular 100 unit 63.172 In Sodium Chloride 0.9% 100 ml @ 0.1 UNITS/KG/HR 8.246 mls/hr IV .[id number] [facility] Rx#:[id number] Oral 320 Output: Urine 800 450 - Exam GENERAL EXAM: Alert, pleasant 58-year-old male, on room air, fairly comfortable in no apparent distress. HEAD: Normocephalic. EYES: Normal reaction of pupils, equal size. NOSE: Clear with pink turbinates. THROAT: No erythema or exudates. NECK: No masses, no JVD. CHEST: No chest wall deformity. LUNGS: Equal air entry with no crackles, wheeze, rhonchi or dullness. CVS: S1 and S2 normal with no audible murmur, regular rhythm. ABDOMEN: No hepatosplenomegaly, normal bowel sounds, no guarding or rigidity. SPINE: No scoliosis or deformity SKIN: No rashes CENTRAL NERVOUS SYSTEM: No focal deficits, tone is normal in all 4 extremities. EXTREMITIES: Toes bilaterally are red and draining. There is no peripheral edema. No clubbing, no cyanosis. Peripheral pulses are intact. - Labs CBC & Chem 7: 04/25/24 03:00 04/25/24 21:52 Labs: Abnormal Lab Results - Last 24 Hours (Table) 04/25/24 04/25/24 04/25/24 Range/Units 10:05 12:51 12:51 Chloride 108 H (98-107) mmol/L BUN 52 H (9-20) mg/dL Glucose 109 H (74-99) mg/dL POC Glucose (mg/dL) (70-110) mg/dL Phosphorus 1.1 L (2.5-4.5) mg/dL Procalcitonin >100.00 H (0.02-0.50) ng/mL 04/25/24 04/25/24 04/25/24 Range/Units 13:31 15:28 17:55 Chloride (98-107) mmol/L BUN (9-20) mg/dL Glucose (74-99) mg/dL POC Glucose (mg/dL) 128 H 219 H 306 H (70-110) mg/dL Phosphorus (2.5-4.5) mg/dL Procalcitonin (0.02-0.50) ng/mL 04/25/24 04/25/24 04/25/24 Range/Units 20:14 21:30 21:52 Chloride (98-107) mmol/L BUN 41 H (9-20) mg/dL Glucose (74-99) mg/dL POC Glucose (mg/dL) 298 H 293 H (70-110) mg/dL Phosphorus 1.1 L (2.5-4.5) mg/dL Procalcitonin (0.02-0.50) ng/mL 04/25/24 04/26/24 04/26/24 Range/Units 23:57 03:08 07:38 Chloride (98-107) mmol/L BUN (9-20) mg/dL Glucose (74-99) mg/dL POC Glucose (mg/dL) 379 H 291 H 286 H (70-110) mg/dL Phosphorus (2.5-4.5) mg/dL Procalcitonin (0.02-0.50) ng/mL 04/26/24 Range/Units 12:17 Chloride (98-107) mmol/L BUN (9-20) mg/dL Glucose (74-99) mg/dL POC Glucose (mg/dL) 266 H (70-110) mg/dL Phosphorus (2.5-4.5) mg/dL Procalcitonin (0.02-0.50) ng/mL Microbiology - Last 24 Hours (Table) 04/25/24 10:05 Blood Culture Gram Stain - Preliminary Blood Blood Culture - Preliminary Klebsiella pneum subsp pneum Molecular ID Assessment and Plan Assessment: Diabetes ketoacidosis in the setting of uncontrolled type 1 diabetes, suspected noncompliance Sepsis secondary to bilateral lower extremity cellulitis Bacteremia with Klebsiella pneumoniae secondary to above Acute encephalopathy, recovered, patient baseline AO x 1 Hypertension Hyperlipidemia Leukocytosis Normocytic anemia Depression Plan: The patient was seen and evaluated Labs and medications reviewed Currently stable on room air Awake and alert Initiated on Eraxis and meropenem Heparin for DVT prophylaxis Transition to Lantus and Humalog No need for ICU admission We will continue to follow I have personally seen and examined the patient, performed the documentation and the assessment and plan as written. Number of minutes spent on the visit: 10 Dictation was produced using [email or web address] ([email or web address]) dictation software. Please excuse any grammatical, word or spelling errors.
--- NOTE | 2024-04-26 15:11 | P.PN ---
Subjective Progress Note Date: 04/26/24 Principal diagnosis: Reason for follow-up is bacteremia and candidemia Patient is a 58-year-old male with a past medical history significant for diabetes mellitus hypertension hyperlipidemia with recent admission to the hospital with DKA at that point the patient was diagnosed with candidemia secondary to PICC line which was subsequent discontinued the patient did have a evidence of multiples septic emboli to the lung but no evidence of any vegetation patient now has been brought back to the hospital with DKA noticed to have elevated white count bilateral foot wound probably discoloration blood cultures came back positive with ESBL Klebsiella On today's evaluation that is 04/26/2024, Patient is afebrile this morning patient is more awake and alert today denies having any chest pain shortness of breath or cough, the patient is currently on room air, patient denies any abdominal pain no diarrhea no nausea no vomiting. Patient did not have a lab draw today blood culture positive for ESBL Klebsiella Objective - Vital Signs Vital signs: Vital Signs Temp 98.0 F 04/26/24 07:41 Pulse 58 L 04/26/24 07:41 Resp 16 04/26/24 07:41 BP 152/84 04/26/24 07:41 Pulse Ox 95 04/26/24 07:41 FiO2 Intake & Output 04/25/24 04/26/24 04/26/24 18:59 06:59 18:59 Intake Total 383.172 Output Total 800 450 Balance -416.828 -450 Intake: Intake, IV Titration 63.172 Amount Insulin Regular 100 unit 63.172 In Sodium Chloride 0.9% 100 ml @ 0.1 UNITS/KG/HR 8.246 mls/hr IV .[id number] [facility] Rx#:[id number] Oral 320 Output: Urine 800 450 - Exam GENERAL DESCRIPTION: Middle-age male lying in bed in no distress RESPIRATORY SYSTEM: Unlabored breathing , decreased breath sounds at bases HEART: S1 S2 regular rate and rhythm , ABDOMEN: Soft , no tenderness EXTREMITIES: No edema feet - Labs CBC & Chem 7: 04/25/24 03:00 04/25/24 21:52 Labs: Abnormal Lab Results - Last 24 Hours (Table) 04/25/24 04/25/24 04/25/24 Range/Units 10:05 11:39 11:40 Chloride (98-107) mmol/L BUN (9-20) mg/dL Glucose (74-99) mg/dL POC Glucose (mg/dL) 111 H (70-110) mg/dL Phosphorus (2.5-4.5) mg/dL Procalcitonin >100.00 H (0.02-0.50) ng/mL Urine Protein Trace H (Negative) Urine Glucose (UA) 4+ H (Negative) Urine Ketones 2+ H (Negative) Urine Blood Small H (Negative) Urine Bacteria Occasional H (None) /hpf 04/25/24 04/25/24 04/25/24 Range/Units 12:51 12:51 13:31 Chloride 108 H (98-107) mmol/L BUN 52 H (9-20) mg/dL Glucose 109 H (74-99) mg/dL POC Glucose (mg/dL) 128 H (70-110) mg/dL Phosphorus 1.1 L (2.5-4.5) mg/dL Procalcitonin (0.02-0.50) ng/mL Urine Protein (Negative) Urine Glucose (UA) (Negative) Urine Ketones (Negative) Urine Blood (Negative) Urine Bacteria (None) /hpf 04/25/24 04/25/24 04/25/24 Range/Units 15:28 17:55 20:14 Chloride (98-107) mmol/L BUN (9-20) mg/dL Glucose (74-99) mg/dL POC Glucose (mg/dL) 219 H 306 H 298 H (70-110) mg/dL Phosphorus (2.5-4.5) mg/dL Procalcitonin (0.02-0.50) ng/mL Urine Protein (Negative) Urine Glucose (UA) (Negative) Urine Ketones (Negative) Urine Blood (Negative) Urine Bacteria (None) /hpf 04/25/24 04/25/24 04/25/24 Range/Units 21:30 21:52 23:57 Chloride (98-107) mmol/L BUN 41 H (9-20) mg/dL Glucose (74-99) mg/dL POC Glucose (mg/dL) 293 H 379 H (70-110) mg/dL Phosphorus 1.1 L (2.5-4.5) mg/dL Procalcitonin (0.02-0.50) ng/mL Urine Protein (Negative) Urine Glucose (UA) (Negative) Urine Ketones (Negative) Urine Blood (Negative) Urine Bacteria (None) /hpf 04/26/24 04/26/24 Range/Units 03:08 07:38 Chloride (98-107) mmol/L BUN (9-20) mg/dL Glucose (74-99) mg/dL POC Glucose (mg/dL) 291 H 286 H (70-110) mg/dL Phosphorus (2.5-4.5) mg/dL Procalcitonin (0.02-0.50) ng/mL Urine Protein (Negative) Urine Glucose (UA) (Negative) Urine Ketones (Negative) Urine Blood (Negative) Urine Bacteria (None) /hpf Microbiology - Last 24 Hours (Table) 04/25/24 10:05 Blood Culture Gram Stain - Preliminary Blood Blood Culture - Preliminary Klebsiella pneum subsp pneum Molecular ID Assessment and Plan (1) Diabetic foot ulcers Current Visit: No Status: Acute Code(s): E11.621 - TYPE 2 DIABETES MELLITUS WITH FOOT ULCER; L97.509 - NON-PRESSURE CHRONIC ULCER OTH PRT UNSP FOOT W UNSP SEVERITY SNOMED Code(s): 859465910 (2) Leukocytosis Current Visit: No Status: Acute Code(s): D72.829 - ELEVATED WHITE BLOOD CELL COUNT, UNSPECIFIED SNOMED Code(s): 047638206 (3) Bacteremia Current Visit: Yes Status: Acute Code(s): R78.81 - BACTEREMIA SNOMED Code(s): 8067475 (4) ESBL (extended spectrum beta-lactamase) producing bacteria infection Current Visit: Yes Status: Acute Code(s): A49.9 - BACTERIAL INFECTION, UNSPECIFIED; Z16.12 - EXTENDED SPECTRUM BETA LACTAMASE (ESBL) RESISTANCE SNOMED Code(s): 495587725 (5) Candidemia Current Visit: No Status: Acute Code(s): B37.7 - CANDIDAL SEPSIS SNOMED Code(s): 397105178 Plan: 1patient with multiple laceration of bilateral lower extremity especially to the toes and left heel area but no evidence of any cellulitis or recommend local wound care with dry Aquacel silver dressing change q. 48-hour 2-patient with evidence of ESBL Klebsiella bacteremia source possible pneumonia versus PICC line and recent candidemia secondary PICC line which was discontinued 3-blood culture to be repeated for the PICC line peripherally 4patient currently being treated with meropenem and Eraxis and monitor clinical course closely Dictation was produced using [employer] dictation software. please excuse any grammatical, word or spelling errors. Time with Patient: Less than 30
[2024-04-26 16:51] LABS: Glucose,Whole Blood 247 mg/dL (70-110)
[2024-04-26 20:45] LABS: Glucose,Whole Blood 246 mg/dL (70-110)
[2024-04-26] MEDS: MORPHINE SULFATE ER 30 MG TABLET PO SCH (23:50)
[2024-04-27 01:49] LABS: Glucose,Whole Blood 256 mg/dL (70-110)
[2024-04-27 06:01] LABS: Glucose,Whole Blood 305 mg/dL (70-110)
[2024-04-27] MEDS: FERROUS SULFATE 325 MG TAB PO SCH (06:16)
[2024-04-27] MEDS: clonazePAM 1 MG TAB PO SCH (06:16)
--- NOTE | 2024-04-27 06:30 | P.PN ---
Subjective Progress Note Date: 04/26/24 Patient is admitted for diverticular stenosis and cellulitis and infected wounds of bilateral lower extremities. I will obtain any kind of history from the patient as patient is arousable but does not answer any questions. Unknown whether patient is taking his insulin patient was transferred from [facility] patient still has anion gap at this time. Patient has redness in bilateral lower extremities with leukocytosis. His body temperature is not documented in the system unknown whether he had fever. Patient blood sugars are down but still has anion gap of 18 at this time. Patient can protect his airway. 04/26/2024 Patient is seen in follow-up today with pulmonary and infectious disease following. Patient was maintained on IV antibiotics with a PICC line and there is concern of possible PICC line infection which is being removed per infectious disease patient will continue on antibiotic therapy for right lower extremity cellulitis. Blood cultures are positive for Klebsiella and awaiting repeat cultures to finalize and monitor for clearance of bacteremia. Patient's blood sugars are better controlled and being resumed on diet and will slowly advance as tolerated and continue to adjust insulins accordingly. Patient currently resides at an [facility] and will have PT/OT therapy evaluate the patient with case management on consult. Review of systems: Constitutional: No reports of fatigue, fever, or chills Cardiovascular: No reports of chest pain or palpitations Respiratory: No reports of shortness of breath or cough GI: No reports of nausea, vomiting, or diarrhea : No reports of dysuria or retention Neurovascular:reports of weakness or numbness All medications have been reviewed PHYSICAL EXAMINATION: GENERAL: The patient is awake, alert and oriented x 1-2, baseline, well developed, thin built, elderly appearing HEENT: Pupils are round and equally reacting to light. EOMI. No scleral icterus. No conjunctival pallor. Normocephalic, atraumatic. No pharyngeal erythema. No thyromegaly. CARDIOVASCULAR: S1 and S2 muffled PULMONARY: Diminished breath sounds bilaterally otherwise chest is clear to auscultation, no wheezing or crackles. ABDOMEN: Soft, thin, nontender, nondistended, normoactive bowel sounds. No palpable organomegaly. MUSCULOSKELETAL: No joint swelling or deformity. EXTREMITIES: No cyanosis, clubbing, or pedal edema. NEUROLOGICAL: Limited due to his clinical condition SKIN: Patient has multiple ulcers in bilateral lower extremities. Cellulitis of right lower extremity Assessment and plan -Diabetic ketoacidosis, improved and patient will discontinue IV insulin and transition to sliding scale and long-acting -Sepsis secondary bilateral lower extremity cellulitis of the right lower extremity, infectious disease following and continued on antibiotics. Concern for PICC line infection as well for source of bacteremia and is being removed and pending at this time. Repeat blood cultures to monitor clearance of bacteremia -Bacteremia with Klebsiella likely secondary to above -Diabetes mellitus, type I uncontrolled with hyperglycemia secondary to noncompliance -Hyperlipidemia -Hypertension -Depression and other psychiatric issues patient baseline usually alert oriented x 1 and does not talk much as per the nursing staff DVT prophylaxis: Subcutaneous heparin GI prophylaxis: Pepcid Plan: Awaiting cultures and repeat blood cultures to monitor clearance of bacteremia. Infectious disease following and will continue on IV antibiotics and previous PICC line was removed for further assessment Recommend PT/OT therapy evaluation and case management consult for discharge Patient normally resides at [facility] and unsure if he will be returning there, will await PT/OT therapy evaluation and discuss further with case manage ment The impression and plan of care has been dictated by Ashely Zimmer, Nurse Practitioner as directed. Dr. Perez MD I have performed a history and examination and MDM of this patient, discussed the same with the dictator, and agree with the dictator's assessment and plan as written ,documented as a scribe. Based on total visit time, I have performed more than 50% of the visit. Objective - Vital Signs Vital signs: Vital Signs Temp 98.0 F 04/26/24 07:41 Pulse 58 L 04/26/24 07:41 Resp 16 04/26/24 07:41 BP 152/84 04/26/24 07:41 Pulse Ox 95 04/26/24 07:41 FiO2 Intake & Output 04/25/24 04/26/24 04/26/24 18:59 06:59 18:59 Intake Total 383.172 Output Total 800 450 Balance -416.828 -450 Intake: Intake, IV Titration 63.172 Amount Insulin Regular 100 unit 63.172 In Sodium Chloride 0.9% 100 ml @ 0.1 UNITS/KG/HR 8.246 mls/hr IV .[id number] [facility] Rx#:[id number] Oral 320 Output: Urine 800 450 - Labs CBC & Chem 7: 04/25/24 03:00 04/25/24 21:52 Labs: Abnormal Lab Results - Last 24 Hours (Table) 04/25/24 04/25/24 04/25/24 Range/Units 10:05 10:32 11:39 Chloride (98-107) mmol/L BUN (9-20) mg/dL Glucose (74-99) mg/dL POC Glucose (mg/dL) 129 H (70-110) mg/dL Phosphorus (2.5-4.5) mg/dL Procalcitonin >100.00 H (0.02-0.50) ng/mL Urine Protein Trace H (Negative) Urine Glucose (UA) 4+ H (Negative) Urine Ketones 2+ H (Negative) Urine Blood Small H (Negative) Urine Bacteria Occasional H (None) /hpf 04/25/24 04/25/24 04/25/24 Range/Units 11:40 12:51 12:51 Chloride 108 H (98-107) mmol/L BUN 52 H (9-20) mg/dL Glucose 109 H (74-99) mg/dL POC Glucose (mg/dL) 111 H (70-110) mg/dL Phosphorus 1.1 L (2.5-4.5) mg/dL Procalcitonin (0.02-0.50) ng/mL Urine Protein (Negative) Urine Glucose (UA) (Negative) Urine Ketones (Negative) Urine Blood (Negative) Urine Bacteria (None) /hpf 04/25/24 04/25/24 04/25/24 Range/Units 13:31 15:28 17:55 Chloride (98-107) mmol/L BUN (9-20) mg/dL Glucose (74-99) mg/dL POC Glucose (mg/dL) 128 H 219 H 306 H (70-110) mg/dL Phosphorus (2.5-4.5) mg/dL Procalcitonin (0.02-0.50) ng/mL Urine Protein (Negative) Urine Glucose (UA) (Negative) Urine Ketones (Negative) Urine Blood (Negative) Urine Bacteria (None) /hpf 04/25/24 04/25/24 04/25/24 Range/Units 20:14 21:30 21:52 Chloride (98-107) mmol/L BUN 41 H (9-20) mg/dL Glucose (74-99) mg/dL POC Glucose (mg/dL) 298 H 293 H (70-110) mg/dL Phosphorus 1.1 L (2.5-4.5) mg/dL Procalcitonin (0.02-0.50) ng/mL Urine Protein (Negative) Urine Glucose (UA) (Negative) Urine Ketones (Negative) Urine Blood (Negative) Urine Bacteria (None) /hpf 04/25/24 04/26/24 04/26/24 Range/Units 23:57 03:08 07:38 Chloride (98-107) mmol/L BUN (9-20) mg/dL Glucose (74-99) mg/dL POC Glucose (mg/dL) 379 H 291 H 286 H (70-110) mg/dL Phosphorus (2.5-4.5) mg/dL Procalcitonin (0.02-0.50) ng/mL Urine Protein (Negative) Urine Glucose (UA) (Negative) Urine Ketones (Negative) Urine Blood (Negative) Urine Bacteria (None) /hpf Microbiology - Last 24 Hours (Table) 04/25/24 10:05 Blood Culture Gram Stain - Preliminary Blood Blood Culture - Preliminary Gram Neg Bacilli Molecular ID
[2024-04-27] MEDS ORDERED: NON FORMULARY DRUG (Cetirizine Hcl [Zyrtec] 10 MG Tablet) PO SCH (07:00)
[2024-04-27] MEDS: CHOLECALCIFEROL 125 MCG (5000 IU) TABLET PO SCH (09:35)
[2024-04-27 10:55] LABS: Glucose,Whole Blood 267 mg/dL (70-110)
--- NOTE | 2024-04-27 11:19 | P.PN ---
Subjective Progress Note Date: 04/27/24 Patient is a 58-year-old male with a PMH of hypertension, diabetes, hyperlipidemia presenting to the ED with AMS/confusion. Patient resides at an [facility] in [place]. He was initially brought to [place] ED and was found to be hyperglycemic. He was found to have increasing confusion as well. I was i nformed by nurse that his mental status is AAO x 1 at baseline. Unable to obtain a proper history due to patient being a poor historian. He was seen and evaluated in the emergency department. EKG independently interpreted displaying sinus rhythm. Labs showed WBC 30.1, Hgb 9.7, HCT 33.7, platelet 497. VBG 7.36, pCO2 34, HCO3 19. Potassium 4.2, CO2 16, anion gap 18, BUN 59, creatinine 1.28, glucose 300, alk phos 166, troponin < 0.012, albumin 3.1. Acetone positive. Vitals: Pulse 94, respiratory rate 18, blood pressure 143/65, O2 sat 97% on room air no UA. Patient has PICC line upper right arm and central line right groin. Documentation from [place] reviewed. Anion gap has improved since admission as well as glucose. The patient is seen today April 26, 2024 in follow-up in the emergency department. He is currently sitting up in bed. Awake and alert in no acute distress. Doing quite a bit better today compared to yesterday. He is maintaining O2 saturations in the 90s on room air. He is afebrile. Hemodynamically stable. He has been initiated on meropenem and Eraxis for his infected toes. Blood culture is showing Klebsiella pneumonia. Glucose 266. He has been transition to Lantus and Humalog sliding scale. Heparin for DVT prophylaxis. Pepcid for GI prophylaxis. He did not require ICU admission. The patient is seen today April 27, 2024 in follow-up in the observation unit. He is awake and alert in no acute distress. Maintaining good O2 saturations in the 90s on room air. He is afebrile. Hemodynamically stable. Blood culture positive for Klebsiella pneumoniae. Glucose 267. He remains on Eraxis and meropenem. Continued on Lantus and Humalog. Heparin for DVT prophylaxis. Objective - Vital Signs Vital signs: Vital Signs Temp 98.8 F 04/27/24 08:00 Pulse 57 L 04/27/24 08:00 Resp 17 04/27/24 08:00 BP 114/62 04/27/24 08:00 Pulse Ox 95 04/27/24 08:00 FiO2 Intake & Output 04/26/24 04/27/24 04/27/24 18:59 06:59 18:59 Output Total 1900 800 Balance -1900 -800 Weight 81.647 kg Output: Urine 1900 800 Other: Voiding Method External Catheter External Catheter # Bowel Movements 1 - Exam GENERAL EXAM: Alert, pleasant 58-year-old male, on room air, resting comfortably in bed, in no apparent distress. HEAD: Normocephalic. EYES: Normal reaction of pupils, equal size. NOSE: Clear with pink turbinates. THROAT: No erythema or exudates. NECK: No masses, no JVD. CHEST: No chest wall deformity. LUNGS: Equal air entry with no crackles, wheeze, rhonchi or dullness. CVS: S1 and S2 normal with no audible murmur, regular rhythm. ABDOMEN: No hepatosplenomegaly, normal bowel sounds, no guarding or rigidity. SPINE: No scoliosis or deformity SKIN: No rashes CENTRAL NERVOUS SYSTEM: No focal deficits, tone is normal in all 4 extremities. EXTREMITIES: Toes bilaterally are red and draining. There is no peripheral edema. No clubbing, no cyanosis. Peripheral pulses are intact. - Labs CBC & Chem 7: 04/25/24 03:00 04/25/24 21:52 Labs: Abnormal Lab Results - Last 24 Hours (Table) 04/26/24 04/26/24 04/26/24 Range/Units 12:17 16:49 20:44 POC Glucose (mg/dL) 266 H 247 H 246 H (70-110) mg/dL 04/27/24 04/27/24 04/27/24 Range/Units 01:48 06:00 10:53 POC Glucose (mg/dL) 256 H 305 H 267 H (70-110) mg/dL Microbiology - Last 24 Hours (Table) 04/25/24 10:05 Blood Culture Gram Stain - Final Blood Blood Culture - Final Klebsiella pneum subsp pneum Molecular ID Assessment and Plan Assessment: Diabetes ketoacidosis in the setting of uncontrolled type 1 diabetes, suspected noncompliance Sepsis secondary to bilateral lower extremity cellulitis Bacteremia with Klebsiella pneumoniae secondary to above Acute encephalopathy, recovered, patient baseline AO x 1 Hypertension Hyperlipidemia Leukocytosis Normocytic anemia Depression Plan: The patient was seen and evaluated Labs and medications reviewed Currently stable on room air Continued on Eraxis and meropenem Heparin for DVT prophylaxis Continued Lantus and Humalog Discontinue right femoral central line Send the tip for cultures Continue with PICC line I have personally seen and examined the patient, performed the documentation and the assessment and plan as written. Number of minutes spent on the visit: 10 Dictation was produced using [email or web address] dictation software. Please excuse any grammatical, word or spelling errors.
[2024-04-27 15:34] VITALS: BMI 25.8
[2024-04-27 17:17] LABS: Glucose,Whole Blood 93 mg/dL (70-110)
[2024-04-27 20:21] LABS: Glucose,Whole Blood 121 mg/dL (70-110)
[2024-04-27] MEDS: traZODone HCL 100 MG TAB PO SCH (20:42)
[2024-04-27] MEDS: MORPHINE SULFATE ER 30 MG TABLET PO SCH (20:42)
[2024-04-28 02:05] LABS: Glucose,Whole Blood 217 mg/dL (70-110)
[2024-04-28 06:00] LABS: Glucose,Whole Blood 226 mg/dL (70-110)
--- NOTE | 2024-04-28 06:44 | P.PN ---
Subjective Progress Note Date: 04/27/24 Patient is admitted for diverticular stenosis and cellulitis and infected wounds of bilateral lower extremities. I will obtain any kind of history from the patient as patient is arousable but does not answer any questions. Unknown whether patient is taking his insulin patient was transferred from [facility] patient still has anion gap at this time. Patient has redness in bilateral lower extremities with leukocytosis. His body temperature is not documented in the system unknown whether he had fever. Patient blood sugars are down but still has anion gap of 18 at this time. Patient can protect his airway. 04/26/2024 Patient is seen in follow-up today with pulmonary and infectious disease following. Patient was maintained on IV antibiotics with a PICC line and there is concern of possible PICC line infection which is being removed per infectious disease patient will continue on antibiotic therapy for right lower extremity cellulitis. Blood cultures are positive for Klebsiella and awaiting repeat cultures to finalize and monitor for clearance of bacteremia. Patient's blood sugars are better controlled and being resumed on diet and will slowly advance as tolerated and continue to adjust insulins accordingly. Patient currently resides at an [facility] and will have PT/OT therapy evaluate the patient with case management on consult. 04/27/2024 Patient is seen in follow-up today with multiple consultations following. Plan is for PICC line removal and per nursing staff there is a groin catheter that needs to be removed. Culture tip being sent and pending. Blood cultures Kl ebsiella with ESBL and awaiting for clearance of bacteremia. Patient currently resides at an [facility] although evaluated by physical therapy and given the extent of infection, patient will require discharge to [facility]. Continue local wound care per ID recommendations and recommend PT/OT therapy daily. Blood sugars are better controlled and will continue current regimen and adjust medications accordingly. Review of systems: Constitutional: No reports of fatigue, fever, or chills Cardiovascular: No reports of chest pain or palpitations Respiratory: No reports of shortness of breath or cough GI: No reports of nausea, vomiting, or diarrhea : No reports of dysuria or retention Neurovascular: reports of weakness or numbness All medications have been reviewed PHYSICAL EXAMINATION: GENERAL: The patient is awake, alert and oriented x 2, baseline, well developed, thin built, elderly appearing HEENT: Pupils are round and equally reacting to light. EOMI. No scleral icterus. No conjunctival pallor. Normocephalic, atraumatic. No pharyngeal erythema. No thyromegaly. CARDIOVASCULAR: S1 and S2 muffled PULMONARY: Diminished breath sounds bilaterally otherwise chest is clear to auscultation, no wheezing or crackles. ABDOMEN: Soft, thin, nontender, nondistended, normoactive bowel sounds. No palpa ble organomegaly. MUSCULOSKELETAL: No joint swelling or deformity. EXTREMITIES: No cyanosis, clubbing, or pedal edema. NEUROLOGICAL: Limited due to his clinical condition SKIN: Patient has multiple ulcers in bilateral lower extremities. Cellulitis of right lower extremity Assessment: -Diabetic ketoacidosis, improved and patient and has transitioned to sliding scale and long-acting -Sepsis secondary bilateral lower extremity cellulitis of the right lower extremity, infectious disease following and continued on antibiotics. Concern for PICC line infection as well for source of bacteremia and is being removed and pending at this time. Repeat blood cultures to monitor clearance of bacter emia -Bacteremia with Klebsiella, ESBL likely secondary to above -Diabetes mellitus, type I uncontrolled with hyperglycemia secondary to noncompliance -Hyperlipidemia -Hypertension -Depression and other psychiatric issues patient baseline usually alert oriented x 1 and does not talk much as per the nursing staff -Generalized weakness with gait dysfunction, will need ECF on discharge, currently resides at [facility] DVT prophylaxis: Subcutaneous heparin GI prophylaxis: Pepcid Plan: Awaiting cultures and repeat blood cultures to monitor clearance of bacteremia. Infectious disease following and will continue on IV antibiotics and previous PICC line was removed for further assessment. Nursing staff reporting patient had a groin catheter and patient reports he does not, to be removed later and sent for cultures PT/OT therapy evaluation and case management consult for discharge and will require ECF, likely IV antibiotics on discharge and continued wound care. Patient will require insurance authorization Awaiting repeat cultures to determine discharge antibiotics. Will discuss further with infectious disease once these have resulted. Monitor for for clearance of bacteremia as blood cultures were positive for Klebsiella with ESBL The impression and plan of care has been dictated by Ashely Zimmer, Nurse Practitioner as directed. Dr. Perez MD I have performed a history and examination and MDM of this patient, discussed the same with the dictator, and agree with the dictator's assessment and plan as written ,documented as a scribe. Based on total visit time, I have performed more than 50% of the visit. Objective - Vital Signs Vital signs: Vital Signs Temp 98.8 F 04/27/24 08:00 Pulse 57 L 04/27/24 08:00 Resp 17 04/27/24 08:00 BP 114/62 04/27/24 08:00 Pulse Ox 95 04/27/24 08:00 FiO2 Intake & Output 04/26/24 04/27/24 04/27/24 18:59 06:59 18:59 Output Total 1900 800 Balance -1900 -800 Weight 81.647 kg Output: Urine 1900 800 Other: Voiding Method External Catheter # Bowel Movements 1 - Labs CBC & Chem 7: 04/25/24 03:00 04/25/24 21:52 Labs: Abnormal Lab Results - Last 24 Hours (Table) 04/26/24 04/26/24 04/26/24 Range/Units 12:17 16:49 20:44 POC Glucose (mg/dL) 266 H 247 H 246 H (70-110) mg/dL 04/27/24 04/27/24 Range/Units 01:48 06:00 POC Glucose (mg/dL) 256 H 305 H (70-110) mg/dL Microbiology - Last 24 Hours (Table) 04/25/24 10:05 Blood Culture Gram Stain - Preliminary Blood Blood Culture - Preliminary Klebsiella pneum subsp pneum Molecular ID
[2024-04-28 09:42] LABS: Anisocytosis Slight; Basophils % (A) 0 %; Eosinophils # (A) 0.2 k/uL (0-0.7); Eosinophils % (A) 2 %; HCT 34.1 % (39.0-53.0); HGB 10.8 gm/dL (13.0-17.5); Hypochromasia Slight; Lymphocytes # (A) 1.6 k/uL (1.0-4.8); Lymphocytes % (A) 13 %; MCH 27.7 pg (25.0-35.0); MCHC 31.7 g/dL (31.0-37.0); Mean Platelet Volume 7.5; Monocytes # (A) 0.6 k/uL (0-1.0); Monocytes % (A) 5 %; Neutrophils # (A) 9.9 k/uL (1.3-7.7); Neutrophils % (A) 78 %; Platelet Count 233 k/uL (150-450); RBC 3.89 m/uL (4.30-5.90); RDW 16.2 % (11.5-15.5); WBC 12.7 k/uL (3.8-10.6)
--- NOTE | 2024-04-28 09:52 | CDI ---
Documentation Clarification Form Date: 04/28/2024 09:22:25 AM From: Brittaney Sanchez RN CCDS Phone: [phone] Admit Date: 04/25/2024 04:41:00 AM Patient Name: Kenneth Spears Visit Number: [id number] Discharge Date: ATTENTION: The Clinical Documentation Specialists (CDI) and [facility] Coding Staff appreciate your assistance in clarifying documentation. Please respond to the clarification below the line at the bottom and electronically sign. The CDI & [facility] Coding staff will review the response and follow-up if needed. Please note: Queries are made part of the Legal Health Record. If you have any questions, please contact the author of this message via ITS. Provider: Claudette Strickland Encephalopathy is documented Pulmonology note, 04/27. Additional clarification regarding the type of encephalopathy is requested. History/Risk Factors: 58 y/o Male presents to the ED as a transfer from [place] for DKA. The patient has also has cellulitis, infected wounds of bilateral lower extremities. Medical History: Depression, HTN, HLD, DM1. 04/25,HP. Clinical Indicators: 04/25, Pulmonary consult: Acute Encephalopathy, patient baseline AO x 1. 04/27, Pulmonary note: Acute encephalopathy, recovered, patient baseline AO1 Labs 04/25: Wbc 30.1, Neutrophils 27.3, BUN 56, Cr 1.85, GFR 39, Glucose 695, Blood Gas: PH 7.36, pCO2 34, HCO 19 Blood Culture 04/25: Klebsiella pneum subsp pneum Molecular ID ID Consult,04/26: Diabetic foot ulcers, Leukocytosis, Bacteremia, ESBL producing bacterial infection, Candidemia. Patient with evidence of ESBL Klebsiella bacteremia source possible pneumonia versus PICC line and recent candidemia secondary PICC line which was discontinued Treatment: 04/25 04/25 Insulin IV; 04/25 04/25 Humalog sq AC TID; 04/26 Humalog 10unit sq x 1; 04/26 Humalog SQ ACHS S/S; 04/25 Lantus 24 units sq Daily 04/25 Anidulafungin IVPB Daily; 04/25 04/26 Cefazolin IVPB Q8H, 04/26 Meropenem IVPB Q6H, Fluids: 0.9ns 1.5L IV Bolus; 04/25/ KCL/Dextrose/Sod Cl IV 150cc/hr Consults: ID see above Please clarify the type of encephalopathy, if known: [ X ] Metabolic Encephalopathy [ ] Septic Encephalopathy [ ] Other, please specify [ ] Unable to determine (Template Last Revised: April 2020) MTDD
[2024-04-28 10:01] LABS: ALT 17 U/L (4-49); AST 25 U/L (17-59); African American GFR (CKD) >90 (>60 ml/min/1.73 sqM); Albumin 2.7 g/dL (3.5-5.0); Alkaline Phosphatase 182 U/L (38-126); Anion Gap 5 mmol/L; Blood Urea Nitrogen 22 mg/dL (9-20); Calcium 8.1 mg/dL (8.4-10.2); Carbon Dioxide 33 mmol/L (22-30); Chloride 96 mmol/L (98-107); Glucose 234 mg/dL (74-99); Magnesium 1.7 mg/dL (1.6-2.3); Non-African American GFR(CKD) >90 (>60 ml/min/1.73 sqM); Sodium 134 mmol/L (137-145); Total Bilirubin 0.8 mg/dL (0.2-1.3); Total Protein 6.4 g/dL (6.3-8.2)
[2024-04-28 10:05] LABS: MCV 87.5 fL (80.0-100.0)
--- NOTE | 2024-04-28 10:05 | P.PN ---
Subjective Progress Note Date: 04/28/24 Patient is a 58-year-old male with a PMH of hypertension, diabetes, hyperlipidemia presenting to the ED with AMS/confusion. Patient resides at an [facility] in [place]. He was initially brought to [place] ED and was found to be hyperglycemic. He was found to have increasing confusion as well. I was i nformed by nurse that his mental status is AAO x 1 at baseline. Unable to obtain a proper history due to patient being a poor historian. He was seen and evaluated in the emergency department. EKG independently interpreted displaying sinus rhythm. Labs showed WBC 30.1, Hgb 9.7, HCT 33.7, platelet 497. VBG 7.36, pCO2 34, HCO3 19. Potassium 4.2, CO2 16, anion gap 18, BUN 59, creatinine 1.28, glucose 300, alk phos 166, troponin < 0.012, albumin 3.1. Acetone positive. Vitals: Pulse 94, respiratory rate 18, blood pressure 143/65, O2 sat 97% on room air no UA. Patient has PICC line upper right arm and central line right groin. Documentation from [place] reviewed. Anion gap has improved since admission as well as glucose. The patient is seen today April 26, 2024 in follow-up in the emergency department. He is currently sitting up in bed. Awake and alert in no acute distress. Doing quite a bit better today compared to yesterday. He is maintaining O2 saturations in the 90s on room air. He is afebrile. Hemodynamically stable. He has been initiated on meropenem and Eraxis for his infected toes. Blood culture is showing Klebsiella pneumonia. Glucose 266. He has been transition to Lantus and Humalog sliding scale. Heparin for DVT prophylaxis. Pepcid for GI prophylaxis. He did not require ICU admission. The patient is seen today April 27, 2024 in follow-up in the observation unit. He is awake and alert in no acute distress. Maintaining good O2 saturations in the 90s on room air. He is afebrile. Hemodynamically stable. Blood culture positive for Klebsiella pneumoniae. Glucose 267. He remains on Eraxis and meropenem. Continued on Lantus and Humalog. Heparin for DVT prophylaxis. The patient is seen today April 28, 2024 in follow-up in the observation unit. He is currently up with a walker and physical therapy. He is awake and alert in no acute distress. Maintaining good O2 saturations in the 90s on room air. He is having issues with bleeding of his foot and toes while he is up walking. He remains on meropenem and Eraxis. Blood cultures were positive for Klebsiella pneumoniae. Triple-lumen catheter tip culture is pending. Glucose 226. He remains on heparin for DVT prophylaxis. He is on Lantus and Humalog sliding scale. Objective - Vital Signs Vital signs: Vital Signs Temp 98.3 F 04/28/24 07:27 Pulse 64 04/28/24 07:27 Resp 19 04/28/24 07:27 BP 121/74 04/28/24 07:27 Pulse Ox 94 L 04/28/24 07:27 FiO2 Intake & Output 04/27/24 04/28/24 04/28/24 18:59 06:59 18:59 Intake Total 236 Output Total 700 Balance -464 Weight 81.647 kg Intake: Oral 236 Output: Urine 700 Other: Voiding Method External Catheter External Catheter # Voids 0 - Exam GENERAL EXAM: Alert, 58-year-old male, on room air, up with a walker and assistance, in no apparent distress. HEAD: Normocephalic. EYES: Normal reaction of pupils, equal size. NOSE: Clear with pink turbinates. THROAT: No erythema or exudates. NECK: No masses, no JVD. CHEST: No chest wall deformity. LUNGS: Equal air entry with no crackles, wheeze, rhonchi or dullness. CVS: S1 and S2 normal with no audible murmur, regular rhythm. ABDOMEN: No hepatosplenomegaly, normal bowel sounds, no guarding or rigidity. SPINE: No scoliosis or deformity SKIN: No rashes CENTRAL NERVOUS SYSTEM: No focal deficits, tone is normal in all 4 extremities. EXTREMITIES: Toes bilaterally are red and oozing blood. There is no peripheral edema. No clubbing, no cyanosis. Peripheral pulses are intact. - Labs CBC & Chem 7: 04/25/24 03:00 04/25/24 21:52 Labs: Abnormal Lab Results - Last 24 Hours (Table) 04/27/24 04/27/24 04/28/24 Range/Units 10:53 20:20 02:04 POC Glucose (mg/dL) 267 H 121 H 217 H (70-110) mg/dL 04/28/24 Range/Units 05:58 POC Glucose (mg/dL) 226 H (70-110) mg/dL Microbiology - Last 24 Hours (Table) 04/27/24 13:30 Catheter Tip Culture - Preliminary Catheter Tip 04/26/24 16:06 Blood Culture - Preliminary Blood 04/25/24 10:05 Blood Culture Gram Stain - Final Blood Blood Culture - Final Klebsiella pneum subsp pneum Molecular ID Assessment and Plan Assessment: Diabetic ketoacidosis in the setting of uncontrolled type 1 diabetes, suspected noncompliance Sepsis secondary to bilateral lower extremity cellulitis including his toes Bacteremia with Klebsiella pneumoniae secondary to above Acute metabolic encephalopathy secondary to above, recovered, patient baseline AO x 1 Hypertension Hyperlipidemia Leukocytosis Normocytic anemia Depression Plan: The patient was seen and evaluated Labs and medications reviewed Toes are bleeding and oozing while up Consult vascular surgery Currently stable on room air Continued on Eraxis and meropenem Heparin for DVT prophylaxis Continue Lantus and Humalog I have personally seen and examined the patient, performed the documentation and the assessment and plan as written. Number of minutes spent on the visit: 10 Dictation was produced using [employer] dictation software. Please excuse any grammatical, word or spelling errors.
[2024-04-28 10:07] LABS: Potassium 2.7 mmol/L (3.5-5.1)
[2024-04-28 11:37] LABS: Glucose,Whole Blood 271 mg/dL (70-110)
--- NOTE | 2024-04-28 13:09 | P.PN ---
Subjective Progress Note Date: 04/27/24 Principal diagnosis: Reason for follow-up is bacteremia and candidemia Patient is a 58-year-old male with a past medical history significant for diabetes mellitus hypertension hyperlipidemia with recent admission to the hospital with DKA at that point the patient was diagnosed with candidemia secondary to PICC line which was subsequent discontinued the patient did have a evidence of multiples septic emboli to the lung but no evidence of any vegetation patient now has been brought back to the hospital with DKA noticed to have elevated white count bilateral foot wound probably discoloration blood cultures came back positive with ESBL Klebsiella On today's evaluation that is 04/27/2024,the patient denies any fever or any chills, patient is breathing comfortably on room air, the patient denies chest pain shortness of breath and no significant cough, patient denies abdominal pain, no nausea vomiting or diarrhea. No new lab has been obtained today blood culture repeat currently pending Objective - Vital Signs Vital signs: Vital Signs Temp 98.8 F 04/27/24 08:00 Pulse 57 L 04/27/24 08:00 Resp 17 04/27/24 08:00 BP 114/62 04/27/24 08:00 Pulse Ox 95 04/27/24 08:00 FiO2 Intake & Output 04/26/24 04/27/24 04/27/24 18:59 06:59 18:59 Intake Total 118 Output Total 1900 800 Balance -1900 -800 118 Weight 81.647 kg Intake: Oral 118 Output: Urine 1900 800 Other: Voiding Method External Catheter External Catheter # Bowel Movements 1 - Exam GENERAL DESCRIPTION: Middle-age male lying in bed in no distress RESPIRATORY SYSTEM: Unlabored breathing , decreased breath sounds at bases HEART: S1 S2 regular rate and rhythm , ABDOMEN: Soft , no tenderness EXTREMITIES: No edema feet - Labs CBC & Chem 7: 04/28/24 09:25 04/28/24 09:25 Labs: Abnormal Lab Results - Last 24 Hours (Table) 04/26/24 04/26/24 04/27/24 Range/Units 16:49 20:44 01:48 POC Glucose (mg/dL) 247 H 246 H 256 H (70-110) mg/dL 04/27/24 04/27/24 Range/Units 06:00 10:53 POC Glucose (mg/dL) 305 H 267 H (70-110) mg/dL Microbiology - Last 24 Hours (Table) 04/25/24 10:05 Blood Culture Gram Stain - Final Blood Blood Culture - Final Klebsiella pneum subsp pneum Molecular ID Assessment and Plan (1) Diabetic foot ulcers Current Visit: No Status: Acute Code(s): E11.621 - TYPE 2 DIABETES MELLITUS WITH FOOT ULCER; L97.509 - NON-PRESSURE CHRONIC ULCER OTH PRT UNSP FOOT W UNSP SEVERITY SNOMED Code(s): 515855199 (2) Leukocytosis Current Visit: No Status: Acute Code(s): D72.829 - ELEVATED WHITE BLOOD CELL COUNT, UNSPECIFIED SNOMED Code(s): 364355539 (3) Bacteremia Current Visit: Yes Status: Acute Code(s): R78.81 - BACTEREMIA SNOMED Code(s): 2266131 (4) ESBL (extended spectrum beta-lactamase) producing bacteria infection Current Visit: Yes Status: Acute Code(s): A49.9 - BACTERIAL INFECTION, UNSPECIFIED; Z16.12 - EXTENDED SPECTRUM BETA LACTAMASE (ESBL) RESISTANCE SNO MED Code(s): 754287407 (5) Candidemia Current Visit: No Status: Acute Code(s): B37.7 - CANDIDAL SEPSIS SNOMED Code(s): 286507312 Plan: 1patient with multiple laceration of bilateral lower extremity especially to the toes and left heel area but no evidence of any cellulitis or recommend local wound care with dry Aquacel silver dressing change q. 48-hour 2-patient with evidence of ESBL Klebsiella bacteremia source possible pneumonia versus PICC line and recent candidemia secondary PICC line which was discontinued 3-blood culture has been repeated for the PICC line peripherally, patient found to have a left lower triple-lumen catheter in the groin which will be discontinued and tip sent for the culture discussed with the RN 4patient to continue with meropenem and Eraxis and monitor clinical course closely Dictation was produced using [employer] dictation software. please excuse any grammatical, word or spelling errors. Time with Patient: Less than 30
[2024-04-28] MEDS ORDERED: Potassium Replacement Protocol 1 EACH MISC MISCELLANE PRN (13:15)
--- NOTE | 2024-04-28 14:16 | P.PN ---
Subjective Progress Note Date: 04/28/24 Principal diagnosis: Reason for follow-up is bacteremia and candidemia Patient is a 58-year-old male with a past medical history significant for diabetes mellitus hypertension hyperlipidemia with recent admission to the hospital with DKA at that point the patient was diagnosed with candidemia secondary to PICC line which was subsequent discontinued the patient did have a evidence of multiples septic emboli to the lung but no evidence of any vegetation patient now has been brought back to the hospital with DKA noticed to have elevated white count bilateral foot wound probably discoloration blood cultures came back positive with ESBL Klebsiella On today's evaluation that is 04/28/2024,the patient remains to be afebrile, patient is on room air not requiring supplemental oxygen and denies any shortness of breath no chest pain or cough.Patient denies having any nausea or vomiting, no abdominal pain and no diarrhea has been complaining of mostly discomfort in her toes area especially when he standpoint. Patient white count is down to 12.7, creatinine 0.7 and repeat cultures are currently pending Objective - Vital Signs Vital signs: Vital Signs Temp 98.3 F 04/28/24 07:27 Pulse 64 04/28/24 11:36 Resp 19 04/28/24 11:36 BP 121/74 04/28/24 07:27 Pulse Ox 94 L 04/28/24 07:27 FiO2 Intake & Output 04/27/24 04/28/24 04/28/24 18:59 06:59 18:59 Intake Total 236 Output Total 700 Balance -464 Weight 81.647 kg 81.647 kg Intake: Oral 236 Output: Urine 700 Other: Voiding Method External Catheter External Catheter External Catheter # Voids 0 - Exam GENERAL DESCRIPTION: Middle-age male lying in bed in no distress RESPIRATORY SYSTEM: Unlabored breathing , decreased breath sounds at bases HEART: S1 S2 regular rate and rhythm , ABDOMEN: Soft , no tenderness EXTREMITIES: Multiple superficial wounds to the toes with no slough tissue - Labs CBC & Chem 7: 04/28/24 09:25 04/28/24 09:25 Labs: Abnormal Lab Results - Last 24 Hours (Table) 04/27/24 04/28/24 04/28/24 Range/Units 20:20 02:04 05:58 WBC (3.8-10.6) k/uL RBC (4.30-5.90) m/uL Hgb (13.0-17.5) gm/dL Hct (39.0-53.0) % RDW (11.5-15.5) % Neutrophils # (1.3-7.7) k/uL Sodium (137-145) mmol/L Potassium (3.5-5.1) mmol/L Chloride (98-107) mmol/L Carbon Dioxide (22-30) mmol/L BUN (9-20) mg/dL Glucose (74-99) mg/dL POC Glucose (mg/dL) 121 H 217 H 226 H (70-110) mg/dL Calcium (8.4-10.2) mg/dL Alkaline Phosphatase (38-126) U/L Albumin (3.5-5.0) g/dL 04/28/24 04/28/24 04/28/24 Range/Units 09:25 09:25 11:35 WBC 12.7 H (3.8-10.6) k/uL RBC 3.89 L (4.30-5.90) m/uL Hgb 10.8 L (13.0-17.5) gm/dL Hct 34.1 L (39.0-53.0) % RDW 16.2 H (11.5-15.5) % Neutrophils # 9.9 H (1.3-7.7) k/uL Sodium 134 L (137-145) mmol/L Potassium 2.7 L* (3.5-5.1) mmol/L Chloride 96 L (98-107) mmol/L Carbon Dioxide 33 H (22-30) mmol/L BUN 22 H (9-20) mg/dL Glucose 234 H (74-99) mg/dL POC Glucose (mg/dL) 271 H (70-110) mg/dL Calcium 8.1 L (8.4-10.2) mg/dL Alkaline Phosphatase 182 H (38-126) U/L Albumin 2.7 L (3.5-5.0) g/dL Microbiology - Last 24 Hours (Table) 04/27/24 13:30 Catheter Tip Culture - Preliminary Catheter Tip 04/26/24 16:06 Blood Culture - Preliminary Blood 04/25/24 10:05 Blood Culture Gram Stain - Final Blood Blood Culture - Final Klebsiella pneum subsp pneum Molecular ID Assessment and Plan (1) Diabetic foot ulcers Current Visit: No Status: Acute Code(s): E11.621 - TYPE 2 DIABETES MELLITUS WITH FOOT ULCER; L97.509 - NON-PRESSURE CHRONIC ULCER OTH PRT UNSP FOOT W UNSP SEVERITY SNOMED Code(s): 918532198 (2) Leukocytosis Current Visit: No Status: Acute Code(s): D72.829 - ELEVATED WHITE BLOOD CELL COUNT, UNSPECIFIED SNOMED Code(s): 015391949 (3) Bacteremia Current Visit: Yes Status: Acute Code(s): R78.81 - BACTEREMIA SNOMED Code(s): 1684088 (4) ESBL (extended spectrum beta-lactamase) producing bacteria infection Current Visit: Yes Status: Acute Code(s): A49.9 - BACTERIAL INFECTION, UNSPECIFIED; Z16.12 - EXTENDED SPECTRUM BETA LACTAMASE (ESBL) RESISTANCE SNOMED Code(s): 873477191 (5) Candidemia Current Visit: No Status: Acute Code(s): B37.7 - CANDIDAL SEPSIS SNOMED Code(s): 270203549 Plan: 1patient with multiple laceration of bilateral lower extremity especially to the toes and left heel area but no evidence of any cellulitis or recommend local wound care with dry Aquacel silver dressing change q. 48-hour 2-patient with evidence of ESBL Klebsiella bacteremia source possible pneumonia versus PICC line and recent candidemia secondary PICC line which was discontinued 3-blood culture has been repeated for the PICC line peripherally, patient found to have a left lower triple-lumen catheter in the groin which has been discontinued, Has been sent for the culture 4patient white count is trending down blood culture currently pending, to continue with meropenem and Eraxis and monitor clinical course closely Dictation was produced using [employer] software. please excuse any grammatical, word or spelling errors. Time with Patient: Less than 30
[2024-04-28] MEDS: POTASSIUM CHLORIDE ER 20 MEQ TAB.ER PO SCH (14:21)
--- NOTE | 2024-04-28 16:01 | P.GSCN ---
History of Present Illness History of present illness: 58-year-old gentleman patient came to the emergency room with history of DKA, hypertension diabetes mellitus with high blood cell count. Consulted for patient has a wound on the right heel most likely pressure ulcer and superficial wound on the right lower EXTR extremity at the rodriguez area patient also has a wound on the left heel and also big toe patient has multiple superficial wound on the right foot 1-5 toes Patient seen in his room Chest few crackles the lung bases. Second sound present Abdomen is soft nontender vascular femorals are 1+ bilateral PT DP not palpable patient has a pressure ulcer right heel and also involving the all the toes on the right foot and the left foot has a pressure ulcer on the heel with big toe and second and second toe superficial wound. Plan is the right foot heel has some necrotic tissue arrange for the debridement consent for wound debridement right heel Past Medical History Past Medical History: Diabetes Mellitus, Hyperlipidemia, Hypertension History of Any Multi-Drug Resistant Organisms: None Reported Past Surgical History: Orthopedic Surgery Additional Past Surgical History / Comment(s): femur fx sx Past Psychological History: No Psychological Hx Reported, Depression Smoking Status: Current every day smoker Past Alcohol Use History: Unable to Obtain Past Drug Use History: Unable to Obtain Medications and Allergies Home Medications Medication Instructions Recorded Confirmed Type Atorvastatin [Lipitor] 40 mg PO HS@189904/06/24 04/25/24 History Cetirizine HCl [Zyrtec] 10 mg PO DAILY@69904/06/24 04/25/24 History Cholecalciferol [Vitamin D3 (125 125 mcg PO HS@189904/06/24 04/25/24 History Mcg = 5000 Iu)] Escitalopram [Lexapro] 20 mg PO DAILY@69904/06/24 04/25/24 History Famotidine [Pepcid] 20 mg PO BID@1200,1900 PRN 04/06/24 04/25/24 History Ferrous Sulfate [Iron] 325 mg PO DAILY@69904/06/24 04/25/24 History Fluticasone Nasal [place] [Flonase 2 spray EA NOSTRIL DAILY@69904/06/24 04/25/24 History Nasal [place]] Montelukast [Singulair] 10 mg PO DAILY@69904/06/24 04/25/24 History Morphine Sulfate ER [Ms Contin] 60 mg PO BID@699,1900 04/06/24 04/25/24 History Pantoprazole [Protonix] 40 mg PO DAILY@0700 04/06/24 04/25/24 History clonazePAM [KlonoPIN] 2 mg PO TID@0700,1200,1900 04/06/24 04/25/24 History traZODone HCL 300 mg PO HS@1900 04/06/24 04/25/24 History Anidulafungin [Eraxis] 100 mg IVPB DAILY@1700 35 Days 04/18/24 04/25/24 Rx each Insulin Degludec [Tresiba 20 - 28 units SQ DAILY@0700 04/25/24 04/25/24 History Flextouch U-200 Pen] Allergies Allergy/AdvReac Type Severity Reaction Status Date / Time amitriptyline [From Elavil] Allergy Unknown Verified 04/25/24 09:44 Fish Containing Products Allergy Unknown Verified 04/25/24 09:44 [Fish] oats Allergy Unknown Verified 04/25/24 09:44 pregabalin [From Lyrica] Allergy Unknown Verified 04/25/24 09:44 Mushroom AdvReac Anaphylaxis Verified 04/25/24 09:44 Penicillins AdvReac Nausea & Verified 04/25/24 09:44 Vomiting eggs Allergy Anaphylaxis Uncoded 04/25/24 09:44 nuts Allergy Unknown Uncoded 04/25/24 09:44 Surgical - Exam Vital Signs Pulse Resp BP Pulse Ox 71 19 105/46 98 04/25/24 02:41 04/25/24 02:41 04/25/24 02:41 04/25/24 02:41 Results - Labs 04/28/24 09:25 04/28/24 09:25 Abnormal Lab Results - Last 24 Hours (Table) 04/27/24 04/28/24 04/28/24 Range/Units 20:20 02:04 05:58 WBC (3.8-10.6) k/uL RBC (4.30-5.90) m/uL Hgb (13.0-17.5) gm/dL Hct (39.0-53.0) % RDW (11.5-15.5) % Neutrophils # (1.3-7.7) k/uL Sodium (137-145) mmol/L Potassium (3.5-5.1) mmol/L Chloride (98-107) mmol/L Carbon Dioxide (22-30) mmol/L BUN (9-20) mg/dL Glucose (74-99) mg/dL POC Glucose (mg/dL) 121 H 217 H 226 H (70-110) mg/dL Calcium (8.4-10.2) mg/dL Alkaline Phosphatase (38-126) U/L Albumin (3.5-5.0) g/dL 04/28/24 04/28/24 04/28/24 Range/Units : 09: 11:35 WBC 12.7 H (3.8-10.6) k/uL RBC 3.89 L (4.30-5.90) m/uL Hgb 10.8 L (13.0-17.5) gm/dL Hct 34.1 L (39.0-53.0) % RDW 16.2 H (11.5-15.5) % Neutrophils # 9.9 H (1.3-7.7) k/uL Sodium 134 L (137-145) mmol/L Potassium 2.7 L* (3.5-5.1) mmol/L Chloride 96 L (98-107) mmol/L Carbon Dioxide 33 H (22-30) mmol/L BUN 22 H (9-20) mg/dL Glucose 234 H (74-99) mg/dL POC Glucose (mg/dL) 271 H (70-110) mg/dL Calcium 8.1 L (8.4-10.2) mg/dL Alkaline Phosphatase 182 H (38-126) U/L Albumin 2.7 L (3.5-5.0) g/dL Microbiology - Last 24 Hours (Table) 04/27/24 13:30 Catheter Tip Culture - Preliminary Catheter Tip 04/26/24 16:06 Blood Culture - Preliminary Blood Diabetes panel 04/28/24 Range/Units : Sodium 134 L (137-145) mmol/L Potassium 2.7 L* (3.5-5.1) mmol/L Chloride 96 L (98-107) mmol/L Carbon Dioxide 33 H (22-30) mmol/L BUN 22 H (9-20) mg/dL Creatinine 0.79 (0.66-1.25) mg/dL Glucose 234 H (74-99) mg/dL Calcium 8.1 L (8.4-10.2) mg/dL AST 25 (17-59) U/L ALT 17 (4-49) U/L Alkaline Phosphatase 182 H (38-126) U/L Total Protein 6.4 (6.3-8.2) g/dL Albumin 2.7 L (3.5-5.0) g/dL Calcium panel 04/28/24 Range/Units 09:25 Calcium 8.1 L (8.4-10.2) mg/dL Albumin 2.7 L (3.5-5.0) g/dL Pituitary panel 04/28/24 Range/Units 09:25 Sodium 134 L (137-145) mmol/L Potassium 2.7 L* (3.5-5.1) mmol/L Chloride 96 L (98-107) mmol/L Carbon Dioxide 33 H (22-30) mmol/L BUN 22 H (9-20) mg/dL Creatinine 0.79 (0.66-1.25) mg/dL Glucose 234 H (74-99) mg/dL Calcium 8.1 L (8.4-10.2) mg/dL Adrenal panel 04/28/24 Range/Units 09:25 Sodium 134 L (137-145) mmol/L Potassium 2.7 L* (3.5-5.1) mmol/L Chloride 96 L (98-107) mmol/L Carbon Dioxide 33 H (22-30) mmol/L BUN 22 H (9-20) mg/dL Creatinine 0.79 (0.66-1.25) mg/dL Glucose 234 H (74-99) mg/dL Calcium 8.1 L (8.4-10.2) mg/dL Total Bilirubin 0.8 (0.2-1.3) mg/dL AST 25 (17-59) U/L ALT 17 (4-49) U/L Alkaline Phosphatase 182 H (38-126) U/L Total Protein 6.4 (6.3-8.2) g/dL Albumin 2.7 L (3.5-5.0) g/dL
--- NOTE | 2024-04-28 16:04 | P.PCN ---
Operative Findings: Procedure note preop diagnosis right heel necrotic wound remained is 3 x 2 cm Postop right heel wound 3 x 2 x 0.2 cm Procedure right foot was prepped 1% lidocaine infiltrated on the right heel area excision debridement was performed on the right heel necrotic tissue was excised down to subtenons tissue all the necrotic tissue was removed sent for deep culture wound was irrigated with saline silver alginate is applied to the heel and anterior aspect of the rodriguez and pressure dressing applied Dressing should be changed every 48 hours follow-up with you
[2024-04-28 16:37] LABS: Glucose,Whole Blood 98 mg/dL (70-110)
[2024-04-28] MEDS: LIDOCAINE 1% INJ 10MG/ML (20 ML MDV) SQ ONE (16:43)
[2024-04-28] MEDS: POTASSIUM CHLORIDE ER 20 MEQ TAB.ER PO ONE (17:25)
[2024-04-28 20:31] LABS: Glucose,Whole Blood 116 mg/dL (70-110)
--- NOTE | 2024-04-28 20:44 | P.PN ---
Subjective Progress Note Date: 04/28/24 Patient is admitted for diverticular stenosis and cellulitis and infected wounds of bilateral lower extremities. I will obtain any kind of history from the patient as patient is arousable but does not answer any questions. Unknown whether patient is taking his insulin patient was transferred from [facility] patient still has anion gap at this time. Patient has redness in bilateral lower extremities with leukocytosis. His body temperature is not documented in the system unknown whether he had fever. Patient blood sugars are down but still has anion gap of 18 at this time. Patient can protect his airway. 04/26/2024 Patient is seen in follow-up today with pulmonary and infectious disease following. Patient was maintained on IV antibiotics with a PICC line and there is concern of possible PICC line infection which is being removed per infectious disease patient will continue on antibiotic therapy for right lower extremity cellulitis. Blood cultures are positive for Klebsiella and awaiting repeat cultures to finalize and monitor for clearance of bacteremia. Patient's blood s ugars are better controlled and being resumed on diet and will slowly advance as tolerated and continue to adjust insulins accordingly. Patient currently resides at an [facility] and will have PT/OT therapy evaluate the patient with case management on consult. 04/27/2024 Patient is seen in follow-up today with multiple consultations following. Plan is for PICC line removal and per nursing staff there is a groin catheter that needs to be removed. Culture tip being sent and pending. Blood cultures Kle bsiella with ESBL and awaiting for clearance of bacteremia. Patient currently resides at an [facility] although evaluated by physical therapy and given the extent of infection, patient will require discharge to [facility]. Continue local wound care per ID recommendations and recommend PT/OT therapy daily. Blood sugars are better controlled and will continue current regimen and adjust medications accordingly. 04/28/2024 Patient is evaluated in follow-up on the medical floor. Follow-up with physical therapy patient was noted to have significant bleeding from his feet through the dressing. Dressings were removed and patient had significant bleeding wounds to the toes on his right foot and his left great toe. Dr. Huang was consulted for evaluation of his wounds. Patient had bedside debridement of the right heel wounds today with Dr. Huang as well as evaluation of the bleeding toe wounds. local wound care with silver AG and Kerlix and Nicola wrap's. Next wound dressing will be on Thursday. Blood cultures are showing ESBL Klebsiella bacteremia with possible pneumonia versus PICC line infection patient was recently diagnosed with candidemia and his secondary PICC line was discontinued. Blood culture has been repeated through the PICC line peripherally and he also had a left lower triple-lumen catheter in the groin which was discontinued and sent for culturing. Patient remains currently on meropenem and anidulafungin IV. His white blood cell count today is 12.7 hemoglobin 10.8 his sodium level is 134, potassium 2.7, BUN of 22 creatinine 0.7., Magnesium 1.7. His procalcitonin level has been significantly improved from greater than 100 down to 6.78. Review of systems: Constitutional: No reports of fatigue, fever, or chills Cardiovascular: No reports of chest pain or palpitations Respiratory: No reports of shortness of breath or cough GI: No reports of nausea, vomiting, or diarrhea : No reports of dysuria or retention Neurovascular: reports of weakness or numbness All medications have been reviewed PHYSICAL EXAMINATION: GENERAL: The patient is awake, alert and oriented x 2, baseline, well developed, thin built, elderly appearing HEENT: Pupils are round and equally reacting to light. EOMI. No scleral icterus. No conjunctival pallor. Normocephalic, atraumatic. No pharyngeal erythema. No thyromegaly. CARDIOVASCULAR: S1 and S2 muffled PULMONARY: Diminished breath sounds bilaterally otherwise chest is clear to auscultation, no wheezing or crackles. ABDOMEN: Soft, thin, nontender, nondistended, normoactive bowel sounds. No palpable organomegaly. MUSCULOSKELETAL: No joint swelling or deformity. EXTREMITIES: No cyanosis, clubbing, or pedal edema. NEUROLOGICAL: Limited due to his clinical condition SKIN: Patient has multiple ulcers in bilateral lower extremities. Cellulitis of right lower extremity Assessment: -Diabetic ketoacidosis, improved and patient and has transitioned to sliding scale and long-acting -Sepsis secondary bilateral lower extremity cellulitis of the right lower extremity, infectious disease following and continued on antibiotics. Concern for PICC line infection as well for source of bacteremia and is being removed and pending at this time. Repeat blood cultures to monitor clearance of bacteremia -Bacteremia with Klebsiella, ESBL likely secondary to above -Right heel ulceration pressure injury with wounds on toes 1 through 5 -Left heel pressure injury with right big toe superficial wound -Diabetes mellitus, type I uncontrolled with hyperglycemia secondary to noncompliance -Hyperlipidemia -Hypertension -Depression and other psychiatric issues patient baseline usually alert oriented x 1 and does not talk much as per the nursing staff -Generalized weakness with gait dysfunction, will need ECF on discharge, currently resides at [facility] DVT prophylaxis: Subcutaneous heparin GI prophylaxis: Pepcid Plan: Awaiting cultures and repeat blood cultures to monitor clearance of bacteremia. Infectious disease following and will continue on IV antibiotics and previous PICC line was removed for further assessment. Nursing staff reporting patient had a groin catheter that was removed and sent for cultures PT/OT therapy evaluation and case management consult for discharge and will require ECF, likely IV antibiotics on discharge and continued wound care. Patient will require insurance authorization Awaiting repeat cultures to determine discharge antibiotics. Will discuss further with infectious disease once these have resulted. Monitor for for clearance of bacteremia as blood cultures were positive for Klebsiella with ESBL The impression and plan of care has been dictated by Paulina Dillon, Nurse Practitioner as directed. Dr. Perez MD I have performed a history and examination and MDM of this patient, discussed the same with the dictator, and agree with the dictator's assessment and plan as written ,documented as a scribe. Based on total visit time, I have performed more than 50% of the visit. Objective - Vital Signs Vital signs: Vital Signs Temp 98.3 F 04/28/24 20:00 Pulse 83 04/28/24 20:00 Resp 12 04/28/24 20:00 BP 93/60 04/28/24 20:00 Pulse Ox 92 L 04/28/24 20:00 FiO2 Intake & Output 04/28/24 04/28/24 04/29/24 06:59 18:59 06:59 Intake Total 50 Balance 50 Weight 81.647 kg Intake: Oral 50 Other: Voiding Method External Catheter External Catheter # Voids 0 - Labs CBC & Chem 7: 04/28/24 09:25 04/28/24 09:25 Labs: Abnormal Lab Results - Last 24 Hours (Table) 04/28/24 04/28/24 04/28/24 Range/Units 02:04 05:58 09: WBC 12.7 H (3.8-10.6) k/uL RBC 3.89 L (4.30-5.90) m/uL Hgb 10.8 L (13.0-17.5) gm/dL Hct 34.1 L (39.0-53.0) % RDW 16.2 H (11.5-15.5) % Neutrophils # 9.9 H (1.3-7.7) k/uL Sodium (137-145) mmol/L Potassium (3.5-5.1) mmol/L Chloride (98-107) mmol/L Carbon Dioxide (22-30) mmol/L BUN (9-20) mg/dL Glucose (74-99) mg/dL POC Glucose (mg/dL) 217 H 226 H (70-110) mg/dL Calcium (8.4-10.2) mg/dL Alkaline Phosphatase (38-126) U/L Albumin (3.5-5.0) g/dL Procalcitonin (0.02-0.50) ng/mL 04/28/24 04/28/24 04/28/24 Range/Units 09:25 09:25 11:35 WBC (3.8-10.6) k/uL RBC (4.30-5.90) m/uL Hgb (13.0-17.5) gm/dL Hct (39.0-53.0) % RDW (11.5-15.5) % Neutrophils # (1.3-7.7) k/uL Sodium 134 L (137-145) mmol/L Potassium 2.7 L* (3.5-5.1) mmol/L Chloride 96 L (98-107) mmol/L Carbon Dioxide 33 H (22-30) mmol/L BUN 22 H (9-20) mg/dL Glucose 234 H (74-99) mg/dL POC Glucose (mg/dL) 271 H (70-110) mg/dL Calcium 8.1 L (8.4-10.2) mg/dL Alkaline Phosphatase 182 H (38-126) U/L Albumin 2.7 L (3.5-5.0) g/dL Procalcitonin 6.78 H (0.02-0.50) ng/mL 04/28/24 Range/Units 20:30 WBC (3.8-10.6) k/uL RBC (4.30-5.90) m/uL Hgb (13.0-17.5) gm/dL Hct (39.0-53.0) % RDW (11.5-15.5) % Neutrophils # (1.3-7.7) k/uL Sodium (137-145) mmol/L Potassium (3.5-5.1) mmol/L Chloride (98-107) mmol/L Carbon Dioxide (22-30) mmol/L BUN (9-20) mg/dL Glucose (74-99) mg/dL POC Glucose (mg/dL) 116 H (70-110) mg/dL Calcium (8.4-10.2) mg/dL Alkaline Phosphatase (38-126) U/L Albumin (3.5-5.0) g/dL Procalcitonin (0.02-0.50) ng/mL Microbiology - Last 24 Hours (Table) 04/27/24 13:30 Catheter Tip Culture - Preliminary Catheter Tip 04/26/24 16:06 Blood Culture - Preliminary Blood Assessment and Plan Time with Patient: Less than 30
[2024-04-29 03:10] LABS: Glucose,Whole Blood 208 mg/dL (70-110)
[2024-04-29 07:40] LABS: Glucose,Whole Blood 279 mg/dL (70-110)
[2024-04-29 08:25] LABS: HCT 29.8 % (39.6-50.0); HGB 9.7 g/dL (13.0-17.0); MCHC 32.6 g/dL (32.0-37.0); MCV 86.1 FL (80.0-97.0); NRBC Per 100 WBC 0 X 10*3/uL (0.00-0.01); Platelet Count 240 X 10*3/uL (140-440); RBC 3.46 X 10*6/uL (4.40-5.60); RDW 16.2 % (11.5-14.5); WBC 7.73 X 10*3/uL (4.50-10.00)
[2024-04-29 08:28] LABS: ALT 13 U/L (10-49); AST 17 U/L (14-35); Albumin 2.5 g/dL (3.8-4.9); Albumin/Globulin Ratio 0.76 Ratio (1.60-3.17); Alkaline Phosphatase 145 U/L (41-126); Blood Urea Nitrogen 20.7 mg/dL (9.0-27.0); Calcium 8.2 mg/dL (8.7-10.3); Carbon Dioxide 31.1 mmol/L (21.6-31.8); Chloride 99 mmol/L (96-109); Globulin 3.3 g/dL (1.6-3.3); Glucose 224 mg/dL (70-110); Potassium 4.1 mmol/L (3.5-5.5); Sodium 137 mmol/L (135-145); Total Bilirubin 0.4 mg/dL (0.3-1.2); Total Protein 5.8 g/dL (6.2-8.2)
[2024-04-29 09:06] LABS: Basophils # (A) 0.05 X 10*3/uL (0.00-0.10); Basophils % (A) 0.6 %; Eosinophils # (A) 0.23 X 10*3/uL (0.04-0.35); Lymphocytes # (A) 2.77 X 10*3/uL (0.90-5.00); Lymphocytes % (A) 35.8 %; Monocytes # (A) 1.25 X 10*3/uL (0.20-1.00); Monocytes % (A) 16.2 %; Neutrophils # (A) 3.32 X 10*3/uL (1.80-7.70)
[2024-04-29 11:12] LABS: Glucose,Whole Blood 279 mg/dL (70-110)
[2024-04-29 12:51] LABS: Glucose,Whole Blood 209 mg/dL (70-110)
--- NOTE | 2024-04-29 13:03 | P.PN ---
Subjective Progress Note Date: 04/29/24 Patient is a 58-year-old male with a PMH of hypertension, diabetes, hyperlipidemia presenting to the ED with AMS/confusion. Patient resides at an [facility] in [place]. He was initially brought to [place] ED and was found to be hyperglycemic. He was found to have increasing confusion as well. I was i nformed by nurse that his mental status is AAO x 1 at baseline. Unable to obtain a proper history due to patient being a poor historian. He was seen and evaluated in the emergency department. EKG independently interpreted displaying sinus rhythm. Labs showed WBC 30.1, Hgb 9.7, HCT 33.7, platelet 497. VBG 7.36, pCO2 34, HCO3 19. Potassium 4.2, CO2 16, anion gap 18, BUN 59, creatinine 1.28, glucose 300, alk phos 166, troponin < 0.012, albumin 3.1. Acetone positive. Vitals: Pulse 94, respiratory rate 18, blood pressure 143/65, O2 sat 97% on room air no UA. Patient has PICC line upper right arm and central line right groin. Documentation from [place] reviewed. Anion gap has improved since admission as well as glucose. The patient is seen today April 26, 2024 in follow-up in the emergency department. He is currently sitting up in bed. Awake and alert in no acute distress. Doing quite a bit better today compared to yesterday. He is maintaining O2 saturations in the 90s on room air. He is afebrile. Hemodynamically stable. He has been initiated on meropenem and Eraxis for his infected toes. Blood culture is showing Klebsiella pneumonia. Glucose 266. He has been transition to Lantus and Humalog sliding scale. Heparin for DVT prophylaxis. Pepcid for GI prophylaxis. He did not require ICU admission. The patient is seen today April 27, 2024 in follow-up in the observation unit. He is awake and alert in no acute distress. Maintaining good O2 saturations in the 90s on room air. He is afebrile. Hemodynamically stable. Blood culture positive for Klebsiella pneumoniae. Glucose 267. He remains on Eraxis and meropenem. Continued on Lantus and Humalog. Heparin for DVT prophylaxis. The patient is seen today April 28, 2024 in follow-up in the observation unit. He is currently up with a walker and physical therapy. He is awake and alert in no acute distress. Maintaining good O2 saturations in the 90s on room air. He is having issues with bleeding of his foot and toes while he is up walking. He remains on meropenem and Eraxis. Blood cultures were positive for Klebsiella pneumoniae. Triple-lumen catheter tip culture is pending. Glucose 226. He remains on heparin for DVT prophylaxis. He is on Lantus and Humalog sliding scale. The patient is seen today April 29, 2024 in follow-up on the regular medical floor. He is currently sitting up in bed. Awake and alert in no acute distress. Denies any worsening shortness of breath, cough or congestion. Maintaining good O2 saturations in the 90s on room air. He did undergo debridement of his right heel necrotic wound yesterday. He is continued on meropenem and Eraxis. Catheter tip culture revealed no growth. Initial blood culture was positive for Klebsiella pneumoniae. Follow-up blood culture revealed no growth. Right heel wound culture pending. White count 7.7. Hemoglobin 9.7. Platelets 240. Sodium 137. Potassium 4.1. Bicarb 31. BUN 21. Creatinine 1.0. Glucose 224. AST 17. ALT 13. He remains on heparin for DVT prophylaxis. Continued on Lantus 24 units daily along with Humalog sliding scale. Objective - Vital Signs Vital signs: Vital Signs Temp 98.6 F 04/29/24 07:29 Pulse 72 04/29/24 07:29 Resp 16 04/29/24 07:29 BP 125/71 04/29/24 07:29 Pulse Ox 91 L 04/29/24 07:29 FiO2 Intake & Output 04/28/24 04/29/24 04/29/24 18:59 06:59 18:59 Intake Total 50 1080 Output Total 300 1100 Balance 50 780 -1100 Weight 81.647 kg Intake: Oral 50 1080 Output: Urine 300 1100 Other: Voiding Method External Catheter External Catheter - Exam GENERAL EXAM: Alert, 58-year-old male, on room air, resting comfortably in bed, in no apparent distress. HEAD: Normocephalic. EYES: Normal reaction of pupils, equal size. NOSE: Clear with pink turbinates. THROAT: No erythema or exudates. NECK: No masses, no JVD. CHEST: No chest wall deformity. LUNGS: Equal air entry with no crackles, wheeze, rhonchi or dullness. CVS: S1 and S2 normal with no audible murmur, regular rhythm. ABDOMEN: No hepatosplenomegaly, normal bowel sounds, no guarding or rigidity. SPINE: No scoliosis or deformity SKIN: No rashes CENTRAL NERVOUS SYSTEM: No focal deficits, tone is normal in all 4 extremities. EXTREMITIES: Toes bilaterally are red. Right heel debrided. Dressing intact. There is no peripheral edema. Peripheral pulses are intact. - Labs CBC & Chem 7: 04/29/24 03:48 04/29/24 03:48 Labs: Abnormal Lab Results - Last 24 Hours (Table) 04/28/24 04/28/24 04/29/24 Range/Units 09:25 20:30 03:08 RBC (4.40-5.60) X 10*6/uL Hgb (13.0-17.0) g/dL Hct (39.6-50.0) % RDW (11.5-14.5) % Immature Gran # (0.00-0.04) X 10*3/uL Monocytes # (0.20-1.00) X 10*3/uL BUN/Creatinine Ratio (12.00-20.00) Ratio Glucose (70-110) mg/dL POC Glucose (mg/dL) 116 H 208 H (70-110) mg/dL Calcium (8.7-10.3) mg/dL Alkaline Phosphatase (41-126) U/L Total Protein (6.2-8.2) g/dL Albumin (3.8-4.9) g/dL Albumin/Globulin Ratio (1.60-3.17) Ratio Procalcitonin 6.78 H (0.02-0.50) ng/mL 04/29/24 04/29/24 04/29/24 Range/Units 03:48 03:48 07:33 RBC 3.46 L (4.40-5.60) X 10*6/uL Hgb 9.7 L (13.0-17.0) g/dL Hct 29.8 L (39.6-50.0) % RDW 16.2 H (11.5-14.5) % Immature Gran # 0.11 H (0.00-0.04) X 10*3/uL Monocytes # 1.25 H (0.20-1.00) X 10*3/uL BUN/Creatinine Ratio 20.70 H (12.00-20.00) Ratio Glucose 224 H (70-110) mg/dL POC Glucose (mg/dL) 279 H (70-110) mg/dL Calcium 8.2 L (8.7-10.3) mg/dL Alkaline Phosphatase 145 H (41-126) U/L Total Protein 5.8 L (6.2-8.2) g/dL Albumin 2.5 L (3.8-4.9) g/dL Albumin/Globulin Ratio 0.76 L (1.60-3.17) Ratio Procalcitonin (0.02-0.50) ng/mL 04/29/24 04/29/24 Range/Units 07:33 12:31 RBC (4.40-5.60) X 10*6/uL Hgb (13.0-17.0) g/dL Hct (39.6-50.0) % RDW (11.5-14.5) % Immature Gran # (0.00-0.04) X 10*3/uL Monocytes # (0.20-1.00) X 10*3/uL BUN/Creatinine Ratio (12.00-20.00) Ratio Glucose (70-110) mg/dL POC Glucose (mg/dL) 279 H 209 H (70-110) mg/dL Calcium (8.7-10.3) mg/dL Alkaline Phosphatase (41-126) U/L Total Protein (6.2-8.2) g/dL Albumin (3.8-4.9) g/dL Albumin/Globulin Ratio (1.60-3.17) Ratio Procalcitonin (0.02-0.50) ng/mL Microbiology - Last 24 Hours (Table) 04/27/24 13:30 Catheter Tip Culture - Final Catheter Tip 04/27/24 20:00 Gram Stain - Preliminary Leg - Right 04/26/24 16:06 Blood Culture - Preliminary Blood Assessment and Plan Assessment: Diabetic ketoacidosis in the setting of uncontrolled type 1 diabetes, suspected noncompliance Sepsis secondary to bilateral lower extremity cellulitis including his toes. He did have debridement of the wound of the right heel on April 28, 2024 Bacteremia with Klebsiella pneumoniae secondary to above Acute metabolic encephalopathy secondary to above, recovered, patient baseline AO x 1 Hypertension Hyperlipidemia Leukocytosis Normocytic anemia Depression Plan: The patient was seen and evaluated Currently stable on room air Labs and medications reviewed Right heel wound debrided yesterday Continued on Eraxis and meropenem Heparin for DVT prophylaxis Continue Lantus and Humalog Plan may be for [facility] at discharge This patient was seen independently by the pulmonary nurse practitioner addressing pulmonary/critical care issues I have personally seen and examined the patient, performed the documentation and the assessment and plan as written. Number of minutes spent on the visit: 22 Dictation was produced using [employer] dictation software. Please excuse any grammatical, word or spelling errors.
[2024-04-29] MEDS ORDERED: ZINC OXIDE PASTE (Z-GUARD) 1 APPLIC TOPICAL PRN (14:26)
--- NOTE | 2024-04-29 14:38 | P.PN ---
Subjective Progress Note Date: 04/29/24 Principal diagnosis: Reason for follow-up is bacteremia and candidemia Patient is a 58-year-old male with a past medical history significant for diabetes mellitus hypertension hyperlipidemia with recent admission to the hospital with DKA at that point the patient was diagnosed with candidemia secondary to PICC line which was subsequent discontinued the patient did have a evidence of multiples septic emboli to the lung but no evidence of any vegetation patient now has been brought back to the hospital with DKA noticed to have elevated white count bilateral foot wound probably discoloration blood cultures came back positive with ESBL Klebsiella On today's evaluation that is 04/29/2024, the patient continues to be afebrile, the patient is on room air and breathing comfortably, the Pt denies having any chest pain or cough, the patient denies having any abdominal pain no vomiting or any diarrhea has been reported by the nursing staff. Patient white count 7.73, creatinine is 1.0 leg wound culture not growing gram- negative and Staph aureus catheter culture negative Objective - Vital Signs Vital signs: Vital Signs Temp 98.6 F 04/29/24 07:29 Pulse 72 04/29/24 07:29 Resp 16 04/29/24 07:29 BP 125/71 04/29/24 07:29 Pulse Ox 91 L 04/29/24 07:29 FiO2 Intake & Output 04/28/24 04/29/24 04/29/24 18:59 06:59 18:59 Intake Total 50 1080 Output Total 300 1100 Balance 50 780 -1100 Weight 81.647 kg Intake: Oral 50 1080 Output: Urine 300 1100 Other: Voiding Method External Catheter External Catheter - Exam GENERAL DESCRIPTION: Middle-age male lying in bed in no distress RESPIRATORY SYSTEM: Unlabored breathing , decreased breath sounds at bases HEART: S1 S2 regular rate and rhythm , ABDOMEN: Soft , no tenderness EXTREMITIES: Foot wounds are currently dressed - Labs CBC & Chem 7: 04/29/24 03:48 04/29/24 03:48 Labs: Abnormal Lab Results - Last 24 Hours (Table) 04/28/24 04/28/24 04/29/24 Range/Units 09:25 20:30 03:08 RBC (4.40-5.60) X 10*6/uL Hgb (13.0-17.0) g/dL Hct (39.6-50.0) % RDW (11.5-14.5) % Immature Gran # (0.00-0.04) X 10*3/uL Monocytes # (0.20-1.00) X 10*3/uL BUN/Creatinine Ratio (12.00-20.00) Ratio Glucose (70-110) mg/dL POC Glucose (mg/dL) 116 H 208 H (70-110) mg/dL Calcium (8.7-10.3) mg/dL Alkaline Phosphatase (41-126) U/L Total Protein (6.2-8.2) g/dL Albumin (3.8-4.9) g/dL Albumin/Globulin Ratio (1.60-3.17) Ratio Procalcitonin 6.78 H (0.02-0.50) ng/mL 04/29/24 04/29/24 04/29/24 Range/Units 03:48 03:48 07:33 RBC 3.46 L (4.40-5.60) X 10*6/uL Hgb 9.7 L (13.0-17.0) g/dL Hct 29.8 L (39.6-50.0) % RDW 16.2 H (11.5-14.5) % Immature Gran # 0.11 H (0.00-0.04) X 10*3/uL Monocytes # 1.25 H (0.20-1.00) X 10*3/uL BUN/Creatinine Ratio 20.70 H (12.00-20.00) Ratio Glucose 224 H (70-110) mg/dL POC Glucose (mg/dL) 279 H (70-110) mg/dL Calcium 8.2 L (8.7-10.3) mg/dL Alkaline Phosphatase 145 H (41-126) U/L Total Protein 5.8 L (6.2-8.2) g/dL Albumin 2.5 L (3.8-4.9) g/dL Albumin/Globulin Ratio 0.76 L (1.60-3.17) Ratio Procalcitonin (0.02-0.50) ng/mL 04/29/24 04/29/24 Range/Units 07:33 12:31 RBC (4.40-5.60) X 10*6/uL Hgb (13.0-17.0) g/dL Hct (39.6-50.0) % RDW (11.5-14.5) % Immature Gran # (0.00-0.04) X 10*3/uL Monocytes # (0.20-1.00) X 10*3/uL BUN/Creatinine Ratio (12.00-20.00) Ratio Glucose (70-110) mg/dL POC Glucose (mg/dL) 279 H 209 H (70-110) mg/dL Calcium (8.7-10.3) mg/dL Alkaline Phosphatase (41-126) U/L Total Protein (6.2-8.2) g/dL Albumin (3.8-4.9) g/dL Albumin/Globulin Ratio (1.60-3.17) Ratio Procalcitonin (0.02-0.50) ng/mL Microbiology - Last 24 Hours (Table) 04/27/24 13:30 Catheter Tip Culture - Final Catheter Tip 04/27/24 20:00 Gram Stain - Preliminary Leg - Right 04/26/24 16:06 Blood Culture - Preliminary Blood Assessment and Plan (1) Diabetic foot ulcers Current Visit: No Status: Acute Code(s): E11.621 - TYPE 2 DIABETES MELLITUS WITH FOOT ULCER; L97.509 - NON-PRESSURE CHRONIC ULCER OTH PRT UNSP FOOT W UNSP SEVERITY SNOMED Code(s): 610944175 (2) Leukocytosis Current Visit: No Status: Acute Code(s): D72.829 - ELEVATED WHITE BLOOD CELL COUNT, UNSPECIFIED SNOMED Code(s): 544893339 (3) Bacteremia Current Visit: Yes Status: Acute Code(s): R78.81 - BACTEREMIA SNOMED Code(s): 2576285 (4) ESBL (extended spectrum beta-lactamase) producing bacteria infection Current Visit: Yes Status: Acute Code(s): A49.9 - BACTERIAL INFECTION, UNSPECIFIED; Z16.12 - EXTENDED SPECTRUM BETA LACTAMASE (ESBL) RESISTANCE SNOMED Code(s): 496810081 (5) Candidemia Current Visit: No Status: Acute Code(s): B37.7 - CANDIDAL SEPSIS SNOMED Code(s): 602359984 Plan: 1patient with multiple laceration of bilateral lower extremity especially to the toes and left heel area but no evidence of any cellulitis or recommend local wound care with dry Aquacel silver dressing change q. 48-hour 2-patient with evidence of ESBL Klebsiella bacteremia source possible pneumonia versus PICC line and recent candidemia secondary PICC line which was discontinued 3-blood culture has been repeated for the PICC line peripherally, patient found to have a left lower triple-lumen catheter in the groin which has been discontinued, which has been sent with a culture currently pending 4patient patient also had debridement of his heel wound by vascular surgery culture currently growing gram-negative bacilli and Staph aureus sensitivities will follow continue with the meropenem and Eraxis Dictation was produced using [employer] dictation software. please excuse any gramma tical, word or spelling errors. Time with Patient: Less than 30
[2024-04-29 17:10] LABS: Glucose,Whole Blood 152 mg/dL (70-110)
[2024-04-29] MEDS ORDERED: Potassium Replacement Protocol 1 EACH MISC MISCELLANE PRN (18:33)
--- NOTE | 2024-04-29 18:46 | P.PN ---
Subjective Progress Note Date: 04/29/24 Patient is admitted for diverticular stenosis and cellulitis and infected wounds of bilateral lower extremities. I will obtain any kind of history from the patient as patient is arousable but does not answer any questions. Unknown whether patient is taking his insulin patient was transferred from [facility] patient still has anion gap at this time. Patient has redness in bilateral lower extremities with leukocytosis. His body temperature is not documented in the system unknown whether he had fever. Patient blood sugars are down but still has anion gap of 18 at this time. Patient can protect his airway. 04/26/2024 Patient is seen in follow-up today with pulmonary and infectious disease following. Patient was maintained on IV antibiotics with a PICC line and there is concern of possible PICC line infection which is being removed per infectious disease patient will continue on antibiotic therapy for right lower extremity cellulitis. Blood cultures are positive for Klebsiella and awaiting repeat cultures to finalize and monitor for clearance of bacteremia. Patient's blood sugars are better controlled and being resumed on diet and will slowly advance as tolerated and continue to adjust insulins accordingly. Patient currently resides at an [facility] and will have PT/OT therapy evaluate the patient with case management on consult. 04/27/2024 Patient is seen in follow-up today with multiple consultations following. Plan is for PICC line removal and per nursing staff there is a groin catheter that needs to be removed. Culture tip being sent and pending. Blood cultures K lebsiella with ESBL and awaiting for clearance of bacteremia. Patient currently resides at an [facility] although evaluated by physical therapy and given the extent of infection, patient will require discharge to [facility]. Continue local wound care per ID recommendations and recommend PT/OT therapy daily. Blood sugars are better controlled and will continue current regimen and adjust medications accordingly. 04/28/2024 Patient is evaluated in follow-up on the medical floor. Follow-up with physical therapy patient was noted to have significant bleeding from his feet through the dressing. Dressings were removed and patient had significant bleeding wounds to the toes on his right foot and his left great toe. Dr. Huang was consulted for evaluation of his wounds. Patient had bedside debridement of the right heel wounds today with Dr. Huang as well as evaluation of the bleeding toe wounds. local wound care with silver AG and Kerlix and Nicola wrap's. Next wound dressing will be on Thursday. Blood cultures are showing ESBL Klebsiella bacteremia with possible pneumonia versus PICC line infection patient was recently diagnosed with candidemia and his secondary PICC line was discontinued. Blood culture has been repeated through the PICC line peripherally and he also had a left lower triple-lumen catheter in the groin which was discontinued and sent for culturing. Patient remains currently on meropenem and anidulafungin IV. His white blood cell count today is 12.7 hemoglobin 10.8 his sodium level is 134, potassium 2.7, BUN of 22 creatinine 0.7., Magnesium 1.7. His procalcitonin le geoff has been significantly improved from greater than 100 down to 6.78. 04/29/2024 Patient is seen in follow-up today with multiple consultations following vascular surgery. Patient is status post debridement at the bedside and bleeding has somewhat improved although continues to have drainage noted. Pending cultures and preliminary showing Staph aureus continued on meropenem and Eraxis with infectious disease following. Repeat blood cultures are negative thus far and catheter tip was sent and negative and awaiting triple-lumen that was removed from groin and sent for culture to be finalized. Patient is afebrile and white count has normalized. Patient tolerating diet and blood sugars are being monitored closely. Patient with significant weakness will need ECF and has been accepted at [facility] with authorization. Continue local wound care per vascular and ID recommendations. Review of systems: Constitutional: No reports of fatigue, fever, or chills Cardiovascular: No reports of chest pain or palpitations Respiratory: No reports of shortness of breath or cough GI: No reports of nausea, vomiting, or diarrhea : No reports of dysuria or retention Neurovascular: reports of weakness or numbness All medications have been reviewed PHYSICAL EXAMINATION: GENERAL: The patient is awake, alert and oriented x 2, baseline, well developed, thin built, elderly appearing HEENT: Pupils are round and equally reacting to light. EOMI. No scleral icterus. No conjunctival pallor. Normocephalic, atraumatic. No pharyngeal erythema. No thyromegaly. CARDIOVASCULAR: S1 and S2 muffled PULMONARY: Diminished breath sounds bilaterally otherwise chest is clear to auscultation, no wheezing or crackles. ABDOMEN: Soft, thin, nontender, nondistended, normoactive bowel sounds. No palpable organomegaly. MUSCULOSKELETAL: No joint swelling or deformity. EXTREMITIES: No cyanosis, clubbing, or pedal edema. NEUROLOGICAL: Limited due to his clinical condition SKIN: Patient has multiple ulcers in bilateral lower extremities. Cellulitis of right lower extremity Assessment: Sepsis secondary to bilateral lower extremity -Diabetic ketoacidosis, improved and patient and has transitioned to sliding scale and long-acting -Sepsis secondary bilateral lower extremity wounds with surrounding cellulitis of the right lower extremity, infectious disease following and continued on antibiotics. Concern for PICC line infection versus triple-lumen groin catheter that was removed and sent for cultures. Repeat blood cultures to monitor clearance of bacteremia and negative thus far for 24 hours -Bacteremia with Klebsiella, ESBL likely secondary to above -Right heel ulceration pressure injury with wounds on toes 1 through 5 -Left heel pressure injury with right big toe superficial wound, status post bedside debridement -Diabetes mellitus, type I uncontrolled with hyperglycemia secondary to noncompliance -Hyperlipidemia -Hypertension -Depression and other psychiatric issues patient baseline usually alert oriented x 1 and does not talk much as per the nursing staff -Generalized weakness with gait dysfunction, will need ECF on discharge, currently resides at [facility] DVT prophylaxis: Subcutaneous heparin GI prophylaxis: Pepcid Plan: Awaiting cultures and repeat blood cultures to monitor clearance of bacteremia. Repeat blood cultures have been negative for 24 hours. Infectious disease following and will continue on IV antibiotics and does have a PICC line. Patient did have a triple-lumen groin catheter that was found and removed and sent for cultures PT/OT therapy evaluation and case management consult for discharge and will require ECF, likely IV antibiotics on discharge and continued wound care. Patient will require insurance authorization and has been accepted at [facility] Awaiting repeat cultures to determine discharge antibiotics. Will discuss further with infectious disease once these have resulted. Will need to await catheter tip cultures as well as triple-lumen cultures. Monitor for for clearance of bacteremia as blood cultures were positive for Klebsiella with ESBL The impression and plan of care has been dictated by Ashely Zimmer, Nurse Practitioner as directed. Dr. Perez MD I have performed a history and examination and MDM of this patient, discussed the same with the dictator, and agree with the dictator's assessment and plan as written ,documented as a scribe. Based on total visit time, I have performed more than 50% of the visit. Objective - Vital Signs Vital signs: Vital Signs Temp 98.6 F 04/29/24 07:29 Pulse 72 04/29/24 07:29 Resp 16 04/29/24 07:29 BP 125/71 04/29/24 07:29 Pulse Ox 91 L 04/29/24 07:29 FiO2 Intake & Output 04/28/24 04/29/24 04/29/24 18:59 06:59 18:59 Intake Total 50 1080 Output Total 300 1100 Balance 50 780 -1100 Weight 81.647 kg Intake: Oral 50 1080 Output: Urine 300 1100 Other: Voiding Method External Catheter External Catheter - Labs CBC & Chem 7: 04/29/24 03:48 04/29/24 03:48 Labs: Abnormal Lab Results - Last 24 Hours (Table) 04/28/24 04/28/24 04/28/24 Range/Units 09:25 09:25 09:25 WBC 12.7 H (3.8-10.6) k/uL RBC 3.89 L (4.30-5.90) m/uL Hgb 10.8 L (13.0-17.5) gm/dL Hct 34.1 L (39.0-53.0) % RDW 16.2 H (11.5-15.5) % Immature Gran # (0.00-0.04) X 10*3/uL Neutrophils # 9.9 H (1.3-7.7) k/uL Monocytes # (0.20-1.00) X 10*3/uL Sodium 134 L (137-145) mmol/L Potassium 2.7 L* (3.5-5.1) mmol/L Chloride 96 L (98-107) mmol/L Carbon Dioxide 33 H (22-30) mmol/L BUN 22 H (9-20) mg/dL BUN/Creatinine Ratio (12.00-20.00) Ratio Glucose 234 H (74-99) mg/dL POC Glucose (mg/dL) (70-110) mg/dL Calcium 8.1 L (8.4-10.2) mg/dL Alkaline Phosphatase 182 H (38-126) U/L Total Protein (6.2-8.2) g/dL Albumin 2.7 L (3.5-5.0) g/dL Albumin/Globulin Ratio (1.60-3.17) Ratio Procalcitonin 6.78 H (0.02-0.50) ng/mL 04/28/24 04/28/24 04/29/24 Range/Units 11:35 20:30 03:08 WBC (3.8-10.6) k/uL RBC (4.30-5.90) m/uL Hgb (13.0-17.5) gm/dL Hct (39.0-53.0) % RDW (11.5-15.5) % Immature Gran # (0.00-0.04) X 10*3/uL Neutrophils # (1.3-7.7) k/uL Monocytes # (0.20-1.00) X 10*3/uL Sodium (137-145) mmol/L Potassium (3.5-5.1) mmol/L Chloride (98-107) mmol/L Carbon Dioxide (22-30) mmol/L BUN (9-20) mg/dL BUN/Creatinine Ratio (12.00-20.00) Ratio Glucose (74-99) mg/dL POC Glucose (mg/dL) 271 H 116 H 208 H (70-110) mg/dL Calcium (8.4-10.2) mg/dL Alkaline Phosphatase (38-126) U/L Total Protein (6.2-8.2) g/dL Albumin (3.5-5.0) g/dL Albumin/Globulin Ratio (1.60-3.17) Ratio Procalcitonin (0.02-0.50) ng/mL 04/29/24 04/29/24 04/29/24 Range/Units 03:48 03:48 07:33 WBC (3.8-10.6) k/uL RBC 3.46 L (4.30-5.90) m/uL Hgb 9.7 L (13.0-17.5) gm/dL Hct 29.8 L (39.0-53.0) % RDW 16.2 H (11.5-15.5) % Immature Gran # 0.11 H (0.00-0.04) X 10*3/uL Neutrophils # (1.3-7.7) k/uL Monocytes # 1.25 H (0.20-1.00) X 10*3/uL Sodium (137-145) mmol/L Potassium (3.5-5.1) mmol/L Chloride (98-107) mmol/L Carbon Dioxide (22-30) mmol/L BUN (9-20) mg/dL BUN/Creatinine Ratio 20.70 H (12.00-20.00) Ratio Glucose 224 H (74-99) mg/dL POC Glucose (mg/dL) 279 H (70-110) mg/dL Calcium 8.2 L (8.4-10.2) mg/dL Alkaline Phosphatase 145 H (38-126) U/L Total Protein 5.8 L (6.2-8.2) g/dL Albumin 2.5 L (3.5-5.0) g/dL Albumin/Globulin Ratio 0.76 L (1.60-3.17) Ratio Procalcitonin (0.02-0.50) ng/mL Microbiology - Last 24 Hours (Table) 04/27/24 13:30 Catheter Tip Culture - Final Catheter Tip 04/27/24 20:00 Gram Stain - Preliminary Leg - Right 04/26/24 16:06 Blood Culture - Preliminary Blood
[2024-04-29] MEDS ORDERED: POTASSIUM CHLORIDE ER 20 MEQ TAB.ER PO SCH (19:00)
[2024-04-29 20:01] LABS: Glucose,Whole Blood 305 mg/dL (70-110)
[2024-04-30 02:49] LABS: Glucose,Whole Blood 136 mg/dL (70-110)
[2024-04-30 07:13] LABS: Glucose,Whole Blood 298 mg/dL (70-110)
[2024-04-30 09:45] LABS: HCT 30.5 % (39.6-50.0); HGB 9.6 g/dL (13.0-17.0); MCHC 31.5 g/dL (32.0-37.0); MCV 88.9 FL (80.0-97.0); NRBC Per 100 WBC 0 X 10*3/uL (0.00-0.01); Platelet Count 294 X 10*3/uL (140-440); RBC 3.43 X 10*6/uL (4.40-5.60); RDW 16.3 % (11.5-14.5); WBC 9.98 X 10*3/uL (4.50-10.00)
[2024-04-30 09:46] LABS: ALT 14 U/L (10-49); AST 22 U/L (14-35); Albumin 2.4 g/dL (3.8-4.9); Albumin/Globulin Ratio 0.71 Ratio (1.60-3.17); Alkaline Phosphatase 154 U/L (41-126); Blood Urea Nitrogen 17.1 mg/dL (9.0-27.0); Calcium 8.2 mg/dL (8.7-10.3); Carbon Dioxide 29.9 mmol/L (21.6-31.8); Chloride 100 mmol/L (96-109); Globulin 3.4 g/dL (1.6-3.3); Glucose 144 mg/dL (70-110); Magnesium 1.9 mg/dL (1.5-2.4); Potassium 4.3 mmol/L (3.5-5.5); Sodium 136 mmol/L (135-145); Total Bilirubin 0.3 mg/dL (0.3-1.2); Total Protein 5.8 g/dL (6.2-8.2)
[2024-04-30 10:11] LABS: Basophils # (A) 0.08 X 10*3/uL (0.00-0.10); Basophils % (A) 0.8 %; Eosinophils # (A) 0.38 X 10*3/uL (0.04-0.35); Eosinophils % (A) 3.8 %; Lymphocytes % (A) 33.1 %; Monocytes # (A) 2.09 X 10*3/uL (0.20-1.00); Monocytes % (A) 20.9 %; Neutrophils # (A) 3.91 X 10*3/uL (1.80-7.70); Neutrophils % (A) 39.2 %
[2024-04-30 12:39] LABS: Glucose,Whole Blood 320 mg/dL (70-110)
[2024-04-30 13:02] LABS: Erythrocyte Sedimentation Rate 29 mm/Hr (0-20)
--- NOTE | 2024-04-30 13:53 | P.PN ---
Subjective Progress Note Date: 04/30/24 Principal diagnosis: Reason for follow-up is bacteremia and candidemia Patient is a 58-year-old male with a past medical history significant for diabetes mellitus hypertension hyperlipidemia with recent admission to the hospital with DKA at that point the patient was diagnosed with candidemia secondary to PICC line which was subsequent discontinued the patient did have a evidence of multiples septic emboli to the lung but no evidence of any vegetation patient now has been brought back to the hospital with DKA noticed to have elevated white count bilateral foot wound probably discoloration blood cultures came back positive with ESBL Klebsiella On today's evaluation that is 04/30/2024, patient did not have any fever and denies any chills, patient is breathing comfortably on room air, patient with no chest pain or cough patient did not have any abdominal pain nausea vomiting or any loose stools some pain especially in the right heel area. Patient white count is 9.98, creatinine 0.9 culture from the right leg is growing ESBL Klebsiella and MSSA blood culture repeat has been negative, sed rate is 29 Objective - Vital Signs Vital signs: Vital Signs Temp 97.7 F 04/30/24 13:09 Pulse 59 L 04/30/24 13:09 Resp 19 04/30/24 13:09 BP 130/76 04/30/24 13:09 Pulse Ox 96 04/30/24 13:09 FiO2 Intake & Output 04/29/24 04/30/24 04/30/24 18:59 06:59 18:59 Intake Total 1130 Output Total 1500 100 Balance -1500 1030 Intake: Oral 1130 Output: Urine 1500 100 Other: Voiding Method External Catheter External Catheter External Catheter - Exam GENERAL DESCRIPTION: Middle-age male lying in bed in no distress RESPIRATORY SYSTEM: Unlabored breathing , decreased breath sounds at bases HEART: S1 S2 regular rate and rhythm , ABDOMEN: Soft , no tenderness EXTREMITIES: Right heel wound minimal drainage however the borders are palpable - Labs CBC & Chem 7: 04/30/24 03:32 04/30/24 03:32 Labs: Abnormal Lab Results - Last 24 Hours (Table) 04/29/24 04/29/24 04/30/24 Range/Units 17:07 20:00 02:47 RBC (4.40-5.60) X 10*6/uL Hgb (13.0-17.0) g/dL Hct (39.6-50.0) % MCHC (32.0-37.0) g/dL RDW (11.5-14.5) % Immature Gran # (0.00-0.04) X 10*3/uL Monocytes # (0.20-1.00) X 10*3/uL Eosinophils # (0.04-0.35) X 10*3/uL ESR (0-20) mm/Hr Glucose (70-110) mg/dL POC Glucose (mg/dL) 152 H 305 H 136 H (70-110) mg/dL Calcium (8.7-10.3) mg/dL Alkaline Phosphatase (41-126) U/L C-Reactive Protein (0.00-0.80) mg/dL Total Protein (6.2-8.2) g/dL Albumin (3.8-4.9) g/dL Globulin (1.6-3.3) g/dL Albumin/Globulin Ratio (1.60-3.17) Ratio 04/30/24 04/30/24 04/30/24 Range/Units 03:32 03:32 07:11 RBC 3.43 L (4.40-5.60) X 10*6/uL Hgb 9.6 L (13.0-17.0) g/dL Hct 30.5 L (39.6-50.0) % MCHC 31.5 L (32.0-37.0) g/dL RDW 16.3 H (11.5-14.5) % Immature Gran # 0.22 H (0.00-0.04) X 10*3/uL Monocytes # 2.09 H (0.20-1.00) X 10*3/uL Eosinophils # 0.38 H (0.04-0.35) X 10*3/uL ESR 29 H (0-20) mm/Hr Glucose 144 H (70-110) mg/dL POC Glucose (mg/dL) 298 H (70-110) mg/dL Calcium 8.2 L (8.7-10.3) mg/dL Alkaline Phosphatase 154 H (41-126) U/L C-Reactive Protein 9.00 H (0.00-0.80) mg/dL Total Protein 5.8 L (6.2-8.2) g/dL Albumin 2.4 L (3.8-4.9) g/dL Globulin 3.4 H (1.6-3.3) g/dL Albumin/Globulin Ratio 0.71 L (1.60-3.17) Ratio 04/30/24 Range/Units 12:24 RBC (4.40-5.60) X 10*6/uL Hgb (13.0-17.0) g/dL Hct (39.6-50.0) % MCHC (32.0-37.0) g/dL RDW (11.5-14.5) % Immature Gran # (0.00-0.04) X 10*3/uL Monocytes # (0.20-1.00) X 10*3/uL Eosinophils # (0.04-0.35) X 10*3/uL ESR (0-20) mm/Hr Glucose (70-110) mg/dL POC Glucose (mg/dL) 320 H (70-110) mg/dL Calcium (8.7-10.3) mg/dL Alkaline Phosphatase (41-126) U/L C-Reactive Protein (0.00-0.80) mg/dL Total Protein (6.2-8.2) g/dL Albumin (3.8-4.9) g/dL Globulin (1.6-3.3) g/dL Albumin/Globulin Ratio (1.60-3.17) Ratio Microbiology - Last 24 Hours (Table) 04/27/24 20:00 Gram Stain - Final Leg - Right Wound Culture - Final Klebsiella pneumo ESBL MDRO Staphylococcus aureus 04/26/24 16:06 Blood Culture - Preliminary Blood 04/27/24 13:30 Catheter Tip Culture - Final Catheter Tip Assessment and Plan (1) Diabetic foot ulcers Current Visit: No Status: Acute Code(s): E11.621 - TYPE 2 DIABETES MELLITUS WITH FOOT ULCER; L97.509 - NON-PRESSURE CHRONIC ULCER OTH PRT UNSP FOOT W UNSP SEVERITY SNOMED Code(s): 085201783 (2) Leukocytosis Current Visit: No Status: Acute Code(s): D72.829 - ELEVATED WHITE BLOOD CELL COUNT, UNSPECIFIED SNOMED Code(s): 084826360 (3) Bacteremia Current Visit: Yes Status: Acute Code(s): R78.81 - BACTEREMIA SNOMED Code(s): 5980596 (4) ESBL (extended spectrum beta-lactamase) producing bacteria infection Current Visit: Yes Status: Acute Code(s): A49.9 - BACTERIAL INFECTION, UNSPECIFIED; Z16.12 - EXTENDED SPECTRUM BETA LACTAMASE (ESBL) RESISTANCE SNOMED Code(s): 264735609 (5) Candidemia Current Visit: No Status: Acute Code(s): B37.7 - CANDIDAL SEPSIS SNOMED Code(s): 251081890 Plan: 1patient with multiple laceration of bilateral lower extremity especially to the toes and left heel area but no evidence of any cellulitis or recommend local wound care with dry Aquacel silver dressing change q. 48-hour 2-patient with evidence of ESBL Klebsiella bacteremia source likely right heel infected wound s/p debridement catheter culture have been negative so far repeat blood culture negative 3-we will obtain x-ray of breath right heel if no bony changes will obtain bone scan for now continue with the meropenem and Eraxis Dictation was produced using [employer] dictation software. please excuse any grammatical, word or spelling errors. Time with Patient: Less than 30
--- NOTE | 2024-04-30 15:13 | XR ---
EXAMINATION TYPE: XR foot complete RT DATE OF EXAM: 04/30/2024 3:07 PM COMPARISON: None. CLINICAL INDICATION: Male, 58 years old with history of Right heel ulcer question osteo-; PHH, pain TECHNIQUE: XR foot complete RT examined in the AP, oblique, and lateral projections. FINDINGS: Osseous structures diffusely demineralized. No acute fracture or dislocation. No focal osseous erosio n or aggressive periosteal reaction. Midfoot degenerative changes seen on lateral view. Interphalange al degenerative osteoarthritic changes also noted. No unexpected radiopaque foreign body. Vascular ca lcifications. IMPRESSION: No convincing radiographic evidence of acute osteomyelitis. [facility], , 04/30/2024 3:11 PM
[2024-04-30 17:23] LABS: Glucose,Whole Blood 134 mg/dL (70-110)
[2024-04-30 20:25] LABS: Glucose,Whole Blood 182 mg/dL (70-110)
[2024-05-01 03:35] LABS: Glucose,Whole Blood 119 mg/dL (70-110)
[2024-05-01 07:29] LABS: Glucose,Whole Blood 160 mg/dL (70-110)
[2024-05-01 12:17] LABS: Glucose,Whole Blood 225 mg/dL (70-110)
--- NOTE | 2024-05-01 14:49 | P.PN ---
Subjective Patient is admitted for diverticular stenosis and cellulitis and infected wounds of bilateral lower extremities. I will obtain any kind of history from the patient as patient is arousable but does not answer any questions. Unknown whether patient is taking his insulin patient was transferred from [facility] patient still has anion gap at this time. Patient has redness in bilateral lower extremities with leukocytosis. His body temperature is not documented in the system unknown whether he had fever. Patient blood sugars are down but still has anion gap of 18 at this time. Patient can protect his airway. 04/26/2024 Patient is seen in follow-up today with pulmonary and infectious disease following. Patient was maintained on IV antibiotics with a PICC line and there is concern of possible PICC line infection which is being removed per infectious disease patient will continue on antibiotic therapy for right lower extremity cellulitis. Blood cultures are positive for Klebsiella and awaiting repeat cultures to finalize and monitor for clearance of bacteremia. Patient's blood sugars are better controlled and being resumed on diet and will slowly advance as tolerated and continue to adjust insulins accordingly. Patient currently resides at an [facility] and will have PT/OT therapy evaluate the patient with case management on consult. 04/27/2024 Patient is seen in follow-up today with multiple consultations following. Plan is for PICC line removal and per nursing staff there is a groin catheter that needs to be removed. Culture tip being sent and pending. Blood cultures Klebsiella with ESBL and awaiting for clearance of bacteremia. Patient currently resides at an [facility] although evaluated by physical therapy and given the extent of infection, patient will require discharge to [facility]. Continue local wound care per ID recommendations and recommend PT/OT therapy daily. Blood sugars are better controlled and will continue current regimen and adjust medications accordingly. 04/28/2024 Patient is evaluated in follow-up on the medical floor. Follow-up with physical therapy patient was noted to have significant bleeding from his feet through the dressing. Dressings were removed and patient had significant bleeding wounds to the toes on his right foot and his left great toe. Dr. Huang was consulted for evaluation of his wounds. Patient had bedside debridement of the right heel wounds today with Dr. Huang as well as evaluation of the bleeding toe wounds. local wound care with silver AG and Kerlix and Nicola wrap's. Next wound dressing will be on Thursday. Blood cultures are showing ESBL Klebsiella bacteremia with possible pneumonia versus PICC line, patient was recently diagnosed with candidemia and his secondary PICC line was discontinued. Blood culture has been repeated through the PICC line peripherally and he also had a left lower triple- lumen catheter in the groin which was discontinued and sent for culturing. Patient remains currently on meropenem and anidulafungin IV. His white blood cell count today is 12.7 hemoglobin 10.8 his sodium level is 134, potassium 2.7, BUN of 22 creatinine 0.7., Magnesium 1.7. His procalcitonin level has been significantly improved from greater than 100 down to 6.78. 04/29/2024 Patient is seen in follow-up today with multiple consultations following vascular surgery. Patient is status post debridement at the bedside and bleeding has somewhat improved although continues to have drainage noted. Pending cultures and preliminary showing Staph aureus continued on meropenem and Eraxis with infectious disease following. Repeat blood cultures are negative thus far and catheter tip was sent and negative and awaiting triple-lumen that was removed from groin and sent for culture to be finalized. Patient is afebrile and white count has normalized. Patient tolerating diet and blood sugars are being monitored closely. Patient with significant weakness will need ECF and has been accepted at [facility] with authorization. Continue local wound care per vascular and ID recommendations. 04/30 Patient continued treated for his foot infection secondary to ESBL Klebsiella related to his uncontrolled diabetes with associated bacteremia with the same microorganism Foot x-ray done today showing no convincing evidence of acute osteomyelitis Patient kept on meropenem and antifungal medication Sugars controlled Pain is controlled Objective - Vital Signs Vital signs: Vital Signs Temp 98.6 F 04/30/24 07:12 Pulse 54 L 04/30/24 07:12 Resp 18 04/30/24 07:12 BP 112/57 04/30/24 07:12 Pulse Ox 93 L 04/30/24 07:12 FiO2 Intake & Output 04/29/24 04/30/24 04/30/24 18:59 06:59 18:59 Intake Total 1130 Output Total 1500 100 Balance -1500 1030 Intake: Oral 1130 Output: Urine 1500 100 Other: Voiding Method External Catheter External Catheter External Catheter - Exam GENERAL: The patient is alert and oriented x3, not in any acute distress. Well developed, well nourished. HEENT: Pupils are round and equally reacting to light. EOMI. No scleral icterus. No conjunctival pallor. Normocephalic, atraumatic. No pharyngeal erythema. No thyromegaly. CARDIOVASCULAR: S1 and S2 present. No murmurs, rubs, or gallops. PULMONARY: Chest is clear to auscultation, no wheezing , no crackles. ABDOMEN: Soft, nontender, nondistended, normoactive bowel sounds. No palpable organomegaly. -MUSCULOSKELETAL: No joint swelling or deformity. Right foot cellulitis EXTREMITIES: No cyanosis, clubbing, or pedal edema. NEUROLOGICAL: Gross neurological examination did not reveal any focal deficits. SKIN: No rashes. no petechiae. - Labs CBC & Chem 7: 04/30/24 03:04/30/24 03:32 Labs: Abnormal Lab Results - Last 24 Hours (Table) 04/29/24 04/29/24 04/30/24 Range/Units 17:07 20:00 02:47 RBC (4.40-5.60) X 10*6/uL Hgb (13.0-17.0) g/dL Hct (39.6-50.0) % MCHC (32.0-37.0) g/dL RDW (11.5-14.5) % Immature Gran # (0.00-0.04) X 10*3/uL Monocytes # (0.20-1.00) X 10*3/uL Eosinophils # (0.04-0.35) X 10*3/uL Glucose (70-110) mg/dL POC Glucose (mg/dL) 152 H 305 H 136 H (70-110) mg/dL Calcium (8.7-10.3) mg/dL Alkaline Phosphatase (41-126) U/L C-Reactive Protein (0.00-0.80) mg/dL Total Protein (6.2-8.2) g/dL Albumin (3.8-4.9) g/dL Globulin (1.6-3.3) g/dL Albumin/Globulin Ratio (1.60-3.17) Ratio 04/30/24 04/30/24 04/30/24 Range/Units 03: 03:32 07:11 RBC 3.43 L (4.40-5.60) X 10*6/uL Hgb 9.6 L (13.0-17.0) g/dL Hct 30.5 L (39.6-50.0) % MCHC 31.5 L (32.0-37.0) g/dL RDW 16.3 H (11.5-14.5) % Immature Gran # 0.22 H (0.00-0.04) X 10*3/uL Monocytes # 2.09 H (0.20-1.00) X 10*3/uL Eosinophils # 0.38 H (0.04-0.35) X 10*3/uL Glucose 144 H (70-110) mg/dL POC Glucose (mg/dL) 298 H (70-110) mg/dL Calcium 8.2 L (8.7-10.3) mg/dL Alkaline Phosphatase 154 H (41-126) U/L C-Reactive Protein 9.00 H (0.00-0.80) mg/dL Total Protein 5.8 L (6.2-8.2) g/dL Albumin 2.4 L (3.8-4.9) g/dL Globulin 3.4 H (1.6-3.3) g/dL Albumin/Globulin Ratio 0.71 L (1.60-3.17) Ratio // Range/Units 12:24 RBC (4.40-5.60) X 10*6/uL Hgb (13.0-17.0) g/dL Hct (39.6-50.0) % MCHC (32.0-37.0) g/dL RDW (11.5-14.5) % Immature Gran # (0.00-0.04) X 10*3/uL Monocytes # (0.20-1.00) X 10*3/uL Eosinophils # (0.04-0.35) X 10*3/uL Glucose (70-110) mg/dL POC Glucose (mg/dL) 320 H (70-110) mg/dL Calcium (8.7-10.3) mg/dL Alkaline Phosphatase (41-126) U/L C-Reactive Protein (0.00-0.80) mg/dL Total Protein (6.2-8.2) g/dL Albumin (3.8-4.9) g/dL Globulin (1.6-3.3) g/dL Albumin/Globulin Ratio (1.60-3.17) Ratio Microbiology - Last 24 Hours (Table) 04/27/24 20:00 Gram Stain - Final Leg - Right Wound Culture - Final Klebsiella pneumo ESBL MDRO Staphylococcus aureus 04/26/24 16:06 Blood Culture - Preliminary Blood 04/27/24 13:30 Catheter Tip Culture - Final Catheter Tip Assessment and Plan Assessment: -Diabetic ketoacidosis, improved and patient and has transitioned to sliding scale and long-acting -Sepsis secondary bilateral lower extremity wounds with surrounding cellulitis of the right lower extremity, infectious disease following and continued on antibiotics. Concern for PICC line infection versus triple-lumen groin catheter that was removed and sent for cultures. Repeat blood cultures to monitor clear ance of bacteremia and negative thus far for 24 hours -Bacteremia with Klebsiella, ESBL likely secondary to above -Right heel ulceration pressure injury with wounds on toes 1 through 5 -Left heel pressure injury with right big toe superficial wound, status post bedside debridement -Diabetes mellitus, type I uncontrolled with hyperglycemia secondary to noncompliance -Hyperlipidemia -Hypertension -Depression and other psychiatric issues patient baseline usually alert oriented x 1 and does not talk much as per the nursing staff -Generalized weakness with gait dysfunction, will need ECF on discharge, currently resides at [facility] DVT prophylaxis: Subcutaneous heparin GI prophylaxis: Pepcid Plan: Continue with meropenem and andulfungin Right foot x-ray was reviewed Infectious disease team on the case Pain controlled and continued on the same pain management
--- NOTE | 2024-05-01 14:51 | P.PN ---
Subjective Patient is admitted for diverticular stenosis and cellulitis and infected wounds of bilateral lower extremities. I will obtain any kind of history from the patient as patient is arousable but does not answer any questions. Unknown whether patient is taking his insulin patient was transferred from [facility] patient still has anion gap at this time. Patient has redness in bilateral lower extremities with leukocytosis. His body temperature is not documented in the system unknown whether he had fever. Patient blood sugars are down but still has anion gap of 18 at this time. Patient can protect his airway. 04/26/2024 Patient is seen in follow-up today with pulmonary and infectious disease following. Patient was maintained on IV antibiotics with a PICC line and there is concern of possible PICC line infection which is being removed per infectious disease patient will continue on antibiotic therapy for right lower extremity cellulitis. Blood cultures are positive for Klebsiella and awaiting repeat cultures to finalize and monitor for clearance of bacteremia. Patient's blood sugars are better controlled and being resumed on diet and will slowly advance as tolerated and continue to adjust insulins accordingly. Patient currently resides at an [facility] and will have PT/OT therapy evaluate the patient with case management on consult. 04/27/2024 Patient is seen in follow-up today with multiple consultations following. Plan is for PICC line removal and per nursing staff there is a groin catheter that needs to be removed. Culture tip being sent and pending. Blood cultures Klebsiella with ESBL and awaiting for clearance of bacteremia. Patient currently resides at an [facility] although evaluated by physical therapy and given the extent of infection, patient will require discharge to [facility]. Continue local wound care per ID recommendations and recommend PT/OT therapy daily. Blood sugars are better controlled and will continue current regimen and adjust medications accordingly. 04/28/2024 Patient is evaluated in follow-up on the medical floor. Follow-up with physical therapy patient was noted to have significant bleeding from his feet through the dressing. Dressings were removed and patient had significant bleeding wounds to the toes on his right foot and his left great toe. Dr. Huang was consulted for evaluation of his wounds. Patient had bedside debridement of the right heel wounds today with Dr. Huang as well as evaluation of the bleeding toe wounds. local wound care with silver AG and Kerlix and Nicola wrap's. Next wound dressing will be on Thursday. Blood cultures are showing ESBL Klebsiella bacteremia with possible pneumonia versus PICC line, patient was recently diagnosed with candidemia and his secondary PICC line was discontinued. Blood culture has been repeated through the PICC line peripherally and he also had a left lower triple- lumen catheter in the groin which was discontinued and sent for culturing. Patient remains currently on meropenem and anidulafungin IV. His white blood cell count today is 12.7 hemoglobin 10.8 his sodium level is 134, potassium 2.7, BUN of 22 creatinine 0.7., Magnesium 1.7. His procalcitonin level has been significantly improved from greater than 100 down to 6.78. 04/29/2024 Patient is seen in follow-up today with multiple consultations following vascular surgery. Patient is status post debridement at the bedside and bleeding has somewhat improved although continues to have drainage noted. Pending cultures and preliminary showing Staph aureus continued on meropenem and Eraxis with infectious disease following. Repeat blood cultures are negative thus far and catheter tip was sent and negative and awaiting triple-lumen that was removed from groin and sent for culture to be finalized. Patient is afebrile and white count has normalized. Patient tolerating diet and blood sugars are being monitored closely. Patient with significant weakness will need ECF and has been accepted at [facility] with authorization. Continue local wound care per vascular and ID recommendations. 04/30 Patient continued treated for his foot infection secondary to ESBL Klebsiella related to his uncontrolled diabetes with associated bacteremia with the same microorganism Foot x-ray done today showing no convincing evidence of acute osteomyelitis Patient kept on meropenem and antifungal medication Sugars controlled Pain is controlled 05/01 Patient is improving slowly and gradually No new complaints Diet changed to consistent carbohydrate diet Continued on meropenem and anidulafungin Objective - Vital Signs Vital signs: Vital Signs Temp 97.5 F L 05/01/24 12:48 Pulse 57 L 05/01/24 12:48 Resp 17 05/01/24 12:48 BP 101/58 05/01/24 12:48 Pulse Ox 95 05/01/24 12:48 FiO2 Intake & Output 04/30/24 05/01/24 05/01/24 17:59 06:59 18:59 Intake Total Output Total Balance Intake: Intake, IV Titration Amount Anidulafungin 100 mg In Sodium Chloride 0.9% 100 ml @ 84 mls/hr IVPB DAILY [facility] Rx#:[id number] Meropenem 500 mg In Sodium Chloride 0.9% 100 ml @ 33.333 mls/hr IVPB Q6H [facility] Rx#:[id number] Oral Output: Urine Other: Voiding Method External Catheter - Exam GENERAL: The patient is alert and oriented x3, not in any acute distress. Well developed, well nourished. HEENT: Pupils are round and equally reacting to light. EOMI. No scleral icterus. No conjunctival pallor. Normocephalic, atraumatic. No pharyngeal erythema. No thyromegaly. CARDIOVASCULAR: S1 and S2 present. No murmurs, rubs, or gallops. PULMONARY: Chest is clear to auscultation, no wheezing , no crackles. ABDOMEN: Soft, nontender, nondistended, normoactive bowel sounds. No palpable organomegaly. -MUSCULOSKELETAL: No joint swelling or deformity. Right foot cellulitis EXTREMITIES: No cyanosis, clubbing, or pedal edema. NEUROLOGICAL: Gross neurological examination did not reveal any focal deficits. SKIN: No rashes. no petechiae. - Labs CBC & Chem 7: 04/30/24 03:32 04/30/24 03:32 Labs: Abnormal Lab Results - Last 24 Hours (Table) 04/30/24 04/30/24 05/01/24 Range/Units 17:19 20:23 03:34 POC Glucose (mg/dL) 134 H 182 H 119 H (70-110) mg/dL 05/01/24 05/01/24 Range/Units 07:25 12:12 POC Glucose (mg/dL) 160 H 225 H (70-110) mg/dL Microbiology - Last 24 Hours (Table) 04/28/24 15:48 Anaerobic Culture - Preliminary Foot - Right 04/27/24 20:00 Gram Stain - Final Leg - Right Wound Culture - Final Klebsiella pneumo ESBL MDRO Staphylococcus aureus Assessment and Plan Assessment: -Diabetic ketoacidosis, improved and patient and has transitioned to sliding scale and long-acting -Sepsis secondary bilateral lower extremity wounds with surrounding cellulitis of the right lower extremity, infectious disease following and continued on antibiotics. Concern for PICC line infection versus triple-lumen groin catheter that was removed and sent for cultures. Repeat blood cultures to monitor clearance of bacteremia and negative thus far for 24 hours -Bacteremia with Klebsiella, ESBL likely secondary to above -Right heel ulceration pressure injury with wounds on toes 1 through 5 -Left heel pressure injury with right big toe superficial wound, status post bedside debridement -Diabetes mellitus, type I uncontrolled with hyperglycemia secondary to noncompliance -Hyperlipidemia -Hypertension -Depression and other psychiatric issues patient baseline usually alert oriented x 1 and does not talk much as per the nursing staff -Generalized weakness with gait dysfunction, will need ECF on discharge, currently resides at [facility] DVT prophylaxis: Subcutaneous heparin GI prophylaxis: Pepcid Plan: Continue with meropenem and andulfungin Right foot x-ray was reviewed Infectious disease team on the case Pain controlled and continued on the same pain management
--- NOTE | 2024-05-01 15:36 | P.PN ---
Subjective Progress Note Date: 05/01/24 Principal diagnosis: Reason for follow-up is bacteremia and candidemia Patient is a 58-year-old male with a past medical history significant for diabetes mellitus hypertension hyperlipidemia with recent admission to the hospital with DKA at that point the patient was diagnosed with candidemia secondary to PICC line which was subsequent discontinued the patient did have a evidence of multiples septic emboli to the lung but no evidence of any vegetation patient now has been brought back to the hospital with DKA noticed to have elevated white count bilateral foot wound probably discoloration blood cultures came back positive with ESBL Klebsiella On today's evaluation that is 05/01/2024, Patient is afebrile patient is currently on room air and denies having any shortness of breath, the patient denies any chest pain or cough, the patient denies any nausea vomiting did not have any abdominal pain and no diarrhea has been complaining of generalized bodyaches and a Lubinski of his pain medication. No new labs has been obtained today right heel wound culture with ESBL Klebsiella and MSSA Objective - Vital Signs Vital signs: Vital Signs Temp 97.5 F L 05/01/24 12:48 Pulse 57 L 05/01/24 12:48 Resp 17 05/01/24 12:48 BP 101/58 05/01/24 12:48 Pulse Ox 95 05/01/24 12:48 FiO2 Intake & Output 04/30/24 05/01/24 05/01/24 17:59 06:59 18:59 Intake Total Output Total Balance Intake: Intake, IV Titration Amount Anidulafungin 100 mg In Sodium Chloride 0.9% 100 ml @ 84 mls/hr IVPB DAILY [facility] Rx#:[id number] Meropenem 500 mg In Sodium Chloride 0.9% 100 ml @ 33.333 mls/hr IVPB Q6H [facility] Rx#:[id number] Oral Output: Urine Other: Voiding Method External Catheter - Exam GENERAL DESCRIPTION: Middle-age male lying in bed in no distress RESPIRATORY SYSTEM: Unlabored breathing , decreased breath sounds at bases HEART: S1 S2 regular rate and rhythm , ABDOMEN: Soft , no tenderness EXTREMITIES: Right heel wound minimal drainage however the borders are palpable - Labs CBC & Chem 7: 04/30/24 03:32 04/30/24 03:32 Labs: Abnormal Lab Results - Last 24 Hours (Table) 03/10/1704/30/24 05/01/24 Range/Units 17:19 20:23 03:34 POC Glucose (mg/dL) 134 H 182 H 119 H (70-110) mg/dL 05/01/24 05/01/24 Range/Units 07:25 12:12 POC Glucose (mg/dL) 160 H 225 H (70-110) mg/dL Microbiology - Last 24 Hours (Table) 04/28/24 15:48 Anaerobic Culture - Preliminary Foot - Right 04/27/24 20:00 Gram Stain - Final Leg - Right Wound Culture - Final Klebsiella pneumo ESBL MDRO Staphylococcus aureus Assessment and Plan (1) Diabetic foot ulcers Current Visit: No Status: Acute Code(s): E11.621 - TYPE 2 DIABETES MELLITUS WITH FOOT ULCER; L97.509 - NON-PRESSURE CHRONIC ULCER OTH PRT UNSP FOOT W UNSP SEVERITY SNOMED Code(s): 046302451 (2) Leukocytosis Current Visit: No Status: Acute Code(s): D72.829 - ELEVATED WHITE BLOOD CELL COUNT, UNSPECIFIED SNOMED Code(s): 958826054 (3) Bacteremia Current Visit: Yes Status: Acute Code(s): R78.81 - BACTEREMIA SNOMED Code(s): 5425659 (4) ESBL (extended spectrum beta-lactamase) producing bacteria infection Current Visit: Yes Status: Acute Code(s): A49.9 - BACTERIAL INFECTION, UNSPECIFIED; Z16.12 - EXTENDED SPECTRUM BETA LACTAMASE (ESBL) RESISTANCE SNOMED Code(s): 865148124 (5) Candidemia Current Visit: No Status: Acute Code(s): B37.7 - CANDIDAL SEPSIS SNOMED Code(s): 596328197 Plan: 1patient with multiple laceration of bilateral lower extremity especially to the toes and left heel area but no evidence of any cellulitis or recommend local wound care with dry Aquacel silver dressing change q. 48-hour 2-patient with evidence of ESBL Klebsiella bacteremia source likely right heel infected wound s/p debridement catheter culture have been negative so far repeat blood culture negative 3-x-ray of breath right heel did not show any bony changes we will obtain bone s can to patient evidence of osteomyelitis 4we will continue with the meropenem, Eraxis and will likely need exchange of his current PICC line before discharge Dictation was produced using dragon dictation software. please excuse any grammatical, word or spelling errors. Time with Patient: Less than 30
[2024-05-01 17:26] LABS: Glucose,Whole Blood 104 mg/dL (70-110)
[2024-05-01 20:08] LABS: Glucose,Whole Blood 196 mg/dL (70-110)
[2024-05-02 02:56] LABS: Glucose,Whole Blood 106 mg/dL (70-110)
[2024-05-02 07:31] LABS: Glucose,Whole Blood 131 mg/dL (70-110)
[2024-05-02 08:20] LABS: BUN/Creat Ratio 19.73 Ratio (12.00-20.00); Blood Urea Nitrogen 21.7 mg/dL (9.0-27.0); Calcium 8.8 mg/dL (8.7-10.3); Carbon Dioxide 33.6 mmol/L (21.6-31.8); Chloride 95 mmol/L (96-109); Glucose 95 mg/dL (70-110); Potassium 5.2 mmol/L (3.5-5.5); Sodium 135 mmol/L (135-145)
[2024-05-02 08:58] LABS: Basophils # (A) 0.03 X 10*3/uL (0.00-0.10); Basophils % (A) 0.4 %; Eosinophils % (A) 5.3 %; HCT 30.7 % (39.6-50.0); HGB 9.7 g/dL (13.0-17.0); Lymphocytes # (A) 2.81 X 10*3/uL (0.90-5.00); Lymphocytes % (A) 37.5 %; MCH 27.8 pg (27.0-32.0); MCHC 31.6 g/dL (32.0-37.0); Mean Platelet Volume 10.6 FL (9.5-12.2); NRBC Per 100 WBC 0 X 10*3/uL (0.00-0.01); Neutrophils # (A) 2.88 X 10*3/uL (1.80-7.70); Neutrophils % (A) 38.5 %; Platelet Count 451 X 10*3/uL (140-440); RBC 3.49 X 10*6/uL (4.40-5.60); RDW 15.9 % (11.5-14.5); WBC 7.49 X 10*3/uL (4.50-10.00)
[2024-05-02 12:42] LABS: Glucose,Whole Blood 282 mg/dL (70-110)
--- NOTE | 2024-05-02 14:50 | NM ---
EXAMINATION TYPE: NM bone 3 phase DATE OF EXAM: 05/02/2024 COMPARISON: 04/30/2024. CLINICAL INDICATION: Male, 58 years old with history of Right heel ulcer cellulitis R/O osteomyel; Triple phase bone scintigraphy was performed following the injection of 19.7 mCi Tc 99m MDP. Immedia te images and 5.5 hours post injection images acquired. FINDINGS: Left: Mild uptake within the left first digit metatarsophalangeal joint that persists on blood pool a nd delayed imaging. Right: There is no significant abnormal accumulation of radiotracer to suggest metastatic disease to the bone or other significant abnormality. IMPRESSION: Uptake within the left first digit most compatible with osteomyelitis. [facility], , 05/02/2024 2:47 PM
--- NOTE | 2024-05-02 16:15 | P.PN ---
Subjective Progress Note Date: 05/02/24 Principal diagnosis: Reason for follow-up is bacteremia and candidemia Patient is a 58-year-old male with a past medical history significant for diabetes mellitus hypertension hyperlipidemia with recent admission to the hospital with DKA at that point the patient was diagnosed with candidemia secondary to PICC line which was subsequent discontinued the patient did have a evidence of multiples septic emboli to the lung but no evidence of any vegetation patient now has been brought back to the hospital with DKA noticed to have elevated white count bilateral foot wound probably discoloration blood cultures came back positive with ESBL Klebsiella On today's evaluation that is 05/02/2024, patient has been afebrile, patient is breathing comfortably and is currently on room air, patient denies having any significant cough no chest pain, patient denies nausea vomiting or diarrhea and no abdominal pain. Patient white count 7.49, creatinine is 1.1 Objective - Vital Signs Vital signs: Vital Signs Temp 98.3 F 05/02/24 14:00 Pulse 66 05/02/24 14:00 Resp 17 05/02/24 14:00 BP 103/64 05/02/24 14:00 Pulse Ox 94 L 05/02/24 14:00 FiO2 Intake & Output 05/01/24 05/02/24 05/02/24 18:59 06:59 18:59 Intake Total 1260 690 960 Output Total 800 1500 Balance 460 -810 960 Intake: Intake, IV Titration 300 Amount Anidulafungin 100 mg In 100 Sodium Chloride 0.9% 100 ml @ 84 mls/hr IVPB DAILY JESSICA Rx#:[id number] Meropenem 500 mg In 200 Sodium Chloride 0.9% 100 ml @ 33.333 mls/hr IVPB Q6H JESSICA Rx#:[id number] Oral 960 690 960 Output: Urine 800 1500 Other: Voiding Method External Catheter External Catheter - Exam GENERAL DESCRIPTION: Middle-age male lying in bed in no distress RESPIRATORY SYSTEM: Unlabored breathing , decreased breath sounds at bases HEART: S1 S2 regular rate and rhythm , ABDOMEN: Soft , no tenderness EXTREMITIES: Right heel wound minimal drainage however the borders are palpable - Labs CBC & Chem 7: 05/02/24 04:46 05/02/24 04:46 Labs: Abnormal Lab Results - Last 24 Hours (Table) 05/01/24 05/02/24 05/02/24 Range/Units 20:06 04:46 04:46 RBC 3.49 L (4.40-5.60) X 10*6/uL Hgb 9.7 L (13.0-17.0) g/dL Hct 30.7 L (39.6-50.0) % MCHC 31.6 L (32.0-37.0) g/dL RDW 15.9 H (11.5-14.5) % Plt Count 451 H (140-440) X 10*3/uL Immature Gran # 0.17 H (0.00-0.04) X 10*3/uL Monocytes # 1.20 H (0.20-1.00) X 10*3/uL Eosinophils # 0.40 H (0.04-0.35) X 10*3/uL Chloride 95 L (96-109) mmol/L Carbon Dioxide 33.6 H (21.6-31.8) mmol/L POC Glucose (mg/dL) 196 H (70-110) mg/dL 05/02/24 05/02/24 Range/Units 07:13 12:24 RBC (4.40-5.60) X 10*6/uL Hgb (13.0-17.0) g/dL Hct (39.6-50.0) % MCHC (32.0-37.0) g/dL RDW (11.5-14.5) % Plt Count (140-440) X 10*3/uL Immature Gran # (0.00-0.04) X 10*3/uL Monocytes # (0.20-1.00) X 10*3/uL Eosinophils # (0.04-0.35) X 10*3/uL Chloride (96-109) mmol/L Carbon Dioxide (21.6-31.8) mmol/L POC Glucose (mg/dL) 131 H 282 H (70-110) mg/dL Microbiology - Last 24 Hours (Table) 04/28/24 15:48 Gram Stain - Final Foot - Right Tissue Culture - Final Staphylococcus aureus Enterococcus faecalis Staphylococcus epidermidis 04/26/24 16:06 Blood Culture - Final Blood 04/28/24 15:48 Anaerobic Culture - Final Foot - Right Assessment and Plan (1) Diabetic foot ulcers Current Visit: No Status: Acute Code(s): E11.621 - TYPE 2 DIABETES MELLITUS WITH FOOT ULCER; L97.509 - NON-PRESSURE CHRONIC ULCER OTH PRT UNSP FOOT W UNSP SEVERITY SNOMED Code(s): 042332733 (2) Leukocytosis Current Visit: No Status: Acute Code(s): D72.829 - ELEVATED WHITE BLOOD CELL COUNT, UNSPECIFIED SNOMED Code(s): 956154704 (3) Bacteremia Current Visit: Yes Status: Acute Code(s): R78.81 - BACTEREMIA SNOMED Code(s): 9965431 (4) ESBL (extended spectrum beta-lactamase) producing bacteria infection Current Visit: Yes Status: Acute Code(s): A49.9 - BACTERIAL INFECTION, UNSPECIFIED; Z16.12 - EXTENDED SPECTRUM BETA LACTAMASE (ESBL) RESISTANCE SNOMED Code(s): 083280751 (5) Candidemia Current Visit: No Status: Acute Code(s): B37.7 - CANDIDAL SEPSIS SNOMED Code(s): 639431969 Plan: 1patient with multiple laceration of bilateral lower extremity especially to the toes and left heel area but no evidence of any cellulitis or recommend local wound care with dry Aquacel silver dressing change q. 48-hour 2-patient with evidence of ESBL Klebsiella bacteremia source likely right heel infected wound s/p debridement catheter culture have been negative so far repeat blood culture negative 3-x-ray of breath right heel did not show any bony changes we will obtain bone scan to patient evidence of osteomyelitis 4patient is currently being treated with meropenem, Eraxis local culture also grew staph epi possibly skin contamination no need for vancomycin or daptomycin with advised change of his current PICC line before discharge Dictation was produced using [employer] dictation software. please excuse any grammatical, word or spelling errors. Time with Patient: Less than 30
[2024-05-02 17:00] LABS: Glucose,Whole Blood 383 mg/dL (70-110)
[2024-05-02] MEDS: KETOROLAC 15 MG/ML 1 ML VIAL IVP STA ×2 (18:26→18:29)
[2024-05-02 20:19] LABS: Glucose,Whole Blood 295 mg/dL (70-110)
--- NOTE | 2024-05-02 22:43 | P.PN ---
Subjective Progress Note Date: 05/02/24 Patient is admitted for diverticular stenosis and cellulitis and infected wounds of bilateral lower extremities. I will obtain any kind of history from the patient as patient is arousable but does not answer any questions. Unknown whether patient is taking his insulin patient was transferred from [facility] patient still has anion gap at this time. Patient has redness in bilateral lower extremities with leukocytosis. His body temperature is not documented in the system unknown whether he had fever. Patient blood sugars are down but still has anion gap of 18 at this time. Patient can protect his airway. 04/26/2024 Patient is seen in follow-up today with pulmonary and infectious disease following. Patient was maintained on IV antibiotics with a PICC line and there is concern of possible PICC line infection which is being removed per infectious disease patient will continue on antibiotic therapy for right lower extremity cellulitis. Blood cultures are positive for Klebsiella and awaiting repeat cultures to finalize and monitor for clearance of bacteremia. Patient's blood sugars are better controlled and being resumed on diet and will slowly advance as tolerated and continue to adjust insulins accordingly. Patient currently resides at an [facility] and will have PT/OT therapy evaluate the patient with case management on consult. 04/27/2024 Patient is seen in follow-up today with multiple consultations following. Plan is for PICC line removal and per nursing staff there is a groin catheter that needs to be removed. Culture tip being sent and pending. Blood cultures K lebsiella with ESBL and awaiting for clearance of bacteremia. Patient currently resides at an [facility] although evaluated by physical therapy and given the extent of infection, patient will require discharge to [facility]. Continue local wound care per ID recommendations and recommend PT/OT therapy daily. Blood sugars are better controlled and will continue current regimen and adjust medications accordingly. 04/28/2024 Patient is evaluated in follow-up on the medical floor. Follow-up with physical therapy patient was noted to have significant bleeding from his feet through the dressing. Dressings were removed and patient had significant bleeding wounds to the toes on his right foot and his left great toe. Dr. Huang was consulted for evaluation of his wounds. Patient had bedside debridement of the right heel wounds today with Dr. Huang as well as evaluation of the bleeding toe wounds. local wound care with silver AG and Kerlix and Nicola wrap's. Next wound dressing will be on Thursday. Blood cultures are showing ESBL Klebsiella bacteremia with possible pneumonia versus PICC line infection patient was recently diagnosed with candidemia and his secondary PICC line was discontinued. Blood culture has been repeated through the PICC line peripherally and he also had a left lower triple-lumen catheter in the groin which was discontinued and sent for culturing. Patient remains currently on meropenem and anidulafungin IV. His white blood cell count today is 12.7 hemoglobin 10.8 his sodium level is 134, potassium 2.7, BUN of 22 creatinine 0.7., Magnesium 1.7. His procalcitonin le geoff has been significantly improved from greater than 100 down to 6.78. 04/29/2024 Patient is seen in follow-up today with multiple consultations following vascular surgery. Patient is status post debridement at the bedside and bleeding has somewhat improved although continues to have drainage noted. Pending cultures and preliminary showing Staph aureus continued on meropenem and Eraxis with infectious disease following. Repeat blood cultures are negative thus far and catheter tip was sent and negative and awaiting triple-lumen that was removed from groin and sent for culture to be finalized. Patient is afebrile and white count has normalized. Patient tolerating diet and blood sugars are being monitored closely. Patient with significant weakness will need ECF and has been accepted at [facility] with authorization. Continue local wound care per vascular and ID recommendations. 04/30 Patient continued treated for his foot infection secondary to ESBL Klebsiella related to his uncontrolled diabetes with associated bacteremia with the same microorganism Foot x-ray done today showing no convincing evidence of acute osteomyelitis Patient kept on meropenem and antifungal medication Sugars controlled Pain is controlled 05/01 Patient is improving slowly and gradually No new complaints Diet changed to consistent carbohydrate diet Continued on meropenem and anidulafungin 05/02/2024 Patient is seen in follow-up today currently sleeping although arousable. Patient is undergoing bone scan per infectious disease. Patient currently has IV antibiotics infusing with a PICC line and per ID, recommends replacing PICC line on discharge. Patient will be on prolonged IV antibiotics outpatient. Plan is for discharge to [facility] with social work following. Apparently we are out of PICC line supplies and currently awaiting this. Review of systems: Constitutional: No reports of fatigue, fever, or chills Cardiovascular: No reports of chest pain or palpitations Respiratory: No reports of shortness of breath or cough GI: No reports of nausea, vomiting, or diarrhea : No reports of dysuria or retention Neurovascular: reports of weakness or numbness All medications have been reviewed PHYSICAL EXAMINATION: GENERAL: The patient is awake, alert and oriented x 2, baseline, well developed, thin built, elderly appearing HEENT: Pupils are round and equally reacting to light. EOMI. No scleral icterus. No conjunctival pallor. Normocephalic, atraumatic. No pharyngeal erythema. No thyromegaly. CARDIOVASCULAR: S1 and S2 muffled PULMONARY: Diminished breath sounds bilaterally otherwise chest is clear to auscultation, no wheezing or crackles. ABDOMEN: Soft, thin, nontender, nondistended, normoactive bowel sounds. No palpable organomegaly. MUSCULOSKELETAL: No joint swelling or deformity. EXTREMITIES: No cyanosis, clubbing, or pedal edema. NEUROLOGICAL: Limited due to his clinical condition SKIN: Patient has multiple ulcers in bilateral lower extremities. Surgical dres sings are currently dry and intact Assessment: -Diabetic ketoacidosis, improved and patient and has transitioned to sliding scale and long-acting -Sepsis secondary bilateral lower extremity wounds with surrounding cellulitis of the right lower extremity, infectious disease following and continued on antibiotics. Concern for PICC line infection versus triple-lumen groin catheter that was removed and sent for cultures. Repeat blood cultures to monitor clearance of bacteremia and negative thus far for 24 hours -Bacteremia with Klebsiella, ESBL likely secondary to above -Right heel ulceration pressure injury with wounds on toes 1 through 5 -Left heel pressure injury with right big toe superficial wound, status post bedside debridement -Diabetes mellitus, type I uncontrolled with hyperglycemia secondary to noncompliance -Hyperlipidemia -Hypertension -Depression and other psychiatric issues patient baseline usually alert oriented x 1 and does not talk much as per the nursing staff -Generalized weakness with gait dysfunction, will need ECF on discharge, currently resides at [facility] DVT prophylaxis: Subcutaneous heparin GI prophylaxis: Pepcid Plan: Awaiting cultures and repeat blood cultures to monitor clearance of bacteremia. Repeat blood cultures have been negative thus far. Infectious disease following and will continue on IV antibiotics and does have a PICC line. Patient did have a triple-lumen groin catheter that was found and removed and sent for cultures. Patient per ID recommendations is to receive a new PICC line prior to discharge. Apparently there are PICC line supplies available at this time and awaiting these. Patient scheduled to undergo bone scan with concerns of osteomyelitis and will await official report. PT/OT therapy evaluation and case management consult for discharge and will require ECF, likely IV antibiotics on discharge and continued wound care. Patient will require insurance authorization and has been accepted at [facility] Awaiting repeat cultures to determine discharge antibiotics. Will discuss further with infectious disease once these have resulted. Will need to await catheter tip cultures as well as triple-lumen cultures. Monitor for for clearance of bacteremia as blood cultures were positive for Klebsiella with ESBL. Patient will need a new PICC line placed per ID recommendations and awaiting PICC line supplies at this time The impression and plan of care has been dictated by Ashely Zimmer, Nurse Practitioner as directed. Dr. Perez MD I have performed a history and examination and MDM of this patient, discussed the same with the dictator, and agree with the dictator's assessment and plan as written ,documented as a scribe. Based on total visit time, I have performed more than 50% of the visit. Objective - Vital Signs Vital signs: Vital Signs Temp 98.4 F 05/02/24 07:11 Pulse 63 05/02/24 07:11 Resp 19 05/02/24 07:11 BP 98/61 05/02/24 07:11 Pulse Ox 94 L 05/02/24 07:11 FiO2 Intake & Output 05/01/24 05/02/24 05/02/24 18:59 06:59 18:59 Intake Total 1260 690 Output Total 800 1500 Balance 460 -810 Intake: Intake, IV Titration 300 Amount Anidulafungin 100 mg In 100 Sodium Chloride 0.9% 100 ml @ 84 mls/hr IVPB DAILY JESSICA Rx#:[id number] Meropenem 500 mg In 200 Sodium Chloride 0.9% 100 ml @ 33.333 mls/hr IVPB Q6H JESSICA Rx#:[id number] Oral 960 690 Output: Urine 800 1500 Other: Voiding Method External Catheter External Catheter - Labs CBC & Chem 7: 05/02/24 04:46 05/02/24 04:46 Labs: Abnormal Lab Results - Last 24 Hours (Table) 05/01/24 05/01/24 05/02/24 Range/Units 12:12 20:06 04:46 RBC 3.49 L (4.40-5.60) X 10*6/uL Hgb 9.7 L (13.0-17.0) g/dL Hct 30.7 L (39.6-50.0) % MCHC 31.6 L (32.0-37.0) g/dL RDW 15.9 H (11.5-14.5) % Plt Count 451 H (140-440) X 10*3/uL Immature Gran # 0.17 H (0.00-0.04) X 10*3/uL Monocytes # 1.20 H (0.20-1.00) X 10*3/uL Eosinophils # 0.40 H (0.04-0.35) X 10*3/uL Chloride (96-109) mmol/L Carbon Dioxide (21.6-31.8) mmol/L POC Glucose (mg/dL) 225 H 196 H (70-110) mg/dL 05/02/24 05/02/24 Range/Units 04:46 07:13 RBC (4.40-5.60) X 10*6/uL Hgb (13.0-17.0) g/dL Hct (39.6-50.0) % MCHC (32.0-37.0) g/dL RDW (11.5-14.5) % Plt Count (140-440) X 10*3/uL Immature Gran # (0.00-0.04) X 10*3/uL Monocytes # (0.20-1.00) X 10*3/uL Eosinophils # (0.04-0.35) X 10*3/uL Chloride 95 L (96-109) mmol/L Carbon Dioxide 33.6 H (21.6-31.8) mmol/L POC Glucose (mg/dL) 131 H (70-110) mg/dL Microbiology - Last 24 Hours (Table) 04/28/24 15:48 Gram Stain - Final Foot - Right Tissue Culture - Final Staphylococcus aureus Enterococcus faecalis Staphylococcus epidermidis 04/26/24 16:06 Blood Culture - Final Blood 04/28/24 15:48 Anaerobic Culture - Final Foot - Right
[2024-05-02] MEDS: INSULIN GLARGINE (LANTUS) 100 UNIT/ML SYR SQ SCH (23:12)
[2024-05-03 01:17] LABS: Glucose,Whole Blood 121 mg/dL (70-110)
[2024-05-03 07:29] LABS: Glucose,Whole Blood 85 mg/dL (70-110)
[2024-05-03 08:50] LABS: Basophils # (A) 0.07 X 10*3/uL (0.00-0.10); Basophils % (A) 0.7 %; Eosinophils # (A) 0.44 X 10*3/uL (0.04-0.35); Eosinophils % (A) 4.6 %; HCT 30.4 % (39.6-50.0); HGB 9.6 g/dL (13.0-17.0); Lymphocytes # (A) 3.25 X 10*3/uL (0.90-5.00); Lymphocytes % (A) 33.6 %; MCHC 31.6 g/dL (32.0-37.0); MCV 88.6 FL (80.0-97.0); Mean Platelet Volume 10.4 FL (9.5-12.2); Monocytes # (A) 1.14 X 10*3/uL (0.20-1.00); Monocytes % (A) 11.8 %; NRBC Per 100 WBC 0 X 10*3/uL (0.00-0.01); Neutrophils # (A) 4.53 X 10*3/uL (1.80-7.70); Neutrophils % (A) 46.8 %; Platelet Count 535 X 10*3/uL (140-440); RBC 3.43 X 10*6/uL (4.40-5.60); RDW 15.6 % (11.5-14.5); WBC 9.67 X 10*3/uL (4.50-10.00)
[2024-05-03 09:17] LABS: ALT 21 U/L (10-49); AST 27 U/L (14-35); Albumin 2.5 g/dL (3.8-4.9); Albumin/Globulin Ratio 0.71 Ratio (1.60-3.17); Alkaline Phosphatase 155 U/L (41-126); BUN/Creat Ratio 22.58 Ratio (12.00-20.00); Blood Urea Nitrogen 27.1 mg/dL (9.0-27.0); Calcium 8.8 mg/dL (8.7-10.3); Carbon Dioxide 31.4 mmol/L (21.6-31.8); Chloride 97 mmol/L (96-109); Globulin 3.5 g/dL (1.6-3.3); Glucose 63 mg/dL (70-110); Potassium 5.2 mmol/L (3.5-5.5); Sodium 135 mmol/L (135-145); Total Bilirubin 0.3 mg/dL (0.3-1.2)
[2024-05-03 12:29] LABS: Glucose,Whole Blood 347 mg/dL (70-110)
--- NOTE | 2024-05-03 13:44 | P.PN ---
Subjective Progress Note Date: 05/03/24 Principal diagnosis: Reason for follow-up is bacteremia and candidemia Patient is a 58-year-old male with a past medical history significant for diabetes mellitus hypertension hyperlipidemia with recent admission to the hospital with DKA at that point the patient was diagnosed with candidemia secondary to PICC line which was subsequent discontinued the patient did have a evidence of multiples septic emboli to the lung but no evidence of any vegetation patient now has been brought back to the hospital with DKA noticed to have elevated white count bilateral foot wound probably discoloration blood cultures came back positive with ESBL Klebsiella On today's evaluation that is 05/03/2024, Patient is afebrile this morning patient denies having any chest pain shortness of breath or cough, the patient is currently on room air, patient denies any abdominal pain no diarrhea no nausea no vomiting still complaining of bodyaches and pains and want more pain medication and did have some difficulty falling asleep last night. The patient white count is 9.67, creatinine is 1.2 blood culture repeat has been negative Objective - Vital Signs Vital signs: Vital Signs Temp 98.4 F 05/03/24 13:39 Pulse 59 L 05/03/24 13:39 Resp 18 05/03/24 13:39 BP 104/66 05/03/24 13:39 Pulse Ox 94 L 05/03/24 13:39 FiO2 Intake & Output 05/02/24 05/03/24 05/03/24 18:59 06:59 18:59 Intake Total 1840 100 Output Total 200 700 Balance 1640 -600 Intake: Oral 1840 100 Output: Urine 200 700 Other: Voiding Method External Catheter External Catheter External Catheter - Exam GENERAL DESCRIPTION: Middle-age male lying in bed in no distress RESPIRATORY SYSTEM: Unlabored breathing , decreased breath sounds at bases HEART: S1 S2 regular rate and rhythm , ABDOMEN: Soft , no tenderness EXTREMITIES: Right heel wound currently dressed left big toe with no swelling redness - Labs CBC & Chem 7: 05/03/24 04:31 05/03/24 04:31 Labs: Abnormal Lab Results - Last 24 Hours (Table) 05/02/24 05/02/24 05/03/24 Range/Units 16:58 20:15 01:12 RBC (4.40-5.60) X 10*6/uL Hgb (13.0-17.0) g/dL Hct (39.6-50.0) % MCHC (32.0-37.0) g/dL RDW (11.5-14.5) % Plt Count (140-440) X 10*3/uL Immature Gran # (0.00-0.04) X 10*3/uL Monocytes # (0.20-1.00) X 10*3/uL Eosinophils # (0.04-0.35) X 10*3/uL BUN (9.0-27.0) mg/dL BUN/Creatinine Ratio (12.00-20.00) Ratio Glucose (70-110) mg/dL POC Glucose (mg/dL) 383 H 295 H 121 H (70-110) mg/dL Alkaline Phosphatase (41-126) U/L Total Protein (6.2-8.2) g/dL Albumin (3.8-4.9) g/dL Globulin (1.6-3.3) g/dL Albumin/Globulin Ratio (1.60-3.17) Ratio 05/03/24 05/03/24 05/03/24 Range/Units 04:31 04:31 12:18 RBC 3.43 L (4.40-5.60) X 10*6/uL Hgb 9.6 L (13.0-17.0) g/dL Hct 30.4 L (39.6-50.0) % MCHC 31.6 L (32.0-37.0) g/dL RDW 15.6 H (11.5-14.5) % Plt Count 535 H (140-440) X 10*3/uL Immature Gran # 0.24 H (0.00-0.04) X 10*3/uL Monocytes # 1.14 H (0.20-1.00) X 10*3/uL Eosinophils # 0.44 H (0.04-0.35) X 10*3/uL BUN 27.1 H (9.0-27.0) mg/dL BUN/Creatinine Ratio 22.58 H (12.00-20.00) Ratio Glucose 63 L (70-110) mg/dL POC Glucose (mg/dL) 347 H (70-110) mg/dL Alkaline Phosphatase 155 H (41-126) U/L Total Protein 6.0 L (6.2-8.2) g/dL Albumin 2.5 L (3.8-4.9) g/dL Globulin 3.5 H (1.6-3.3) g/dL Albumin/Globulin Ratio 0.71 L (1.60-3.17) Ratio Microbiology - Last 24 Hours (Table) 04/28/24 15:48 Gram Stain - Final Foot - Right Tissue Culture - Final Staphylococcus aureus Enterococcus faecalis Staphylococcus epidermidis Assessment and Plan (1) Diabetic foot ulcers Current Visit: No Status: Acute Code(s): E11.621 - TYPE 2 DIABETES MELLITUS WITH FOOT ULCER; L97.509 - NON-PRESSURE CHRONIC ULCER OTH PRT UNSP FOOT W UNSP SEVERITY SNOMED Code(s): 559334196 (2) Leukocytosis Current Visit: No Status: Acute Code(s): D72.829 - ELEVATED WHITE BLOOD CELL COUNT, UNSPECIFIED SNOMED Code(s): 224416348 (3) Bacteremia Current Visit: Yes Status: Acute Code(s): R78.81 - BACTEREMIA SNOMED Code(s): 8231729 (4) ESBL (extended spectrum beta-lactamase) producing bacteria infection Current Visit: Yes Status: Acute Code(s): A49.9 - BACTERIAL INFECTION, UNSPECIFIED; Z16.12 - EXTENDED SPECTRUM BETA LACTAMASE (ESBL) RESISTANCE SNOME D Code(s): 629841730 (5) Candidemia Current Visit: No Status: Acute Code(s): B37.7 - CANDIDAL SEPSIS SNOMED Code(s): 085837881 Plan: 1patient with multiple laceration of bilateral lower extremity especially to the toes and left heel area but no evidence of any cellulitis or recommend local wound care with dry Aquacel silver dressing change q. 48-hour 2-patient with evidence of ESBL Klebsiella bacteremia source likely right heel i nfected wound s/p debridement catheter culture have been negative so far repeat blood culture negative 3-x-ray of breath right heel did not show any bony changes we will obtain bone scan did not show any evidence of uptake at the right heel area did mention some increased uptake to the left big toe however the patient currently do not have any clinical findings suggestive of osteomyelitis 4patient is currently being treated with meropenem, Eraxis, plan is to finish a total of 6-week course of Eraxis that was prescribed previously and a 2-week course of meropenem Dictation was produced using [employer]. please excuse any grammatical, word or spelling errors. Time with Patient: Less than 30
[2024-05-03 17:32] LABS: Glucose,Whole Blood 130 mg/dL (70-110)
--- NOTE | 2024-05-03 19:37 | P.PN ---
Subjective Progress Note Date: 05/03/24 Patient is admitted for diverticular stenosis and cellulitis and infected wounds of bilateral lower extremities. I will obtain any kind of history from the patient as patient is arousable but does not answer any questions. Unknown whether patient is taking his insulin patient was transferred from [facility] patient still has anion gap at this time. Patient has redness in bilateral lower extremities with leukocytosis. His body temperature is not documented in the system unknown whether he had fever. Patient blood sugars are down but still has anion gap of 18 at this time. Patient can protect his airway. 04/26/2024 Patient is seen in follow-up today with pulmonary and infectious disease following. Patient was maintained on IV antibiotics with a PICC line and there is concern of possible PICC line infection which is being removed per infectious disease patient will continue on antibiotic therapy for right lower extremity cellulitis. Blood cultures are positive for Klebsiella and awaiting repeat cultures to finalize and monitor for clearance of bacteremia. Patient's blood sugars are better controlled and being resumed on diet and will slowly advance as tolerated and continue to adjust insulins accordingly. Patient currently resides at an [facility] and will have PT/OT therapy evaluate the patient with case management on consult. 04/27/2024 Patient is seen in follow-up today with multiple consultations following. Plan is for PICC line removal and per nursing staff there is a groin catheter that needs to be removed. Culture tip being sent and pending. Blood cultures K lebsiella with ESBL and awaiting for clearance of bacteremia. Patient currently resides at an [facility] although evaluated by physical therapy and given the extent of infection, patient will require discharge to [facility]. Continue local wound care per ID recommendations and recommend PT/OT therapy daily. Blood sugars are better controlled and will continue current regimen and adjust medications accordingly. 04/28/2024 Patient is evaluated in follow-up on the medical floor. Follow-up with physical therapy patient was noted to have significant bleeding from his feet through the dressing. Dressings were removed and patient had significant bleeding wounds to the toes on his right foot and his left great toe. Dr. Huang was consulted for evaluation of his wounds. Patient had bedside debridement of the right heel wounds today with Dr. Huang as well as evaluation of the bleeding toe wounds. local wound care with silver AG and Kerlix and Nicola wrap's. Next wound dressing will be on Thursday. Blood cultures are showing ESBL Klebsiella bacteremia with possible pneumonia versus PICC line infection patient was recently diagnosed with candidemia and his secondary PICC line was discontinued. Blood culture has been repeated through the PICC line peripherally and he also had a left lower triple-lumen catheter in the groin which was discontinued and sent for culturing. Patient remains currently on meropenem and anidulafungin IV. His white blood cell count today is 12.7 hemoglobin 10.8 his sodium level is 134, potassium 2.7, BUN of 22 creatinine 0.7., Magnesium 1.7. His procalcitonin le geoff has been significantly improved from greater than 100 down to 6.78. 04/29/2024 Patient is seen in follow-up today with multiple consultations following vascular surgery. Patient is status post debridement at the bedside and bleeding has somewhat improved although continues to have drainage noted. Pending cultures and preliminary showing Staph aureus continued on meropenem and Eraxis with infectious disease following. Repeat blood cultures are negative thus far and catheter tip was sent and negative and awaiting triple-lumen that was removed from groin and sent for culture to be finalized. Patient is afebrile and white count has normalized. Patient tolerating diet and blood sugars are being monitored closely. Patient with significant weakness will need ECF and has been accepted at [facility] with authorization. Continue local wound care per vascular and ID recommendations. 04/30 Patient continued treated for his foot infection secondary to ESBL Klebsiella related to his uncontrolled diabetes with associated bacteremia with the same microorganism Foot x-ray done today showing no convincing evidence of acute osteomyelitis Patient kept on meropenem and antifungal medication Sugars controlled Pain is controlled 05/01 Patient is improving slowly and gradually No new complaints Diet changed to consistent carbohydrate diet Continued on meropenem and anidulafungin 05/02/2024 Patient is seen in follow-up today currently sleeping although arousable. Patient is undergoing bone scan per infectious disease. Patient currently has IV antibiotics infusing with a PICC line and per ID, recommends replacing PICC line on discharge. Patient will be on prolonged IV antibiotics outpatient. Plan is for discharge to [facility] with social work following. Apparently we are out of PICC line supplies and currently awaiting this. 05/03/2024 Patient is seen in follow-up today maintained on antibiotics with infectious disease following as wound cultures have showed Enterococcus along with Staph epidermidis and Klebsiella ESBL. Patient recently underwent bone scan yesterday showing increased uptake in the first left digit suggestive of osteomyelitis. Patient does have a PICC line and will receive a new PICC line per ID recommendations and currently awaiting supplies for PICC line placement. Patient will require prolonged IV antibiotics outpatient and will be going to [facility] on discharge. Review of systems: Constitutional: No reports of fatigue, fever, or chills Cardiovascular: No reports of chest pain or palpitations Respiratory: No reports of shortness of breath or cough GI: No reports of nausea, vomiting, or diarrhea : No reports of dysuria or retention Neurovascular: reports of weakness or numbness All medications have been reviewed PHYSICAL EXAMINATION: GENERAL: The patient is awake, alert and oriented x 2, baseline, well developed, thin built, elderly appearing HEENT: Pupils are round and equally reacting to light. EOMI. No scleral icterus. No conjunctival pallor. Normocephalic, atraumatic. No pharyngeal erythema. No thyromegaly. CARDIOVASCULAR: S1 and S2 muffled PULMONARY: Diminished breath sounds bilaterally otherwise chest is clear to auscultation, no wheezing or crackles. ABDOMEN: Soft, thin, nontender, nondistended, normoactive bowel sounds. No palpable organomegaly. MUSCULOSKELETAL: No joint swelling or deformity. EXTREMITIES: No cyanosis, clubbing, or pedal edema. NEUROLOGICAL: Limited due to his clinical condition SKIN: Patient has multiple ulcers in bilateral lower extremities. Surgical dressings are currently dry and intact Assessment: -Diabetic ketoacidosis, improved and patient and has transitioned to sliding scale and long-acting -Sepsis secondary bilateral lower extremity wounds with surrounding cellulitis of the right lower extremity, infectious disease following and continued on antibiotics. Concern for PICC line infection versus triple-lumen groin catheter that was removed and sent for cultures. Repeat blood cultures to monitor clearance of bacteremia and negative thus far for 24 hours -Bacteremia with Klebsiella, ESBL likely secondary to above -Right heel ulceration pressure injury with wounds on toes 1 through 5 -Left heel pressure injury with right big toe superficial wound, status post bedside debridement -Diabetes mellitus, type I uncontrolled with hyperglycemia secondary to nonc ompliance -Hyperlipidemia -Hypertension -Depression and other psychiatric issues patient baseline usually alert oriented x 1 and does not talk much as per the nursing staff -Generalized weakness with gait dysfunction, will need ECF on discharge, currently resides at [facility] DVT prophylaxis: Subcutaneous heparin GI prophylaxis: Pepcid Plan: Awaiting cultures and repeat blood cultures to monitor clearance of bacteremia. Repeat blood cultures have been negative thus far. Infectious disease following and will continue on IV antibiotics and does have a PICC line. Patient did have a triple-lumen groin catheter that was found and removed and sent for cultures. Patient per ID recommendations is to receive a new PICC line prior to discharge. Apparently there are PICC line supplies available at this time and awaiting these. Patient scheduled to undergo bone scan with concerns of osteomyelitis and will await official report. PT/OT therapy evaluation and case management consult for discharge and will require ECF, likely IV antibiotics on discharge and continued wound care. Pat ient will require insurance authorization and has been accepted at [facility] Awaiting repeat cultures to determine discharge antibiotics. Will discuss further with infectious disease once these have resulted. Will need to await catheter tip cultures as well as triple-lumen cultures. Monitor for for clearance of bacteremia as blood cultures were positive for Klebsiella with ESBL. Patient will need a new PICC line placed per ID recommendations and awaiting PICC line supplies at this time. Possible new PICC placement on 05/04/2024 The impression and plan of care has been dictated by Ashely Zimmer, Nurse Practitioner as directed. Dr. Perez MD I have performed a history and examination and MDM of this patient, discussed the same with the dictator, and agree with the dictator's assessment and plan as written ,documented as a scribe. Based on total visit time, I have performed more than 50% of the visit. Objective - Vital Signs Vital signs: Vital Signs Temp 98 F 05/03/24 07:12 Pulse 61 05/03/24 07:12 Resp 17 05/03/24 07:12 BP 100/62 05/03/24 07:12 Pulse Ox 92 L 05/03/24 07:12 FiO2 Intake & Output 05/02/24 05/03/24 05/03/24 18:59 06:59 18:59 Intake Total 1840 100 Output Total 200 700 Balance 1640 -600 Intake: Oral 1840 100 Output: Urine 200 700 Other: Voiding Method External Catheter External Catheter - Labs CBC & Chem 7: 05/03/24 04:31 05/03/24 04:31 Labs: Abnormal Lab Results - Last 24 Hours (Table) 05/02/24 05/02/24 05/02/24 Range/Units 12:24 16:58 20:15 RBC (4.40-5.60) X 10*6/uL Hgb (13.0-17.0) g/dL Hct (39.6-50.0) % MCHC (32.0-37.0) g/dL RDW (11.5-14.5) % Plt Count (140-440) X 10*3/uL Immature Gran # (0.00-0.04) X 10*3/uL Monocytes # (0.20-1.00) X 10*3/uL Eosinophils # (0.04-0.35) X 10*3/uL BUN (9.0-27.0) mg/dL BUN/Creatinine Ratio (12.00-20.00) Ratio Glucose (70-110) mg/dL POC Glucose (mg/dL) 282 H 383 H 295 H (70-110) mg/dL Alkaline Phosphatase (41-126) U/L Total Protein (6.2-8.2) g/dL Albumin (3.8-4.9) g/dL Globulin (1.6-3.3) g/dL Albumin/Globulin Ratio (1.60-3.17) Ratio 05/03/24 05/03/24 05/03/24 Range/Units 01:12 04:31 04:31 RBC 3.43 L (4.40-5.60) X 10*6/uL Hgb 9.6 L (13.0-17.0) g/dL Hct 30.4 L (39.6-50.0) % MCHC 31.6 L (32.0-37.0) g/dL RDW 15.6 H (11.5-14.5) % Plt Count 535 H (140-440) X 10*3/uL Immature Gran # 0.24 H (0.00-0.04) X 10*3/uL Monocytes # 1.14 H (0.20-1.00) X 10*3/uL Eosinophils # 0.44 H (0.04-0.35) X 10*3/uL BUN 27.1 H (9.0-27.0) mg/dL BUN/Creatinine Ratio 22.58 H (12.00-20.00) Ratio Glucose 63 L (70-110) mg/dL POC Glucose (mg/dL) 121 H (70-110) mg/dL Alkaline Phosphatase 155 H (41-126) U/L Total Protein 6.0 L (6.2-8.2) g/dL Albumin 2.5 L (3.8-4.9) g/dL Globulin 3.5 H (1.6-3.3) g/dL Albumin/Globulin Ratio 0.71 L (1.60-3.17) Ratio Microbiology - Last 24 Hours (Table) 04/28/24 15:48 Gram Stain - Final Foot - Right Tissue Culture - Final Staphylococcus aureus Enterococcus faecalis Staphylococcus epidermidis
[2024-05-03 20:07] VITALS: RESP 16
[2024-05-03 20:19] LABS: Glucose,Whole Blood 244 mg/dL (70-110)
[2024-05-04 01:27] LABS: Glucose,Whole Blood 261 mg/dL (70-110)
[2024-05-04 07:18] LABS: Glucose,Whole Blood 210 mg/dL (70-110)
[2024-05-04 12:22] LABS: Glucose,Whole Blood 123 mg/dL (70-110)
--- NOTE | 2024-05-04 16:58 | P.PN ---
Subjective Progress Note Date: 05/04/24 Principal diagnosis: Reason for follow-up is bacteremia and candidemia Patient is a 58-year-old male with a past medical history significant for diabetes mellitus hypertension hyperlipidemia with recent admission to the hospital with DKA at that point the patient was diagnosed with candidemia secondary to PICC line which was subsequent discontinued the patient did have a evidence of multiples septic emboli to the lung but no evidence of any vegetation patient now has been brought back to the hospital with DKA noticed to have elevated white count bilateral foot wound probably discoloration blood cultures came back positive with ESBL Klebsiella On today's evaluation that is 05/04/2024,the patient denies any fever or any chills, patient is breathing comfortably on room air, the patient denies chest pain shortness of breath and no significant cough, patient denies abdominal pain, no nausea vomiting or diarrhea. No new lab has been obtained today blood culture repeat catheter has been negative Objective - Vital Signs Vital signs: Vital Signs Temp 98.0 F 05/04/24 11:46 Pulse 62 05/04/24 11:46 Resp 16 05/04/24 11:46 BP 101/74 05/04/24 11:46 Pulse Ox 94 L 05/04/24 11:46 FiO2 Intake & Output 05/03/24 05/04/24 05/04/24 18:59 06:59 18:59 Intake Total 1392 1730 Output Total 1700 1000 Balance -308 -1000 1730 Intake: Intake, IV Titration 312 Amount Anidulafungin 100 mg In 112 Sodium Chloride 0.9% 100 ml @ 84 mls/hr IVPB DAILY JESSICA Rx#:[id number] Meropenem 500 mg In 200 Sodium Chloride 0.9% 100 ml @ 33.333 mls/hr IVPB Q6H JESSICA Rx#:[id number] Oral 1080 1730 Output: Urine 1700 1000 Other: Voiding Method External Catheter External Catheter External Catheter - Exam GENERAL DESCRIPTION: Middle-age male lying in bed in no distress RESPIRATORY SYSTEM: Unlabored breathing , decreased breath sounds at bases HEART: S1 S2 regular rate and rhythm , ABDOMEN: Soft , no tenderness EXTREMITIES: Right heel wound currently dressed left big toe with no swelling redness - Labs CBC & Chem 7: 05/03/24 04:31 05/03/24 04:31 Labs: Abnormal Lab Results - Last 24 Hours (Table) 05/03/24 05/03/24 05/04/24 Range/Units 17:21 20:17 01:16 POC Glucose (mg/dL) 130 H 244 H 261 H (70-110) mg/dL 05/04/24 05/04/24 Range/Units 07:17 12:20 POC Glucose (mg/dL) 210 H 123 H (70-110) mg/dL Assessment and Plan (1) Diabetic foot ulcers Current Visit: No Status: Acute Code(s): E11.621 - TYPE 2 DIABETES MELLITUS WITH FOOT ULCER; L97.509 - NON-PRESSURE CHRONIC ULCER OTH PRT UNSP FOOT W UNSP SEVERITY SNOMED Code(s): 311669644 (2) Leukocytosis Current Visit: No Status: Acute Code(s): D72.829 - ELEVATED WHITE BLOOD CELL COUNT, UNSPECIFIED SNOMED Code(s): 497724994 (3) Bacteremia Current Visit: Yes Status: Acute Code(s): R78.81 - BACTEREMIA SNOMED Code(s): 4305712 (4) ESBL (extended spectrum beta-lactamase) producing bacteria infection Current Visit: Yes Status: Acute Code(s): A49.9 - BACTERIAL INFECTION, UNSPECIFIED; Z16.12 - EXTENDED SPECTRUM BETA LACTAMASE (ESBL) RESISTANCE SNOMED Code(s): 082621108 (5) Candidemia Current Visit: No Status: Acute Code(s): B37.7 - CANDIDAL SEPSIS SNOMED Code(s): 161486205 Plan: 1patient with multiple laceration of bilateral lower extremity especially to the toes and left heel area but no evidence of any cellulitis or recommend local wound care with dry Aquacel silver dressing change q. 48-hour 2-patient with evidence of ESBL Klebsiella bacteremia source likely right heel infected wound s/p debridement catheter culture have been negative so far repeat blood culture negative 3-x-ray of right heel did not show any bony changes we will obtain bone scan did not show any evidence of uptake at the right heel area did mention some increased uptake to the left big toe however the patient currently do not have any clinical findings suggestive of osteomyelitis 4patient is currently being treated with meropenem, Eraxis, plan is to finish a total of 6-week course of Eraxis for his candidemia and septic emboli to the lungs from his infected PICC line patient is on Lexapro and that is current indicating the use of Diflucan that could be the other option and will also need 2-week course of meropenem Dictation was produced using [employer] software. please excuse any grammatical, word or spelling errors. Time with Patient: Less than 30
[2024-05-04 17:08] LABS: Glucose,Whole Blood 286 mg/dL (70-110)
[2024-05-04 20:30] LABS: Glucose,Whole Blood 204 mg/dL (70-110)
[2024-05-05 01:29] LABS: Glucose,Whole Blood 100 mg/dL (70-110)
--- NOTE | 2024-05-05 04:36 | P.PN ---
Subjective Progress Note Date: 05/04/24 Patient is admitted for diverticular stenosis and cellulitis and infected wounds of bilateral lower extremities. I will obtain any kind of history from the patient as patient is arousable but does not answer any questions. Unknown whether patient is taking his insulin patient was transferred from [facility] patient still has anion gap at this time. Patient has redness in bilateral lower extremities with leukocytosis. His body temperature is not documented in the system unknown whether he had fever. Patient blood sugars are down but still has anion gap of 18 at this time. Patient can protect his airway. 04/26/2024 Patient is seen in follow-up today with pulmonary and infectious disease following. Patient was maintained on IV antibiotics with a PICC line and there is concern of possible PICC line infection which is being removed per infectious disease patient will continue on antibiotic therapy for right lower extremity cellulitis. Blood cultures are positive for Klebsiella and awaiting repeat cultures to finalize and monitor for clearance of bacteremia. Patient's blood sugars are better controlled and being resumed on diet and will slowly advance as tolerated and continue to adjust insulins accordingly. Patient currently resides at an [facility] and will have PT/OT therapy evaluate the patient with case management on consult. 04/27/2024 Patient is seen in follow-up today with multiple consultations following. Plan is for PICC line removal and per nursing staff there is a groin catheter that needs to be removed. Culture tip being sent and pending. Blood cultures K lebsiella with ESBL and awaiting for clearance of bacteremia. Patient currently resides at an [facility] although evaluated by physical therapy and given the extent of infection, patient will require discharge to [facility]. Continue local wound care per ID recommendations and recommend PT/OT therapy daily. Blood sugars are better controlled and will continue current regimen and adjust medications accordingly. 04/28/2024 Patient is evaluated in follow-up on the medical floor. Follow-up with physical therapy patient was noted to have significant bleeding from his feet through the dressing. Dressings were removed and patient had significant bleeding wounds to the toes on his right foot and his left great toe. Dr. Huang was consulted for evaluation of his wounds. Patient had bedside debridement of the right heel wounds today with Dr. Huang as well as evaluation of the bleeding toe wounds. local wound care with silver AG and Kerlix and Nicola wrap's. Next wound dressing will be on Thursday. Blood cultures are showing ESBL Klebsiella bacteremia with possible pneumonia versus PICC line infection patient was recently diagnosed with candidemia and his secondary PICC line was discontinued. Blood culture has been repeated through the PICC line peripherally and he also had a left lower triple-lumen catheter in the groin which was discontinued and sent for culturing. Patient remains currently on meropenem and anidulafungin IV. His white blood cell count today is 12.7 hemoglobin 10.8 his sodium level is 134, potassium 2.7, BUN of 22 creatinine 0.7., Magnesium 1.7. His procalcitonin le geoff has been significantly improved from greater than 100 down to 6.78. 04/29/2024 Patient is seen in follow-up today with multiple consultations following vascular surgery. Patient is status post debridement at the bedside and bleeding has somewhat improved although continues to have drainage noted. Pending cultures and preliminary showing Staph aureus continued on meropenem and Eraxis with infectious disease following. Repeat blood cultures are negative thus far and catheter tip was sent and negative and awaiting triple-lumen that was removed from groin and sent for culture to be finalized. Patient is afebrile and white count has normalized. Patient tolerating diet and blood sugars are being monitored closely. Patient with significant weakness will need ECF and has been accepted at [facility] with authorization. Continue local wound care per vascular and ID recommendations. 04/30 Patient continued treated for his foot infection secondary to ESBL Klebsiella related to his uncontrolled diabetes with associated bacteremia with the same microorganism Foot x-ray done today showing no convincing evidence of acute osteomyelitis Patient kept on meropenem and antifungal medication Sugars controlled Pain is controlled 05/01 Patient is improving slowly and gradually No new complaints Diet changed to consistent carbohydrate diet Continued on meropenem and anidulafungin 05/02/2024 Patient is seen in follow-up today currently sleeping although arousable. Patient is undergoing bone scan per infectious disease. Patient currently has IV antibiotics infusing with a PICC line and per ID, recommends replacing PICC line on discharge. Patient will be on prolonged IV antibiotics outpatient. Plan is for discharge to [facility] with social work following. Apparently we are out of PICC line supplies and currently awaiting this. 05/03/2024 Patient is seen in follow-up today maintained on antibiotics with infectious disease following as wound cultures have showed Enterococcus along with Staph epidermidis and Klebsiella ESBL. Patient recently underwent bone scan yesterday showing increased uptake in the first left digit suggestive of osteomyelitis. Patient does have a PICC line and will receive a new PICC line per ID recommendations and currently awaiting supplies for PICC line placement. Patient will require prolonged IV antibiotics outpatient and will be going to [facility] on discharge. 05/04/2024 Patient is seen in follow-up today with infectious disease and vascular surgery following. Patient has received a PICC line today and is being prepared for discharge to [facility] and continued IV antibiotic therapy. Patient taking Eraxis for candidemia although per [facility] [place] this medication is too expensive and they will not be able to accept the patient. Patient is taking Lexapro and will transition to Cymbalta and adjust medications to Diflucan per ID re commendations. Will discuss further with infectious disease regarding discharge planning possibly in the next 24 hours. Review of systems: Constitutional: No reports of fatigue, fever, or chills Cardiovascular: No reports of chest pain or palpitations Respiratory: No reports of shortness of breath or cough GI: No reports of nausea, vomiting, or diarrhea : No reports of dysuria or retention Neurovascular: reports of weakness or numbness All medications have been reviewed PHYSICAL EXAMINATION: GENERAL: The patient is awake, alert and oriented x 2, baseline, well developed, thin built, elderly appearing HEENT: Pupils are round and equally reacting to light. EOMI. No scleral icterus. No conjunctival pallor. Normocephalic, atraumatic. No pharyngeal erythema. No thyromegaly. CARDIOVASCULAR: S1 and S2 muffled PULMONARY: Diminished breath sounds bilaterally otherwise chest is clear to a uscultation, no wheezing or crackles. ABDOMEN: Soft, thin, nontender, nondistended, normoactive bowel sounds. No palpable organomegaly. MUSCULOSKELETAL: No joint swelling or deformity. EXTREMITIES: No cyanosis, clubbing, or pedal edema. NEUROLOGICAL: Limited due to his clinical condition SKIN: Patient has multiple ulcers in bilateral lower extremities. Surgical dressings are currently dry and intact Assessment: -Diabetic ketoacidosis, improved and patient and has transitioned to sliding scale and long-acting -Sepsis secondary bilateral lower extremity wounds with surrounding cellulitis of the right lower extremity, infectious disease following and continued on antibiotics. Concern for PICC line infection versus triple-lumen groin catheter that was removed and sent for cultures. Repeat blood cultures thus far remain negative -Bacteremia with Klebsiella, ESBL likely secondary to above -Right heel ulceration pressure injury with wounds on toes 1 through 5 -Left heel pressure injury with right big toe superficial wound, status post bedside debridement -Diabetes mellitus, type I uncontrolled with hyperglycemia secondary to noncompliance -Hyperlipidemia -Hypertension -Depression and other psychiatric issues patient baseline usually alert oriented x 1 and does not talk much as per the nursing staff -Generalized weakness with gait dysfunction, will need ECF on discharge, raúl nicole resides at [facility] DVT prophylaxis: Subcutaneous heparin GI prophylaxis: Pepcid Plan: Awaiting cultures and repeat blood cultures to monitor clearance of bacteremia. Repeat blood cultures have been negative thus far. Infectious disease following and will continue on IV antibiotics and does have a PICC line. Patient did have a triple-lumen groin catheter that was found and removed and sent for cultures. Patient per ID recommendations is to receive a new PICC line prior to discharge. PICC line was just placed today 05/04/2024 as there was staff and supplies available PT/OT therapy evaluation and case management/social work following for discharge and will require ECF, will require IV antibiotics on discharge and continued wound care. Patient will require insurance authorization and has been accepted at [facility] Awaiting repeat cultures to determine discharge antibiotics. Further discussion was had with infectious disease regarding discharge planning and patient will continue on Merrem along with oral Diflucan on discharge and will transition Lexapro to Cymbalta as there are interactions with antibiotics medications. [facility] reporting they are unable to accept the patient while on Eraxis. Medication is too expensive. Probable discharge to [facility] in 24 hours The impression and plan of care has been dictated by Ashely Zimmer, Nurse Practitioner as directed. Dr. Perez MD I have performed a history and examination and MDM of this patient, discussed the same with the dictator, and agree with the dictator's assessment and plan as written ,documented as a scribe. Based on total visit time, I have performed more than 50% of the visit. Objective - Vital Signs Vital signs: Vital Signs Temp 97.6 F 05/04/24 07:20 Pulse 58 L 05/04/24 07:20 Resp 16 05/04/24 07:20 BP 97/62 05/04/24 07:20 Pulse Ox 93 L 05/04/24 07:20 FiO2 Intake & Output 05/03/24 05/04/24 05/04/24 18:59 06:59 18:59 Intake Total 1392 1490 Output Total 1700 1000 Balance -308 -1000 1490 Intake: Intake, IV Titration 312 Amount Anidulafungin 100 mg In 112 Sodium Chloride 0.9% 100 ml @ 84 mls/hr IVPB DAILY JESSICA Rx#:[id number] Meropenem 500 mg In 200 Sodium Chloride 0.9% 100 ml @ 33.333 mls/hr IVPB Q6H JESSICA Rx#:[id number] Oral 1080 1490 Output: Urine 1700 1000 Other: Voiding Method External Catheter External Catheter - Labs CBC & Chem 7: 05/03/24 04:31 05/03/24 04:31 Labs: Abnormal Lab Results - Last 24 Hours (Table) 05/03/24 05/03/24 05/03/24 Range/Units 12:18 17:21 20:17 POC Glucose (mg/dL) 347 H 130 H 244 H (70-110) mg/dL 05/04/24 05/04/24 Range/Units 01:16 07:17 POC Glucose (mg/dL) 261 H 210 H (70-110) mg/dL
[2024-05-05 06:53] LABS: Glucose,Whole Blood 71 mg/dL (70-110)
[2024-05-05 12:15] LABS: Glucose,Whole Blood 382 mg/dL (70-110)
--- NOTE | 2024-05-05 13:41 | P.PN ---
Subjective Progress Note Date: 05/05/24 Principal diagnosis: Reason for follow-up is bacteremia and candidemia Patient is a 58-year-old male with a past medical history significant for diabetes mellitus hypertension hyperlipidemia with recent admission to the hospital with DKA at that point the patient was diagnosed with candidemia secondary to PICC line which was subsequent discontinued the patient did have a evidence of multiples septic emboli to the lung but no evidence of any vegetation patient now has been brought back to the hospital with DKA noticed to have elevated white count bilateral foot wound probably discoloration blood cultures came back positive with ESBL Klebsiella On today's evaluation that is 05/05/2024,the patient remains to be afebrile, patient is on room air not requiring supplemental oxygen and denies any shortness of breath no chest pain or cough.Patient denies having any nausea or vomiting, no abdominal pain and no diarrhea, no new symptoms. No new lab has been obtained today Objective - Vital Signs Vital signs: Vital Signs Temp 98.3 F 05/05/24 12:08 Pulse 73 05/05/24 12:08 Resp 16 05/05/24 12:08 BP 107/61 05/05/24 12:08 Pulse Ox 93 L 05/05/24 12:08 FiO2 Intake & Output 05/04/24 05/05/24 05/05/24 18:59 06:59 18:59 Intake Total 3770 2030 Output Total 2600 1800 Balance 1170 -1800 2030 Weight 81.647 kg Intake: Oral 3770 2030 Output: Urine 2600 1800 Other: Voiding Method External Catheter External Catheter External Catheter # Bowel Movements 1 - Exam GENERAL DESCRIPTION: Middle-age male lying in bed in no distress RESPIRATORY SYSTEM: Unlabored breathing , decreased breath sounds at bases HEART: S1 S2 regular rate and rhythm , ABDOMEN: Soft , no tenderness EXTREMITIES: Right heel wound currently dressed left big toe with no swelling redness - Labs CBC & Chem 7: 05/03/24 04:31 05/03/24 04:31 Labs: Abnormal Lab Results - Last 24 Hours (Table) 05/04/24 05/04/24 05/05/24 Range/Units 17:06 20:29 12:13 POC Glucose (mg/dL) 286 H 204 H 382 H (70-110) mg/dL Assessment and Plan (1) Diabetic foot ulcers Current Visit: No Status: Acute Code(s): E11.621 - TYPE 2 DIABETES MELLITUS WITH FOOT ULCER; L97.509 - NON-PRESSURE CHRONIC ULCER OTH PRT UNSP FOOT W UNSP SEVERITY SNOMED Code(s): 475075532 (2) Leukocytosis Current Visit: No Status: Acute Code(s): D72.829 - ELEVATED WHITE BLOOD CELL COUNT, UNSPECIFIED SNOMED Code(s): 417830335 (3) Bacteremia Current Visit: Yes Status: Acute Code(s): R78.81 - BACTEREMIA SNOMED Code(s): 3939702 (4) ESBL (extended spectrum beta-lactamase) producing bacteria infection Current Visit: Yes Status: Acute Code(s): A49.9 - BACTERIAL INFECTION, UNSPECIFIED; Z16.12 - EXTENDED SPECTRUM BETA LACTAMASE (ESBL) RESISTANCE SNOMED Code(s): 924090986 (5) Candidemia Current Visit: No Status: Acute Code(s): B37.7 - CANDIDAL SEPSIS SNOMED C ode(s): 209652264 Plan: 1patient with multiple laceration of bilateral lower extremity especially to the toes and left heel area but no evidence of any cellulitis or recommend local wound care with dry Aquacel silver dressing change q. 48-hour 2-patient with evidence of ESBL Klebsiella bacteremia source likely right heel infected wound s/p debridement catheter culture have been negative so far repeat blood culture negative 3-x-ray of right heel did not show any bony changes we will obtain bone scan did not show any evidence of uptake at the right heel area did mention some increased uptake to the left big toe however the patient currently do not have any clinical findings suggestive of osteomyelitis 4no local jail will take the patient on IV Eraxis and need to be switched over to a different agent I have detailed discussion with MAINTENANCE TEAM MEMBER for admitting team who after confirmation with the pharmacy Lexapro has been discontinued Only medication that was interacting with Diflucan he will be switched over to oral Diflucan 400 mg daily for 3 weeks to finish his 6-week course of therapy and a 2-week course of Invanz 1 g daily, along with a close the patient follow- up Dictation was produced using [employer] dictation software. please excuse any grammatical, word or spelling errors. Time with Patient: Less than 30
--- NOTE | 2024-05-05 14:01 | P.DS ---
Providers Date of admission: 04/25/24 04:41 Expected date of discharge: 05/05/24 Attending physician: Curtis Todd Consults: 04/25/24 04:45 Consult Physician Routine Consulting Provider: Xochitl Romero Consult Reason/Comments: DKA Do you want consulting provider notified?: Already Contacted 04/25/24 09:31 Consult Physician Routine Consulting Provider: Shahbaz Arce Consult Reason/Comments: foot ulcer Do you want consulting provider notified?: Yes 04/28/24 08:32 Consult Physician Routine Consulting Provider: Bharathi Huang Consult Reason/Comments: Feet wounds Do you want consulting provider notified?: Yes Primary care physician: Stated None Hospital Course: Final diagnosis -Diabetic ketoacidosis, improved -Sepsis secondary bilateral lower extremity wounds with surrounding cellulitis of the right lower extremity, infectious disease following and continued on antibiotics. Concern for PICC line infection versus triple-lumen groin catheter that was removed and sent for cultures. Repeat blood cultures thus far remain negative -Bacteremia with Klebsiella, ESBL likely secondary to above -Right heel ulceration pressure injury with wounds on toes 1 through 5 -Left heel pressure injury with right big toe superficial wound, status post bedside debridement -Diabetes mellitus, type I uncontrolled with hyperglycemia secondary to noncompliance -Hyperlipidemia -Hypertension -Depression and other psychiatric issues patient baseline usually alert oriented x 1 and does not talk much as per the nursing staff -Generalized weakness with gait dysfunction, was residing at [facility] prior to arrival DVT prophylaxis GI prophylaxis Full code Discharge disposition Patient is being discharged in a stable condition with guarded prognosis to [facility]. Patient will follow-up with nurse practitioner Hailey Allison in the outpatient setting upon discharge. Patient is to continue with IV antibiotics in the form of Invanz 1 g daily for the next 3 weeks as well as oral Diflucan for 3 weeks per ID recommendations. Patient to follow-up with the wound care center with Dr. Huang as scheduled. Total time taken is greater than 35 minutes. Hospital course This is a 58-year-old male who was recently admitted with initial DKA also noted to have significant sepsis secondary to bilateral lower extremity wounds with surrounding cellulitis status post bedside debridement with vascular surgery. There was concerns of possible previous PICC line infection and also noted to have a triple-lumen groin catheter that was removed. Those cultures are negati ve although wound cultures are showing Staph aureus Enterococcus and Staphylococcus epidermidis with Klebsiella pneumonia and ESBL on the finalized cultures. Patient has received a new PICC line and previous PICC line was replaced and patient has been cleared for discharge to ECF. Patient was also on eraxis per infectious disease recommendations and was considered too costly for ECF and has been transition to oral Diflucan. Patient will continue Invanz 1 g for 3 weeks per ID recommendations. Patient to follow-up with Dr. Huang at the wound care center in the next 1 week. Continue with local wound care in the form of Aquacel silver to bilateral diabetic foot ulcers and recommend changing every 48 hours or if becoming soiled to change more frequently. Patient also instructed to elevate lower extremities while at rest. Patient is significantly weak and unable to bear weight on lower extremities and would benefit from continued strength mobility training with physical therapy at the [facility]. Please refer to other consultation notes for further HPI. Currently no reports of chest pain, shortness of breath, or palpitations. Patient is afebrile. No reports of nausea or vomiting and patient is tolerating diet. Patient will be going to [facility] today. High risk for readmissions given significant comorbidities and noncompliance with poor diabetic control. Physical exam: Gen: This is a 58-year-old male who is awake, alert and oriented x 2, baseline, well-developed, elderly appearing, thin built HEENT: Head is atraumatic, normocephalic. Pupils equal, round. Sclerae is an icteric. NECK: Supple. No JVD. No lymphadenopathy. No thyromegaly. LUNGS: Diminished breath sounds bilaterally otherwise clear to auscultation. No wheezes or rhonchi. No intercostal retractions. HEART: S1, S2 are muffled ABDOMEN: Soft. Thin. Bowel sounds are present. No masses. No tenderness. EXTREMITIES: No pedal edema. No calf tenderness. Bilateral foot dressings are currently dry and intact and were just changed NEUROLOGICAL: Patient is awake, alert and oriented x2. Cranial nerves 2 through 12 are grossly intact. Diffusely weak Please refer to medication reconciliation sheet for a list of medications. The impression and plan of care has been dictated by Ashely Zimmer, Nurse Practitioner as directed. Dr. Perez MD I have performed a history and examination and MDM of this patient, discussed the same with the dictator, and agree with the dictator's assessment and plan as written ,documented as a scribe. Based on total visit time, I have performed more than 50% of the visit. Patient Condition at Discharge: Fair Plan - Discharge Summary Discharge Rx Participant: No New Discharge Prescriptions: New Heparin Sodium,Porcine (1 ml) [Heparin Sodium] 5,000 unit SQ Q8HR each INSULIN LISPRO (HumaLOG) [HumaLOG] 0 unit SQ ACHS each Acetaminophen Tab [Tylenol] 650 mg PO Q6HR PRN tab PRN Reason: Mild Pain Or Fever > 100.5 Insulin Glargine (Lantus) [Lantus Vial] 20 unit SQ BID each DULoxetine HCL [Cymbalta] 30 mg PO DAILY #30 cap Fluconazole [Diflucan] 100 mg PO DAILY 21 Days #21 tab Ertapenem [INVanz] 1 gm IVPB DAILY 21 Days #21 each Continue traZODone HCL 300 mg PO HS@1900 Montelukast [Singulair] 10 mg PO DAILY@0700 Ferrous Sulfate [Iron] 325 mg PO DAILY@0700 Cetirizine HCl [Zyrtec] 10 mg PO DAILY@0700 clonazePAM [KlonoPIN] 2 mg PO TID@0700,1200,1900 Fluticasone Nasal [place] [Flonase Nasal [place]] 2 spray EA NOSTRIL DAILY@0700 Morphine Sulfate ER [Ms Contin] 60 mg PO BID@0700,1900 #4 tab Pantoprazole [Protonix] 40 mg PO DAILY@0700 Cholecalciferol [Vitamin D3 (125 Mcg = 5000 Iu)] 125 mcg PO HS@1900 Famotidine [Pepcid] 20 mg PO BID@1200,1900 PRN PRN Reason: Heartburn Atorvastatin [Lipitor] 40 mg PO HS@1900 Discontinued Insulin Degludec [Tresiba Flextouch U-200 Pen] 20 - 28 units SQ DAILY@0700 Escitalopram [Lexapro] 20 mg PO DAILY@0700 Anidulafungin [Eraxis] 100 mg IVPB DAILY@1700 35 Days each Discharge Medication List Atorvastatin [Lipitor] 40 mg PO HS@1900 04/06/24 [History] Cetirizine HCl [Zyrtec] 10 mg PO DAILY@0700 04/06/24 [History] Cholecalciferol [Vitamin D3 (125 Mcg = 5000 Iu)] 125 mcg PO HS@1900 04/06/24 [History] Famotidine [Pepcid] 20 mg PO BID@1200,1900 PRN 04/06/24 [History] Ferrous Sulfate [Iron] 325 mg PO DAILY@0704/06/24 [History] Fluticasone Nasal [place] [Flonase Nasal [place]] 2 spray EA NOSTRIL DAILY@0704/06/24 [History] Montelukast [Singulair] 10 mg PO DAILY@69904/06/24 [History] Pantoprazole [Protonix] 40 mg PO DAILY@69904/06/24 [History] clonazePAM [KlonoPIN] 2 mg PO TID@0700,1200,1900 04/06/24 [History] traZODone HCL 300 mg PO HS@189904/06/24 [History] Acetaminophen Tab [Tylenol] 650 mg PO Q6HR PRN tab 05/04/24 [Rx] Heparin Sodium,Porcine (1 ml) [Heparin Sodium] 5,000 unit SQ Q8HR each 05/04/24 [Rx] INSULIN LISPRO (HumaLOG) [HumaLOG] 0 unit SQ ACHS each 05/04/24 [Rx] Insulin Glargine (Lantus) [Lantus Vial] 20 unit SQ BID each 05/04/24 [Rx] Morphine Sulfate ER [Ms Contin] 60 mg PO BID@0700,1900 #4 tab 05/04/24 [Rx] DULoxetine HCL [Cymbalta] 30 mg PO DAILY #30 cap 05/05/24 [Rx] Ertapenem [INVanz] 1 gm IVPB DAILY 21 Days #21 each 05/05/24 [Rx] Fluconazole [Diflucan] 100 mg PO DAILY 21 Days #21 tab 05/05/24 [Rx] Follow up Appointment(s)/Referral(s): Hailey Allison NPC [REFERRING] - 1-2 Days Bharathi Huang MD [STAFF PHYSICIAN] - 1 Week Shahbaz Arce MD [STAFF PHYSICIAN] - 1 Week Activity/Diet/Wound Care/Special Instructions: Patient is going to [facility] as tolerated Patient to continue with PICC line and IV antibiotics in the form of Merrem and Eraxis per ID recommendations Follow-up with the wound care center outpatient Continue local wound care by applying Aquacel silver to bilateral diabetic foot ulcers and change every 48 hours or more frequently if becoming soiled Follow-up with infectious disease outpatient Discharge Disposition: TRANSFER TO SNF/ECF
[2024-05-05] MEDS: ERTAPENEM 1 GM in SODIUM CHLORIDE 0.9% 50 ML IVPB SCH (14:38)
[2024-05-05 17:07] LABS: Glucose,Whole Blood 176 mg/dL (70-110)
[2024-05-05 17:46] VITALS: BP 116/65; PULSE 63; TEMP 98.5
--- NOTE | 2024-05-08 18:24 | CDI ---
Documentation Clarification Form Date: 05/08/2024 05:58:45 PM From: Cinda Armstrong Phone: Admit Date: 04/25/2024 04:41:00 AM Patient Name: Kenneth Spears Visit Number: [id number] Discharge Date: 05/05/2024 06:39:00 PM ATTENTION: The Clinical Documentation Specialists (CDI) and [facility] [employer] Coding Staff appreciate your assistance in clarifying documentation. Please respond to the clarification below the line at the bottom and electronically sign. The CDI & [facility] Coding staff will review the response and follow-up if needed. Please note: Queries are made part of the Legal Health Record. If you have any questions, please contact the author of this message via ITS. Doctor/Provider: Curtis Todd There is documentation of LT heel pressure injury. Additional specificity regarding the severity of the wound is requested. Patient history/risk factors: 58yo F, DKA I, sepsissecondary BLE wounds & cellulitis, Klebsiella, ESBL, noncompliance, HLD, HTN, depressionand other psychiatric issues, gaitdysfunction Clinical Indicators: Wound assessment: RT heel w wounds on toes 1 through 5, LT heelPI, RT big toe superficialwound Treatment: monitored Please clarify the severity of the wound: [ x ] Limited to breakdown of skin [ ] With fat layer exposed [ ] Other, Please specify [ ] Unable to determine (Template Last Revised: April 2020) MTDD
== END 2024-05-05 18:39 | DRG 420 ==
LOC: EC 02:34 → 2SICU 04:41 → 3SCARD 15:40 → 5NMEDONC 04-26 06:58 → 1SOBS 04-26 16:42 → 5NMEDONC 04-28 18:53
PROVIDERS: ADMIT Internal Medicine; ATTEND Internal Medicine
PROC: 02PYX3Z Removal of Infusion Device from Great Vessel, External Approach (ICD-10-PCS; 2024-04-26)
PROC: 0JBQ0ZZ Excision of Right Foot Subcutaneous Tissue and Fascia, Open Approach (ICD-10-PCS; principal; 2024-04-28)
DX: E10.10 Type 1 diabetes mellitus with ketoacidosis without coma (principal); A41.81 Sepsis due to Enterococcus; G93.41 Metabolic encephalopathy; I70.261 Atherosclerosis of native arteries of extremities with gangrene, right leg; B95.61 Methicillin susceptible Staphylococcus aureus infection as the cause of diseases classified elsewhere; L89.621 Pressure ulcer of left heel, stage 1; L97.412 Non-pressure chronic ulcer of right heel and midfoot with fat layer exposed; L03.115 Cellulitis of right lower limb; L03.116 Cellulitis of left lower limb; B96.1 Klebsiella pneumoniae [K. pneumoniae] as the cause of diseases classified elsewhere; D64.9 Anemia, unspecified; E10.621 Type 1 diabetes mellitus with foot ulcer; E10.622 Type 1 diabetes mellitus with other skin ulcer; I10 Essential (primary) hypertension; F32.A Depression, unspecified; L97.511 Non-pressure chronic ulcer of other part of right foot limited to breakdown of skin; L97.521 Non-pressure chronic ulcer of other part of left foot limited to breakdown of skin; E78.5 Hyperlipidemia, unspecified; R26.9 Unspecified abnormalities of gait and mobility; Z16.12 Extended spectrum beta lactamase (ESBL) resistance; Z79.4 Long term (current) use of insulin; Z86.711 Personal history of pulmonary embolism; Z79.899 Other long term (current) drug therapy; Z91.199 Patient's noncompliance with other medical treatment and regimen due to unspecified reason
CPT/HCPCS: 36415; 36573; 71045; 78315; 80048; 80051; 80053; 81001; 82009; 82330; 82565; 82803; 82947; 83735; 84100; 84145; 84484; 84520; 85025; 85652; 86140; 87040; 87070; 87075; 87077; 87186; 87205; 87636; 93005; 96361; 96365; 96366; 96367; 96368; 99291

== ENCOUNTER → 2024-07-13 | Outpatient (CLI) | payer OTHER ==
--- NOTE | 2024-07-13 14:03 | CT ---
EXAMINATION TYPE: CT chest wo con DATE OF EXAM: 07/13/2024 COMPARISON: Chest CT April 14, 2024 CLINICAL INDICATION: Male, 58 years old with history of B37.7 CANDIDAL SEPSIS, candidal sepsis. TECHNIQUE: CT scan of the thorax is performed without IV contrast. CT DLP: 381 mGycm. Automated Exposure Control for Dose Reduction was Utilized. FINDINGS: LUNGS: Resolved multifocal bilateral groundglass opacities. Persistent irregular scar in the lateral aspect right upper lobe measuring 1.2 cm long axis. There is [id number] left greater than right bilateral lower lobe linear scarring. HEART: Size within normal limits. Mild coronary artery calcifications present. MEDIASTINUM: Lack of IV contrast is noted to limit evaluation for mediastinal and especially hilar ad enopathy. There are no definitive greater than 1 cm hilar or mediastinal lymph nodes. No cardiomega ly or pericardial effusion is seen. [id number] coronary artery calcifications are present. OTHER: No additional significant abnormality is seen. IMPRESSION: Resolved bilateral multifocal groundglass opacities. Focal scar lateral aspect right uppe r lobe is seen. No new acute pulmonary process identified. [facility], , 07/13/2024 2:01 PM
== END | disposition home or self-care (01) ==
LOC: RADCTMAIN 10:02
PROVIDERS: ATTEND Family Medicine
DX: B37.7 Candidal sepsis (principal); J98.4 Other disorders of lung
CPT/HCPCS: 71250